=== PATIENT | male | born 1970 | race Caucasian/White ===

== ENCOUNTER 2016-09-27 06:22 | Inpatient (IN) | payer MEDICARE, MEDICAID ==
[~2016-09-27] VITALS: Ht 177.8 cm; Wt 119.3 kg
[2016-09-27] VITALS (14 sets, daily range): BP systolic 139–174; BP diastolic 63–92
[~2016-09-27 06:22] MED LIST: AMLO10TA2 PO; AMOX1TAB10 PO; ASCO500T2 PO; ATOR10TA60 PO; CALC0.25 PO; CALC300T5 PO; CALC667C6 PO; CARV25TA2 PO; CLIN300C86 PO; DARB100D SQ; DILT180C29 PO; DOCU50CA9 PO; DRON400T PO; FENT1PAT15 TP; FURO40TA4 PO; GABA-586 PO; HYDR-2869 PO; INSU100I11 SQ; INSU100I13 SQ; INSU100I17 SQ; INSU100I27 SQ; INSU100V13 SQ; INSU100V8 SQ; LISI-334 PO; LOSA100T6 PO; METO50TA2 PO; OXYC-323 PO; SERT25TA4 PO; SIMV20TA PO; SODI650T PO
[2016-09-27 07:34] LABS: INR 1.3 (0.8-1.1); PROTHROMBIN TIME PATIENT 15.7 SEC (11.7-14.0)
[2016-09-27 07:42] LABS: BASO # 0.1 x10^3/uL (0.0-0.2); BASO % 1 % (0-3); EOS % 5 % (0-3); HEMATOCRIT 45.7 % (39.0-53.0); HEMOGLOBIN 14.3 g/dL (13.0-17.5); LYMPH # 1.6 x10^3/uL (1.0-4.8); LYMPH % 17 % (24-48); MEAN CORPUSCULAR HEMOGLOBIN 26 pg (25-35); MEAN CORPUSCULAR HGB CONC 31 g/dL (31-37); MEAN CORPUSCULAR VOLUME 84 fL (79-100); MONO % 11 % (0-9); NEUT % 67 % (31-73); PLATELET COUNT 152 x10^3/uL (140-400); RED BLOOD COUNT 5.43 x10^6/uL (4.30-5.70); RED CELL DISTRIBUTION WIDTH 17.1 % (11.5-14.5); WHITE BLOOD COUNT 9.7 x10^3/uL (4.0-11.0)
[2016-09-27] MEDS ORDERED: HYDR-2869 PO (08:04)
[2016-09-27] MEDS ORDERED: FOLI0.8T21 PO (08:04)
[2016-09-27] MEDS ORDERED: WARF7.5T6 PO (08:04)
[2016-09-27] MEDS ORDERED: FERR210T PO (08:04)
[2016-09-27] MEDS ORDERED: FENT1PAT19 TD (08:04)
[2016-09-27 08:08] LABS: CALCIUM 8.6 mg/dL (8.5-10.1); CREATININE 9.1 mg/dL (0.7-1.3); GFR 6.3
[2016-09-27] MEDS ORDERED: LIDOCAINE 1% / SOD BICARB 8.4% 20 ML VIAL. IJ ONE ×2 (09:51→10:45)
[2016-09-27] MEDS ORDERED: HEPARIN for ARTERIAL LINE 1,500 ML ONE (09:51)
[2016-09-27] MEDS ORDERED: IOHEXOL 300 MG/ML 100ML VIAL. ONE (09:51)
[2016-09-27] MEDS ORDERED: IODIXANOL 320 MG/ML 100 ML VIAL. ONE (10:11)
[2016-09-27] MEDS ORDERED: FENTANYL PF 250 MCG/5 ML VIAL. ONE (10:20)
[2016-09-27] MEDS ORDERED: MIDAZOLAM HCL/PF 5 MG/5 ML VIAL ONE (10:20)
[2016-09-27] MEDS ORDERED: IODIXANOL 320 MG/ML 100 ML VIAL. IART ONE (10:45)
[2016-09-27] MEDS ORDERED: MIDAZOLAM HCL/PF 5 MG/5 ML VIAL IV ONE (10:45)
[2016-09-27] MEDS ORDERED: FENTANYL PF 250 MCG/5 ML VIAL. IV ONE (10:45)
[2016-09-27] MEDS ORDERED: IODIXANOL 320MG/ML 50ML VIAL. ONE (10:59)
[2016-09-27] MEDS ORDERED: NITROGLYCERIN 200 MCG/2 ML SYRINGE FOR CATH/VASC LAB. IART ONE (11:00)
[2016-09-27] MEDS ORDERED: CONTRAST GIVEN MC PRN (11:00)
--- NOTE | 2016-09-27 11:54 | PDOC1 ---
History and Physical Date of Procedure Date of Admission Sep 27, 2016 Procedure Procedure Thoracic aortogram with selective rt UE angio, without and with AVG compression , and without and with IA NTG. Indication Indication 45 YO diabetic smoker with ESRD, right upper arm AVG, right 5th finger gangrene and with nonpalpable rt radial or ulnar pulses---c/w AVG steal phenomenon. Past Medical History Past Medical History See Nursing Pre Procedure PMH Past Surgical History Past Surgical History See Nursing Pre procedure PSH Current Medications Current Medications Current Medications Iohexol (Omnipaque 300 Mg/ml) 100 ml STK-MED ONCE .ROUTE ; Start 09/27/16 at 09: 51; Stop 09/27/16 at 09:52; Status DC Lidocaine/Sodium Bicarbonate 20 ml 20 ml STK-MED ONCE IJ ; Start 09/27/16 at 09: 51; Stop 09/27/16 at 09:52; Status DC Heparin Sodium/ Sodium Chloride 1,500 ml @ As Directed STK-MED ONCE .ROUTE ; Start 09/27/16 at 09:51; Stop 09/27/16 at 09:52; Status DC Iodixanol (Visipaque 320) 100 ml STK-MED ONCE .ROUTE ; Start 09/27/16 at 10:11; Stop 09/27/16 at 10:12; Status DC Midazolam HCl (Versed) 5 mg STK-MED ONCE .ROUTE ; Start 09/27/16 at 10:20; Stop 09/27/16 at 10:21; Status DC Fentanyl Citrate (Fentanyl 5ml Vial) 250 mcg STK-MED ONCE .ROUTE ; Start at 10:20; Stop 09/27/16 at 10:21; Status DC Heparin Sodium/ Sodium Chloride 1,000 unit 1X ONCE IART Last administered on 10:48; Start 09/27/16 at 10:45; Stop 09/27/16 at 10:46; Status DC Lidocaine/Sodium Bicarbonate (Buffered Lidocaine 1%) 20 ml 1X ONCE IJ Last administered on 09/27/16 10:48; Start 09/27/16 at 10:45; Stop 09/27/16 at 10:46 ; Status DC Midazolam HCl (Versed) 5 mg 1X ONCE IV Last administered on 09/27/16 11:17; Start 09/27/16 at 10:45; Stop 09/27/16 at 10:46; Status DC Fentanyl Citrate (Fentanyl 5ml Vial) 250 mcg 1X ONCE IV Last administered on 11:17; Start 09/27/16 at 10:45; Stop 09/27/16 at 10:46; Status DC Iodixanol (Visipaque 320) 100 ml 1X ONCE IART Last administered on 09/27/16 11:17; Start 09/27/16 at 10:45; Stop 09/27/16 at 10:46; Status DC Info (Do NOT chart on this entry -- for MONITORING) 1 each PRN DAILY PRN MC SEE COMMENTS; Start 09/27/16 at 11:00; Stop 09/29/16 at 10:59 Iodixanol (Visipaque 320) 50 ml STK-MED ONCE .ROUTE ; Start 09/27/16 at 10:59; Stop 09/27/16 at 11:00; Status DC Nitroglycerin (Nitroglycerin) 200 mcg 1X ONCE IART Last administered on 11:05; Start 09/27/16 at 11:00; Stop 09/27/16 at 11:07; Status DC Active Scripts Active Clindamycin Hcl 300 Mg Capsule 1 Cap PO BID Novolog Flexpen (Insulin Aspart) 100 Unit/1 Ml Insuln.pen 8 Units SQ TIDAC Reported Lantus Solostar (Insulin Glargine,Hum.rec.anlog) 100 Unit/1 Ml Insuln.pen 15 Unit SQ QHS Furosemide 40 Mg Tablet 1 Tab PO BID Tums (Calcium Carbonate) 300 Mg Tab.chew 500 Mg PO QID Losartan Potassium 100 Mg Tablet 100 Mg PO DAILY Stool Softener (Docusate Sodium) 50 Mg Capsule 50 Mg PO BID Atorvastatin Calcium 10 Mg Tablet 10 Mg PO DAILY Sodium Bicarbonate 650 Mg Tablet 1,300 Mg PO TID Amlodipine Besylate 10 Mg Tablet 10 Mg PO DAILY Metoprolol Tartrate 50 Mg Tablet 50 Mg PO BID Warfarin Sodium 7.5 Mg Tablet 7.5 Mg PO DAILY [place] Tablet (Folic Acid/Vitamin B Comp W-C) 0.8 Mg Tablet 0.8 Mg PO DAILY Ferric Citrate 210 Mg Tablet 210 Mg PO TID Hydralazine Hcl 50 Mg Tablet 50 Mg PO QID FENTANYL 75mcg/hr (Fentanyl) 1 Each Patch.td72 1 Patch TD Q72H PRN Allergies Allergies: Coded Allergies: clarithromycin (Verified Allergy, Intermediate, 03/11/16) levofloxacin (Verified Allergy, Intermediate, 03/11/16) Physical Exam Vital Signs Vital Signs Date Time Temp Pulse Resp B/P Pulse Ox O2 Delivery O2 Flow Rate FiO2 09/27/16 11:17 12 98 Nasal Cannula 2.0 09/27/16 11:10 80 09/27/16 07:50 150/88 Lungs: Clear to auscultation Heart: Regular rate Psych/Mental Status: Mental status NL Vascular Strong thrill within rt upper arm AVG. Nonpalpable rt radial and ulnar pulses. Rt 5th finger gangrene. Diagnostic Data/Imaging Images No prior rt UE imaging available Assessment Assessment 45 YO male with ESRD, right upper arm AVG, nonpalpable rt radial and ulnar pulses and rt 5th finger gangrene------c/w AVG steal phenomenon Problems: Plan Plan Thoracic aortogram. Selective rt UE angio with and without AVG compression and with and without IA NTG. Angio evaluation for possible DRIL procedure. STEFFI RALPH MD Sep 27, 2016 11:54
--- NOTE | 2016-09-27 11:55 | PDOC ---
MODERATE SEDATION ASSESSMENT RISKS/ALTERNATIVES Risks/Alternatives Risks and alternatives of this type of sedation and procedure discussed with: RISK/ALTERNATIVES: Patient H & P ON CHART H & P H & P on chart and reviewed for co-morbid conditions and appropriate labs. H&P ON CHART: Yes STATUS PREG STATUS ASSESSED: N/A MEDS/ALLERGIES REVIEWED Meds/Allergies Reviewed Medications and Allergies including time and route of recently administered narcotics and sedatives. MEDS/ALLERGIES REVIEWED: Yes ASA RATING ASA RATING: III AIRWAY ASSESSMENT Airway Assessment Airway patency, oral function limitations, presence of caps, crowns, dentures, partials, and ability to extend neck assessed. AIRWAY ASSESSMENT: Yes MALLAMPATI SCORE MALLAMPATI SCORE: III PRE-SEDATION ASSESSMENT PRE-SEDATION ASSESSMENT: Yes STEFFI RALPH MD Sep 27, 2016 11:54
--- NOTE | 2016-09-27 12:03 | PDOC ---
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 Widely patent right brachiocephalic, subclavian, axillary, and brachial arteries. Brisk flow thru widely patent AVG. Minimal flow to right hand, with significant improvement with AVG compression--- c/w steal phenomenon. Procedure Performed Procedure Performed Thoracic arch angio, with selective rt UE angio, with and without AVG compression. Type of Anesthesia Type of Anesthesia Local + Mod sedation Estimated Blood Loss EBL: 25 cc Condition of Patient Condition of Patient Stable. No apparent complication. Disposition Disposition From to [address] [place] [address] for recovery. HIMS admit. Tentatively scheduled for DRIL procedure early next week with Dr Mendez. Full report to follow. STEFFI RALPH MD Sep 27, 2016 12:02
[2016-09-27] MEDS ORDERED: OXYC-250 PO (12:04)
[2016-09-27] MEDS ORDERED: DEXTROSE 50% 25 GM / 50ML DISP.SYRIN. IV PRN (12:45)
[2016-09-27] MEDS ORDERED: ACETAMINOPHEN 325 MG TABLET. PO PRN (12:45)
--- NOTE | 2016-09-27 13:09 | PDOC1 ---
History and Physical Date of Admission Date of Admission DATE: 09/27/16 TIME: 13:03 Identification/Chief Complaint Chief Complaint gangrenous 5th digit, R hand Source Source: Caregiver, Chart review, Patient History of Present Illness History of Present Illness 45 y./o obese [place] male, vasculopath, ESRD on HD, left AKA, HTN, DM on insulin, admitted post IR procedure for eval/run off in prep for possible amputation or revascularization of the R 5th pinky finger. Pt seen in room, in deep sleep post anesthesia, gangrenous digit appreciated, left AKA too.\Weak pulses left hand. Sx plans by [facility] sx tentatively on Friday, Pt admitted under hospitalist. LAbs ok except for ESRD numbers, crea 9 Past Medical History Cardiovascular: CHF, HTN, Hyperlipidemia Pulmonary: Other CENTRAL NERVOUS SYSTEM: Other GI: No pertinent hx Heme/Onc: Anemia NOS Hepatobiliary: No pertinent hx Psych: No pertinent hx Rheumatologic: Gout Infectious disease: Other Renal/: Chronic renal failure Endocrine: Diabetes Past Surgical History Past Surgical History: Other Family History Family History: Coronary Artery Disease Social History Smoke: No ALCOHOL: none Drugs: None Current Medications Current Medications Current Medications Iohexol (Omnipaque 300 Mg/ml) 100 ml STK-MED ONCE .ROUTE ; Start 09/27/16 at 09: 51; Stop 09/27/16 at 09:52; Status DC Lidocaine/Sodium Bicarbonate 20 ml 20 ml STK-MED ONCE IJ ; Start 09/27/16 at 09: 51; Stop 09/27/16 at 09:52; Status DC Heparin Sodium/ Sodium Chloride 1,500 ml @ As Directed STK-MED ONCE .ROUTE ; Start 09/27/16 at 09:51; Stop 09/27/16 at 09:52; Status DC Iodixanol (Visipaque 320) 100 ml STK-MED ONCE .ROUTE ; Start 09/27/16 at 10:11; Stop 09/27/16 at 10:12; Status DC Midazolam HCl (Versed) 5 mg STK-MED ONCE .ROUTE ; Start 09/27/16 at 10:20; Stop 09/27/16 at 10:21; Status DC Fentanyl Citrate (Fentanyl 5ml Vial) 250 mcg STK-MED ONCE .ROUTE ; Start at 10:20; Stop 09/27/16 at 10:21; Status DC Heparin Sodium/ Sodium Chloride 1,000 unit 1X ONCE IART Last administered on 10:48; Start 09/27/16 at 10:45; Stop 09/27/16 at 10:46; Status DC Lidocaine/Sodium Bicarbonate (Buffered Lidocaine 1%) 20 ml 1X ONCE IJ Last administered on 09/27/16 10:48; Start 09/27/16 at 10:45; Stop 09/27/16 at 10:46 ; Status DC Midazolam HCl (Versed) 5 mg 1X ONCE IV Last administered on 09/27/16 11:17; Start 09/27/16 at 10:45; Stop 09/27/16 at 10:46; Status DC Fentanyl Citrate (Fentanyl 5ml Vial) 250 mcg 1X ONCE IV Last administered on 11:17; Start 09/27/16 at 10:45; Stop 09/27/16 at 10:46; Status DC Iodixanol (Visipaque 320) 100 ml 1X ONCE IART Last administered on 09/27/16 11:17; Start 09/27/16 at 10:45; Stop 09/27/16 at 10:46; Status DC Info (Do NOT chart on this entry -- for MONITORING) 1 each PRN DAILY PRN MC SEE COMMENTS; Start 09/27/16 at 11:00; Stop 09/29/16 at 10:59 Iodixanol (Visipaque 320) 50 ml STK-MED ONCE .ROUTE ; Start 09/27/16 at 10:59; Stop 09/27/16 at 11:00; Status DC Nitroglycerin (Nitroglycerin) 200 mcg 1X ONCE IART Last administered on 11:05; Start 09/27/16 at 11:00; Stop 09/27/16 at 11:07; Status DC Insulin Aspart (Novolog) 0-9 UNITS TIDWMEALS SQ ; Start 09/27/16 at 17:00 Dextrose 12.5 gm PRN Q15MIN PRN IV SEE COMMENTS; Start 09/27/16 at 12:45 Acetaminophen (Tylenol) 650 mg PRN Q6HRS PRN PO MILD PAIN / TEMP; Start at 12:45 Ondansetron HCl (Zofran) 4 mg PRN Q6HRS PRN IV NAUSEA/VOMITING; Start 09/27/16 at 12:45 Amlodipine Besylate (Norvasc) 10 mg DAILY PO ; Start 09/27/16 at 13:00 Atorvastatin Calcium (Lipitor) 10 mg QHS PO ; Start 09/27/16 at 21:00 Fentanyl (Duragesic 75mcg/ Hr Patch) 1 patch Q72H PRN TD PAIN; Start 09/27/16 at 12:45 Vitamin B Complex/ Vitamin C (Nephro-Eleazar) 1 tab DAILY PO ; Start 09/28/16 at 09 :00 Furosemide (Lasix) 40 mg BID92 PO ; Start 09/27/16 at 14:00 Hydralazine HCl (Apresoline) 50 mg QID PO ; Start 09/27/16 at 13:00 Insulin Aspart (Novolog) 8 units TIDAC SQ ; Start 09/27/16 at 16:30 Metoprolol Tartrate (Lopressor) 50 mg BID PO ; Start 09/27/16 at 21:00 Oxycodone/ Acetaminophen (Percocet 10/325) 1 tab TID PO ; Start 09/27/16 at 14: 00 Sodium Bicarbonate (Sodium Bicarbonate) 1,300 mg TID PO ; Start 09/27/16 at 14: 00 Calcium Carbonate/ Glycine (Tums) 500 mg QID PO ; Start 09/27/16 at 13:00 Non-Formulary Medication 210 mg TID PO ; Start 09/27/16 at 14:00; Status UNV Insulin Detemir (Levemir) 15 units QHS SQ ; Start 09/27/16 at 21:00 Losartan Potassium (Cozaar) 100 mg DAILY PO ; Start 09/27/16 at 13:00 Heparin Sodium (Porcine) 5,000 unit Q8HRS SQ ; Start 09/27/16 at 14:00 Amoxicillin/ Clavulanate Potassium (Augmentin 875/ 125mg) 1 tab BID PO ; Start 09/27/16 at 21:00; Status UNV Active Scripts Active Novolog Flexpen (Insulin Aspart) 100 Unit/1 Ml Insuln.pen 8 Units SQ TIDAC Reported Percocet 10-325 Mg Tablet (Oxycodone/Acetaminophen) 1 Each Tablet 1 Tab PO TID Warfarin Sodium 7.5 Mg Tablet 7.5 Mg PO DAILY [place] Tablet (Folic Acid/Vitamin B Comp W-C) 0.8 Mg Tablet 0.8 Mg PO DAILY Ferric Citrate 210 Mg Tablet 210 Mg PO TID Hydralazine Hcl 50 Mg Tablet 50 Mg PO QID FENTANYL 75mcg/hr (Fentanyl) 1 Each Patch.td72 1 Patch TD Q72H PRN Lantus Solostar (Insulin Glargine,Hum.rec.anlog) 100 Unit/1 Ml Insuln.pen 15 Unit SQ QHS Furosemide 40 Mg Tablet 1 Tab PO BID Tums (Calcium Carbonate) 300 Mg Tab.chew 500 Mg PO QID Losartan Potassium 100 Mg Tablet 100 Mg PO DAILY Atorvastatin Calcium 10 Mg Tablet 10 Mg PO DAILY Sodium Bicarbonate 650 Mg Tablet 1,300 Mg PO TID Amlodipine Besylate 10 Mg Tablet 10 Mg PO DAILY Metoprolol Tartrate 50 Mg Tablet 50 Mg PO BID Allergies Allergies: Coded Allergies: clarithromycin (Verified Allergy, Intermediate, 03/11/16) levofloxacin (Verified Allergy, Intermediate, 03/11/16) ROS Review of System asleep - did not awaken Physical Exam General: Alert, Oriented X3, Cooperative, No acute distress HEENT: Atraumatic, PERRLA Lungs: Clear to auscultation, Normal air movement Heart: S1S2 Cardiovascular: S1, S2 Breasts: Normal Abdomen: Normal bowel sounds, Soft, No tenderness, No hepatosplenomegaly, No masses Male Genitals Exam: normal genitalia, normal prostate Extremities: Other (gangrenous R 5th digit) Skin: No rashes, No breakdown, No significant lesion Neuro: Normal gait, Normal speech, Strength at 5/5 X4 ext, Normal tone, Sensation intact, Cranial nerves 3-12 NL, Reflexes 2+ Psych/Mental Status: Mental status NL, Mood NL Vitals Vitals Vital Signs Date Time Temp Pulse Resp B/P Pulse Ox O2 Delivery O2 Flow Rate FiO2 09/27/16 12:20 80 145/89 09/27/16 12:00 98.0 18 95 Room Air 98.0 09/27/16 11:17 2.0 Labs Labs Laboratory Tests Test 09/27/16 07:00 White Blood Count 9.7x10^3/uL (4.0-11.0) Red Blood Count 5.43x10^6/uL (4.30-5.70) Hemoglobin 14.3g/dL (13.0-17.5) Hematocrit 45.7% (39.0-53.0) Mean Corpuscular Volume 84fL (79-100) Mean Corpuscular Hemoglobin 26pg (25-35) Mean Corpuscular Hemoglobin Concent 31g/dL (31-37) Red Cell Distribution Width 17.1% (11.5-14.5) Platelet Count 152x10^3/uL (140-400) Neutrophils (%) (Auto) 67% (31-73) Lymphocytes (%) (Auto) 17% (24-48) Monocytes (%) (Auto) 11% (0-9) Eosinophils (%) (Auto) 5% (0-3) Basophils (%) (Auto) 1% (0-3) Neutrophils # (Auto) 6.5x10^3uL (1.8-7.7) Lymphocytes # (Auto) 1.6x10^3/uL (1.0-4.8) Monocytes # (Auto) 1.0x10^3/uL (0.0-1.1) Eosinophils # (Auto) 0.5x10^3/uL (0.0-0.7) Basophils # (Auto) 0.1x10^3/uL (0.0-0.2) Prothrombin Time 15.7SEC (11.7-14.0) Prothromb Time International Ratio 1.3 (0.8-1.1) Sodium Level 137mmol/L (136-145) Potassium Level 5.0mmol/L (3.5-5.1) Chloride Level 100mmol/L (98-107) Carbon Dioxide Level 23mmol/L (21-32) Anion Gap 14 (6-14) Blood Urea Nitrogen 51mg/dL (8-26) Creatinine 9.1mg/dL (0.7-1.3) Estimated GFR (Cockcroft-Gault) 6.3 Glucose Level 266mg/dL (70-99) Calcium Level 8.6mg/dL (8.5-10.1) Laboratory Tests Test 09/27/16 07:00 White Blood Count 9.7x10^3/uL (4.0-11.0) Red Blood Count 5.43x10^6/uL (4.30-5.70) Hemoglobin 14.3g/dL (13.0-17.5) Hematocrit 45.7% (39.0-53.0) Mean Corpuscular Volume 84fL (79-100) Mean Corpuscular Hemoglobin 26pg (25-35) Mean Corpuscular Hemoglobin Concent 31g/dL (31-37) Red Cell Distribution Width 17.1% (11.5-14.5) Platelet Count 152x10^3/uL (140-400) Neutrophils (%) (Auto) 67% (31-73) Lymphocytes (%) (Auto) 17% (24-48) Monocytes (%) (Auto) 11% (0-9) Eosinophils (%) (Auto) 5% (0-3) Basophils (%) (Auto) 1% (0-3) Neutrophils # (Auto) 6.5x10^3uL (1.8-7.7) Lymphocytes # (Auto) 1.6x10^3/uL (1.0-4.8) Monocytes # (Auto) 1.0x10^3/uL (0.0-1.1) Eosinophils # (Auto) 0.5x10^3/uL (0.0-0.7) Basophils # (Auto) 0.1x10^3/uL (0.0-0.2) Prothrombin Time 15.7SEC (11.7-14.0) Prothromb Time International Ratio 1.3 (0.8-1.1) Sodium Level 137mmol/L (136-145) Potassium Level 5.0mmol/L (3.5-5.1) Chloride Level 100mmol/L (98-107) Carbon Dioxide Level 23mmol/L (21-32) Anion Gap 14 (6-14) Blood Urea Nitrogen 51mg/dL (8-26) Creatinine 9.1mg/dL (0.7-1.3) Estimated GFR (Cockcroft-Gault) 6.3 Glucose Level 266mg/dL (70-99) Calcium Level 8.6mg/dL (8.5-10.1) VTE Prophylaxis Ordered VTE Prophylaxis Devices: Yes VTE Pharmacological Prophylaxi: Yes Assessment/Plan Assessment/Plan 1. GAngrenous R fifth digit 2. ESRD on HD 3. 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 HTN 5. Left AKA 6. Obesity 7. Dysl;ipidmia 8. mild pCM Plan REsume meds PT./OT Supportive care PLan OR amputation gangrenous 5th digit on tues, tentative HD per renal SSI Dw AWAIS MONET MD Sep 27, 2016 13:09
[2016-09-27] MEDS ORDERED: NON FORMULARY ITEM (Ferric Citrate 210 MG) PO SCH (14:00)
[2016-09-27] MEDS: HEPARIN PF for SUB-Q USE 5,000 UNIT/0.5 ML VIAL. SQ SCH ×2 (14:00→22:04)
[2016-09-27] MEDS: SODIUM BICARBONATE 650 MG TABLET. PO SCH ×2 (14:01→21:56)
[2016-09-27] MEDS: CALCIUM CARBONATE 500 MG TAB.CHEW PO SCH ×3 (14:01→21:00)
[2016-09-27] MEDS: AMOXICILLIN/K CLAV 500/125MG TABLET. PO SCH ×2 (14:01→21:00)
[2016-09-27] MEDS: FUROSEMIDE 40 MG TABLET PO SCH (14:01)
[2016-09-27] MEDS: LOSARTAN POTASSIUM 50 MG TABLET. PO SCH (14:02)
[2016-09-27] MEDS: HYDRALAZINE 50 MG TABLET PO SCH ×3 (14:03→21:56)
[2016-09-27] MEDS: AMLODIPINE BESYLATE 10 MG TABLET PO SCH (14:03)
[2016-09-27] MEDS: OXYCODONE/APAP 10/325 TABLET. PO SCH ×2 (14:04→21:56)
--- NOTE | 2016-09-27 16:47 | RAD ---
Aortic arch with selective right upper extremity arteriogram Indication: 45-year-old male with end stage renal disease, right upper arm AV graft, nonpalpable right radial and ulnar pulses, and right fifth finger gangrene----consistent with AV shunt steal phenomenon. Diagnostic arteriogram requested to evaluate for possible DRIL procedure. Fluoroscopy time: 11.4 minutes Kerma-area Product: 113 Gycm2 Contrast material: 118 cc Visipaque 320 Anesthesia: 52 minutes moderate sedation was provided utilizing a total of 1 mg Versed and 50 mcg fentanyl, IV. The patient was appropriately monitored by a qualified independent observer throughout the time of moderate sedation. Consent: The procedure was explained in its entirety to the patient and/or the patient's designated employment representative by a member of the treatment team. This included a discussion of risks and benefits and commonly accepted alternatives to the procedure, as well as expected consequences of no treatment at all. Discussion of risks included, but was not limited to, those that are most frequent and those that are rare, but possibly severe or life-threatening, as well as the possibility of unforeseen complications. Sterility: All elements of maximal sterile barrier technique were utilized, including cap, mask, sterile gown, sterile gloves, large sterile sheet, appropriate hand hygiene, and 2% chlorhexidine for cutaneous antisepsis. Procedure: Informed consent was obtained from the patient. He was placed supine on the angiography table. Preliminary ultrasound examination of right groin revealed wide patency of right common femoral artery, which was documented with a single hard copy ultrasound image. Right groin was then prepped and draped in the usual sterile fashion, utilizing all elements of maximal sterile barrier technique, as described above. Moderate sedation was provided with IV Versed and fentanyl. Using aseptic technique, local anesthesia, direct ultrasound guidance, and the micropuncture system, a 5 Dominican right common femoral artery sheath was successfully introduced. Aortic arch injection: A 5 Dominican Omni Flush catheter was advanced through the right groin sheath and was positioned within a sending thoracic aorta. Visipaque 320 was injected and arch DSA images were obtained in SINHALA and slight PUENTE projections. Findings: Visualized aortic arch is normal in size and smooth in contour. There is no evidence of intimal flap or aneurysmal dilatation. Origins of great vessels from aortic arch are widely patent. Brachiocephalic artery, right subclavian artery, and right axillary artery are widely patent and unremarkable. Right upper extremity central veins are promptly opacified via the patient's right upper arm AV shunt, and are widely patent. Selective right upper extremity arteriogram: The Omni Flush catheter was exchanged for a 5 Dominican H1 catheter, which was advanced over a Glidewire across right brachiocephalic and subclavian arteries into right axillary artery. Visipaque was injected and DSA images were obtained from right shoulder through elbow. The H1 catheter was then exchanged over a long Glidewire for a Yusuf Cross catheter, which was advanced into brachial artery at the level of distal humerus, just above the AV graft arterial anastomosis. Visipaque 320 was then injected and DSA images were obtained from elbow through hand with and without AV graft compression. The Yusuf Cross catheter was then further advanced into distal brachial artery, below elbow, and below the graft arterial anastomosis. Visipaque 320 was injected and DSA images were obtained before and after intra-arterial administration of 200 mcg nitroglycerin. Findings: 1. Right brachial artery is widely patent throughout its course. The AV graft arterial anastomosis is widely patent. The entire AV graft through right atrium appears widely patent, apart from minimal narrowing adjacent to inferior margin of a previously placed covered stent across the venous anastomosis. 2. Images from elbow through hand obtained without AV graft compression revealed sluggish contrast opacification of right radial artery, which is patent from origin through wrist, with poor opacification of superficial palmar arch. There is complete occlusion of the proximal 4 cm segment of ulnar artery, which is faintly opacified at the level of proximal forearm. 3. Images obtained from elbow through hand with AV graft compression revealed significantly improved perfusion to right forearm, wrist, and hand. There is brisk opacification of right radial artery from origin through superficial palmar arch, with suboptimal opacification of metacarpal and digital arteries, suggesting underlying small vessel disease. There was prompt proximal forearm reconstitution of right ulnar artery approximately 4 cm below its origin. However, distal ulnar artery appears densely calcific and is not opacified at distal forearm/wrist. 4. Images over right hand obtained before and after direct administration of nitroglycerin into distal brachial artery revealed little interval change, suggesting absence of vasospasm. Patient tolerated the procedure well without apparent complication. Hemostasis was achieved at the right groin puncture site utilizing the Mynx closure system. Impression: 1. Origins of great vessels from aortic arch are widely patent. 2. Right brachiocephalic, subclavian, axillary, and brachial arteries are widely patent. 3. Right upper arm AV graft is widely patent, from arterial anastomosis through right atrium. 4. Significantly improved perfusion to right forearm, wrist, and hand with AV graft compression, consistent with the clinical impression of steal phenomenon. 5. No significant change in perfusion to right forearm, wrist, and hand following administration of nitroglycerin directly into distal right brachial artery.
[2016-09-27] MEDS: INSULIN ASPART 300 UNITS/3 ML INSULN.PEN SQ SCH ×2 (17:00→17:29)
[2016-09-27] MEDS: CALCIUM ACETATE 667 MG CAPSULE PO SCH (17:25)
[2016-09-27] MEDS: METOPROLOL TART IMMED RELEASE 50 MG TABLET PO SCH (21:55)
[2016-09-27] MEDS: ATORVASTATIN CALCIUM 10 MG TABLET. PO SCH (21:56)
[2016-09-27] MEDS: INSULIN DETEMIR 300 UNITS/3 ML INSULN.PEN. SQ SCH (22:25)
[2016-09-28 03:00] VITALS: BP 129/69
[2016-09-28 05:31] LABS: BASO # 0.1 x10^3/uL (0.0-0.2); BASO % 1 % (0-3); EOS % 5 % (0-3); HEMATOCRIT 45.7 % (39.0-53.0); HEMOGLOBIN 14.4 g/dL (13.0-17.5); LYMPH # 2.3 x10^3/uL (1.0-4.8); LYMPH % 24 % (24-48); MEAN CORPUSCULAR HEMOGLOBIN 26 pg (25-35); MEAN CORPUSCULAR HGB CONC 32 g/dL (31-37); MEAN CORPUSCULAR VOLUME 83 fL (79-100); MONO % 9 % (0-9); NEUT % 61 % (31-73); PLATELET COUNT 172 x10^3/uL (140-400); RED BLOOD COUNT 5.53 x10^6/uL (4.30-5.70); WHITE BLOOD COUNT 9.5 x10^3/uL (4.0-11.0)
[2016-09-28] MEDS: HEPARIN PF for SUB-Q USE 5,000 UNIT/0.5 ML VIAL. SQ SCH ×2 (05:37→14:00)
[2016-09-28 05:44] LABS: CALCIUM 8.6 mg/dL (8.5-10.1); CREATININE 11.2 mg/dL (0.7-1.3); GFR 4.9
[2016-09-28 05:45] LABS: POTASSIUM 5.4 mmol/L (3.5-5.1)
[2016-09-28 07:00] VITALS: BP 128/73
[2016-09-28] MEDS: INSULIN ASPART 300 UNITS/3 ML INSULN.PEN SQ SCH ×6 (08:00→17:00)
[2016-09-28] MEDS: OXYCODONE/APAP 10/325 TABLET. PO SCH ×3 (08:13→20:58)
[2016-09-28] MEDS: CALCIUM CARBONATE 500 MG TAB.CHEW PO SCH ×4 (09:34→21:00)
[2016-09-28] MEDS: FUROSEMIDE 40 MG TABLET PO SCH ×2 (09:34→14:00)
[2016-09-28] MEDS: HYDRALAZINE 50 MG TABLET PO SCH ×4 (09:34→21:00)
[2016-09-28] MEDS: SODIUM BICARBONATE 650 MG TABLET. PO SCH ×3 (09:34→20:58)
[2016-09-28] MEDS: AMLODIPINE BESYLATE 10 MG TABLET PO SCH (09:35)
[2016-09-28] MEDS: METOPROLOL TART IMMED RELEASE 50 MG TABLET PO SCH ×2 (09:35→20:59)
[2016-09-28] MEDS: CALCIUM ACETATE 667 MG CAPSULE PO SCH ×4 (09:35→17:00)
[2016-09-28] MEDS: LOSARTAN POTASSIUM 50 MG TABLET. PO SCH (09:36)
[2016-09-28] MEDS: FOLIC/VIT B COMP W-C (RENAL) TABLET. PO SCH (09:53)
[2016-09-28] MEDS ORDERED: ONDANSETRON PF 4 MG/2 ML VIAL. IV PRN ×2 (10:00)
[2016-09-28] MEDS: ONDANSETRON PF 4 MG/2 ML VIAL. IV PRN (10:04)
[2016-09-28 11:00] VITALS: BP 119/66
[2016-09-28] MEDS: FENTANYL 75MCG/HR PATCH. TD PRN (12:10)
[2016-09-28] MEDS ORDERED: PIP/TAZO PER PHARMACY MC PRN (13:45)
--- NOTE | 2016-09-28 13:55 | PDOC ---
Provider Note Provider Note Vascular Surgery Consult - dictated 45 year old male with ESRD on dialysis through a right upper arm AV shunt. He has poor circulation to his right hand secondary to steal from the AV shunt/PVD and has developed right 5th finger dry gangrene and cellulitis. I started him of IV vancomycin and augmentin on friday and there has been improvement in the finger swelling and erythema. Angiogram done yesterday shows patent inflow arterial to the right arm, poor flow to the hand which improves with compression of the graft consistent with steal syndrome. Recommend right arm DRIL arterial bypass surgery using saphenous vein from the right leg and a right 5th finger amputation (this is scheduled friday at 7:30am). Will need to continue IV antibiotics and try to further improve cellulitis before surgery. ID consulted, will start vanco/zosyn for now. Will start lovenox 60mg BID ( lower dose with cath yesterday) since on coumadin chronically. LILA BARBOSA MD Sep 28, 2016 13:55
[2016-09-28] MEDS ORDERED: AMOXICILLIN/K CLAV 500/125MG TABLET. PO SCH (14:00)
--- NOTE | 2016-09-28 14:03 | PDOC ---
PROGRESS NOTES Chief Complaint Chief Complaint 1. GAngrenous R fifth digit 2. ESRD on HD 3. 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 HTN 5. Left AKA 6. Obesity 7. Dysl;ipidmia 8. mild pCM 9. on coumadin, not sure why Plan REsume meds PT./OT Supportive care PLan OR amputation gangrenous 5th digit on tues, tentative HD per renal SSI Dw IR hold coumadin, on lovenox bid ID consulted, on zosyn and vanco for now History of Present Illness History of Present Illness pt feels ok, +nausea Vitals Vitals Vital Signs Date Time Temp Pulse Resp B/P Pulse Ox O2 Delivery O2 Flow Rate FiO2 09/28/16 12:10 Room Air 09/28/16 11:00 97.5 67 20 119/66 97 97.5 09/27/16 11:17 2.0 Physical Exam General: Alert, Oriented X3, Cooperative, No acute distress Heart: Regular rate Lungs: Clear, Other Abdomen: Normal bowel sounds, Soft, No tenderness, No hepatosplenomegaly, No masses Extremities: Other (gangrenous R 5th digit) Skin: No rashes, No breakdown, No significant lesion Labs LABS Laboratory Tests Test 09/27/16 17:24 09/27/16 21:30 09/28/16 04:47 09/28/16 07:32 Glucose (Fingerstick) 176mg/dL (70-99) 149mg/dL (70-99) 138mg/dL (70-99) White Blood Count 9.5x10^3/uL (4.0-11.0) Red Blood Count 5.53x10^6/uL (4.30-5.70) Hemoglobin 14.4g/dL (13.0-17.5) Hematocrit 45.7% (39.0-53.0) Mean Corpuscular Volume 83fL (79-100) Mean Corpuscular Hemoglobin 26pg (25-35) Mean Corpuscular Hemoglobin Concent 32g/dL (31-37) Red Cell Distribution Width 17.0% (11.5-14.5) Platelet Count 172x10^3/uL (140-400) Neutrophils (%) (Auto) 61% (31-73) Lymphocytes (%) (Auto) 24% (24-48) Monocytes (%) (Auto) 9% (0-9) Eosinophils (%) (Auto) 5% (0-3) Basophils (%) (Auto) 1% (0-3) Neutrophils # (Auto) 5.8x10^3uL (1.8-7.7) Lymphocytes # (Auto) 2.3x10^3/uL (1.0-4.8) Monocytes # (Auto) 0.8x10^3/uL (0.0-1.1) Eosinophils # (Auto) 0.5x10^3/uL (0.0-0.7) Basophils # (Auto) 0.1x10^3/uL (0.0-0.2) Sodium Level 140mmol/L (136-145) Potassium Level 5.4mmol/L (3.5-5.1) Chloride Level 101mmol/L (98-107) Carbon Dioxide Level 25mmol/L (21-32) Anion Gap 14 (6-14) Blood Urea Nitrogen 63mg/dL (8-26) Creatinine 11.2mg/dL (0.7-1.3) Estimated GFR (Cockcroft-Gault) 4.9 Glucose Level 138mg/dL (70-99) Calcium Level 8.6mg/dL (8.5-10.1) Test 09/28/16 10:52 Glucose (Fingerstick) 137mg/dL (70-99) Review of Systems Review of Systems no fever, chills, sob or chest pain Comment Review of Relevant I have reviewed the following items kayleigh (where applicable) has been applied. Labs Laboratory Tests Test 09/27/16 07:00 09/27/16 17:24 09/27/16 21:30 09/28/16 04:47 White Blood Count 9.7x10^3/uL (4.0-11.0) 9.5x10^3/uL (4.0-11.0) Red Blood Count 5.43x10^6/uL (4.30-5.70) 5.53x10^6/uL (4.30-5.70) Hemoglobin 14.3g/dL (13.0-17.5) 14.4g/dL (13.0-17.5) Hematocrit 45.7% (39.0-53.0) 45.7% (39.0-53.0) Mean Corpuscular Volume 84fL (79-100) 83fL (79-100) Mean Corpuscular Hemoglobin 26pg (25-35) 26pg (25-35) Mean Corpuscular Hemoglobin Concent 31g/dL (31-37) 32g/dL (31-37) Red Cell Distribution Width 17.1% (11.5-14.5) 17.0% (11.5-14.5) Platelet Count 152x10^3/uL (140-400) 172x10^3/uL (140-400) Neutrophils (%) (Auto) 67% (31-73) 61% (31-73) Lymphocytes (%) (Auto) 17% (24-48) 24% (24-48) Monocytes (%) (Auto) 11% (0-9) 9% (0-9) Eosinophils (%) (Auto) 5% (0-3) 5% (0-3) Basophils (%) (Auto) 1% (0-3) 1% (0-3) Neutrophils # (Auto) 6.5x10^3uL (1.8-7.7) 5.8x10^3uL (1.8-7.7) Lymphocytes # (Auto) 1.6x10^3/uL (1.0-4.8) 2.3x10^3/uL (1.0-4.8) Monocytes # (Auto) 1.0x10^3/uL (0.0-1.1) 0.8x10^3/uL (0.0-1.1) Eosinophils # (Auto) 0.5x10^3/uL (0.0-0.7) 0.5x10^3/uL (0.0-0.7) Basophils # (Auto) 0.1x10^3/uL (0.0-0.2) 0.1x10^3/uL (0.0-0.2) Prothrombin Time 15.7SEC (11.7-14.0) Prothromb Time International Ratio 1.3 (0.8-1.1) Sodium Level 137mmol/L (136-145) 140mmol/L (136-145) Potassium Level 5.0mmol/L (3.5-5.1) 5.4mmol/L (3.5-5.1) Chloride Level 100mmol/L (98-107) 101mmol/L (98-107) Carbon Dioxide Level 23mmol/L (21-32) 25mmol/L (21-32) Anion Gap 14 (6-14) 14 (6-14) Blood Urea Nitrogen 51mg/dL (8-26) 63mg/dL (8-26) Creatinine 9.1mg/dL (0.7-1.3) 11.2mg/dL (0.7-1.3) Estimated GFR (Cockcroft-Gault) 6.3 4.9 Glucose Level 266mg/dL (70-99) 138mg/dL (70-99) Calcium Level 8.6mg/dL (8.5-10.1) 8.6mg/dL (8.5-10.1) Glucose (Fingerstick) 176mg/dL (70-99) 149mg/dL (70-99) Test 09/28/16 07:32 09/28/16 10:52 Glucose (Fingerstick) 138mg/dL (70-99) 137mg/dL (70-99) Laboratory Tests Test 09/27/16 17:24 09/27/16 21:30 09/28/16 04:47 09/28/16 07:32 Glucose (Fingerstick) 176mg/dL (70-99) 149mg/dL (70-99) 138mg/dL (70-99) White Blood Count 9.5x10^3/uL (4.0-11.0) Red Blood Count 5.53x10^6/uL (4.30-5.70) Hemoglobin 14.4g/dL (13.0-17.5) Hematocrit 45.7% (39.0-53.0) Mean Corpuscular Volume 83fL (79-100) Mean Corpuscular Hemoglobin 26pg (25-35) Mean Corpuscular Hemoglobin Concent 32g/dL (31-37) Red Cell Distribution Width 17.0% (11.5-14.5) Platelet Count 172x10^3/uL (140-400) Neutrophils (%) (Auto) 61% (31-73) Lymphocytes (%) (Auto) 24% (24-48) Monocytes (%) (Auto) 9% (0-9) Eosinophils (%) (Auto) 5% (0-3) Basophils (%) (Auto) 1% (0-3) Neutrophils # (Auto) 5.8x10^3uL (1.8-7.7) Lymphocytes # (Auto) 2.3x10^3/uL (1.0-4.8) Monocytes # (Auto) 0.8x10^3/uL (0.0-1.1) Eosinophils # (Auto) 0.5x10^3/uL (0.0-0.7) Basophils # (Auto) 0.1x10^3/uL (0.0-0.2) Sodium Level 140mmol/L (136-145) Potassium Level 5.4mmol/L (3.5-5.1) Chloride Level 101mmol/L (98-107) Carbon Dioxide Level 25mmol/L (21-32) Anion Gap 14 (6-14) Blood Urea Nitrogen 63mg/dL (8-26) Creatinine 11.2mg/dL (0.7-1.3) Estimated GFR (Cockcroft-Gault) 4.9 Glucose Level 138mg/dL (70-99) Calcium Level 8.6mg/dL (8.5-10.1) Test 09/28/16 10:52 Glucose (Fingerstick) 137mg/dL (70-99) Medications Current Medications Iohexol (Omnipaque 300 Mg/ml) 100 ml STK-MED ONCE .ROUTE ; Start 09/27/16 at 09: 51; Stop 09/27/16 at 09:52; Status DC Lidocaine/Sodium Bicarbonate 20 ml 20 ml STK-MED ONCE IJ ; Start 09/27/16 at 09: 51; Stop 09/27/16 at 09:52; Status DC Heparin Sodium/ Sodium Chloride 1,500 ml @ As Directed STK-MED ONCE .ROUTE ; Start 09/27/16 at 09:51; Stop 09/27/16 at 09:52; Status DC Iodixanol (Visipaque 320) 100 ml STK-MED ONCE .ROUTE ; Start 09/27/16 at 10:11; Stop 09/27/16 at 10:12; Status DC Midazolam HCl (Versed) 5 mg STK-MED ONCE .ROUTE ; Start 09/27/16 at 10:20; Stop 09/27/16 at 10:21; Status DC Fentanyl Citrate (Fentanyl 5ml Vial) 250 mcg STK-MED ONCE .ROUTE ; Start at 10:20; Stop 09/27/16 at 10:21; Status DC Heparin Sodium/ Sodium Chloride 1,000 unit 1X ONCE IART Last administered on 10:48; Start 09/27/16 at 10:45; Stop 09/27/16 at 10:46; Status DC Lidocaine/Sodium Bicarbonate (Buffered Lidocaine 1%) 20 ml 1X ONCE IJ Last administered on 09/27/16 10:48; Start 09/27/16 at 10:45; Stop 09/27/16 at 10:46 ; Status DC Midazolam HCl (Versed) 5 mg 1X ONCE IV Last administered on 09/27/16 11:17; Start 09/27/16 at 10:45; Stop 09/27/16 at 10:46; Status DC Fentanyl Citrate (Fentanyl 5ml Vial) 250 mcg 1X ONCE IV Last administered on 11:17; Start 09/27/16 at 10:45; Stop 09/27/16 at 10:46; Status DC Iodixanol (Visipaque 320) 100 ml 1X ONCE IART Last administered on 09/27/16 11:17; Start 09/27/16 at 10:45; Stop 09/27/16 at 10:46; Status DC Info (Do NOT chart on this entry -- for MONITORING) 1 each PRN DAILY PRN MC SEE COMMENTS; Start 09/27/16 at 11:00; Stop 09/29/16 at 10:59 Iodixanol (Visipaque 320) 50 ml STK-MED ONCE .ROUTE ; Start 09/27/16 at 10:59; Stop 09/27/16 at 11:00; Status DC Nitroglycerin (Nitroglycerin) 200 mcg 1X ONCE IART Last administered on 11:05; Start 09/27/16 at 11:00; Stop 09/27/16 at 11:07; Status DC Insulin Aspart (Novolog) 0-9 UNITS TIDWMEALS SQ ; Start 09/27/16 at 17:00 Dextrose 12.5 gm PRN Q15MIN PRN IV SEE COMMENTS; Start 09/27/16 at 12:45 Acetaminophen (Tylenol) 650 mg PRN Q6HRS PRN PO MILD PAIN / TEMP; Start at 12:45 Ondansetron HCl (Zofran) 4 mg PRN Q6HRS PRN IV NAUSEA/VOMITING Last administered on 09/28/16 10:04; Start 09/27/16 at 12:45 Amlodipine Besylate (Norvasc) 10 mg DAILY PO Last administered on 09/28/16 09: 35; Start 09/27/16 at 13:00 Atorvastatin Calcium (Lipitor) 10 mg QHS PO Last administered on 09/27/16 21: 56; Start 09/27/16 at 21:00 Fentanyl (Duragesic 75mcg/ Hr Patch) 1 patch Q72H PRN TD PAIN Last administered on 09/28/16 12:10; Start 09/27/16 at 12:45 Vitamin B Complex/ Vitamin C (Nephro-Eleazar) 1 tab DAILY PO Last administered on 09/28/16 09:53; Start 09/28/16 at 09:00 Furosemide (Lasix) 40 mg [id number] PO Last administered on 09/28/16 09:34; Start 09/27/16 at 14:00 Hydralazine HCl (Apresoline) 50 mg QID PO Last administered on 09/28/16 09:34 ; Start 09/27/16 at 13:00 Insulin Aspart (Novolog) 8 units TIDAC SQ Last administered on 09/28/16 12:18 ; Start 09/27/16 at 16:30 Metoprolol Tartrate (Lopressor) 50 mg BID PO Last administered on 09/28/16 09: 35; Start 09/27/16 at 21:00 Oxycodone/ Acetaminophen (Percocet 10/325) 1 tab TID PO Last administered on 13:53; Start 09/27/16 at 14:00 Sodium Bicarbonate (Sodium Bicarbonate) 1,300 mg TID PO Last administered on 09:34; Start 09/27/16 at 14:00 Calcium Carbonate/ Glycine (Tums) 500 mg QID PO Last administered on 09/28/16 12:09; Start 09/27/16 at 13:00 Non-Formulary Medication 210 mg TID PO ; Start 09/27/16 at 14:00; Stop 09/27/16 at 14:02; Status DC Insulin Detemir (Levemir) 15 units QHS SQ Last administered on 09/27/16 22:25 ; Start 09/27/16 at 21:00 Losartan Potassium (Cozaar) 100 mg DAILY PO Last administered on 09/28/16 09: 36; Start 09/27/16 at 13:00 Heparin Sodium (Porcine) 5,000 unit Q8HRS SQ Last administered on 09/28/16 05: 37; Start 09/27/16 at 14:00 Amoxicillin/ Clavulanate Potassium (Augmentin 500/ 125mg) 1 tab BID PO Last administered on 09/27/16 21:00; Start 09/27/16 at 13:00; Stop 09/27/16 at 21:54 ; Status DC Calcium Acetate (Phoslo) 1,334 mg TIDWMEALS PO Last administered on 09/28/16 09:35; Start 09/27/16 at 17:00 Amoxicillin/ Clavulanate Potassium (Augmentin 500/ 125mg) 1 tab Q24H PO ; Start 09/28/16 at 14:00; Status Cancel Ondansetron HCl (Zofran) 4 mg PRN Q6HRS PRN IV NAUSEA/VOMITING; Start 09/28/16 at 10:00; Status Cancel Ondansetron HCl (Zofran) 4 mg PRN Q6HRS PRN IV NAUSEA/VOMITING; Start 09/28/16 at 10:00; Status Cancel Piperacillin Sod/ Tazobactam Sod (Zosyn Per Pharmacy) 1 each PRN DAILY PRN MC SEE COMMENTS; Start 09/28/16 at 13:45 Vancomycin HCl (Vanco Per Pharmacy) 1 each PRN DAILY PRN MC SEE COMMENTS; Start 09/28/16 at 13:45 Enoxaparin Sodium 60 mg 60 mg Q12HR SQ ; Start 09/28/16 at 21:00; Status UNV Piperacillin Sod/ Tazobactam Sod 2.25 gm/Sodium Chloride 50 ml @ 100 mls/hr Q8HRS IV ; Start 09/28/16 at 14:00 Vancomycin HCl/ Sodium Chloride (Iv Sodium Chloride 0.9% 500ml Bag) 500 ml @ 250 mls/hr 1X ONCE IV ; Start 09/28/16 at 14:30; Stop 09/28/16 at 16:29 Active Scripts Active Novolog Flexpen (Insulin Aspart) 100 Unit/1 Ml Insuln.pen 8 Units SQ TIDAC Reported Percocet 10-325 Mg Tablet (Oxycodone/Acetaminophen) 1 Each Tablet 1 Tab PO TID Warfarin Sodium 7.5 Mg Tablet 7.5 Mg PO DAILY [place] Tablet (Folic Acid/Vitamin B Comp W-C) 0.8 Mg Tablet 0.8 Mg PO DAILY Ferric Citrate 210 Mg Tablet 210 Mg PO TID Hydralazine Hcl 50 Mg Tablet 50 Mg PO QID FENTANYL 75mcg/hr (Fentanyl) 1 Each Patch.td72 1 Patch TD Q72H PRN Lantus Solostar (Insulin Glargine,Hum.rec.anlog) 100 Unit/1 Ml Insuln.pen 15 Unit SQ QHS Furosemide 40 Mg Tablet 1 Tab PO BID Tums (Calcium Carbonate) 300 Mg Tab.chew 500 Mg PO QID Losartan Potassium 100 Mg Tablet 100 Mg PO DAILY Atorvastatin Calcium 10 Mg Tablet 10 Mg PO DAILY Sodium Bicarbonate 650 Mg Tablet 1,300 Mg PO TID Amlodipine Besylate 10 Mg Tablet 10 Mg PO DAILY Metoprolol Tartrate 50 Mg Tablet 50 Mg PO BID Vitals/I & O Vital Sign - Last 24 Hours 09/27/16 09/27/16 09/27/16 09/27/16 14:03 14:03 14:04 14:20 Pulse 81 81 81 B/P 164/92 164/92 162/92 O2 Delivery Room Air 09/27/16 09/27/16 09/27/16 09/27/16 14:50 15:00 17:25 19:00 Temp 98.1 98.1 Pulse 87 84 84 93 Resp 20 B/P 151/76 139/74 139/74 143/73 Pulse Ox 95 O2 Delivery Room Air 09/27/16 09/27/16 09/27/16 09/27/16 20:00 21:55 21:56 21:56 Pulse 93 93 B/P 143/73 143/73 O2 Delivery Room Air Room Air 09/27/16 09/27/16 09/28/16 09/28/16 22:56 23:00 03:00 07:00 Temp 97.9 97.9 98.4 97.9 97.9 98.4 Pulse 81 77 76 Resp 20 20 B/P 144/79 129/69 128/73 Pulse Ox 95 95 98 98 O2 Delivery Room Air Room Air Room Air Room Air 09/28/16 09/28/16 09/28/16 09/28/16 09:34 09:35 09:35 09:36 Pulse 76 76 76 76 B/P 128/73 128/73 128/73 128/73 09/28/16 09/28/16 11:00 12:10 Temp 97.5 97.5 Pulse 67 Resp 20 B/P 119/66 Pulse Ox 97 O2 Delivery Room Air Room Air Intake and Output 09/27/16 09/27/16 09/28/16 15:00 23:00 07:00 Intake Total 250 ml 20 ml Output Total 400 ml Balance -150 ml 20 ml GOLD CHEEK MD Sep 28, 2016 14:03
[2016-09-28] MEDS: PIPERACILLIN/TAZOBACTAM 2.25 GM in IV NORMAL SALINE 50ML 50 ML IV SCH ×2 (14:25→21:00)
[2016-09-28] MEDS ORDERED: VANCOMYCIN 2 GM in IV NORMAL SALINE 500ML BAG 500 ML IV ONE (14:30)
[2016-09-28] MEDS: VANCOMYCIN PER PHARMACY MC PRN (14:52)
[2016-09-28 15:22] VITALS: BP 105/40
--- NOTE | 2016-09-28 15:33 | PDOC ---
Infectious Disease Note Vital Sign Vital Signs Vital Signs Date Time Temp Pulse Resp B/P Pulse Ox O2 Delivery O2 Flow Rate FiO2 09/28/16 12:10 Room Air 09/28/16 11:00 97.5 67 20 119/66 97 97.5 09/27/16 11:17 2.0 Labs Lab Laboratory Tests Test 09/27/16 17:24 09/27/16 21:30 09/28/16 04:47 09/28/16 07:32 Glucose (Fingerstick) 176mg/dL (70-99) 149mg/dL (70-99) 138mg/dL (70-99) White Blood Count 9.5x10^3/uL (4.0-11.0) Red Blood Count 5.53x10^6/uL (4.30-5.70) Hemoglobin 14.4g/dL (13.0-17.5) Hematocrit 45.7% (39.0-53.0) Mean Corpuscular Volume 83fL (79-100) Mean Corpuscular Hemoglobin 26pg (25-35) Mean Corpuscular Hemoglobin Concent 32g/dL (31-37) Red Cell Distribution Width 17.0% (11.5-14.5) Platelet Count 172x10^3/uL (140-400) Neutrophils (%) (Auto) 61% (31-73) Lymphocytes (%) (Auto) 24% (24-48) Monocytes (%) (Auto) 9% (0-9) Eosinophils (%) (Auto) 5% (0-3) Basophils (%) (Auto) 1% (0-3) Neutrophils # (Auto) 5.8x10^3uL (1.8-7.7) Lymphocytes # (Auto) 2.3x10^3/uL (1.0-4.8) Monocytes # (Auto) 0.8x10^3/uL (0.0-1.1) Eosinophils # (Auto) 0.5x10^3/uL (0.0-0.7) Basophils # (Auto) 0.1x10^3/uL (0.0-0.2) Sodium Level 140mmol/L (136-145) Potassium Level 5.4mmol/L (3.5-5.1) Chloride Level 101mmol/L (98-107) Carbon Dioxide Level 25mmol/L (21-32) Anion Gap 14 (6-14) Blood Urea Nitrogen 63mg/dL (8-26) Creatinine 11.2mg/dL (0.7-1.3) Estimated GFR (Cockcroft-Gault) 4.9 Glucose Level 138mg/dL (70-99) Calcium Level 8.6mg/dL (8.5-10.1) Test 09/28/16 10:52 Glucose (Fingerstick) 137mg/dL (70-99) Objective Assessment Gangrene and cellulitis of right 5th finger AV steel phenomenon CKD on HD Diabetes Mellitus h/o PSAE pansensitive Plan Plan of Care Patient is scheduled for a right arm DRIL arterial bypass and right 5th finger amputation on Friday. Continue vanc and Zosyn Monitor labs D/w Dr. Mendez Thank you [phone] Attending Co-Sign Attending Co-Sign The patient was seen and interviewed as well as examined at the bedside. The chart was reviewed. The case was discussed. Agree with the plan of care. YAZAN DONALDSON APRN Sep 28, 2016 15:33 CASI OLSEN MD Sep 28, 2016 15:40
[2016-09-28] MEDS ORDERED: IV NORMAL SALINE 1000ML BAG 1,000 ML IV PRN (15:50)
[2016-09-28] MEDS ORDERED: DIALYSIS PATIENT. MC PRN (16:00)
[2016-09-28] MEDS ORDERED: DIPHENHYDRAMINE 50 MG/ML VIAL ONE (17:52)
[2016-09-28] MEDS ORDERED: DIPHENHYDRAMINE 50 MG/ML VIAL IVP ONE (18:00)
[2016-09-28 20:26] VITALS: BP 107/41
[2016-09-28] MEDS: ATORVASTATIN CALCIUM 10 MG TABLET. PO SCH (20:59)
[2016-09-28] MEDS ORDERED: ENOXAPARIN ** NOTE DOSE ** SYRINGE SQ SCH (21:00)
[2016-09-28] MEDS: INSULIN DETEMIR 300 UNITS/3 ML INSULN.PEN. SQ SCH (21:04)
[2016-09-28 23:04] VITALS: BP 119/67
[2016-09-29] VITALS (7 sets, daily range): BP systolic 100–122; BP diastolic 39–64
--- NOTE | 2016-09-29 01:34 | CONS ---
DATE OF CONSULTATION: 09/28/2016 CHIEF COMPLAINT: Right fifth finger gangrene and arterial disease. HISTORY OF PRESENT ILLNESS: The patient is a 45-year-old male with end-stage renal disease chronically on hemodialysis. He currently receives hemodialysis through a right upper arm AV shunt. Over the past 3 weeks, he has developed gangrene and cellulitis of his right fifth finger. He saw me in the office this past Friday and had concern for arterial steal syndrome from his shunt since he did not have a palpable radial wrist pulse. He did have significant swelling and redness with gangrene of the fifth finger, therefore, I started him on IV vancomycin with dialysis and oral Augmentin. Yesterday, he underwent an arteriogram that I arranged for him after holding his Coumadin and this showed that he has a widely patent right subclavian and axillary artery with good flow to the shunt, which is widely patent in the upper arm. There was very poor flow through the radial and ulnar arteries to his hand; however, with compression of the shunt there was significant improvement in the flow, particularly in the radial artery. This was consistent with steal syndrome from his shunt. He has been admitted to the hospital. REVIEW OF SYSTEMS: Otherwise, negative. PAST MEDICAL HISTORY: Includes: 1. End-stage renal disease, on hemodialysis. 2. Hypertension. 3. Diabetes mellitus. 4. Left above the knee amputation. 5. Right upper arm AV shunt. ALLERGIES: INCLUDE CLARITHROMYCIN AND LEVOFLOXACIN. PHYSICAL EXAMINATION: GENERAL: The patient is awake and alert, currently in no apparent distress. VITAL SIGNS: He is afebrile. His blood pressure is 119/66, his pulse is the 60s and 70s, and he is 97% on room air. EXTREMITIES: On examination, his right upper extremity is warm. There is no swelling. There is a good pulse within his upper arm AV shunt and there is no palpable radial pulse. His fifth finger has dry gangrene of the distal half of the finger and erythema of the base of the finger. To note, this erythema has improved and there has been significant improvement in the swelling of the finger compared to when I saw him on Friday. He does still continue to have cellulitis from the mid finger down to the base of the finger and gangrene past that, but this cellulitis itself has improved. There is no erythema extending on to the hand. ABDOMEN: His abdomen is soft and nontender. His right leg is warm. His right groin access site is clear with no hematoma in his left leg amputation. IMPRESSION: 1. 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 2. Right fifth finger gangrene with cellulitis. 3. End-stage renal disease, on hemodialysis. PLAN: 1. I recommended right upper extremity drill, arterial bypass surgery to improve circulation to his right hand and keep the patency of his AV shunt. He will also need amputation of the right fifth finger. He is currently hospitalized. I will start him on IV antibiotics and consult Infectious Disease. He has had improvement of his cellulitis on antibiotics this week and closely this can continue to improve, so that it can be closed amputation instead of an open amputation. 2. I will restart Lovenox, will start at 60 mg b.i.d. at slightly lower dose because of his recent catheterization. Surgery is planned for him on Friday at 7:30. He will need to get dialysis here in the hospital and Nephrology has been consulted. LILA BARBOSA MD DR: ELIDIA/sarah JOB#: [id number] / [id number]
[2016-09-29] MEDS: HEPARIN 25,000UTS/500ML PREMIX 500 ML IV PRN (03:16)
[2016-09-29 06:04] LABS: CALCIUM 8.2 mg/dL (8.5-10.1); CREATININE 7.9 mg/dL (0.7-1.3); GFR 7.4
[2016-09-29] MEDS: PIPERACILLIN/TAZOBACTAM 2.25 GM in IV NORMAL SALINE 50ML 50 ML IV SCH ×3 (06:04→20:53)
[2016-09-29 06:07] LABS: POTASSIUM 6.2 mmol/L (3.5-5.1)
[2016-09-29] MEDS ORDERED: SODIUM POLYSTYRENE SULFONATE 15 GM/60 ML ORAL.SUSP. PO ONE (07:45)
[2016-09-29] MEDS: INSULIN ASPART 300 UNITS/3 ML INSULN.PEN SQ SCH ×6 (08:00→17:00)
[2016-09-29] MEDS: CALCIUM ACETATE 667 MG CAPSULE PO SCH ×3 (08:00→17:00)
--- NOTE | 2016-09-29 08:23 | PDOC ---
Provider Note Provider Note AF VSS awake and alert right 5th finger dry gangrene and cellulitis stable, shunt with good pulse right groin access site clear with no hematoma A/P 45 year old male with ESRD on dialysis through right upper arm AV shunt has steal syndrome symptomatic with right 5th finger gangrene - Plan right arm DRIL arterial bypass surgery using saphenous vein from the right leg and a right 5th finger amputation (this is scheduled friday at 7:30am ) - IV antibiotics per ID - heparin drip for chronic anticoagulation while coumadin is held LILA BARBOSA MD Sep 29, 2016 08:22
[2016-09-29] MEDS: FOLIC/VIT B COMP W-C (RENAL) TABLET. PO SCH (09:00)
[2016-09-29] MEDS: METOPROLOL TART IMMED RELEASE 50 MG TABLET PO SCH ×2 (09:00→20:50)
[2016-09-29] MEDS: AMLODIPINE BESYLATE 10 MG TABLET PO SCH (09:00)
[2016-09-29] MEDS: HYDRALAZINE 50 MG TABLET PO SCH ×4 (09:00→20:50)
[2016-09-29] MEDS: SODIUM BICARBONATE 650 MG TABLET. PO SCH ×3 (09:00→20:50)
[2016-09-29] MEDS: LOSARTAN POTASSIUM 50 MG TABLET. PO SCH (09:00)
[2016-09-29] MEDS: CALCIUM CARBONATE 500 MG TAB.CHEW PO SCH ×4 (09:00→20:50)
[2016-09-29] MEDS: FUROSEMIDE 40 MG TABLET PO SCH ×2 (09:00→14:00)
[2016-09-29] MEDS: OXYCODONE/APAP 10/325 TABLET. PO SCH ×3 (09:00→20:50)
[2016-09-29] MEDS ORDERED: INSULIN REGULAR 100 UNIT/ML 10ML VIAL. IV ONE (09:30)
[2016-09-29] MEDS ORDERED: DEXTROSE 50% 25 GM / 50ML DISP.SYRIN. IV ONE (09:30)
[2016-09-29] MEDS ORDERED: SODIUM BICARB ADULT 8.4% 50 MEQ/50 ML DISP.SYRIN. IV ONE (10:00)
[2016-09-29 10:59] LABS: BASO # 0.1 x10^3/uL (0.0-0.2); BASO % 1 % (0-3); EOS % 1 % (0-3); HEMATOCRIT 45.9 % (39.0-53.0); HEMOGLOBIN 14.3 g/dL (13.0-17.5); LYMPH # 0.9 x10^3/uL (1.0-4.8); LYMPH % 7 % (24-48); MEAN CORPUSCULAR HEMOGLOBIN 26 pg (25-35); MEAN CORPUSCULAR HGB CONC 31 g/dL (31-37); MEAN CORPUSCULAR VOLUME 84 fL (79-100); MONO % 10 % (0-9); NEUT % 81 % (31-73); PLATELET COUNT 163 x10^3/uL (140-400); RED BLOOD COUNT 5.47 x10^6/uL (4.30-5.70); RED CELL DISTRIBUTION WIDTH 17.2 % (11.5-14.5); WHITE BLOOD COUNT 13.3 x10^3/uL (4.0-11.0)
[2016-09-29] MEDS ORDERED: HEPARIN for IV BOLUS 10,000 UNIT/10 ML VIAL. IV PRN (11:45)
--- NOTE | 2016-09-29 12:39 | CONS ---
DATE OF CONSULTATION: 09/28/2016 REQUESTING PHYSICIAN: Dr. Isabella Mendez. REASON FOR CONSULTATION: Right fifth finger gangrene and cellulitis. HISTORY OF PRESENT ILLNESS: The patient is a 45-year-old male with a history of chronic kidney disease, on hemodialysis via right upper extremity AV graft. According to the patient about 3 weeks ago, he developed gangrenous changes in his right fifth finger. He was found to have nonpalpable radial and ulnar pulses. He underwent an aortic arch with selective right upper extremity arteriogram yesterday, which showed arterial inflow patency with poor flow to the hand which improved with compression of the graft. Findings are consistent with AV shunt steal phenomenon. He is scheduled for a right arm DRIL arterial bypass and right fifth finger amputation on October 01, 2016. The patient also was found to have cellulitic changes to the fifth finger, and he is currently on vancomycin and Zosyn. Infectious Disease has been asked to consult to help manage his antibiotics. PAST MEDICAL HISTORY: Peritonitis with Pseudomonas aeruginosa, pansensitive. Perirectal abscess with group B strep, Prevotella, and coagulase-negative staph. Chronic kidney disease, on hemodialysis. He was previously on peritoneal dialysis. Congestive heart failure, hypertension, hyperlipidemia, diabetes mellitus, and infected AV fistula with pseudomonas. PAST SURGICAL HISTORY: Peritoneal dialysis catheter placement and removal. Left lower extremity [id number] amputation, total knee replacement, left upper extremity AV fistula formation, and right upper extremity AV graft. SOCIAL HISTORY: Nonsmoker. No history of alcohol or illicit drug use. FAMILY HISTORY: Positive for coronary artery disease. ALLERGIES: CLARITHROMYCIN AND LEVOFLOXACIN BOTH CAUSING EXPLOSIVE DIARRHEA. MEDICATIONS: Vancomycin, Zosyn, and recent Augmentin. Other medications are available and have been reviewed on the SEP. REVIEW OF SYSTEMS: The patient is complaining of lower back pain. He denies fevers, chills, or sweats. Denies headache, nasal/sinus congestion, or sore throat. Denies cough, shortness of air, or wheezing. Denies chest pain, palpitations, or swelling. Denies nausea, vomiting, or diarrhea. He makes very little urine. PHYSICAL EXAMINATION: GENERAL: male lying in bed in no apparent distress. VITAL SIGNS: Temperature is 97.5, blood pressure 119/66, heart rate 67, respiratory rate 20, and pulse oximetry is 97% on room air. Weight is 271.5 pounds. HEENT: Pupils are equally round, normal conjunctivae. Oral mucosa is pink and moist. NECK: Supple, no adenopathy present. LUNGS: Clear to auscultation. HEART: Normal S1, S2. ABDOMEN: Obese, bowel sounds are present, soft, and nontender. No rebound. EXTREMITIES: Previous left BKA, unremarkable. Right fifth finger gangrene. Radial pulses are difficult to palpate. Rue AV graft. SKIN: Without rash. Warm to touch. Multiple tattoos. NEUROLOGIC: Alert and oriented x 3. Moves all extremities. LABORATORY DATA: Today's WBC 9.5, hemoglobin 14.4, hematocrit 45.7, and platelet count 172,000. Sodium 140, potassium 5.4, creatinine 11.2, BUN 63, and glucose 138. Aortography per HPI. IMPRESSION: 1. Gangrene and cellulitis of the right fifth finger. 2. AV steal phenomenon. 3. Chronic kidney disease, on hemodialysis. 4. Diabetes mellitus. 5. History of Pseudomonas aeruginosa. PLAN: The patient is scheduled for a right arm DRIL arterial bypass and right fifth finger amputation. Continue with vancomycin and Zosyn. Monitor labs. Supportive care. Thank you, Dr. Mendez for asking us to participate in this patient's care. Should you have further questions or concerns, please call. CASI OLSEN MD DR: TITUS/sarah JOB#: [id number] / [id number]
--- NOTE | 2016-09-29 13:09 | PDOC ---
PROGRESS NOTES Chief Complaint Chief Complaint 1. GAngrenous R fifth digit with cellulitis 2. ESRD on HD 3. 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 HTN 5. Left AKA 6. Obesity 7. Dysl;ipidmia 8. mild pCM 9. on coumadin, with h/o DVT on right arm with AVF 10. hyperkalemia Plan REsume meds PT./OT Supportive care PLan OR amputation gangrenous 5th digit on tues, tentative HD per renal SSI hold coumadin, on heparin drip ID consulted, on zosyn and vanco for now pt appears flat, not like to answer my questions, no complains. no sure if pt will do HD today, give regular insulin 10u iv, d50, bicarb one time, check K later. History of Present Illness History of Present Illness pt feels ok, +nausea K >6, HD on 09/28 Vitals Vitals Vital Signs Date Time Temp Pulse Resp B/P Pulse Ox O2 Delivery O2 Flow Rate FiO2 09/29/16 11:00 97.9 82 105/64 97 Room Air 97.9 09/29/16 07:00 16 09/28/16 22:57 2.0 Physical Exam General: Alert, Oriented X3, Cooperative, No acute distress Heart: Regular rate Lungs: Clear, Other Abdomen: Normal bowel sounds, Soft, No tenderness, No hepatosplenomegaly, No masses Extremities: Other (gangrenous R 5th digit) Skin: No rashes, No breakdown, No significant lesion Labs LABS Laboratory Tests Test 09/28/16 21:26 09/29/16 05:06 09/29/16 10:23 09/29/16 10:33 Glucose (Fingerstick) 105mg/dL (70-99) 159mg/dL (70-99) Sodium Level 140mmol/L (136-145) Potassium Level 6.2mmol/L (3.5-5.1) Chloride Level 101mmol/L (98-107) Carbon Dioxide Level 25mmol/L (21-32) Anion Gap 14 (6-14) Blood Urea Nitrogen 35mg/dL (8-26) Creatinine 7.9mg/dL (0.7-1.3) Estimated GFR (Cockcroft-Gault) 7.4 Glucose Level 135mg/dL (70-99) Calcium Level 8.2mg/dL (8.5-10.1) White Blood Count 13.3x10^3/uL (4.0-11.0) Red Blood Count 5.47x10^6/uL (4.30-5.70) Hemoglobin 14.3g/dL (13.0-17.5) Hematocrit 45.9% (39.0-53.0) Mean Corpuscular Volume 84fL (79-100) Mean Corpuscular Hemoglobin 26pg (25-35) Mean Corpuscular Hemoglobin Concent 31g/dL (31-37) Red Cell Distribution Width 17.2% (11.5-14.5) Platelet Count 163x10^3/uL (140-400) Neutrophils (%) (Auto) 81% (31-73) Lymphocytes (%) (Auto) 7% (24-48) Monocytes (%) (Auto) 10% (0-9) Eosinophils (%) (Auto) 1% (0-3) Basophils (%) (Auto) 1% (0-3) Neutrophils # (Auto) 10.8x10^3uL (1.8-7.7) Lymphocytes # (Auto) 0.9x10^3/uL (1.0-4.8) Monocytes # (Auto) 1.3x10^3/uL (0.0-1.1) Eosinophils # (Auto) 0.2x10^3/uL (0.0-0.7) Basophils # (Auto) 0.1x10^3/uL (0.0-0.2) Heparin Anti-Xa Act, Unfractionated < 0.10IU/mL (0.30-0.70) Test 09/29/16 11:47 Glucose (Fingerstick) 128mg/dL (70-99) Review of Systems Review of Systems no fever, chills, sob or chest pain Comment Review of Relevant I have reviewed the following items kayleigh (where applicable) has been applied. Labs Laboratory Tests Test 09/27/16 17:24 09/27/16 21:30 09/28/16 04:47 09/28/16 07:32 Glucose (Fingerstick) 176mg/dL (70-99) 149mg/dL (70-99) 138mg/dL (70-99) White Blood Count 9.5x10^3/uL (4.0-11.0) Red Blood Count 5.53x10^6/uL (4.30-5.70) Hemoglobin 14.4g/dL (13.0-17.5) Hematocrit 45.7% (39.0-53.0) Mean Corpuscular Volume 83fL (79-100) Mean Corpuscular Hemoglobin 26pg (25-35) Mean Corpuscular Hemoglobin Concent 32g/dL (31-37) Red Cell Distribution Width 17.0% (11.5-14.5) Platelet Count 172x10^3/uL (140-400) Neutrophils (%) (Auto) 61% (31-73) Lymphocytes (%) (Auto) 24% (24-48) Monocytes (%) (Auto) 9% (0-9) Eosinophils (%) (Auto) 5% (0-3) Basophils (%) (Auto) 1% (0-3) Neutrophils # (Auto) 5.8x10^3uL (1.8-7.7) Lymphocytes # (Auto) 2.3x10^3/uL (1.0-4.8) Monocytes # (Auto) 0.8x10^3/uL (0.0-1.1) Eosinophils # (Auto) 0.5x10^3/uL (0.0-0.7) Basophils # (Auto) 0.1x10^3/uL (0.0-0.2) Sodium Level 140mmol/L (136-145) Potassium Level 5.4mmol/L (3.5-5.1) Chloride Level 101mmol/L (98-107) Carbon Dioxide Level 25mmol/L (21-32) Anion Gap 14 (6-14) Blood Urea Nitrogen 63mg/dL (8-26) Creatinine 11.2mg/dL (0.7-1.3) Estimated GFR (Cockcroft-Gault) 4.9 Glucose Level 138mg/dL (70-99) Calcium Level 8.6mg/dL (8.5-10.1) Test 09/28/16 10:52 09/28/16 21:26 09/29/16 05:06 09/29/16 10:23 Glucose (Fingerstick) 137mg/dL (70-99) 105mg/dL (70-99) 159mg/dL (70-99) Sodium Level 140mmol/L (136-145) Potassium Level 6.2mmol/L (3.5-5.1) Chloride Level 101mmol/L (98-107) Carbon Dioxide Level 25mmol/L (21-32) Anion Gap 14 (6-14) Blood Urea Nitrogen 35mg/dL (8-26) Creatinine 7.9mg/dL (0.7-1.3) Estimated GFR (Cockcroft-Gault) 7.4 Glucose Level 135mg/dL (70-99) Calcium Level 8.2mg/dL (8.5-10.1) Test 09/29/16 10:33 09/29/16 11:47 White Blood Count 13.3x10^3/uL (4.0-11.0) Red Blood Count 5.47x10^6/uL (4.30-5.70) Hemoglobin 14.3g/dL (13.0-17.5) Hematocrit 45.9% (39.0-53.0) Mean Corpuscular Volume 84fL (79-100) Mean Corpuscular Hemoglobin 26pg (25-35) Mean Corpuscular Hemoglobin Concent 31g/dL (31-37) Red Cell Distribution Width 17.2% (11.5-14.5) Platelet Count 163x10^3/uL (140-400) Neutrophils (%) (Auto) 81% (31-73) Lymphocytes (%) (Auto) 7% (24-48) Monocytes (%) (Auto) 10% (0-9) Eosinophils (%) (Auto) 1% (0-3) Basophils (%) (Auto) 1% (0-3) Neutrophils # (Auto) 10.8x10^3uL (1.8-7.7) Lymphocytes # (Auto) 0.9x10^3/uL (1.0-4.8) Monocytes # (Auto) 1.3x10^3/uL (0.0-1.1) Eosinophils # (Auto) 0.2x10^3/uL (0.0-0.7) Basophils # (Auto) 0.1x10^3/uL (0.0-0.2) Heparin Anti-Xa Act, Unfractionated < 0.10IU/mL (0.30-0.70) Glucose (Fingerstick) 128mg/dL (70-99) Laboratory Tests Test 09/28/16 21:26 09/29/16 05:06 09/29/16 10:23 09/29/16 10:33 Glucose (Fingerstick) 105mg/dL (70-99) 159mg/dL (70-99) Sodium Level 140mmol/L (136-145) Potassium Level 6.2mmol/L (3.5-5.1) Chloride Level 101mmol/L (98-107) Carbon Dioxide Level 25mmol/L (21-32) Anion Gap 14 (6-14) Blood Urea Nitrogen 35mg/dL (8-26) Creatinine 7.9mg/dL (0.7-1.3) Estimated GFR (Cockcroft-Gault) 7.4 Glucose Level 135mg/dL (70-99) Calcium Level 8.2mg/dL (8.5-10.1) White Blood Count 13.3x10^3/uL (4.0-11.0) Red Blood Count 5.47x10^6/uL (4.30-5.70) Hemoglobin 14.3g/dL (13.0-17.5) Hematocrit 45.9% (39.0-53.0) Mean Corpuscular Volume 84fL (79-100) Mean Corpuscular Hemoglobin 26pg (25-35) Mean Corpuscular Hemoglobin Concent 31g/dL (31-37) Red Cell Distribution Width 17.2% (11.5-14.5) Platelet Count 163x10^3/uL (140-400) Neutrophils (%) (Auto) 81% (31-73) Lymphocytes (%) (Auto) 7% (24-48) Monocytes (%) (Auto) 10% (0-9) Eosinophils (%) (Auto) 1% (0-3) Basophils (%) (Auto) 1% (0-3) Neutrophils # (Auto) 10.8x10^3uL (1.8-7.7) Lymphocytes # (Auto) 0.9x10^3/uL (1.0-4.8) Monocytes # (Auto) 1.3x10^3/uL (0.0-1.1) Eosinophils # (Auto) 0.2x10^3/uL (0.0-0.7) Basophils # (Auto) 0.1x10^3/uL (0.0-0.2) Heparin Anti-Xa Act, Unfractionated < 0.10IU/mL (0.30-0.70) Test 09/29/16 11:47 Glucose (Fingerstick) 128mg/dL (70-99) Medications Current Medications Iohexol (Omnipaque 300 Mg/ml) 100 ml STK-MED ONCE .ROUTE ; Start 09/27/16 at 09: 51; Stop 09/27/16 at 09:52; Status DC Lidocaine/Sodium Bicarbonate 20 ml 20 ml STK-MED ONCE IJ ; Start 09/27/16 at 09: 51; Stop 09/27/16 at 09:52; Status DC Heparin Sodium/ Sodium Chloride 1,500 ml @ As Directed STK-MED ONCE .ROUTE ; Start 09/27/16 at 09:51; Stop 09/27/16 at 09:52; Status DC Iodixanol (Visipaque 320) 100 ml STK-MED ONCE .ROUTE ; Start 09/27/16 at 10:11; Stop 09/27/16 at 10:12; Status DC Midazolam HCl (Versed) 5 mg STK-MED ONCE .ROUTE ; Start 09/27/16 at 10:20; Stop 09/27/16 at 10:21; Status DC Fentanyl Citrate (Fentanyl 5ml Vial) 250 mcg STK-MED ONCE .ROUTE ; Start at 10:20; Stop 09/27/16 at 10:21; Status DC Heparin Sodium/ Sodium Chloride 1,000 unit 1X ONCE IART Last administered on 10:48; Start 09/27/16 at 10:45; Stop 09/27/16 at 10:46; Status DC Lidocaine/Sodium Bicarbonate (Buffered Lidocaine 1%) 20 ml 1X ONCE IJ Last administered on 09/27/16 10:48; Start 09/27/16 at 10:45; Stop 09/27/16 at 10:46 ; Status DC Midazolam HCl (Versed) 5 mg 1X ONCE IV Last administered on 09/27/16 11:17; Start 09/27/16 at 10:45; Stop 09/27/16 at 10:46; Status DC Fentanyl Citrate (Fentanyl 5ml Vial) 250 mcg 1X ONCE IV Last administered on 11:17; Start 09/27/16 at 10:45; Stop 09/27/16 at 10:46; Status DC Iodixanol (Visipaque 320) 100 ml 1X ONCE IART Last administered on 09/27/16 11:17; Start 09/27/16 at 10:45; Stop 09/27/16 at 10:46; Status DC Info (Do NOT chart on this entry -- for MONITORING) 1 each PRN DAILY PRN MC SEE COMMENTS; Start 09/27/16 at 11:00; Stop 09/29/16 at 10:59; Status DC Iodixanol (Visipaque 320) 50 ml STK-MED ONCE .ROUTE ; Start 09/27/16 at 10:59; Stop 09/27/16 at 11:00; Status DC Nitroglycerin (Nitroglycerin) 200 mcg 1X ONCE IART Last administered on 11:05; Start 09/27/16 at 11:00; Stop 09/27/16 at 11:07; Status DC Insulin Aspart (Novolog) 0-9 UNITS TIDWMEALS SQ ; Start 09/27/16 at 17:00 Dextrose 12.5 gm PRN Q15MIN PRN IV SEE COMMENTS; Start 09/27/16 at 12:45 Acetaminophen (Tylenol) 650 mg PRN Q6HRS PRN PO MILD PAIN / TEMP; Start at 12:45 Ondansetron HCl (Zofran) 4 mg PRN Q6HRS PRN IV NAUSEA/VOMITING Last administered on 09/28/16 10:04; Start 09/27/16 at 12:45 Amlodipine Besylate (Norvasc) 10 mg DAILY PO Last administered on 09/28/16 09: 35; Start 09/27/16 at 13:00 Atorvastatin Calcium (Lipitor) 10 mg QHS PO Last administered on 09/28/16 20: 59; Start 09/27/16 at 21:00 Fentanyl (Duragesic 75mcg/ Hr Patch) 1 patch Q72H PRN TD PAIN Last administered on 09/28/16 12:10; Start 09/27/16 at 12:45 Vitamin B Complex/ Vitamin C (Nephro-Eleazar) 1 tab DAILY PO Last administered on 09/28/16 09:53; Start 09/28/16 at 09:00 Furosemide (Lasix) 40 mg [id number] PO Last administered on 09/28/16 09:34; Start 09/27/16 at 14:00 Hydralazine HCl (Apresoline) 50 mg QID PO Last administered on 09/28/16 09:34 ; Start 09/27/16 at 13:00 Insulin Aspart (Novolog) 8 units TIDAC SQ Last administered on 09/29/16 08:31 ; Start 09/27/16 at 16:30 Metoprolol Tartrate (Lopressor) 50 mg BID PO Last administered on 09/28/16 09: 35; Start 09/27/16 at 21:00 Oxycodone/ Acetaminophen (Percocet 10/325) 1 tab TID PO Last administered on 20:58; Start 09/27/16 at 14:00 Sodium Bicarbonate (Sodium Bicarbonate) 1,300 mg TID PO Last administered on 20:58; Start 09/27/16 at 14:00 Calcium Carbonate/ Glycine (Tums) 500 mg QID PO Last administered on 09/28/16 21:00; Start 09/27/16 at 13:00 Non-Formulary Medication 210 mg TID PO ; Start 09/27/16 at 14:00; Stop 09/27/16 at 14:02; Status DC Insulin Detemir (Levemir) 15 units QHS SQ Last administered on 09/28/16 21:04 ; Start 09/27/16 at 21:00 Losartan Potassium (Cozaar) 100 mg DAILY PO Last administered on 09/28/16 09: 36; Start 09/27/16 at 13:00 Heparin Sodium (Porcine) 5,000 unit Q8HRS SQ Last administered on 09/28/16 05: 37; Start 09/27/16 at 14:00; Stop 09/28/16 at 14:33; Status DC Amoxicillin/ Clavulanate Potassium (Augmentin 500/ 125mg) 1 tab BID PO Last administered on 09/27/16 21:00; Start 09/27/16 at 13:00; Stop 09/27/16 at 21:54 ; Status DC Calcium Acetate (Phoslo) 1,334 mg TIDWMEALS PO Last administered on 09/28/16 09:35; Start 09/27/16 at 17:00 Amoxicillin/ Clavulanate Potassium (Augmentin 500/ 125mg) 1 tab Q24H PO ; Start 09/28/16 at 14:00; Status Cancel Ondansetron HCl (Zofran) 4 mg PRN Q6HRS PRN IV NAUSEA/VOMITING; Start 09/28/16 at 10:00; Status Cancel Ondansetron HCl (Zofran) 4 mg PRN Q6HRS PRN IV NAUSEA/VOMITING; Start 09/28/16 at 10:00; Status Cancel Piperacillin Sod/ Tazobactam Sod (Zosyn Per Pharmacy) 1 each PRN DAILY PRN MC SEE COMMENTS; Start 09/28/16 at 13:45 Vancomycin HCl (Vanco Per Pharmacy) 1 each PRN DAILY PRN MC SEE COMMENTS Last administered on 09/28/16 14:52; Start 09/28/16 at 13:45 Enoxaparin Sodium 60 mg 60 mg Q12HR SQ ; Start 09/28/16 at 21:00; Status UNV Piperacillin Sod/ Tazobactam Sod 2.25 gm/Sodium Chloride 50 ml @ 100 mls/hr Q8HRS IV Last administered on 09/29/16 06:04; Start 09/28/16 at 14:00 Vancomycin HCl 2 gm/Sodium Chloride 500 ml @ 250 mls/hr 1X ONCE IV Last administered on 09/28/16 15:14; Start 09/28/16 at 14:30; Stop 09/28/16 at 16:29 ; Status DC Heparin Sodium/ Dextrose 500 ml @ 0 mls/hr CONT PRN IV SEE I/O RECORD Last administered on 09/29/16 03:16; Start 09/28/16 at 14:45 Vancomycin HCl 1 each 1 each 1X ONCE MC ; Start 09/30/16 at 05:00; Stop at 05:01 Sodium Chloride (Iv Sodium Chloride 0.9% 1000ml Bag) 1,000 ml @ 1,000 mls/hr Q1H PRN IV hypotension; Start 09/28/16 at 15:50; Stop 09/28/16 at 21:49; Status DC Info (PHARMACY MONITORING -- do not chart) 1 each PRN DAILY PRN MC SEE COMMENTS ; Start 09/28/16 at 16:00 Diphenhydramine HCl (Benadryl) 50 mg STK-MED ONCE .ROUTE Last administered on 17:57; Start 09/28/16 at 17:52; Stop 09/28/16 at 17:53; Status DC Diphenhydramine HCl (Benadryl) 50 mg 1X ONCE IVP ; Start 09/28/16 at 18:00; Stop 09/28/16 at 18:01; Status DC Sodium Polystyrene Sulfonate (Kayexalate) 15 gm 1X ONCE PO Last administered on 09/29/16 08:24; Start 09/29/16 at 07:45; Stop 09/29/16 at 07:46; Status DC Dextrose 25 gm 1X ONCE IV Last administered on 09/29/16 09:22; Start at 09:30; Stop 09/29/16 at 09:31; Status DC Insulin Human Regular (Novolin R Vial) 10 unit 1X ONCE IV Last administered on 09/29/16 09:34; Start 09/29/16 at 09:30; Stop 09/29/16 at 09:31; Status DC Sodium Bicarbonate 50 meq 1X ONCE IV Last administered on 09/29/16 09:50; Start 09/29/16 at 10:00; Stop 09/29/16 at 10:01; Status DC Heparin Sodium (Porcine) 3,600 unit PRN Q6HRS PRN IV FOR UFH LEVEL LESS THAN 0.2 Last administered on 09/29/16 11:47; Start 09/29/16 at 11:45 Active Scripts Active Novolog Flexpen (Insulin Aspart) 100 Unit/1 Ml Insuln.pen 8 Units SQ TIDAC Reported Percocet 10-325 Mg Tablet (Oxycodone/Acetaminophen) 1 Each Tablet 1 Tab PO TID Warfarin Sodium 7.5 Mg Tablet 7.5 Mg PO DAILY [place] Tablet (Folic Acid/Vitamin B Comp W-C) 0.8 Mg Tablet 0.8 Mg PO DAILY Ferric Citrate 210 Mg Tablet 210 Mg PO TID Hydralazine Hcl 50 Mg Tablet 50 Mg PO QID FENTANYL 75mcg/hr (Fentanyl) 1 Each Patch.td72 1 Patch TD Q72H PRN Lantus Solostar (Insulin Glargine,Hum.rec.anlog) 100 Unit/1 Ml Insuln.pen 15 Unit SQ QHS Furosemide 40 Mg Tablet 1 Tab PO BID Tums (Calcium Carbonate) 300 Mg Tab.chew 500 Mg PO QID Losartan Potassium 100 Mg Tablet 100 Mg PO DAILY Atorvastatin Calcium 10 Mg Tablet 10 Mg PO DAILY Sodium Bicarbonate 650 Mg Tablet 1,300 Mg PO TID Amlodipine Besylate 10 Mg Tablet 10 Mg PO DAILY Metoprolol Tartrate 50 Mg Tablet 50 Mg PO BID Vitals/I & O Vital Sign - Last 24 Hours 09/28/16 09/28/16 09/28/16 09/28/16 15:22 16:10 19:37 20:00 Temp 97.6 97.6 Pulse 68 Resp 18 B/P 105/40 Pulse Ox 93 O2 Delivery Room Air Room Air Room Air Room Air 09/28/16 09/28/16 09/28/16 09/28/16 20:26 20:58 20:59 21:00 Temp 98.0 98.0 Pulse 81 81 81 Resp 22 20 B/P 107/41 96/38 96/38 Pulse Ox 94 O2 Delivery Room Air Room Air 09/28/16 09/28/16 09/29/16 09/29/16 22:57 23:04 03:32 07:00 Temp 98.6 97.8 98.0 98.6 97.8 98.0 Pulse 94 99 72 Resp 18 20 22 16 B/P 119/67 119/59 100/54 Pulse Ox 94 94 94 95 O2 Delivery Room Air Room Air Room Air Room Air O2 Flow Rate 2.0 09/29/16 09/29/16 08:00 11:00 Temp 97.9 97.9 Pulse 82 B/P 105/64 Pulse Ox 97 O2 Delivery Room Air Room Air Intake and Output 09/28/16 09/28/16 09/29/16 15:00 23:00 07:00 Intake Total 180 ml 0 ml Output Total 0 ml Balance 180 ml 0 ml 0 ml GOLD CHEEK MD Sep 29, 2016 13:09
[2016-09-29 13:13] LABS: CALCIUM 8.4 mg/dL (8.5-10.1); CREATININE 9.1 mg/dL (0.7-1.3); GFR 6.3
[2016-09-29 13:14] LABS: POTASSIUM 5.8 mmol/L (3.5-5.1)
[2016-09-29] MEDS: ANTI-COAG MONITOR BY PHARMACY. MC PRN (15:00)
[2016-09-29] MEDS: VANCOMYCIN PER PHARMACY MC PRN (15:03)
[2016-09-29] MEDS: ATORVASTATIN CALCIUM 10 MG TABLET. PO SCH (20:50)
[2016-09-29] MEDS: INSULIN DETEMIR 300 UNITS/3 ML INSULN.PEN. SQ SCH (20:59)
[2016-09-29] MEDS ORDERED: DIPHENHYDRAMINE 50 MG/ML VIAL IVP PRN ×3 (21:30→21:45)
[2016-09-29] MEDS ORDERED: DIPHENHYDRAMINE HCL 25 MG CAPSULE PO PRN (21:30)
--- NOTE | 2016-09-29 23:35 | PDOC ---
Provider Note Provider Note RENAL F/U : NIEVES S : No new issues reported. O : VSS Afebrile. Lungs : Non labored CVS : RRR Abd : Portly Somnolent with TARUN K high Kayexlate given Rpeat K pending. ESRD HTN w CKD PVD HYPERKALEMIA. Arsenio Pickett M.D. ARSENIO PICKETT MD Sep 29, 2016 23:35
--- NOTE | 2016-09-29 23:38 | PDOC2 ---
CONSULT Date of Consult Date of Consult DATE: 09/29/16 TIME: 23:37 Past Medical History Cardiovascular: CHF, HTN, Hyperlipidemia Pulmonary: Other CENTRAL NERVOUS SYSTEM: Other GI: No pertinent hx Heme/Onc: Anemia NOS Hepatobiliary: No pertinent hx Psych: No pertinent hx Rheumatologic: Gout Infectious disease: Other Renal/: Chronic renal failure Endocrine: Diabetes Past Surgical History Past Surgical History: Other Family History Family History: Coronary Artery Disease Social History No ALCOHOL: none Drugs: None Lives: with Family Domestic Violence: Neg Current Medications Current Medications Current Medications Iohexol (Omnipaque 300 Mg/ml) 100 ml STK-MED ONCE .ROUTE ; Start 09/27/16 at 09: 51; Stop 09/27/16 at 09:52; Status DC Lidocaine/Sodium Bicarbonate 20 ml 20 ml STK-MED ONCE IJ ; Start 09/27/16 at 09: 51; Stop 09/27/16 at 09:52; Status DC Heparin Sodium/ Sodium Chloride 1,500 ml @ As Directed STK-MED ONCE .ROUTE ; Start 09/27/16 at 09:51; Stop 09/27/16 at 09:52; Status DC Iodixanol (Visipaque 320) 100 ml STK-MED ONCE .ROUTE ; Start 09/27/16 at 10:11; Stop 09/27/16 at 10:12; Status DC Midazolam HCl (Versed) 5 mg STK-MED ONCE .ROUTE ; Start 09/27/16 at 10:20; Stop 09/27/16 at 10:21; Status DC Fentanyl Citrate (Fentanyl 5ml Vial) 250 mcg STK-MED ONCE .ROUTE ; Start at 10:20; Stop 09/27/16 at 10:21; Status DC Heparin Sodium/ Sodium Chloride 1,000 unit 1X ONCE IART Last administered on 10:48; Start 09/27/16 at 10:45; Stop 09/27/16 at 10:46; Status DC Lidocaine/Sodium Bicarbonate (Buffered Lidocaine 1%) 20 ml 1X ONCE IJ Last administered on 09/27/16 10:48; Start 09/27/16 at 10:45; Stop 09/27/16 at 10:46 ; Status DC Midazolam HCl (Versed) 5 mg 1X ONCE IV Last administered on 09/27/16 11:17; Start 09/27/16 at 10:45; Stop 09/27/16 at 10:46; Status DC Fentanyl Citrate (Fentanyl 5ml Vial) 250 mcg 1X ONCE IV Last administered on 11:17; Start 09/27/16 at 10:45; Stop 09/27/16 at 10:46; Status DC Iodixanol (Visipaque 320) 100 ml 1X ONCE IART Last administered on 09/27/16 11:17; Start 09/27/16 at 10:45; Stop 09/27/16 at 10:46; Status DC Info (Do NOT chart on this entry -- for MONITORING) 1 each PRN DAILY PRN MC SEE COMMENTS; Start 09/27/16 at 11:00; Stop 09/29/16 at 10:59; Status DC Iodixanol (Visipaque 320) 50 ml STK-MED ONCE .ROUTE ; Start 09/27/16 at 10:59; Stop 09/27/16 at 11:00; Status DC Nitroglycerin (Nitroglycerin) 200 mcg 1X ONCE IART Last administered on 11:05; Start 09/27/16 at 11:00; Stop 09/27/16 at 11:07; Status DC Insulin Aspart (Novolog) 0-9 UNITS TIDWMEALS SQ ; Start 09/27/16 at 17:00 Dextrose 12.5 gm PRN Q15MIN PRN IV SEE COMMENTS; Start 09/27/16 at 12:45 Acetaminophen (Tylenol) 650 mg PRN Q6HRS PRN PO MILD PAIN / TEMP; Start at 12:45 Ondansetron HCl (Zofran) 4 mg PRN Q6HRS PRN IV NAUSEA/VOMITING Last administered on 09/28/16 10:04; Start 09/27/16 at 12:45 Amlodipine Besylate (Norvasc) 10 mg DAILY PO Last administered on 09/28/16 09: 35; Start 09/27/16 at 13:00 Atorvastatin Calcium (Lipitor) 10 mg QHS PO Last administered on 09/29/16 20: 50; Start 09/27/16 at 21:00 Fentanyl (Duragesic 75mcg/ Hr Patch) 1 patch Q72H PRN TD PAIN Last administered on 09/28/16 12:10; Start 09/27/16 at 12:45 Vitamin B Complex/ Vitamin C (Nephro-Eleazar) 1 tab DAILY PO Last administered on 09/28/16 09:53; Start 09/28/16 at 09:00 Furosemide (Lasix) 40 mg [id number] PO Last administered on 09/28/16 09:34; Start 09/27/16 at 14:00 Hydralazine HCl (Apresoline) 50 mg QID PO Last administered on 09/29/16 20:50 ; Start 09/27/16 at 13:00 Insulin Aspart (Novolog) 8 units TIDAC SQ Last administered on 09/29/16 08:31 ; Start 09/27/16 at 16:30 Metoprolol Tartrate (Lopressor) 50 mg BID PO Last administered on 09/29/16 20: 50; Start 09/27/16 at 21:00 Oxycodone/ Acetaminophen (Percocet 10/325) 1 tab TID PO Last administered on 20:50; Start 09/27/16 at 14:00 Sodium Bicarbonate (Sodium Bicarbonate) 1,300 mg TID PO Last administered on 20:50; Start 09/27/16 at 14:00 Calcium Carbonate/ Glycine (Tums) 500 mg QID PO Last administered on 09/29/16 20:50; Start 09/27/16 at 13:00 Non-Formulary Medication 210 mg TID PO ; Start 09/27/16 at 14:00; Stop 09/27/16 at 14:02; Status DC Insulin Detemir (Levemir) 15 units QHS SQ Last administered on 09/28/16 21:04 ; Start 09/27/16 at 21:00; Stop 09/29/16 at 16:26; Status DC Losartan Potassium (Cozaar) 100 mg DAILY PO Last administered on 09/28/16 09: 36; Start 09/27/16 at 13:00 Heparin Sodium (Porcine) 5,000 unit Q8HRS SQ Last administered on 09/28/16 05: 37; Start 09/27/16 at 14:00; Stop 09/28/16 at 14:33; Status DC Amoxicillin/ Clavulanate Potassium (Augmentin 500/ 125mg) 1 tab BID PO Last administered on 09/27/16 21:00; Start 09/27/16 at 13:00; Stop 09/27/16 at 21:54 ; Status DC Calcium Acetate (Phoslo) 1,334 mg TIDWMEALS PO Last administered on 09/28/16 09:35; Start 09/27/16 at 17:00 Amoxicillin/ Clavulanate Potassium (Augmentin 500/ 125mg) 1 tab Q24H PO ; Start 09/28/16 at 14:00; Status Cancel Ondansetron HCl (Zofran) 4 mg PRN Q6HRS PRN IV NAUSEA/VOMITING; Start 09/28/16 at 10:00; Status Cancel Ondansetron HCl (Zofran) 4 mg PRN Q6HRS PRN IV NAUSEA/VOMITING; Start 09/28/16 at 10:00; Status Cancel Piperacillin Sod/ Tazobactam Sod (Zosyn Per Pharmacy) 1 each PRN DAILY PRN MC SEE COMMENTS; Start 09/28/16 at 13:45 Vancomycin HCl (Vanco Per Pharmacy) 1 each PRN DAILY PRN MC SEE COMMENTS Last administered on 09/29/16 15:03; Start 09/28/16 at 13:45 Enoxaparin Sodium 60 mg 60 mg Q12HR SQ ; Start 09/28/16 at 21:00; Status UNV Piperacillin Sod/ Tazobactam Sod 2.25 gm/Sodium Chloride 50 ml @ 100 mls/hr Q8HRS IV Last administered on 09/29/16 20:53; Start 09/28/16 at 14:00 Vancomycin HCl 2 gm/Sodium Chloride 500 ml @ 250 mls/hr 1X ONCE IV Last administered on 09/28/16 15:14; Start 09/28/16 at 14:30; Stop 09/28/16 at 16:29 ; Status DC Heparin Sodium/ Dextrose 500 ml @ 0 mls/hr CONT PRN IV SEE I/O RECORD Last administered on 09/29/16 03:16; Start 09/28/16 at 14:45 Vancomycin HCl 1 each 1 each 1X ONCE MC ; Start 09/30/16 at 05:00; Stop at 05:01 Sodium Chloride (Iv Sodium Chloride 0.9% 1000ml Bag) 1,000 ml @ 1,000 mls/hr Q1H PRN IV hypotension; Start 09/28/16 at 15:50; Stop 09/28/16 at 21:49; Status DC Info (PHARMACY MONITORING -- do not chart) 1 each PRN DAILY PRN MC SEE COMMENTS ; Start 09/28/16 at 16:00 Diphenhydramine HCl (Benadryl) 50 mg STK-MED ONCE .ROUTE Last administered on 17:57; Start 09/28/16 at 17:52; Stop 09/28/16 at 17:53; Status DC Diphenhydramine HCl (Benadryl) 50 mg 1X ONCE IVP ; Start 09/28/16 at 18:00; Stop 09/28/16 at 18:01; Status DC Sodium Polystyrene Sulfonate (Kayexalate) 15 gm 1X ONCE PO Last administered on 09/29/16 08:24; Start 09/29/16 at 07:45; Stop 09/29/16 at 07:46; Status DC Dextrose 25 gm 1X ONCE IV Last administered on 09/29/16 09:22; Start at 09:30; Stop 09/29/16 at 09:31; Status DC Insulin Human Regular (Novolin R Vial) 10 unit 1X ONCE IV Last administered on 09/29/16 09:34; Start 09/29/16 at 09:30; Stop 09/29/16 at 09:31; Status DC Sodium Bicarbonate 50 meq 1X ONCE IV Last administered on 09/29/16 09:50; Start 09/29/16 at 10:00; Stop 09/29/16 at 10:01; Status DC Heparin Sodium (Porcine) 3,600 unit PRN Q6HRS PRN IV FOR UFH LEVEL LESS THAN 0.2 Last administered on 09/29/16 11:47; Start 09/29/16 at 11:45 Info (Anti-Coagulation Monitoring By Pharmacy) 1 each PRN DAILY PRN MC SEE COMMENTS Last administered on 09/29/16 15:00; Start 09/29/16 at 15:00 Insulin Detemir (Levemir) 15 units QHS SQ ; Start 09/29/16 at 16:26 Diphenhydramine HCl (Benadryl) prn for itching PRN Q6HRS PRN IVP ITCHING; Start 09/29/16 at 21:30; Stop 09/29/16 at 21:35; Status DC Diphenhydramine HCl (Benadryl) prn itching PRN Q6HRS PRN PO ITCHING; Start 07/06 at 21:30; Stop 09/29/16 at 21:35; Status DC Diphenhydramine HCl (Benadryl) 25 mg PRN Q6HRS PRN IVP ITCHING Last administered on 09/29/16t 21:51; Start 09/29/16 at 21:45 Diphenhydramine HCl (Benadryl) 25 mg PRN Q6HRS PRN PO ITCHING; Start 09/29/16 at 21:45 Diphenhydramine HCl (Benadryl) 12.5 mg PRN Q6HRS PRN IVP ITCHING; Start at 21:45 Active Scripts Active Novolog Flexpen (Insulin Aspart) 100 Unit/1 Ml Insuln.pen 8 Units SQ TIDAC Reported Percocet 10-325 Mg Tablet (Oxycodone/Acetaminophen) 1 Each Tablet 1 Tab PO TID Warfarin Sodium 7.5 Mg Tablet 7.5 Mg PO DAILY [place] Tablet (Folic Acid/Vitamin B Comp W-C) 0.8 Mg Tablet 0.8 Mg PO DAILY Ferric Citrate 210 Mg Tablet 210 Mg PO TID Hydralazine Hcl 50 Mg Tablet 50 Mg PO QID FENTANYL 75mcg/hr (Fentanyl) 1 Each Patch.td72 1 Patch TD Q72H PRN Lantus Solostar (Insulin Glargine,Hum.rec.anlog) 100 Unit/1 Ml Insuln.pen 15 Unit SQ QHS Furosemide 40 Mg Tablet 1 Tab PO BID Tums (Calcium Carbonate) 300 Mg Tab.chew 500 Mg PO QID Losartan Potassium 100 Mg Tablet 100 Mg PO DAILY Atorvastatin Calcium 10 Mg Tablet 10 Mg PO DAILY Sodium Bicarbonate 650 Mg Tablet 1,300 Mg PO TID Amlodipine Besylate 10 Mg Tablet 10 Mg PO DAILY Metoprolol Tartrate 50 Mg Tablet 50 Mg PO BID Allergies Allergies: Coded Allergies: clarithromycin (Verified Allergy, Intermediate, 03/11/16) levofloxacin (Verified Allergy, Intermediate, 03/11/16) Vitals VITALS Vital Signs Date Time Temp Pulse Resp B/P Pulse Ox O2 Delivery O2 Flow Rate FiO2 3/12/17 21:50 18 95 Nasal Cannula 2.0 09/29/16 20:50 88 119/64 09/29/16 19:48 98.3 98.3 Labs Labs Laboratory Tests Test 09/28/16 04:47 09/28/16 07:32 09/28/16 10:52 09/28/16 21:26 White Blood Count 9.5x10^3/uL (4.0-11.0) Red Blood Count 5.53x10^6/uL (4.30-5.70) Hemoglobin 14.4g/dL (13.0-17.5) Hematocrit 45.7% (39.0-53.0) Mean Corpuscular Volume 83fL (79-100) Mean Corpuscular Hemoglobin 26pg (25-35) Mean Corpuscular Hemoglobin Concent 32g/dL (31-37) Red Cell Distribution Width 17.0% (11.5-14.5) Platelet Count 172x10^3/uL (140-400) Neutrophils (%) (Auto) 61% (31-73) Lymphocytes (%) (Auto) 24% (24-48) Monocytes (%) (Auto) 9% (0-9) Eosinophils (%) (Auto) 5% (0-3) Basophils (%) (Auto) 1% (0-3) Neutrophils # (Auto) 5.8x10^3uL (1.8-7.7) Lymphocytes # (Auto) 2.3x10^3/uL (1.0-4.8) Monocytes # (Auto) 0.8x10^3/uL (0.0-1.1) Eosinophils # (Auto) 0.5x10^3/uL (0.0-0.7) Basophils # (Auto) 0.1x10^3/uL (0.0-0.2) Sodium Level 140mmol/L (136-145) Potassium Level 5.4mmol/L (3.5-5.1) Chloride Level 101mmol/L (98-107) Carbon Dioxide Level 25mmol/L (21-32) Anion Gap 14 (6-14) Blood Urea Nitrogen 63mg/dL (8-26) Creatinine 11.2mg/dL (0.7-1.3) Estimated GFR (Cockcroft-Gault) 4.9 Glucose Level 138mg/dL (70-99) Calcium Level 8.6mg/dL (8.5-10.1) Glucose (Fingerstick) 138mg/dL (70-99) 137mg/dL (70-99) 105mg/dL (70-99) Test 09/29/16 05:06 09/29/16 10:23 09/29/16 10:33 09/29/16 11:47 Sodium Level 140mmol/L (136-145) Potassium Level 6.2mmol/L (3.5-5.1) Chloride Level 101mmol/L (98-107) Carbon Dioxide Level 25mmol/L (21-32) Anion Gap 14 (6-14) Blood Urea Nitrogen 35mg/dL (8-26) Creatinine 7.9mg/dL (0.7-1.3) Estimated GFR (Cockcroft-Gault) 7.4 Glucose Level 135mg/dL (70-99) Calcium Level 8.2mg/dL (8.5-10.1) Glucose (Fingerstick) 159mg/dL (70-99) 128mg/dL (70-99) White Blood Count 13.3x10^3/uL (4.0-11.0) Red Blood Count 5.47x10^6/uL (4.30-5.70) Hemoglobin 14.3g/dL (13.0-17.5) Hematocrit 45.9% (39.0-53.0) Mean Corpuscular Volume 84fL (79-100) Mean Corpuscular Hemoglobin 26pg (25-35) Mean Corpuscular Hemoglobin Concent 31g/dL (31-37) Red Cell Distribution Width 17.2% (11.5-14.5) Platelet Count 163x10^3/uL (140-400) Neutrophils (%) (Auto) 81% (31-73) Lymphocytes (%) (Auto) 7% (24-48) Monocytes (%) (Auto) 10% (0-9) Eosinophils (%) (Auto) 1% (0-3) Basophils (%) (Auto) 1% (0-3) Neutrophils # (Auto) 10.8x10^3uL (1.8-7.7) Lymphocytes # (Auto) 0.9x10^3/uL (1.0-4.8) Monocytes # (Auto) 1.3x10^3/uL (0.0-1.1) Eosinophils # (Auto) 0.2x10^3/uL (0.0-0.7) Basophils # (Auto) 0.1x10^3/uL (0.0-0.2) Heparin Anti-Xa Act, Unfractionated < 0.10IU/mL (0.30-0.70) Test 09/29/16 12:45 09/29/16 16:13 09/29/16 17:00 09/29/16 20:37 Sodium Level 140mmol/L (136-145) Potassium Level 5.8mmol/L (3.5-5.1) Chloride Level 100mmol/L (98-107) Carbon Dioxide Level 30mmol/L (21-32) Anion Gap 10 (6-14) Blood Urea Nitrogen 40mg/dL (8-26) Creatinine 9.1mg/dL (0.7-1.3) Estimated GFR (Cockcroft-Gault) 6.3 Glucose Level 118mg/dL (70-99) Calcium Level 8.4mg/dL (8.5-10.1) Glucose (Fingerstick) 118mg/dL (70-99) 91mg/dL (70-99) Heparin Anti-Xa Act, Unfractionated 0.60IU/mL (0.30-0.70) Test 09/29/16 22:52 Heparin Anti-Xa Act, Unfractionated 0.37IU/mL (0.30-0.70) Laboratory Tests Test 09/29/16 05:06 09/29/16 10:23 09/29/16 10:33 09/29/16 11:47 Sodium Level 140mmol/L (136-145) Potassium Level 6.2mmol/L (3.5-5.1) Chloride Level 101mmol/L (98-107) Carbon Dioxide Level 25mmol/L (21-32) Anion Gap 14 (6-14) Blood Urea Nitrogen 35mg/dL (8-26) Creatinine 7.9mg/dL (0.7-1.3) Estimated GFR (Cockcroft-Gault) 7.4 Glucose Level 135mg/dL (70-99) Calcium Level 8.2mg/dL (8.5-10.1) Glucose (Fingerstick) 159mg/dL (70-99) 128mg/dL (70-99) White Blood Count 13.3x10^3/uL (4.0-11.0) Red Blood Count 5.47x10^6/uL (4.30-5.70) Hemoglobin 14.3g/dL (13.0-17.5) Hematocrit 45.9% (39.0-53.0) Mean Corpuscular Volume 84fL (79-100) Mean Corpuscular Hemoglobin 26pg (25-35) Mean Corpuscular Hemoglobin Concent 31g/dL (31-37) Red Cell Distribution Width 17.2% (11.5-14.5) Platelet Count 163x10^3/uL (140-400) Neutrophils (%) (Auto) 81% (31-73) Lymphocytes (%) (Auto) 7% (24-48) Monocytes (%) (Auto) 10% (0-9) Eosinophils (%) (Auto) 1% (0-3) Basophils (%) (Auto) 1% (0-3) Neutrophils # (Auto) 10.8x10^3uL (1.8-7.7) Lymphocytes # (Auto) 0.9x10^3/uL (1.0-4.8) Monocytes # (Auto) 1.3x10^3/uL (0.0-1.1) Eosinophils # (Auto) 0.2x10^3/uL (0.0-0.7) Basophils # (Auto) 0.1x10^3/uL (0.0-0.2) Heparin Anti-Xa Act, Unfractionated < 0.10IU/mL (0.30-0.70) Test 09/29/16 12:45 09/29/16 16:13 09/29/16 17:00 09/29/16 20:37 Sodium Level 140mmol/L (136-145) Potassium Level 5.8mmol/L (3.5-5.1) Chloride Level 100mmol/L (98-107) Carbon Dioxide Level 30mmol/L (21-32) Anion Gap 10 (6-14) Blood Urea Nitrogen 40mg/dL (8-26) Creatinine 9.1mg/dL (0.7-1.3) Estimated GFR (Cockcroft-Gault) 6.3 Glucose Level 118mg/dL (70-99) Calcium Level 8.4mg/dL (8.5-10.1) Glucose (Fingerstick) 118mg/dL (70-99) 91mg/dL (70-99) Heparin Anti-Xa Act, Unfractionated 0.60IU/mL (0.30-0.70) Test 09/29/16 22:52 Heparin Anti-Xa Act, Unfractionated 0.37IU/mL (0.30-0.70) Assessment/Plan Assessment/Plan RENAL CONSULT / NIEVES Jacobsen. #[id number] Date of service 09/28/2016 BRIGIDA PICKETT MD Sep 29, 2016 23:38
[2016-09-30 03:51] VITALS: BP 108/66
[2016-09-30] MEDS: HEPARIN 25,000UTS/500ML PREMIX 500 ML IV PRN (04:11)
[2016-09-30] MEDS ORDERED: VANCOMYCIN RANDOM LEVEL. MC ONE (05:00)
--- NOTE | 2016-09-30 05:11 | CONS ---
DATE OF CONSULTATION: 09/28/2016 REASON FOR CONSULTATION: End-stage renal disease. HISTORY OF PRESENT ILLNESS: The patient is a 45-year-old morbidly obese gentleman with a history of hypertension, type 2 diabetes, and CKD/ESRD secondary to above. Admitted with gangrenous fifth digit. Also issues with infection in his right hand. Consultation requested for dialysis support. The patient denies any chest pain, shortness of breath, or abdominal pain. Some low-grade fevers at home. No nausea, vomiting, or diarrhea. No other reported complaints. PAST MEDICAL HISTORY: Significant for: 1. Hypertension. 2. Type 2 diabetes. 3. ESRD secondary to above. 4. Peripheral vascular disease. 5. Obstructive sleep apnea. 6. Morbid obesity. 7. Anemia of chronic disease. 8. Degenerative joint disease. PAST SURGICAL HISTORY: Significant for: 1. Left AKA. 2. Hemodialysis access placement. REVIEW OF SYSTEMS: As above, otherwise negative on a 10-point scale. SOCIAL HISTORY: No tobacco, alcohol, or recreational drugs. FAMILY HISTORY: No premature heart disease or kidney failure. ALLERGIES TO MEDICATIONS: Reviewed. PHYSICAL EXAMINATION: GENERAL: A middle-aged gentleman who appears in no distress or discomfort. VITAL SIGNS: Stable. He is afebrile. NECK: Supple. LUNGS: Clear. CARDIOVASCULAR: Regular rate and rhythm. Distant heart sounds. ABDOMEN: Portly, soft. No obvious masses. EXTREMITIES: AKA on the left side, right fifth digit with some gangrene. LABORATORY DATA: Reviewed. IMPRESSION: 1. End-stage renal disease. 2. Hypertension, diabetes with chronic kidney disease. 3. Peripheral vascular disease. PLAN: At this point, we would continue dialysis support. Monitor intake and output. Monitor labs. Discussed with spouse in the room. Thank you very much for the consultation. I appreciate the referral. We will follow with you. BRIGIDA PICKETT MD DR: RITESH/sarah JOB#: [id number] / [id number]
[2016-09-30] MEDS: PIPERACILLIN/TAZOBACTAM 2.25 GM in IV NORMAL SALINE 50ML 50 ML IV SCH ×3 (05:54→21:30)
[2016-09-30 05:58] LABS: ALBUMIN 2.8 g/dL (3.4-5.0); CALCIUM 8.2 mg/dL (8.5-10.1); CREATININE 10.7 mg/dL (0.7-1.3); GFR 5.2; POTASSIUM 5.8 mmol/L (3.5-5.1)
[2016-09-30 05:59] LABS: PHOSPHORUS 9.2 mg/dL (2.6-4.7)
[2016-09-30 07:00] VITALS: BP 87/39
[2016-09-30] MEDS: INSULIN ASPART 300 UNITS/3 ML INSULN.PEN SQ SCH ×6 (07:30→17:00)
[2016-09-30] MEDS: VANCOMYCIN PER PHARMACY MC PRN ×2 (08:38→15:42)
[2016-09-30] MEDS: LOSARTAN POTASSIUM 50 MG TABLET. PO SCH (09:00)
[2016-09-30] MEDS: HYDRALAZINE 50 MG TABLET PO SCH ×4 (09:00→21:10)
[2016-09-30] MEDS: FUROSEMIDE 40 MG TABLET PO SCH ×2 (09:00→14:00)
[2016-09-30] MEDS: METOPROLOL TART IMMED RELEASE 50 MG TABLET PO SCH ×2 (09:00→21:11)
[2016-09-30] MEDS: AMLODIPINE BESYLATE 10 MG TABLET PO SCH (09:00)
[2016-09-30] MEDS: CALCIUM ACETATE 667 MG CAPSULE PO SCH ×3 (09:27→18:10)
[2016-09-30] MEDS: SODIUM BICARBONATE 650 MG TABLET. PO SCH ×3 (09:27→21:01)
[2016-09-30] MEDS: FOLIC/VIT B COMP W-C (RENAL) TABLET. PO SCH (09:28)
[2016-09-30] MEDS: CALCIUM CARBONATE 500 MG TAB.CHEW PO SCH ×4 (09:28→21:01)
[2016-09-30] MEDS: OXYCODONE/APAP 10/325 TABLET. PO SCH ×3 (09:28→21:00)
[2016-09-30] MEDS ORDERED: HEPARIN 25,000UTS/500ML PREMIX 500 ML IV PRN (09:30)
--- NOTE | 2016-09-30 10:03 | PDOC ---
PROGRESS NOTES Chief Complaint Chief Complaint Gangrene of Right hand 5th digit History of Present Illness History of Present Illness No acute events overnight. Patient reports he is feeling well. He understands the procedure to take place tomorrow. Vitals Vitals Vital Signs Date Time Temp Pulse Resp B/P Pulse Ox O2 Delivery O2 Flow Rate FiO2 09/30/16 09:00 87/39 09/30/16 07:00 98.2 81 18 95 Nasal Cannula 2.0 98.2 Physical Exam General: Alert, Oriented X3, Cooperative, No acute distress Heart: Regular rate Lungs: Clear, Other (no wheezing) Abdomen: Normal bowel sounds, Soft, No tenderness, No hepatosplenomegaly, No masses Extremities: Other (gangrenous 5th digit of right hand; Left AKA) Skin: No rashes, No breakdown, No significant lesion Labs LABS Laboratory Tests Test 09/29/16 10:23 09/29/16 10:33 09/29/16 11:47 09/29/16 12:45 Glucose (Fingerstick) 159mg/dL (70-99) 128mg/dL (70-99) White Blood Count 13.3x10^3/uL (4.0-11.0) Red Blood Count 5.47x10^6/uL (4.30-5.70) Hemoglobin 14.3g/dL (13.0-17.5) Hematocrit 45.9% (39.0-53.0) Mean Corpuscular Volume 84fL (79-100) Mean Corpuscular Hemoglobin 26pg (25-35) Mean Corpuscular Hemoglobin Concent 31g/dL (31-37) Red Cell Distribution Width 17.2% (11.5-14.5) Platelet Count 163x10^3/uL (140-400) Neutrophils (%) (Auto) 81% (31-73) Lymphocytes (%) (Auto) 7% (24-48) Monocytes (%) (Auto) 10% (0-9) Eosinophils (%) (Auto) 1% (0-3) Basophils (%) (Auto) 1% (0-3) Neutrophils # (Auto) 10.8x10^3uL (1.8-7.7) Lymphocytes # (Auto) 0.9x10^3/uL (1.0-4.8) Monocytes # (Auto) 1.3x10^3/uL (0.0-1.1) Eosinophils # (Auto) 0.2x10^3/uL (0.0-0.7) Basophils # (Auto) 0.1x10^3/uL (0.0-0.2) Heparin Anti-Xa Act, Unfractionated < 0.10IU/mL (0.30-0.70) Sodium Level 140mmol/L (136-145) Potassium Level 5.8mmol/L (3.5-5.1) Chloride Level 100mmol/L (98-107) Carbon Dioxide Level 30mmol/L (21-32) Anion Gap 10 (6-14) Blood Urea Nitrogen 40mg/dL (8-26) Creatinine 9.1mg/dL (0.7-1.3) Estimated GFR (Cockcroft-Gault) 6.3 Glucose Level 118mg/dL (70-99) Calcium Level 8.4mg/dL (8.5-10.1) Test 09/29/16 16:13 09/29/16 17:00 09/29/16 20:37 09/29/16 22:52 Glucose (Fingerstick) 118mg/dL (70-99) 91mg/dL (70-99) Heparin Anti-Xa Act, Unfractionated 0.60IU/mL (0.30-0.70) 0.37IU/mL (0.30-0.70) Test 09/30/16 04:50 09/30/16 08:10 09/30/16 08:19 Sodium Level 139mmol/L (136-145) Potassium Level 5.8mmol/L (3.5-5.1) Chloride Level 99mmol/L (98-107) Carbon Dioxide Level 26mmol/L (21-32) Anion Gap 14 (6-14) Blood Urea Nitrogen 49mg/dL (8-26) Creatinine 10.7mg/dL (0.7-1.3) Estimated GFR (Cockcroft-Gault) 5.2 Glucose Level 132mg/dL (70-99) Calcium Level 8.2mg/dL (8.5-10.1) Phosphorus Level 9.2mg/dL (2.6-4.7) Albumin 2.8g/dL (3.4-5.0) Random Vancomycin Level 28.1mcg/mL Heparin Anti-Xa Act, Unfractionated 0.68IU/mL (0.30-0.70) Glucose (Fingerstick) 117mg/dL (70-99) Review of Systems Review of Systems Denies fever and chills. Denies chest pain and shortness of breath. Assessment and Plan Assessmemt and Plan 1. Gangrenous R fifth digit with cellulitis 2. ESRD on HD 3. 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 HTN 5. Left AKA 6. Obesity 7. Dyslipidmia 8. Mild pCM 9. Coumadin, with h/o DVT on right arm with AVF 10. Hyperkalemia PLAN: Surgery, ID and renal have been consulted, their recommendations are appreciated HD per renal Plan for OR tomorrow at 7:30am for Right arm DRIL arterial bypass surgery and right hand 5th digit amputation Continue to follow daily labs Continue vanc and zosyn PT/OT eval and treat Continue SSI Continue holding coumadin, on heparin drip Problems: Comment Review of Relevant I have reviewed the following items kayleigh (where applicable) has been applied. Labs Laboratory Tests Test 09/28/16 10:52 09/28/16 21:26 09/29/16 05:06 09/29/16 10:23 Glucose (Fingerstick) 137mg/dL (70-99) 105mg/dL (70-99) 159mg/dL (70-99) Sodium Level 140mmol/L (136-145) Potassium Level 6.2mmol/L (3.5-5.1) Chloride Level 101mmol/L (98-107) Carbon Dioxide Level 25mmol/L (21-32) Anion Gap 14 (6-14) Blood Urea Nitrogen 35mg/dL (8-26) Creatinine 7.9mg/dL (0.7-1.3) Estimated GFR (Cockcroft-Gault) 7.4 Glucose Level 135mg/dL (70-99) Calcium Level 8.2mg/dL (8.5-10.1) Test 09/29/16 10:33 09/29/16 11:47 09/29/16 12:45 09/29/16 16:13 White Blood Count 13.3x10^3/uL (4.0-11.0) Red Blood Count 5.47x10^6/uL (4.30-5.70) Hemoglobin 14.3g/dL (13.0-17.5) Hematocrit 45.9% (39.0-53.0) Mean Corpuscular Volume 84fL (79-100) Mean Corpuscular Hemoglobin 26pg (25-35) Mean Corpuscular Hemoglobin Concent 31g/dL (31-37) Red Cell Distribution Width 17.2% (11.5-14.5) Platelet Count 163x10^3/uL (140-400) Neutrophils (%) (Auto) 81% (31-73) Lymphocytes (%) (Auto) 7% (24-48) Monocytes (%) (Auto) 10% (0-9) Eosinophils (%) (Auto) 1% (0-3) Basophils (%) (Auto) 1% (0-3) Neutrophils # (Auto) 10.8x10^3uL (1.8-7.7) Lymphocytes # (Auto) 0.9x10^3/uL (1.0-4.8) Monocytes # (Auto) 1.3x10^3/uL (0.0-1.1) Eosinophils # (Auto) 0.2x10^3/uL (0.0-0.7) Basophils # (Auto) 0.1x10^3/uL (0.0-0.2) Heparin Anti-Xa Act, Unfractionated < 0.10IU/mL (0.30-0.70) Glucose (Fingerstick) 128mg/dL (70-99) 118mg/dL (70-99) Sodium Level 140mmol/L (136-145) Potassium Level 5.8mmol/L (3.5-5.1) Chloride Level 100mmol/L (98-107) Carbon Dioxide Level 30mmol/L (21-32) Anion Gap 10 (6-14) Blood Urea Nitrogen 40mg/dL (8-26) Creatinine 9.1mg/dL (0.7-1.3) Estimated GFR (Cockcroft-Gault) 6.3 Glucose Level 118mg/dL (70-99) Calcium Level 8.4mg/dL (8.5-10.1) Test 09/29/16 17:00 09/29/16 20:37 09/29/16 22:52 09/30/16 04:50 Heparin Anti-Xa Act, Unfractionated 0.60IU/mL (0.30-0.70) 0.37IU/mL (0.30-0.70) Glucose (Fingerstick) 91mg/dL (70-99) Sodium Level 139mmol/L (136-145) Potassium Level 5.8mmol/L (3.5-5.1) Chloride Level 99mmol/L (98-107) Carbon Dioxide Level 26mmol/L (21-32) Anion Gap 14 (6-14) Blood Urea Nitrogen 49mg/dL (8-26) Creatinine 10.7mg/dL (0.7-1.3) Estimated GFR (Cockcroft-Gault) 5.2 Glucose Level 132mg/dL (70-99) Calcium Level 8.2mg/dL (8.5-10.1) Phosphorus Level 9.2mg/dL (2.6-4.7) Albumin 2.8g/dL (3.4-5.0) Random Vancomycin Level 28.1mcg/mL Test 09/30/16 08:10 09/30/16 08:19 Heparin Anti-Xa Act, Unfractionated 0.68IU/mL (0.30-0.70) Glucose (Fingerstick) 117mg/dL (70-99) Laboratory Tests Test 09/29/16 10:23 09/29/16 10:33 09/29/16 11:47 09/29/16 12:45 Glucose (Fingerstick) 159mg/dL (70-99) 128mg/dL (70-99) White Blood Count 13.3x10^3/uL (4.0-11.0) Red Blood Count 5.47x10^6/uL (4.30-5.70) Hemoglobin 14.3g/dL (13.0-17.5) Hematocrit 45.9% (39.0-53.0) Mean Corpuscular Volume 84fL (79-100) Mean Corpuscular Hemoglobin 26pg (25-35) Mean Corpuscular Hemoglobin Concent 31g/dL (31-37) Red Cell Distribution Width 17.2% (11.5-14.5) Platelet Count 163x10^3/uL (140-400) Neutrophils (%) (Auto) 81% (31-73) Lymphocytes (%) (Auto) 7% (24-48) Monocytes (%) (Auto) 10% (0-9) Eosinophils (%) (Auto) 1% (0-3) Basophils (%) (Auto) 1% (0-3) Neutrophils # (Auto) 10.8x10^3uL (1.8-7.7) Lymphocytes # (Auto) 0.9x10^3/uL (1.0-4.8) Monocytes # (Auto) 1.3x10^3/uL (0.0-1.1) Eosinophils # (Auto) 0.2x10^3/uL (0.0-0.7) Basophils # (Auto) 0.1x10^3/uL (0.0-0.2) Heparin Anti-Xa Act, Unfractionated < 0.10IU/mL (0.30-0.70) Sodium Level 140mmol/L (136-145) Potassium Level 5.8mmol/L (3.5-5.1) Chloride Level 100mmol/L (98-107) Carbon Dioxide Level 30mmol/L (21-32) Anion Gap 10 (6-14) Blood Urea Nitrogen 40mg/dL (8-26) Creatinine 9.1mg/dL (0.7-1.3) Estimated GFR (Cockcroft-Gault) 6.3 Glucose Level 118mg/dL (70-99) Calcium Level 8.4mg/dL (8.5-10.1) Test 09/29/16 16:13 09/29/16 17:00 09/29/16 20:37 09/29/16 22:52 Glucose (Fingerstick) 118mg/dL (70-99) 91mg/dL (70-99) Heparin Anti-Xa Act, Unfractionated 0.60IU/mL (0.30-0.70) 0.37IU/mL (0.30-0.70) Test 09/30/16 04:50 09/30/16 08:10 09/30/16 08:19 Sodium Level 139mmol/L (136-145) Potassium Level 5.8mmol/L (3.5-5.1) Chloride Level 99mmol/L (98-107) Carbon Dioxide Level 26mmol/L (21-32) Anion Gap 14 (6-14) Blood Urea Nitrogen 49mg/dL (8-26) Creatinine 10.7mg/dL (0.7-1.3) Estimated GFR (Cockcroft-Gault) 5.2 Glucose Level 132mg/dL (70-99) Calcium Level 8.2mg/dL (8.5-10.1) Phosphorus Level 9.2mg/dL (2.6-4.7) Albumin 2.8g/dL (3.4-5.0) Random Vancomycin Level 28.1mcg/mL Heparin Anti-Xa Act, Unfractionated 0.68IU/mL (0.30-0.70) Glucose (Fingerstick) 117mg/dL (70-99) Medications Current Medications Iohexol (Omnipaque 300 Mg/ml) 100 ml STK-MED ONCE .ROUTE ; Start 09/27/16 at 09: 51; Stop 09/27/16 at 09:52; Status DC Lidocaine/Sodium Bicarbonate 20 ml 20 ml STK-MED ONCE IJ ; Start 09/27/16 at 09: 51; Stop 09/27/16 at 09:52; Status DC Heparin Sodium/ Sodium Chloride 1,500 ml @ As Directed STK-MED ONCE .ROUTE ; Start 09/27/16 at 09:51; Stop 09/27/16 at 09:52; Status DC Iodixanol (Visipaque 320) 100 ml STK-MED ONCE .ROUTE ; Start 09/27/16 at 10:11; Stop 09/27/16 at 10:12; Status DC Midazolam HCl (Versed) 5 mg STK-MED ONCE .ROUTE ; Start 09/27/16 at 10:20; Stop 09/27/16 at 10:21; Status DC Fentanyl Citrate (Fentanyl 5ml Vial) 250 mcg STK-MED ONCE .ROUTE ; Start at 10:20; Stop 09/27/16 at 10:21; Status DC Heparin Sodium/ Sodium Chloride 1,000 unit 1X ONCE IART Last administered on t 10:48; Start 09/27/16 at 10:45; Stop 09/27/16 at 10:46; Status DC Lidocaine/Sodium Bicarbonate (Buffered Lidocaine 1%) 20 ml 1X ONCE IJ Last administered on 09/27/16 10:48; Start 09/27/16 at 10:45; Stop 09/27/16 at 10:46 ; Status DC Midazolam HCl (Versed) 5 mg 1X ONCE IV Last administered on 09/27/16 11:17; Start 09/27/16 at 10:45; Stop 09/27/16 at 10:46; Status DC Fentanyl Citrate (Fentanyl 5ml Vial) 250 mcg 1X ONCE IV Last administered on 11:17; Start 09/27/16 at 10:45; Stop 09/27/16 at 10:46; Status DC Iodixanol (Visipaque 320) 100 ml 1X ONCE IART Last administered on 09/27/16 11:17; Start 09/27/16 at 10:45; Stop 09/27/16 at 10:46; Status DC Info (Do NOT chart on this entry -- for MONITORING) 1 each PRN DAILY PRN MC SEE COMMENTS; Start 09/27/16 at 11:00; Stop 09/29/16 at 10:59; Status DC Iodixanol (Visipaque 320) 50 ml STK-MED ONCE .ROUTE ; Start 09/27/16 at 10:59; Stop 09/27/16 at 11:00; Status DC Nitroglycerin (Nitroglycerin) 200 mcg 1X ONCE IART Last administered on 11:05; Start 09/27/16 at 11:00; Stop 09/27/16 at 11:07; Status DC Insulin Aspart (Novolog) 0-9 UNITS TIDWMEALS SQ ; Start 09/27/16 at 17:00 Dextrose 12.5 gm PRN Q15MIN PRN IV SEE COMMENTS; Start 09/27/16 at 12:45 Acetaminophen (Tylenol) 650 mg PRN Q6HRS PRN PO MILD PAIN / TEMP; Start at 12:45 Ondansetron HCl (Zofran) 4 mg PRN Q6HRS PRN IV NAUSEA/VOMITING Last administered on 09/28/16 10:04; Start 09/27/16 at 12:45 Amlodipine Besylate (Norvasc) 10 mg DAILY PO Last administered on 09/28/16 09: 35; Start 09/27/16 at 13:00 Atorvastatin Calcium (Lipitor) 10 mg QHS PO Last administered on 09/29/16 20: 50; Start 09/27/16 at 21:00 Fentanyl (Duragesic 75mcg/ Hr Patch) 1 patch Q72H PRN TD PAIN Last administered on 09/28/16 12:10; Start 09/27/16 at 12:45 Vitamin B Complex/ Vitamin C (Nephro-Eleazar) 1 tab DAILY PO Last administered on 09/30/16 09:28; Start 09/28/16 at 09:00 Furosemide (Lasix) 40 mg [id number] PO Last administered on 09/28/16 09:34; Start 09/27/16 at 14:00 Hydralazine HCl (Apresoline) 50 mg QID PO Last administered on 09/29/16 20:50 ; Start 09/27/16 at 13:00 Insulin Aspart (Novolog) 8 units TIDAC SQ Last administered on 09/29/16 08:31 ; Start 09/27/16 at 16:30 Metoprolol Tartrate (Lopressor) 50 mg BID PO Last administered on 09/29/16 20: 50; Start 09/27/16 at 21:00 Oxycodone/ Acetaminophen (Percocet 10/325) 1 tab TID PO Last administered on 09:28; Start 09/27/16 at 14:00 Sodium Bicarbonate (Sodium Bicarbonate) 1,300 mg TID PO Last administered on 09:27; Start 09/27/16 at 14:00 Calcium Carbonate/ Glycine (Tums) 500 mg QID PO Last administered on 09/30/16 09:28; Start 09/27/16 at 13:00 Non-Formulary Medication 210 mg TID PO ; Start 09/27/16 at 14:00; Stop 09/27/16 at 14:02; Status DC Insulin Detemir (Levemir) 15 units QHS SQ Last administered on 09/28/16 21:04 ; Start 09/27/16 at 21:00; Stop 09/29/16 at 16:26; Status DC Losartan Potassium (Cozaar) 100 mg DAILY PO Last administered on 09/28/16 09: 36; Start 09/27/16 at 13:00 Heparin Sodium (Porcine) 5,000 unit Q8HRS SQ Last administered on 09/28/16 05: 37; Start 09/27/16 at 14:00; Stop 09/28/16 at 14:33; Status DC Amoxicillin/ Clavulanate Potassium (Augmentin 500/ 125mg) 1 tab BID PO Last administered on 09/27/16 21:00; Start 09/27/16 at 13:00; Stop 09/27/16 at 21:54 ; Status DC Calcium Acetate (Phoslo) 1,334 mg TIDWMEALS PO Last administered on 09/30/16 09:27; Start 09/27/16 at 17:00 Amoxicillin/ Clavulanate Potassium (Augmentin 500/ 125mg) 1 tab Q24H PO ; Start 09/28/16 at 14:00; Status Cancel Ondansetron HCl (Zofran) 4 mg PRN Q6HRS PRN IV NAUSEA/VOMITING; Start 09/28/16 at 10:00; Status Cancel Ondansetron HCl (Zofran) 4 mg PRN Q6HRS PRN IV NAUSEA/VOMITING; Start 09/28/16 at 10:00; Status Cancel Piperacillin Sod/ Tazobactam Sod (Zosyn Per Pharmacy) 1 each PRN DAILY PRN MC SEE COMMENTS; Start 09/28/16 at 13:45 Vancomycin HCl (Vanco Per Pharmacy) 1 each PRN DAILY PRN MC SEE COMMENTS Last administered on 09/30/16 08:38; Start 09/28/16 at 13:45 Enoxaparin Sodium 60 mg 60 mg Q12HR SQ ; Start 09/28/16 at 21:00; Status UNV Piperacillin Sod/ Tazobactam Sod 2.25 gm/Sodium Chloride 50 ml @ 100 mls/hr Q8HRS IV Last administered on 09/29/16 20:53; Start 09/28/16 at 14:00 Vancomycin HCl 2 gm/Sodium Chloride 500 ml @ 250 mls/hr 1X ONCE IV Last administered on 09/28/16 15:14; Start 09/28/16 at 14:30; Stop 09/28/16 at 16:29 ; Status DC Heparin Sodium/ Dextrose 500 ml @ 0 mls/hr CONT PRN IV SEE I/O RECORD Last administered on 09/30/16 04:11; Start 09/28/16 at 14:45; Stop 09/30/16 at 09:27 ; Status DC Vancomycin HCl 1 each 1 each 1X ONCE MC Last administered on 09/30/16 05:00; Start 09/30/16 at 05:00; Stop 09/30/16 at 05:01; Status DC Sodium Chloride (Iv Sodium Chloride 0.9% 1000ml Bag) 1,000 ml @ 1,000 mls/hr Q1H PRN IV hypotension; Start 09/28/16 at 15:50; Stop 09/28/16 at 21:49; Status DC Info (PHARMACY MONITORING -- do not chart) 1 each PRN DAILY PRN MC SEE COMMENTS ; Start 09/28/16 at 16:00 Diphenhydramine HCl (Benadryl) 50 mg STK-MED ONCE .ROUTE Last administered on 17:57; Start 09/28/16 at 17:52; Stop 09/28/16 at 17:53; Status DC Diphenhydramine HCl (Benadryl) 50 mg 1X ONCE IVP ; Start 09/28/16 at 18:00; Stop 09/28/16 at 18:01; Status DC Sodium Polystyrene Sulfonate (Kayexalate) 15 gm 1X ONCE PO Last administered on 09/29/16 08:24; Start 09/29/16 at 07:45; Stop 09/29/16 at 07:46; Status DC Dextrose 25 gm 1X ONCE IV Last administered on 09/29/16 09:22; Start at 09:30; Stop 09/29/16 at 09:31; Status DC Insulin Human Regular (Novolin R Vial) 10 unit 1X ONCE IV Last administered on 09/29/16 09:34; Start 09/29/16 at 09:30; Stop 09/29/16 at 09:31; Status DC Sodium Bicarbonate 50 meq 1X ONCE IV Last administered on 09/29/16 09:50; Start 09/29/16 at 10:00; Stop 09/29/16 at 10:01; Status DC Heparin Sodium (Porcine) 3,600 unit PRN Q6HRS PRN IV FOR UFH LEVEL LESS THAN 0.2 Last administered on 09/29/16 11:47; Start 09/29/16 at 11:45 Info (Anti-Coagulation Monitoring By Pharmacy) 1 each PRN DAILY PRN MC SEE COMMENTS Last administered on 09/29/16 15:00; Start 09/29/16 at 15:00 Insulin Detemir (Levemir) 15 units QHS SQ ; Start 09/29/16 at 16:26 Diphenhydramine HCl (Benadryl) prn for itching PRN Q6HRS PRN IVP ITCHING; Start 09/29/16 at 21:30; Stop 09/29/16 at 21:35; Status DC Diphenhydramine HCl (Benadryl) prn itching PRN Q6HRS PRN PO ITCHING; Start 07/06 at 21:30; Stop 09/29/16 at 21:35; Status DC Diphenhydramine HCl (Benadryl) 25 mg PRN Q6HRS PRN IVP ITCHING Last administered on 09/29/16 21:51; Start 09/29/16 at 21:45 Diphenhydramine HCl (Benadryl) 25 mg PRN Q6HRS PRN PO ITCHING; Start 09/29/16 at 21:45 Diphenhydramine HCl 12.5 mg 12.5 mg PRN Q6HRS PRN IVP ITCHING; Start 09/29/16 at 21:45 Heparin Sodium/ Dextrose 500 ml @ 0 mls/hr CONT PRN IV SEE I/O RECORD; Start at 09:30; Stop 09/30/16 at 23:59 Active Scripts Active Novolog Flexpen (Insulin Aspart) 100 Unit/1 Ml Insuln.pen 8 Units SQ TIDAC Reported Percocet 10-325 Mg Tablet (Oxycodone/Acetaminophen) 1 Each Tablet 1 Tab PO TID Warfarin Sodium 7.5 Mg Tablet 7.5 Mg PO DAILY [place] Tablet (Folic Acid/Vitamin B Comp W-C) 0.8 Mg Tablet 0.8 Mg PO DAILY Ferric Citrate 210 Mg Tablet 210 Mg PO TID Hydralazine Hcl 50 Mg Tablet 50 Mg PO QID FENTANYL 75mcg/hr (Fentanyl) 1 Each Patch.td72 1 Patch TD Q72H PRN Lantus Solostar (Insulin Glargine,Hum.rec.anlog) 100 Unit/1 Ml Insuln.pen 15 Unit SQ QHS Furosemide 40 Mg Tablet 1 Tab PO BID Tums (Calcium Carbonate) 300 Mg Tab.chew 500 Mg PO QID Losartan Potassium 100 Mg Tablet 100 Mg PO DAILY Atorvastatin Calcium 10 Mg Tablet 10 Mg PO DAILY Sodium Bicarbonate 650 Mg Tablet 1,300 Mg PO TID Amlodipine Besylate 10 Mg Tablet 10 Mg PO DAILY Metoprolol Tartrate 50 Mg Tablet 50 Mg PO BID Vitals/I & O Vital Sign - Last 24 Hours 09/29/16 09/29/16 09/29/16 09/29/16 11:00 15:00 15:02 19:48 Temp 97.9 98.0 98.3 97.9 98.0 98.3 Pulse 82 87 88 Resp 18 18 B/P 105/64 119/39 117/41 119/64 Pulse Ox 97 94 95 O2 Delivery Room Air Room Air Nasal Cannula O2 Flow Rate 2.0 09/29/16 09/29/16 09/29/16 09/29/16 20:26 20:50 20:50 20:50 Pulse 88 88 Resp 18 B/P 119/64 119/64 Pulse Ox 95 O2 Delivery Nasal Cannula Nasal Cannula O2 Flow Rate 2.0 2.0 09/29/16 09/29/16 09/30/16 09/30/16 21:50 23:34 03:51 07:00 Temp 98.6 98.6 98.2 98.6 98.6 98.2 Pulse 78 76 81 Resp 18 B/P 122/63 108/66 87/39 Pulse Ox 95 96 94 95 O2 Delivery Nasal Cannula Nasal Cannula Nasal Cannula Nasal Cannula O2 Flow Rate 2.0 2.0 2.0 2.0 09/30/16 09/30/16 09/30/16 09/30/16 09:00 09:00 09:00 09:00 B/P 87/39 87/39 87/39 87/39 Intake and Output 09/29/16 09/29/16 09/30/16 15:00 23:00 07:00 Intake Total 500 ml 550 ml Output Total 0 ml Balance 500 ml 550 ml CASTLE,NIAL K III DO Sep 30, 2016 10:03
--- NOTE | 2016-09-30 10:44 | PDOC ---
PROGRESS NOTES Subjective Subjective "Will I go home tomorrow after this procedure?" Objective Objective Vascular Surgrey follow up: O: Asleep in bed with room dark. No acute distress once awakened. RUE: Right 5th finger cellulitis with necrotic finger tip appears to be less swollen and with improved erythema on IV antibiotics. RLE: Right leg/thigh without rash. Assessment/Plan: 1. Right 5th finger dry gangrene and cellulitis improved with IV abx. IV antibiotics to continue per ID. 2. ESRD on dialysis through right upper arm AV shunt has steal syndrome symptomatic with right 5th finger gangrene - Plan right arm DRIL arterial bypass surgery using saphenous vein from the right leg and a right 5th finger amputation scheduled at 7:30am tomorrow. Preop orders completed. - heparin drip for chronic anticoagulation while coumadin is being held will be turned off at midnight tonight. - will need to ensure dialysis is scheduled AFTER surgery tomorrow morning as patient dialyzes T-TH-Sat Vital Signs Date Time Temp Pulse Resp B/P Pulse Ox O2 Delivery O2 Flow Rate FiO2 09/30/16 09:00 87/39 09/30/16 08:00 Nasal Cannula 2.0 09/30/16 07:00 98.2 81 18 95 98.2 Intake and Output 09/30/16 07:00 Intake Total 1050 ml Output Total 0 ml Balance 1050 ml Intake Oral 450 ml IV Total 600 ml Output Urine Total 0 ml Comment Review of Relevant I have reviewed the following items kayleigh (where applicable) has been applied. Labs Laboratory Tests Test 09/28/16 10:52 09/28/16 21:26 09/29/16 05:06 09/29/16 10:23 Glucose (Fingerstick) 137mg/dL (70-99) 105mg/dL (70-99) 159mg/dL (70-99) Sodium Level 140mmol/L (136-145) Potassium Level 6.2mmol/L (3.5-5.1) Chloride Level 101mmol/L (98-107) Carbon Dioxide Level 25mmol/L (21-32) Anion Gap 14 (6-14) Blood Urea Nitrogen 35mg/dL (8-26) Creatinine 7.9mg/dL (0.7-1.3) Estimated GFR (Cockcroft-Gault) 7.4 Glucose Level 135mg/dL (70-99) Calcium Level 8.2mg/dL (8.5-10.1) Test 09/29/16 10:33 09/29/16 11:47 09/29/16 12:45 09/29/16 16:13 White Blood Count 13.3x10^3/uL (4.0-11.0) Red Blood Count 5.47x10^6/uL (4.30-5.70) Hemoglobin 14.3g/dL (13.0-17.5) Hematocrit 45.9% (39.0-53.0) Mean Corpuscular Volume 84fL (79-100) Mean Corpuscular Hemoglobin 26pg (25-35) Mean Corpuscular Hemoglobin Concent 31g/dL (31-37) Red Cell Distribution Width 17.2% (11.5-14.5) Platelet Count 163x10^3/uL (140-400) Neutrophils (%) (Auto) 81% (31-73) Lymphocytes (%) (Auto) 7% (24-48) Monocytes (%) (Auto) 10% (0-9) Eosinophils (%) (Auto) 1% (0-3) Basophils (%) (Auto) 1% (0-3) Neutrophils # (Auto) 10.8x10^3uL (1.8-7.7) Lymphocytes # (Auto) 0.9x10^3/uL (1.0-4.8) Monocytes # (Auto) 1.3x10^3/uL (0.0-1.1) Eosinophils # (Auto) 0.2x10^3/uL (0.0-0.7) Basophils # (Auto) 0.1x10^3/uL (0.0-0.2) Heparin Anti-Xa Act, Unfractionated < 0.10IU/mL (0.30-0.70) Glucose (Fingerstick) 128mg/dL (70-99) 118mg/dL (70-99) Sodium Level 140mmol/L (136-145) Potassium Level 5.8mmol/L (3.5-5.1) Chloride Level 100mmol/L (98-107) Carbon Dioxide Level 30mmol/L (21-32) Anion Gap 10 (6-14) Blood Urea Nitrogen 40mg/dL (8-26) Creatinine 9.1mg/dL (0.7-1.3) Estimated GFR (Cockcroft-Gault) 6.3 Glucose Level 118mg/dL (70-99) Calcium Level 8.4mg/dL (8.5-10.1) Test 09/29/16 17:00 09/29/16 20:37 09/29/16 22:52 09/30/16 04:50 Heparin Anti-Xa Act, Unfractionated 0.60IU/mL (0.30-0.70) 0.37IU/mL (0.30-0.70) Glucose (Fingerstick) 91mg/dL (70-99) Sodium Level 139mmol/L (136-145) Potassium Level 5.8mmol/L (3.5-5.1) Chloride Level 99mmol/L (98-107) Carbon Dioxide Level 26mmol/L (21-32) Anion Gap 14 (6-14) Blood Urea Nitrogen 49mg/dL (8-26) Creatinine 10.7mg/dL (0.7-1.3) Estimated GFR (Cockcroft-Gault) 5.2 Glucose Level 132mg/dL (70-99) Calcium Level 8.2mg/dL (8.5-10.1) Phosphorus Level 9.2mg/dL (2.6-4.7) Albumin 2.8g/dL (3.4-5.0) Random Vancomycin Level 28.1mcg/mL Test 09/30/16 08:10 09/30/16 08:19 Heparin Anti-Xa Act, Unfractionated 0.68IU/mL (0.30-0.70) Glucose (Fingerstick) 117mg/dL (70-99) Laboratory Tests Test 09/29/16 11:47 09/29/16 12:45 09/29/16 16:13 09/29/16 17:00 Glucose (Fingerstick) 128mg/dL (70-99) 118mg/dL (70-99) Sodium Level 140mmol/L (136-145) Potassium Level 5.8mmol/L (3.5-5.1) Chloride Level 100mmol/L (98-107) Carbon Dioxide Level 30mmol/L (21-32) Anion Gap 10 (6-14) Blood Urea Nitrogen 40mg/dL (8-26) Creatinine 9.1mg/dL (0.7-1.3) Estimated GFR (Cockcroft-Gault) 6.3 Glucose Level 118mg/dL (70-99) Calcium Level 8.4mg/dL (8.5-10.1) Heparin Anti-Xa Act, Unfractionated 0.60IU/mL (0.30-0.70) Test 09/29/16 20:37 09/29/16 22:52 09/30/16 04:50 09/30/16 08:10 Glucose (Fingerstick) 91mg/dL (70-99) Heparin Anti-Xa Act, Unfractionated 0.37IU/mL (0.30-0.70) 0.68IU/mL (0.30-0.70) Sodium Level 139mmol/L (136-145) Potassium Level 5.8mmol/L (3.5-5.1) Chloride Level 99mmol/L (98-107) Carbon Dioxide Level 26mmol/L (21-32) Anion Gap 14 (6-14) Blood Urea Nitrogen 49mg/dL (8-26) Creatinine 10.7mg/dL (0.7-1.3) Estimated GFR (Cockcroft-Gault) 5.2 Glucose Level 132mg/dL (70-99) Calcium Level 8.2mg/dL (8.5-10.1) Phosphorus Level 9.2mg/dL (2.6-4.7) Albumin 2.8g/dL (3.4-5.0) Random Vancomycin Level 28.1mcg/mL Test 09/30/16 08:19 Glucose (Fingerstick) 117mg/dL (70-99) Medications Current Medications Iohexol (Omnipaque 300 Mg/ml) 100 ml STK-MED ONCE .ROUTE ; Start 09/27/16 at 09: 51; Stop 09/27/16 at 09:52; Status DC Lidocaine/Sodium Bicarbonate 20 ml 20 ml STK-MED ONCE IJ ; Start 09/27/16 at 09: 51; Stop 09/27/16 at 09:52; Status DC Heparin Sodium/ Sodium Chloride 1,500 ml @ As Directed STK-MED ONCE .ROUTE ; Start 09/27/16 at 09:51; Stop 09/27/16 at 09:52; Status DC Iodixanol (Visipaque 320) 100 ml STK-MED ONCE .ROUTE ; Start 09/27/16 at 10:11; Stop 09/27/16 at 10:12; Status DC Midazolam HCl (Versed) 5 mg STK-MED ONCE .ROUTE ; Start 09/27/16 at 10:20; Stop 09/27/16 at 10:21; Status DC Fentanyl Citrate (Fentanyl 5ml Vial) 250 mcg STK-MED ONCE .ROUTE ; Start at 10:20; Stop 09/27/16 at 10:21; Status DC Heparin Sodium/ Sodium Chloride 1,000 unit 1X ONCE IART Last administered on 10:48; Start 09/27/16 at 10:45; Stop 09/27/16 at 10:46; Status DC Lidocaine/Sodium Bicarbonate (Buffered Lidocaine 1%) 20 ml 1X ONCE IJ Last administered on 09/27/16 10:48; Start 09/27/16 at 10:45; Stop 09/27/16 at 10:46 ; Status DC Midazolam HCl (Versed) 5 mg 1X ONCE IV Last administered on 09/27/16 11:17; Start 09/27/16 at 10:45; Stop 09/27/16 at 10:46; Status DC Fentanyl Citrate (Fentanyl 5ml Vial) 250 mcg 1X ONCE IV Last administered on 11:17; Start 09/27/16 at 10:45; Stop 09/27/16 at 10:46; Status DC Iodixanol (Visipaque 320) 100 ml 1X ONCE IART Last administered on 09/27/16 11:17; Start 09/27/16 at 10:45; Stop 09/27/16 at 10:46; Status DC Info (Do NOT chart on this entry -- for MONITORING) 1 each PRN DAILY PRN MC SEE COMMENTS; Start 09/27/16 at 11:00; Stop 09/29/16 at 10:59; Status DC Iodixanol (Visipaque 320) 50 ml STK-MED ONCE .ROUTE ; Start 09/27/16 at 10:59; Stop 09/27/16 at 11:00; Status DC Nitroglycerin (Nitroglycerin) 200 mcg 1X ONCE IART Last administered on 11:05; Start 09/27/16 at 11:00; Stop 09/27/16 at 11:07; Status DC Insulin Aspart (Novolog) 0-9 UNITS TIDWMEALS SQ ; Start 09/27/16 at 17:00 Dextrose 12.5 gm PRN Q15MIN PRN IV SEE COMMENTS; Start 09/27/16 at 12:45 Acetaminophen (Tylenol) 650 mg PRN Q6HRS PRN PO MILD PAIN / TEMP; Start at 12:45 Ondansetron HCl (Zofran) 4 mg PRN Q6HRS PRN IV NAUSEA/VOMITING Last administered on 09/28/16 10:04; Start 09/27/16 at 12:45 Amlodipine Besylate (Norvasc) 10 mg DAILY PO Last administered on 09/28/16 09: 35; Start 09/27/16 at 13:00 Atorvastatin Calcium (Lipitor) 10 mg QHS PO Last administered on 09/29/16 20: 50; Start 09/27/16 at 21:00 Fentanyl (Duragesic 75mcg/ Hr Patch) 1 patch Q72H PRN TD PAIN Last administered on 09/28/16 12:10; Start 09/27/16 at 12:45 Vitamin B Complex/ Vitamin C (Nephro-Eleazar) 1 tab DAILY PO Last administered on 09/30/16 09:28; Start 09/28/16 at 09:00 Furosemide (Lasix) 40 mg [id number] PO Last administered on 09/28/16 09:34; Start 09/27/16 at 14:00 Hydralazine HCl (Apresoline) 50 mg QID PO Last administered on 09/29/16 20:50 ; Start 09/27/16 at 13:00 Insulin Aspart (Novolog) 8 units TIDAC SQ Last administered on 09/29/16 08:31 ; Start 09/27/16 at 16:30 Metoprolol Tartrate (Lopressor) 50 mg BID PO Last administered on 09/29/16 20: 50; Start 09/27/16 at 21:00 Oxycodone/ Acetaminophen (Percocet 10/325) 1 tab TID PO Last administered on 09:28; Start 09/27/16 at 14:00 Sodium Bicarbonate (Sodium Bicarbonate) 1,300 mg TID PO Last administered on 09:27; Start 09/27/16 at 14:00 Calcium Carbonate/ Glycine (Tums) 500 mg QID PO Last administered on 09/30/16 09:28; Start 09/27/16 at 13:00 Non-Formulary Medication 210 mg TID PO ; Start 09/27/16 at 14:00; Stop 09/27/16 at 14:02; Status DC Insulin Detemir (Levemir) 15 units QHS SQ Last administered on 09/28/16 21:04 ; Start 09/27/16 at 21:00; Stop 09/29/16 at 16:26; Status DC Losartan Potassium (Cozaar) 100 mg DAILY PO Last administered on 09/28/16 09: 36; Start 09/27/16 at 13:00 Heparin Sodium (Porcine) 5,000 unit Q8HRS SQ Last administered on 09/28/16 05: 37; Start 09/27/16 at 14:00; Stop 09/28/16 at 14:33; Status DC Amoxicillin/ Clavulanate Potassium (Augmentin 500/ 125mg) 1 tab BID PO Last administered on 09/27/16 21:00; Start 09/27/16 at 13:00; Stop 09/27/16 at 21:54 ; Status DC Calcium Acetate (Phoslo) 1,334 mg TIDWMEALS PO Last administered on 09/30/16 09:27; Start 09/27/16 at 17:00 Amoxicillin/ Clavulanate Potassium (Augmentin 500/ 125mg) 1 tab Q24H PO ; Start 09/28/16 at 14:00; Status Cancel Ondansetron HCl (Zofran) 4 mg PRN Q6HRS PRN IV NAUSEA/VOMITING; Start 09/28/16 at 10:00; Status Cancel Ondansetron HCl (Zofran) 4 mg PRN Q6HRS PRN IV NAUSEA/VOMITING; Start 09/28/16 at 10:00; Status Cancel Piperacillin Sod/ Tazobactam Sod (Zosyn Per Pharmacy) 1 each PRN DAILY PRN MC SEE COMMENTS; Start 09/28/16 at 13:45 Vancomycin HCl (Vanco Per Pharmacy) 1 each PRN DAILY PRN MC SEE COMMENTS Last administered on 09/30/16 08:38; Start 09/28/16 at 13:45 Enoxaparin Sodium 60 mg 60 mg Q12HR SQ ; Start 09/28/16 at 21:00; Status UNV Piperacillin Sod/ Tazobactam Sod 2.25 gm/Sodium Chloride 50 ml @ 100 mls/hr Q8HRS IV Last administered on 09/29/16 20:53; Start 09/28/16 at 14:00 Vancomycin HCl 2 gm/Sodium Chloride 500 ml @ 250 mls/hr 1X ONCE IV Last administered on 09/28/16 15:14; Start 09/28/16 at 14:30; Stop 09/28/16 at 16:29 ; Status DC Heparin Sodium/ Dextrose 500 ml @ 0 mls/hr CONT PRN IV SEE I/O RECORD Last administered on 09/30/16 04:11; Start 09/28/16 at 14:45; Stop 09/30/16 at 09:27 ; Status DC Vancomycin HCl 1 each 1 each 1X ONCE MC Last administered on 09/30/16 05:00; Start 09/30/16 at 05:00; Stop 09/30/16 at 05:01; Status DC Sodium Chloride (Iv Sodium Chloride 0.9% 1000ml Bag) 1,000 ml @ 1,000 mls/hr Q1H PRN IV hypotension; Start 09/28/16 at 15:50; Stop 09/28/16 at 21:49; Status DC Info (PHARMACY MONITORING -- do not chart) 1 each PRN DAILY PRN MC SEE COMMENTS ; Start 09/28/16 at 16:00 Diphenhydramine HCl (Benadryl) 50 mg STK-MED ONCE .ROUTE Last administered on 17:57; Start 09/28/16 at 17:52; Stop 09/28/16 at 17:53; Status DC Diphenhydramine HCl (Benadryl) 50 mg 1X ONCE IVP ; Start 09/28/16 at 18:00; Stop 09/28/16 at 18:01; Status DC Sodium Polystyrene Sulfonate (Kayexalate) 15 gm 1X ONCE PO Last administered on 09/29/16 08:24; Start 09/29/16 at 07:45; Stop 09/29/16 at 07:46; Status DC Dextrose 25 gm 1X ONCE IV Last administered on 09/29/16 09:22; Start at 09:30; Stop 09/29/16 at 09:31; Status DC Insulin Human Regular (Novolin R Vial) 10 unit 1X ONCE IV Last administered on 09/29/16 09:34; Start 09/29/16 at 09:30; Stop 09/29/16 at 09:31; Status DC Sodium Bicarbonate 50 meq 1X ONCE IV Last administered on 09/29/16 09:50; Start 09/29/16 at 10:00; Stop 09/29/16 at 10:01; Status DC Heparin Sodium (Porcine) 3,600 unit PRN Q6HRS PRN IV FOR UFH LEVEL LESS THAN 0.2 Last administered on 09/29/16 11:47; Start 09/29/16 at 11:45 Info (Anti-Coagulation Monitoring By Pharmacy) 1 each PRN DAILY PRN MC SEE COMMENTS Last administered on 09/29/16 15:00; Start 09/29/16 at 15:00 Insulin Detemir (Levemir) 15 units QHS SQ ; Start 09/29/16 at 16:26 Diphenhydramine HCl (Benadryl) prn for itching PRN Q6HRS PRN IVP ITCHING; Start 09/29/16 at 21:30; Stop 09/29/16 at 21:35; Status DC Diphenhydramine HCl (Benadryl) prn itching PRN Q6HRS PRN PO ITCHING; Start 07/06 at 21:30; Stop 09/29/16 at 21:35; Status DC Diphenhydramine HCl (Benadryl) 25 mg PRN Q6HRS PRN IVP ITCHING Last administered on 09/29/16 21:51; Start 09/29/16 at 21:45 Diphenhydramine HCl (Benadryl) 25 mg PRN Q6HRS PRN PO ITCHING; Start 09/29/16 at 21:45 Diphenhydramine HCl 12.5 mg 12.5 mg PRN Q6HRS PRN IVP ITCHING; Start 09/29/16 at 21:45 Heparin Sodium/ Dextrose 500 ml @ 0 mls/hr CONT PRN IV SEE I/O RECORD; Start at 09:30; Stop 09/30/16 at 23:59 Cefazolin Sodium/ Dextrose (Ancef 2gm Premix) 50 ml @ 100 mls/hr 1X ONCE IV ; Start 10/01/16 at 07:00; Stop 10/01/16 at 07:29 Active Scripts Active Novolog Flexpen (Insulin Aspart) 100 Unit/1 Ml Insuln.pen 8 Units SQ TIDAC Reported Percocet 10-325 Mg Tablet (Oxycodone/Acetaminophen) 1 Each Tablet 1 Tab PO TID Warfarin Sodium 7.5 Mg Tablet 7.5 Mg PO DAILY [place] Tablet (Folic Acid/Vitamin B Comp W-C) 0.8 Mg Tablet 0.8 Mg PO DAILY Ferric Citrate 210 Mg Tablet 210 Mg PO TID Hydralazine Hcl 50 Mg Tablet 50 Mg PO QID FENTANYL 75mcg/hr (Fentanyl) 1 Each Patch.td72 1 Patch TD Q72H PRN Lantus Solostar (Insulin Glargine,Hum.rec.anlog) 100 Unit/1 Ml Insuln.pen 15 Unit SQ QHS Furosemide 40 Mg Tablet 1 Tab PO BID Tums (Calcium Carbonate) 300 Mg Tab.chew 500 Mg PO QID Losartan Potassium 100 Mg Tablet 100 Mg PO DAILY Atorvastatin Calcium 10 Mg Tablet 10 Mg PO DAILY Sodium Bicarbonate 650 Mg Tablet 1,300 Mg PO TID Amlodipine Besylate 10 Mg Tablet 10 Mg PO DAILY Metoprolol Tartrate 50 Mg Tablet 50 Mg PO BID Vitals/I & O Vital Sign - Last 24 Hours 09/29/16 09/29/16 09/29/16 09/29/16 11:00 15:00 15:02 19:48 Temp 97.9 98.0 98.3 97.9 98.0 98.3 Pulse 82 87 88 Resp 18 18 B/P 105/64 119/39 117/41 119/64 Pulse Ox 97 94 95 O2 Delivery Room Air Room Air Nasal Cannula O2 Flow Rate 2.0 09/29/16 09/29/16 09/29/16 09/29/16 20:26 20:50 20:50 20:50 Pulse 88 88 Resp 18 B/P 119/64 119/64 Pulse Ox 95 O2 Delivery Nasal Cannula Nasal Cannula O2 Flow Rate 2.0 2.0 09/29/16 09/29/16 09/30/16 09/30/16 21:50 23:34 03:51 07:00 Temp 98.6 98.6 98.2 98.6 98.6 98.2 Pulse 78 76 81 Resp 18 20 18 18 B/P 122/63 108/66 87/39 Pulse Ox 95 96 94 95 O2 Delivery Nasal Cannula Nasal Cannula Nasal Cannula Nasal Cannula O2 Flow Rate 2.0 2.0 2.0 2.0 09/30/16 09/30/16 09/30/16 09/30/16 08:00 09:00 09:00 09:00 B/P 87/39 87/39 87/39 O2 Delivery Nasal Cannula O2 Flow Rate 2.0 09/30/16 09:00 B/P 87/39 Intake and Output 09/29/16 09/29/16 09/30/16 15:00 23:00 07:00 Intake Total 500 ml 550 ml Output Total 0 ml Balance 500 ml 550 ml ANU REYNOLDS APRN Sep 30, 2016 10:44
[2016-09-30 11:00] VITALS: BP 103/53
--- NOTE | 2016-09-30 11:17 | PDOC ---
Infectious Disease Note Subjective Subjective Doing ok. Tolerating abx ROS ROS GEN: Denies fevers, chills, sweats HEENT: Denies blurred vision, sore throat CV: Denies chest pain RESP: Denies shortness of air, cough GI: Denies n/v/d NEURO: Denies confusion, dizziness MSK: Denies weakness, joint pain/swelling Vital Sign Vital Signs Vital Signs Date Time Temp Pulse Resp B/P Pulse Ox O2 Delivery O2 Flow Rate FiO2 09/30/16 09:00 87/39 09/30/16 08:00 Nasal Cannula 2.0 09/30/16 07:00 98.2 81 18 95 98.2 Physical Exam PHYSICAL EXAM GENERAL: NAD, Alert, in bed HEENT: PERRL, OC/OP - dry NECK: Supple, no JVD, no LN LUNGS: Clear HEART: S1S2, no gallop, no murmur ABD: Soft, NT, no organomegaly, no rebound, obese EXT: No edema, no cyanosis. 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, no focal neurologic deficit SKIN: No rash IV: ok Labs Lab Laboratory Tests Test 09/29/16 11:47 09/29/16 12:45 09/29/16 16:13 09/29/16 17:00 Glucose (Fingerstick) 128mg/dL (70-99) 118mg/dL (70-99) Sodium Level 140mmol/L (136-145) Potassium Level 5.8mmol/L (3.5-5.1) Chloride Level 100mmol/L (98-107) Carbon Dioxide Level 30mmol/L (21-32) Anion Gap 10 (6-14) Blood Urea Nitrogen 40mg/dL (8-26) Creatinine 9.1mg/dL (0.7-1.3) Estimated GFR (Cockcroft-Gault) 6.3 Glucose Level 118mg/dL (70-99) Calcium Level 8.4mg/dL (8.5-10.1) Heparin Anti-Xa Act, Unfractionated 0.60IU/mL (0.30-0.70) Test 09/29/16 20:37 09/29/16 22:52 09/30/16 04:50 09/30/16 08:10 Glucose (Fingerstick) 91mg/dL (70-99) Heparin Anti-Xa Act, Unfractionated 0.37IU/mL (0.30-0.70) 0.68IU/mL (0.30-0.70) Sodium Level 139mmol/L (136-145) Potassium Level 5.8mmol/L (3.5-5.1) Chloride Level 99mmol/L (98-107) Carbon Dioxide Level 26mmol/L (21-32) Anion Gap 14 (6-14) Blood Urea Nitrogen 49mg/dL (8-26) Creatinine 10.7mg/dL (0.7-1.3) Estimated GFR (Cockcroft-Gault) 5.2 Glucose Level 132mg/dL (70-99) Calcium Level 8.2mg/dL (8.5-10.1) Phosphorus Level 9.2mg/dL (2.6-4.7) Albumin 2.8g/dL (3.4-5.0) Random Vancomycin Level 28.1mcg/mL Test 09/30/16 08:19 09/30/16 10:39 Glucose (Fingerstick) 117mg/dL (70-99) 152mg/dL (70-99) Objective Assessment Gangrene and cellulitis of right 5th finger AV steel phenomenon CKD on HD Diabetes Mellitus h/o PSAE pansensitive Plan Plan of Care Patient is scheduled for a right arm DRIL arterial bypass and right 5th finger amputation on Friday. Continue vanc and Zosyn Monitor labs CASI OLSEN MD Sep 30, 2016 11:16
--- NOTE | 2016-09-30 11:37 | PDOC ---
Renal-Progress Notes Subjective Notes Notes ADEQUATE PAIN CONTROL History of Present Illness Hx of present illness STABLE Vitals Vitals Vital Signs Date Time Temp Pulse Resp B/P Pulse Ox O2 Delivery O2 Flow Rate FiO2 09/30/16 11:00 98.4 66 18 103/53 91 Nasal Cannula 2.0 98.4 Weight Weight [ ] I.O. Intake and Output Intake and Output 09/30/16 07:00 Intake Total 1050 ml Output Total 0 ml Balance 1050 ml Intake Oral 450 ml IV Total 600 ml Output Urine Total 0 ml Labs Labs Laboratory Tests Test 09/29/16 11:47 09/29/16 12:45 09/29/16 16:13 09/29/16 17:00 Glucose (Fingerstick) 128mg/dL (70-99) 118mg/dL (70-99) Sodium Level 140mmol/L (136-145) Potassium Level 5.8mmol/L (3.5-5.1) Chloride Level 100mmol/L (98-107) Carbon Dioxide Level 30mmol/L (21-32) Anion Gap 10 (6-14) Blood Urea Nitrogen 40mg/dL (8-26) Creatinine 9.1mg/dL (0.7-1.3) Estimated GFR (Cockcroft-Gault) 6.3 Glucose Level 118mg/dL (70-99) Calcium Level 8.4mg/dL (8.5-10.1) Heparin Anti-Xa Act, Unfractionated 0.60IU/mL (0.30-0.70) Test 09/29/16 20:37 09/29/16 22:52 09/30/16 04:50 09/30/16 08:10 Glucose (Fingerstick) 91mg/dL (70-99) Heparin Anti-Xa Act, Unfractionated 0.37IU/mL (0.30-0.70) 0.68IU/mL (0.30-0.70) Sodium Level 139mmol/L (136-145) Potassium Level 5.8mmol/L (3.5-5.1) Chloride Level 99mmol/L (98-107) Carbon Dioxide Level 26mmol/L (21-32) Anion Gap 14 (6-14) Blood Urea Nitrogen 49mg/dL (8-26) Creatinine 10.7mg/dL (0.7-1.3) Estimated GFR (Cockcroft-Gault) 5.2 Glucose Level 132mg/dL (70-99) Calcium Level 8.2mg/dL (8.5-10.1) Phosphorus Level 9.2mg/dL (2.6-4.7) Albumin 2.8g/dL (3.4-5.0) Random Vancomycin Level 28.1mcg/mL Test 09/30/16 08:19 09/30/16 10:39 Glucose (Fingerstick) 117mg/dL (70-99) 152mg/dL (70-99) Review of Systems Constitutional: yes: alert, weakness Ears/Nose/Throat: Yes: no symptom reported Eyes: Yes: no symptom reported Pulmonary: Yes no symptom reported Cardiovascular: Yes no symptom reported Musculoskeletal: Yes: no symptom reported Physical Exam General Appearance: no apparent distress Skin: warm Respiratory: bilateral CTA Heart: S1S2, RRR Abdomen: soft, bowel sounds present Genitourinary: bladder flat Extremities: pulses present Neurology: alert Assessment Assessment IMP ESRD ANEMIA RIGHT HAND 5TH FINGER GANGRENE PLAN ANTIBIOTICS HD TOMORROW WILL FOLLOW JOCELYN ABURTO MD Sep 30, 2016 11:37
[2016-09-30 15:00] VITALS: BP 111/56
[2016-09-30] MEDS: DIPHENHYDRAMINE HCL 25 MG CAPSULE PO PRN ×2 (15:35→21:28)
[2016-09-30] MEDS: ANTI-COAG MONITOR BY PHARMACY. MC PRN (15:39)
[2016-09-30 19:51] VITALS: BP 121/63
[2016-09-30] MEDS: INSULIN DETEMIR 300 UNITS/3 ML INSULN.PEN. SQ SCH (21:00)
[2016-09-30] MEDS: ATORVASTATIN CALCIUM 10 MG TABLET. PO SCH (21:01)
[2016-09-30 23:55] VITALS: BP 113/62
[2016-10-01 02:57] VITALS: BP 100/68
[2016-10-01] MEDS: PIPERACILLIN/TAZOBACTAM 2.25 GM in IV NORMAL SALINE 50ML 50 ML IV SCH ×3 (05:58→22:27)
[2016-10-01] MEDS ORDERED: HEPARIN S0DIUM 5,000 UNIT in IV NORMAL SALINE 500ML BAG 500 ML IRR ONE (06:00)
[2016-10-01] MEDS ORDERED: CEFAZOLIN SODIUM 1 GM in IV NORMAL SALINE 500ML BAG 500 ML IRR ONE (06:00)
[2016-10-01] MEDS ORDERED: SURGICEL FIBRILLAR 1X2 EACH. ONE (06:51)
[2016-10-01] MEDS ORDERED: PAPAVERINE 60 MG/2 ML VIAL FOR OR ONLY. ONE (06:52)
[2016-10-01] MEDS ORDERED: LIDOCAINE 1% 20 ML VIAL. ONE (06:52)
[2016-10-01 07:00] VITALS: BP 141/82
[2016-10-01] MEDS ORDERED: LIDOCAINE 1% 1 ML SYRINGE. ID PRN (07:00)
[2016-10-01] MEDS ORDERED: FENTANYL PF 100 MCG/2 ML VIAL. IV PRN ×2 (07:00)
[2016-10-01] MEDS ORDERED: ONDANSETRON PF 4 MG/2 ML VIAL. IV PRN (07:00)
[2016-10-01] MEDS ORDERED: LIDOCAINE 2% 100 MG/5 ML DISP.SYRIN. ONE (07:00)
[2016-10-01] MEDS ORDERED: PROCHLORPERAZINE 10 MG/2 ML VIAL. IV PRN (07:00)
[2016-10-01] MEDS ORDERED: HYDROMORPHONE 2 MG/ML VIAL. IV PRN (07:00)
[2016-10-01] MEDS ORDERED: CEFAZOLIN 2GM PREMIX 50 ML IV ONE (07:00)
[2016-10-01] MEDS ORDERED: PROPOFOL 0 ML IV ONE (07:00)
[2016-10-01] MEDS ORDERED: FAMOTIDINE 20 MG/2 ML VIAL ONE (07:00)
[2016-10-01] MEDS ORDERED: IV RINGERS,LACTATED 1000ML 1,000 ML IV SCH (07:00)
[2016-10-01] MEDS ORDERED: MORPHINE SULFATE 2 MG/ML DISP.SYRIN. IV PRN (07:00)
[2016-10-01] MEDS ORDERED: ONDANSETRON PF 4 MG/2 ML VIAL. ONE (07:01)
[2016-10-01] MEDS ORDERED: FENTANYL PF 100 MCG/2 ML VIAL. ONE (07:01)
[2016-10-01] MEDS ORDERED: ROCURONIUM 50 MG/5 ML VIAL. ONE (07:08)
--- NOTE | 2016-10-01 07:28 | PDOC ---
Provider Note Provider Note Tm 100 VSS awake and alert right 5th finger with dry gangrene and improved erythema of base of finger, no arm swelling, shunt with pulse A/P Right arm AV shunt with ischemic steal syndrome and 5th finger gangrene with cellulitis - going to delay right arm bypass surgery/5th finger amputation till tomorrow, he needs dialysis today with K 5.8 yesterday and I do not want the arm used for dialysis on the same day of bypass surgery - may resume heparin drip today and hold tomorrow morning for surgery at 1pm - continue IV antibiotics LILA BARBOSA MD Oct 01, 2016 07:28
[2016-10-01] MEDS: INSULIN ASPART 300 UNITS/3 ML INSULN.PEN SQ SCH ×6 (07:30→18:13)
[2016-10-01] MEDS ORDERED: IV NORMAL SALINE 1000ML BAG 1,000 ML IV SCH (07:30)
[2016-10-01] MEDS: HEPARIN 25,000UTS/500ML PREMIX 500 ML IV PRN ×3 (07:49→23:42)
[2016-10-01] MEDS: ASPIRIN ENTERIC COATED 81 MG TABLET.DR. PO SCH (08:00)
[2016-10-01] MEDS: CALCIUM ACETATE 667 MG CAPSULE PO SCH ×3 (08:00→17:53)
[2016-10-01] MEDS: OXYCODONE/APAP 10/325 TABLET. PO SCH ×3 (09:00→20:50)
[2016-10-01] MEDS: HYDRALAZINE 50 MG TABLET PO SCH ×4 (09:00→20:50)
[2016-10-01] MEDS: FUROSEMIDE 40 MG TABLET PO SCH ×2 (09:00→17:54)
[2016-10-01] MEDS: METOPROLOL TART IMMED RELEASE 50 MG TABLET PO SCH ×2 (09:00→20:49)
[2016-10-01] MEDS: SODIUM BICARBONATE 650 MG TABLET. PO SCH ×3 (09:00→20:48)
[2016-10-01] MEDS: CALCIUM CARBONATE 500 MG TAB.CHEW PO SCH ×4 (09:00→20:48)
[2016-10-01] MEDS ORDERED: IV NORMAL SALINE 1000ML BAG 1,000 ML IV PRN (09:03)
[2016-10-01] MEDS ORDERED: ALBUMIN HUMAN 25% 200 ML IV PRN (09:15)
[2016-10-01] MEDS ORDERED: DIALYSIS PATIENT. MC PRN ×2 (09:15)
--- NOTE | 2016-10-01 10:24 | PDOC ---
Infectious Disease Note Subjective Subjective Doing ok. Tolerating abx ROS ROS GEN: Denies fevers, chills, sweats HEENT: Denies blurred vision, sore throat CV: Denies chest pain RESP: Denies shortness of air, cough GI: Denies n/v/d NEURO: Denies confusion, dizziness MSK: Denies weakness, joint pain/swelling Vital Sign Vital Signs Vital Signs Date Time Temp Pulse Resp B/P Pulse Ox O2 Delivery O2 Flow Rate FiO2 10/01/16 10:13 OFF UNIT 10/01/16 07:03 98.6 70 15 141/47 95 98.6 09/30/16 22:00 2.0 Physical Exam PHYSICAL EXAM GENERAL: NAD, Alert, in HD HEENT: PERRL, OC/OP- clear NECK: Supple, no JVD, no LN LUNGS: Clear HEART: S1S2, no gallop, no murmur ABD: Soft, NT, no organomegaly, no rebound EXT: No edema, no cyanosis. 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 reactive clinically feels well Gangrene and cellulitis of right 5th finger AV steel phenomenon CKD on HD Diabetes Mellitus h/o PSAE pansensitive Plan Plan of Care Patient is scheduled for a right arm DRIL arterial bypass and right 5th finger amputation now on Fri as he need HD today Continue vanc and Zosyn Gent times one Monitor labs in am CASI OLSEN MD Oct 01, 2016 10:24
[2016-10-01] MEDS ORDERED: GENTAMICIN PER PHARMACY. MC PRN (10:30)
--- NOTE | 2016-10-01 11:21 | PDOC ---
Renal-Progress Notes Subjective Notes Notes ADEQUATE PAIN CONTROL History of Present Illness Hx of present illness STABLE Vitals Vitals Vital Signs Date Time Temp Pulse Resp B/P Pulse Ox O2 Delivery O2 Flow Rate FiO2 10/01/16 10:13 OFF UNIT 10/01/16 07:03 98.6 70 15 141/47 95 98.6 09/30/16 22:00 2.0 Weight Weight [ ] I.O. Intake and Output Intake and Output 10/01/16 07:00 Intake Total 2676 ml Output Total 0 ml Balance 2676 ml Intake Oral 1800 ml IV Total 876 ml Output Urine Total 0 ml Labs Labs Laboratory Tests Test 09/30/16 16:14 09/30/16 21:04 10/01/16 06:41 10/01/16 07:43 Glucose (Fingerstick) 106mg/dL (70-99) 136mg/dL (70-99) 95mg/dL (70-99) 118mg/dL (70-99) Review of Systems Constitutional: yes: alert, weakness Ears/Nose/Throat: Yes: no symptom reported Eyes: Yes: no symptom reported Pulmonary: Yes no symptom reported Cardiovascular: Yes no symptom reported Musculoskeletal: Yes: no symptom reported Physical Exam General Appearance: no apparent distress Skin: warm Respiratory: bilateral CTA Heart: S1S2, RRR Abdomen: soft, bowel sounds present Genitourinary: bladder flat Extremities: pulses present Neurology: alert Assessment Assessment IMP ESRD ANEMIA RIGHT HAND 5TH FINGER GANGRENE PLAN ANTIBIOTICS HD TODAY UF TO DW WILL FOLLOW JOCELYN ABURTO MD Oct 01, 2016 11:21
--- NOTE | 2016-10-01 11:51 | PDOC ---
PROGRESS NOTES Chief Complaint Chief Complaint Gangrene of Right hand 5th digit History of Present Illness History of Present Illness Patient seen while undergoing hemodialysis. No acute events overnight, no new complaints. Patient reports he is feeling relatively well. He understands the need to postpone the procedure until tomorrow, and is in agreement with the plan. Discussed the case with RN. Vitals Vitals Vital Signs Date Time Temp Pulse Resp B/P Pulse Ox O2 Delivery O2 Flow Rate FiO2 10/01/16 10:13 OFF UNIT 10/01/16 07:03 98.6 70 15 141/47 95 98.6 09/30/16 22:00 2.0 Physical Exam General: Alert, Oriented X3, Cooperative, No acute distress Heart: Regular rate Lungs: Clear, Other (no wheezing) Abdomen: Normal bowel sounds, Soft, No tenderness, No hepatosplenomegaly, No masses Extremities: Other (gangrenous 5th digit of right hand; Left AKA) Skin: No rashes, No breakdown, No significant lesion Labs LABS Laboratory Tests Test 09/30/16 16:14 09/30/16 21:04 10/01/16 06:41 10/01/16 07:43 Glucose (Fingerstick) 106mg/dL (70-99) 136mg/dL (70-99) 95mg/dL (70-99) 118mg/dL (70-99) Review of Systems Review of Systems Denies fever and chills. Denies chest pain and shortness of breath. Assessment and Plan Assessmemt and Plan ASSESSMENT: 1. Gangrenous R fifth digit with cellulitis 2. ESRD on HD 3. 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 HTN 5. Left AKA 6. Obesity 7. Dyslipidmia 8. Mild pCM 9. Coumadin, with h/o DVT on right arm with AVF 10. Hyperkalemia PLAN: - surgery now scheduled for tomorrow morning - Right arm DRIL arterial bypass surgery and right hand 5th digit amputation. - above surgery was postponed due to the pt K+ 5.8 and needing to undergo HD today. Dr. Mendez did not want pt using the arm for HD the same day as the procedure. - HD schedule per renal - cont vanc and zosyn - repeat daily labs - PTOT - cont SSI and glucose monitoring - Surgery, ID and renal have been consulted, their recommendations are appreciated Problems: Comment Review of Relevant I have reviewed the following items kayleigh (where applicable) has been applied. Labs Laboratory Tests Test 09/29/16 11:47 09/29/16 12:45 09/29/16 16:13 09/29/16 17:00 Glucose (Fingerstick) 128mg/dL (70-99) 118mg/dL (70-99) Sodium Level 140mmol/L (136-145) Potassium Level 5.8mmol/L (3.5-5.1) Chloride Level 100mmol/L (98-107) Carbon Dioxide Level 30mmol/L (21-32) Anion Gap 10 (6-14) Blood Urea Nitrogen 40mg/dL (8-26) Creatinine 9.1mg/dL (0.7-1.3) Estimated GFR (Cockcroft-Gault) 6.3 Glucose Level 118mg/dL (70-99) Calcium Level 8.4mg/dL (8.5-10.1) Heparin Anti-Xa Act, Unfractionated 0.60IU/mL (0.30-0.70) Test 09/29/16 20:37 09/29/16 22:52 09/30/16 04:50 09/30/16 08:10 Glucose (Fingerstick) 91mg/dL (70-99) Heparin Anti-Xa Act, Unfractionated 0.37IU/mL (0.30-0.70) 0.68IU/mL (0.30-0.70) Sodium Level 139mmol/L (136-145) Potassium Level 5.8mmol/L (3.5-5.1) Chloride Level 99mmol/L (98-107) Carbon Dioxide Level 26mmol/L (21-32) Anion Gap 14 (6-14) Blood Urea Nitrogen 49mg/dL (8-26) Creatinine 10.7mg/dL (0.7-1.3) Estimated GFR (Cockcroft-Gault) 5.2 Glucose Level 132mg/dL (70-99) Calcium Level 8.2mg/dL (8.5-10.1) Phosphorus Level 9.2mg/dL (2.6-4.7) Albumin 2.8g/dL (3.4-5.0) Random Vancomycin Level 28.1mcg/mL Test 09/30/16 08:19 09/30/16 10:39 09/30/16 16:14 09/30/16 21:04 Glucose (Fingerstick) 117mg/dL (70-99) 152mg/dL (70-99) 106mg/dL (70-99) 136mg/dL (70-99) Test 10/01/16 06:41 10/01/16 07:43 Glucose (Fingerstick) 95mg/dL (70-99) 118mg/dL (70-99) Laboratory Tests Test 09/30/16 16:14 09/30/16 21:04 10/01/16 06:41 10/01/16 07:43 Glucose (Fingerstick) 106mg/dL (70-99) 136mg/dL (70-99) 95mg/dL (70-99) 118mg/dL (70-99) Medications Current Medications Iohexol (Omnipaque 300 Mg/ml) 100 ml STK-MED ONCE .ROUTE ; Start 09/27/16 at 09: 51; Stop 09/27/16 at 09:52; Status DC Lidocaine/Sodium Bicarbonate 20 ml 20 ml STK-MED ONCE IJ ; Start 09/27/16 at 09: 51; Stop 09/27/16 at 09:52; Status DC Heparin Sodium/ Sodium Chloride 1,500 ml @ As Directed STK-MED ONCE .ROUTE ; Start 09/27/16 at 09:51; Stop 09/27/16 at 09:52; Status DC Iodixanol (Visipaque 320) 100 ml STK-MED ONCE .ROUTE ; Start 09/27/16 at 10:11; Stop 09/27/16 at 10:12; Status DC Midazolam HCl (Versed) 5 mg STK-MED ONCE .ROUTE ; Start 09/27/16 at 10:20; Stop 09/27/16 at 10:21; Status DC Fentanyl Citrate (Fentanyl 5ml Vial) 250 mcg STK-MED ONCE .ROUTE ; Start at 10:20; Stop 09/27/16 at 10:21; Status DC Heparin Sodium/ Sodium Chloride 1,000 unit 1X ONCE IART Last administered on t 10:48; Start 09/27/16 at 10:45; Stop 09/27/16 at 10:46; Status DC Lidocaine/Sodium Bicarbonate (Buffered Lidocaine 1%) 20 ml 1X ONCE IJ Last administered on 09/27/16 10:48; Start 09/27/16 at 10:45; Stop 09/27/16 at 10:46 ; Status DC Midazolam HCl (Versed) 5 mg 1X ONCE IV Last administered on 09/27/16 11:17; Start 09/27/16 at 10:45; Stop 09/27/16 at 10:46; Status DC Fentanyl Citrate (Fentanyl 5ml Vial) 250 mcg 1X ONCE IV Last administered on 11:17; Start 09/27/16 at 10:45; Stop 09/27/16 at 10:46; Status DC Iodixanol (Visipaque 320) 100 ml 1X ONCE IART Last administered on 09/27/16 11:17; Start 09/27/16 at 10:45; Stop 09/27/16 at 10:46; Status DC Info (Do NOT chart on this entry -- for MONITORING) 1 each PRN DAILY PRN MC SEE COMMENTS; Start 09/27/16 at 11:00; Stop 09/29/16 at 10:59; Status DC Iodixanol (Visipaque 320) 50 ml STK-MED ONCE .ROUTE ; Start 09/27/16 at 10:59; Stop 09/27/16 at 11:00; Status DC Nitroglycerin (Nitroglycerin) 200 mcg 1X ONCE IART Last administered on 11:05; Start 09/27/16 at 11:00; Stop 09/27/16 at 11:07; Status DC Insulin Aspart (Novolog) 0-9 UNITS TIDWMEALS SQ ; Start 09/27/16 at 17:00 Dextrose 12.5 gm PRN Q15MIN PRN IV SEE COMMENTS; Start 09/27/16 at 12:45 Acetaminophen (Tylenol) 650 mg PRN Q6HRS PRN PO MILD PAIN / TEMP Last administered on 09/30/16 23:56; Start 09/27/16 at 12:45 Ondansetron HCl (Zofran) 4 mg PRN Q6HRS PRN IV NAUSEA/VOMITING Last administered on 09/28/16 10:04; Start 09/27/16 at 12:45 Amlodipine Besylate (Norvasc) 10 mg DAILY PO Last administered on 09/28/16 09: 35; Start 09/27/16 at 13:00 Atorvastatin Calcium (Lipitor) 10 mg QHS PO Last administered on 09/30/16 21: 01; Start 09/27/16 at 21:00 Fentanyl (Duragesic 75mcg/ Hr Patch) 1 patch Q72H PRN TD PAIN Last administered on 09/28/16 12:10; Start 09/27/16 at 12:45 Vitamin B Complex/ Vitamin C (Nephro-Eleazar) 1 tab DAILY PO Last administered on 09/30/16 09:28; Start 09/28/16 at 09:00 Furosemide (Lasix) 40 mg [id number] PO Last administered on 09/28/16 09:34; Start 09/27/16 at 14:00 Hydralazine HCl (Apresoline) 50 mg QID PO Last administered on 09/30/16 21:10 ; Start 09/27/16 at 13:00 Insulin Aspart (Novolog) 8 units TIDAC SQ Last administered on 09/29/16 08:31 ; Start 09/27/16 at 16:30 Metoprolol Tartrate (Lopressor) 50 mg BID PO Last administered on 09/30/16 21: 11; Start 09/27/16 at 21:00 Oxycodone/ Acetaminophen (Percocet 10/325) 1 tab TID PO Last administered on 21:00; Start 09/27/16 at 14:00 Sodium Bicarbonate (Sodium Bicarbonate) 1,300 mg TID PO Last administered on 21:01; Start 09/27/16 at 14:00 Calcium Carbonate/ Glycine (Tums) 500 mg QID PO Last administered on 09/30/16 21:01; Start 09/27/16 at 13:00 Non-Formulary Medication 210 mg TID PO ; Start 09/27/16 at 14:00; Stop 09/27/16 at 14:02; Status DC Insulin Detemir (Levemir) 15 units QHS SQ Last administered on 09/28/16 21:04 ; Start 09/27/16 at 21:00; Stop 09/29/16 at 16:26; Status DC Losartan Potassium (Cozaar) 100 mg DAILY PO Last administered on 09/28/16 09: 36; Start 09/27/16 at 13:00 Heparin Sodium (Porcine) 5,000 unit Q8HRS SQ Last administered on 09/28/16 05: 37; Start 09/27/16 at 14:00; Stop 09/28/16 at 14:33; Status DC Amoxicillin/ Clavulanate Potassium (Augmentin 500/ 125mg) 1 tab BID PO Last administered on 09/27/16 21:00; Start 09/27/16 at 13:00; Stop 09/27/16 at 21:54 ; Status DC Calcium Acetate (Phoslo) 1,334 mg TIDWMEALS PO Last administered on 09/30/16 18:10; Start 09/27/16 at 17:00 Amoxicillin/ Clavulanate Potassium (Augmentin 500/ 125mg) 1 tab Q24H PO ; Start 09/28/16 at 14:00; Status Cancel Ondansetron HCl (Zofran) 4 mg PRN Q6HRS PRN IV NAUSEA/VOMITING; Start 09/28/16 at 10:00; Status Cancel Ondansetron HCl (Zofran) 4 mg PRN Q6HRS PRN IV NAUSEA/VOMITING; Start 09/28/16 at 10:00; Status Cancel Piperacillin Sod/ Tazobactam Sod (Zosyn Per Pharmacy) 1 each PRN DAILY PRN MC SEE COMMENTS; Start 09/28/16 at 13:45 Vancomycin HCl (Vanco Per Pharmacy) 1 each PRN DAILY PRN MC SEE COMMENTS Last administered on 09/30/16 15:42; Start 09/28/16 at 13:45 Enoxaparin Sodium 60 mg 60 mg Q12HR SQ ; Start 09/28/16 at 21:00; Status UNV Piperacillin Sod/ Tazobactam Sod 2.25 gm/Sodium Chloride 50 ml @ 100 mls/hr Q8HRS IV Last administered on 10/01/16 05:58; Start 09/28/16 at 14:00 Vancomycin HCl 2 gm/Sodium Chloride 500 ml @ 250 mls/hr 1X ONCE IV Last administered on 09/28/16 15:14; Start 09/28/16 at 14:30; Stop 09/28/16 at 16:29 ; Status DC Heparin Sodium/ Dextrose 500 ml @ 0 mls/hr CONT PRN IV SEE I/O RECORD Last administered on 10/01/16 07:49; Start 09/28/16 at 14:45; Stop 09/30/16 at 09:27 ; Status DC Vancomycin HCl 1 each 1 each 1X ONCE MC Last administered on 09/30/16 05:00; Start 09/30/16 at 05:00; Stop 09/30/16 at 05:01; Status DC Sodium Chloride (Iv Sodium Chloride 0.9% 1000ml Bag) 1,000 ml @ 1,000 mls/hr Q1H PRN IV hypotension; Start 09/28/16 at 15:50; Stop 09/28/16 at 21:49; Status DC Info (PHARMACY MONITORING -- do not chart) 1 each PRN DAILY PRN MC SEE COMMENTS ; Start 09/28/16 at 16:00 Diphenhydramine HCl (Benadryl) 50 mg STK-MED ONCE .ROUTE Last administered on 17:57; Start 09/28/16 at 17:52; Stop 09/28/16 at 17:53; Status DC Diphenhydramine HCl (Benadryl) 50 mg 1X ONCE IVP ; Start 09/28/16 at 18:00; Stop 09/28/16 at 18:01; Status DC Sodium Polystyrene Sulfonate (Kayexalate) 15 gm 1X ONCE PO Last administered on 09/29/16 08:24; Start 09/29/16 at 07:45; Stop 09/29/16 at 07:46; Status DC Dextrose 25 gm 1X ONCE IV Last administered on 09/29/16 09:22; Start at 09:30; Stop 09/29/16 at 09:31; Status DC Insulin Human Regular (Novolin R Vial) 10 unit 1X ONCE IV Last administered on 09/29/16 09:34; Start 09/29/16 at 09:30; Stop 09/29/16 at 09:31; Status DC Sodium Bicarbonate 50 meq 1X ONCE IV Last administered on 09/29/16 09:50; Start 09/29/16 at 10:00; Stop 09/29/16 at 10:01; Status DC Heparin Sodium (Porcine) 3,600 unit PRN Q6HRS PRN IV FOR UFH LEVEL LESS THAN 0.2 Last administered on 09/29/16 11:47; Start 09/29/16 at 11:45 Info (Anti-Coagulation Monitoring By Pharmacy) 1 each PRN DAILY PRN MC SEE COMMENTS Last administered on 09/30/16 15:39; Start 09/29/16 at 15:00 Insulin Detemir (Levemir) 15 units QHS SQ ; Start 09/29/16 at 16:26 Diphenhydramine HCl (Benadryl) prn for itching PRN Q6HRS PRN IVP ITCHING; Start 09/29/16 at 21:30; Stop 09/29/16 at 21:35; Status DC Diphenhydramine HCl (Benadryl) prn itching PRN Q6HRS PRN PO ITCHING; Start 07/06 at 21:30; Stop 09/29/16 at 21:35; Status DC Diphenhydramine HCl (Benadryl) 25 mg PRN Q6HRS PRN IVP ITCHING Last administered on 09/29/16 21:51; Start 09/29/16 at 21:45 Diphenhydramine HCl (Benadryl) 25 mg PRN Q6HRS PRN PO ITCHING Last administered on 09/30/16 21:28; Start 09/29/16 at 21:45 Diphenhydramine HCl 12.5 mg 12.5 mg PRN Q6HRS PRN IVP ITCHING; Start 09/29/16 at 21:45 Heparin Sodium/ Dextrose 500 ml @ 0 mls/hr CONT PRN IV SEE I/O RECORD Last administered on 09/30/16 16:44; Start 09/30/16 at 09:30; Stop 09/30/16 at 23:59 ; Status DC Cefazolin Sodium/ Dextrose 50 ml @ 100 mls/hr 1X ONCE IV ; Start 10/01/16 at 07:00; Stop 10/01/16 at 07:29; Status DC Heparin Sodium (Porcine)/Sodium Chloride (Iv Sodium Chloride 0.9% 500ml Bag) 505 ml @ 505 mls/hr 1X PERIOP ONCE IRR ; Start 10/01/16 at 06:00; Stop at 06:59; Status DC Ondansetron HCl (Zofran) 4 mg PRN Q6HRS PRN IV Nausea; Start 10/01/16 at 07:00 ; Stop 10/02/16 at 06:59 Fentanyl Citrate (Fentanyl 2ml Vial) 25 mcg PRN Q5MIN PRN IV MILD PAIN; Start 10/01/16 at 07:00; Stop 10/02/16 at 06:59 Fentanyl Citrate (Fentanyl 2ml Vial) 50 mcg PRN Q5MIN PRN IV MODERATE PAIN; Start 10/01/16 at 07:00; Stop 10/02/16 at 06:59 Morphine Sulfate 1 mg 1 mg PRN Q10MIN PRN IV SEVERE PAIN; Start 10/01/16 at 07: 00; Stop 10/02/16 at 06:59 Lactated Ringer's (Iv Lactated Ringers) 1,000 ml @ 0 mls/hr Q0M IV ; Start at 07:00; Stop 10/01/16 at 18:59 Lidocaine HCl 2 ml 1X PRN PRN ID IV START; Start 10/01/16 at 07:00; Stop at 06:59 Hydromorphone HCl (Dilaudid) 0.5 mg PRN Q10MIN PRN IV SEVERE PAIN, Second choice; Start 10/01/16 at 07:00; Stop 10/02/16 at 06:59 Prochlorperazine Edisylate 5 mg 5 mg PACU PRN PRN IV NAUSEA; Start 10/01/16 at 07:00; Stop 10/02/16 at 06:59 Cefazolin Sodium/ Sodium Chloride (Ancef/Iv Sodium Chloride 0.9% 500ml Bag) 500 ml @ 500 mls/hr 1X PERIOP ONCE IRR ; Start 10/01/16 at 06:00; Stop 10/01/16 at 06:59; Status DC Cellulose 1 each STK-MED ONCE .ROUTE ; Start 10/01/16 at 06:51; Stop 10/01/16 at 06:52; Status DC Papaverine HCl 60 mg STK-MED ONCE .ROUTE ; Start 10/01/16 at 06:52; Stop at 06:53; Status DC Lidocaine HCl 20 ml STK-MED ONCE .ROUTE ; Start 10/01/16 at 06:52; Stop at 06:53; Status DC Lidocaine HCl 100 mg 100 mg STK-MED ONCE .ROUTE ; Start 10/01/16 at 07:00; Stop 10/01/16 at 07:01; Status DC Propofol (Diprivan) 0 ml @ As Directed STK-MED ONCE IV ; Start 10/01/16 at 07:00 ; Stop 10/01/16 at 07:01; Status DC Famotidine (Pepcid) 20 mg STK-MED ONCE .ROUTE ; Start 10/01/16 at 07:00; Stop at 07:01; Status DC Ondansetron HCl (Zofran) 4 mg STK-MED ONCE .ROUTE ; Start 10/01/16 at 07:01; Stop 10/01/16 at 07:02; Status DC Fentanyl Citrate (Fentanyl 2ml Vial) 100 mcg STK-MED ONCE .ROUTE ; Start at 07:01; Stop 10/01/16 at 07:02; Status DC Rocuronium [place]ney 50 mg 50 mg STK-MED ONCE .ROUTE ; Start 10/01/16 at 07:08; Stop 10/01/16 at 07:09; Status DC Sodium Chloride (Iv Sodium Chloride 0.9% 1000ml Bag) 1,000 ml @ 0 mls/hr Q0M IV ; Start 10/01/16 at 07:30 Aspirin 81 mg 81 mg [id number] PO ; Start 10/01/16 at 08:00 Heparin Sodium/ Dextrose 500 ml @ 0 mls/hr CONT PRN IV SEE I/O RECORD; Start at 08:00; Stop 10/02/16 at 08:00 Sodium Chloride 1,000 ml @ 1,000 mls/hr Q1H PRN IV hypotension; Start 10/01/16 at 09:03; Stop 10/01/16 at 15:02 Albumin Human (Albuminar) 200 ml @ 200 mls/hr 1X PRN PRN IV Hypotension; Start 10/01/16 at 09:15; Stop 10/01/16 at 15:14 Info (PHARMACY MONITORING -- do not chart) 1 each PRN DAILY PRN MC SEE COMMENTS ; Start 10/01/16 at 09:15; Status UNV Info (PHARMACY MONITORING -- do not chart) 1 each PRN DAILY PRN MC SEE COMMENTS ; Start 10/01/16 at 09:15; Status UNV Gentamicin Sulfate 1 each 1 each PRN DAILY PRN MC SEE COMMENTS; Start 10/01/16 at 10:30 Gentamicin Sulfate/Sodium Chloride (Iv Sodium Chloride 0.9% 100ml) 104.5 ml @ 209 mls/hr ONCE ONCE IV ; Start 10/01/16 at 16:00; Stop 10/01/16 at 16:29 Active Scripts Active Novolog Flexpen (Insulin Aspart) 100 Unit/1 Ml Insuln.pen 8 Units SQ TIDAC Reported Percocet 10-325 Mg Tablet (Oxycodone/Acetaminophen) 1 Each Tablet 1 Tab PO TID Warfarin Sodium 7.5 Mg Tablet 7.5 Mg PO DAILY [place] Tablet (Folic Acid/Vitamin B Comp W-C) 0.8 Mg Tablet 0.8 Mg PO DAILY Ferric Citrate 210 Mg Tablet 210 Mg PO TID Hydralazine Hcl 50 Mg Tablet 50 Mg PO QID FENTANYL 75mcg/hr (Fentanyl) 1 Each Patch.td72 1 Patch TD Q72H PRN Lantus Solostar (Insulin Glargine,Hum.rec.anlog) 100 Unit/1 Ml Insuln.pen 15 Unit SQ QHS Furosemide 40 Mg Tablet 1 Tab PO BID Tums (Calcium Carbonate) 300 Mg Tab.chew 500 Mg PO QID Losartan Potassium 100 Mg Tablet 100 Mg PO DAILY Atorvastatin Calcium 10 Mg Tablet 10 Mg PO DAILY Sodium Bicarbonate 650 Mg Tablet 1,300 Mg PO TID Amlodipine Besylate 10 Mg Tablet 10 Mg PO DAILY Metoprolol Tartrate 50 Mg Tablet 50 Mg PO BID Vitals/I & O Vital Sign - Last 24 Hours 09/30/16 09/30/16 09/30/16 09/30/16 15:00 19:51 20:00 21:00 Temp 98.3 97.5 98.3 97.5 Pulse 20 85 Resp 20 22 20 B/P 111/56 121/63 Pulse Ox 93 91 91 O2 Delivery Nasal Cannula Room Air Nasal Cannula Nasal Cannula O2 Flow Rate 2.0 2.0 2.0 09/30/16 09/30/16 09/30/16 09/30/16 21:10 21:11 22:00 23:55 Temp 100.0 100.0 Pulse 84 84 80 Resp 18 18 B/P 143/65 143/65 113/62 Pulse Ox 93 94 O2 Delivery Nasal Cannula Room Air O2 Flow Rate 2.0 10/01/16 10/01/16 10/01/16 10/01/16 02:57 07:00 07:03 10:13 Temp 98.9 98.2 98.6 98.9 98.2 98.6 Pulse 68 73 70 Resp 20 18 15 B/P 100/68 141/82 141/47 Pulse Ox 93 91 95 O2 Delivery Room Air Room Air Room Air OFF UNIT Intake and Output 09/30/16 09/30/16 10/01/16 15:00 23:00 07:00 Intake Total 500 ml 1456 ml 720 ml Output Total 0 ml Balance 500 ml 1456 ml 720 ml CAROLYN AVERY III DO Oct 01, 2016 11:51
[2016-10-01 12:25] LABS: FIO2 ISTAT 21; TOSPEC VEN; VEN BASE EXCESS ISTAT 4 mmol/L (0-3); VEN GLUC ISTAT 107 mg/dL (70-99); VEN HCO3 ISTAT 29 mmol/L (24-28); VEN HCT ISTAT 39 % (37-52); VEN HGB ISTAT 13.3 g/dL (14-18); VEN ION CA ISTAT 0.97 mmol/L (1.13-1.32); VEN NA ISTAT 137 mmol/L (135-145); VEN O2 ISTAT 51 mmHg (20-40); VEN PCO2 ISTAT 50 mmHg (41-51); VEN PH ISTAT 7.38 (7.32-7.42); VEN SO2 ISTAT 84 %; VEN TCO2 ISTAT 31 mmol/L (21-32)
[2016-10-01] MEDS: ANTI-COAG MONITOR BY PHARMACY. MC PRN (13:31)
[2016-10-01] MEDS: VANCOMYCIN PER PHARMACY MC PRN (13:33)
[2016-10-01 15:00] VITALS: BP 152/85
[2016-10-01 15:22] LABS: BASO # 0.1 x10^3/uL (0.0-0.2); BASO % 1 % (0-3); EOS % 5 % (0-3); HEMATOCRIT 41.4 % (39.0-53.0); LYMPH # 0.7 x10^3/uL (1.0-4.8); LYMPH % 8 % (24-48); MEAN CORPUSCULAR HEMOGLOBIN 27 pg (25-35); MEAN CORPUSCULAR HGB CONC 31 g/dL (31-37); MEAN CORPUSCULAR VOLUME 84 fL (79-100); MONO % 11 % (0-9); NEUT % 76 % (31-73); PLATELET COUNT 118 x10^3/uL (140-400); RED CELL DISTRIBUTION WIDTH 17.6 % (11.5-14.5); WHITE BLOOD COUNT 9.5 x10^3/uL (4.0-11.0)
[2016-10-01 15:40] LABS: CALCIUM 8.7 mg/dL (8.5-10.1); CREATININE 8.2 mg/dL (0.7-1.3); GFR 7.1
[2016-10-01] MEDS ORDERED: GENTAMICIN SULFATE 180 MG in IV NORMAL SALINE 100ML 100 ML IV ONE (16:00)
[2016-10-01] MEDS: FOLIC/VIT B COMP W-C (RENAL) TABLET. PO SCH (17:53)
[2016-10-01] MEDS: LOSARTAN POTASSIUM 50 MG TABLET. PO SCH (17:55)
[2016-10-01] MEDS: AMLODIPINE BESYLATE 10 MG TABLET PO SCH (17:55)
[2016-10-01 19:00] VITALS: BP 145/76
[2016-10-01] MEDS: ATORVASTATIN CALCIUM 10 MG TABLET. PO SCH (20:48)
[2016-10-01] MEDS: INSULIN DETEMIR 300 UNITS/3 ML INSULN.PEN. SQ SCH (20:53)
[2016-10-01 22:36] VITALS: BP 143/89
[2016-10-02] VITALS (7 sets, daily range): BP systolic 128–195; BP diastolic 67–83
[2016-10-02] MEDS: PIPERACILLIN/TAZOBACTAM 2.25 GM in IV NORMAL SALINE 50ML 50 ML IV SCH ×3 (05:19→21:58)
[2016-10-02 06:06] LABS: CALCIUM 8.5 mg/dL (8.5-10.1); CREATININE 9.5 mg/dL (0.7-1.3); POTASSIUM 4.3 mmol/L (3.5-5.1)
[2016-10-02 06:07] LABS: BASO # 0.1 x10^3/uL (0.0-0.2); BASO % 1 % (0-3); EOS % 6 % (0-3); HEMATOCRIT 41.2 % (39.0-53.0); HEMOGLOBIN 12.7 g/dL (13.0-17.5); LYMPH # 1.2 x10^3/uL (1.0-4.8); LYMPH % 13 % (24-48); MEAN CORPUSCULAR HEMOGLOBIN 26 pg (25-35); MEAN CORPUSCULAR HGB CONC 31 g/dL (31-37); MEAN CORPUSCULAR VOLUME 85 fL (79-100); MONO % 10 % (0-9); NEUT % 70 % (31-73); PLATELET COUNT 118 x10^3/uL (140-400); RED BLOOD COUNT 4.85 x10^6/uL (4.30-5.70); RED CELL DISTRIBUTION WIDTH 18.1 % (11.5-14.5); WHITE BLOOD COUNT 8.7 x10^3/uL (4.0-11.0)
[2016-10-02 06:27] LABS: INR 1.3 (0.8-1.1); PROTHROMBIN TIME PATIENT 15.1 SEC (11.7-14.0)
[2016-10-02] MEDS ORDERED: ONDANSETRON PF 4 MG/2 ML VIAL. IV PRN (07:00)
[2016-10-02] MEDS ORDERED: HYDROMORPHONE 2 MG/ML VIAL. IV PRN (07:00)
[2016-10-02] MEDS ORDERED: PROCHLORPERAZINE 10 MG/2 ML VIAL. IV PRN (07:00)
[2016-10-02] MEDS ORDERED: MORPHINE SULFATE 2 MG/ML DISP.SYRIN. IV PRN (07:00)
[2016-10-02] MEDS ORDERED: FENTANYL PF 100 MCG/2 ML VIAL. IV PRN ×2 (07:00)
[2016-10-02] MEDS: INSULIN ASPART 300 UNITS/3 ML INSULN.PEN SQ SCH ×6 (07:30→17:00)
[2016-10-02] MEDS: CALCIUM ACETATE 667 MG CAPSULE PO SCH ×4 (08:00→17:00)
[2016-10-02] MEDS: ASPIRIN ENTERIC COATED 81 MG TABLET.DR. PO SCH (08:00)
[2016-10-02] MEDS: FOLIC/VIT B COMP W-C (RENAL) TABLET. PO SCH ×2 (08:19→08:50)
[2016-10-02] MEDS: CALCIUM CARBONATE 500 MG TAB.CHEW PO SCH ×4 (08:19→21:48)
[2016-10-02] MEDS: SODIUM BICARBONATE 650 MG TABLET. PO SCH ×3 (08:20→21:47)
[2016-10-02] MEDS: OXYCODONE/APAP 10/325 TABLET. PO SCH ×3 (08:20→21:47)
[2016-10-02] MEDS: FUROSEMIDE 40 MG TABLET PO SCH ×2 (08:20→14:00)
[2016-10-02] MEDS: LOSARTAN POTASSIUM 50 MG TABLET. PO SCH (08:21)
[2016-10-02] MEDS: AMLODIPINE BESYLATE 10 MG TABLET PO SCH (08:21)
[2016-10-02] MEDS: HYDRALAZINE 50 MG TABLET PO SCH ×4 (08:22→21:47)
[2016-10-02] MEDS: METOPROLOL TART IMMED RELEASE 50 MG TABLET PO SCH ×2 (08:23→21:48)
[2016-10-02] MEDS: ONDANSETRON PF 4 MG/2 ML VIAL. IV PRN ×2 (08:33→17:49)
--- NOTE | 2016-10-02 08:52 | PDOC ---
Infectious Disease Note Subjective Subjective Resting in bed this AM, feeling about the same Tolerating abx Anxious for surgery today ROS ROS GEN: Denies fevers, chills, sweats HEENT: Denies blurred vision, sore throat CV: Denies chest pain RESP: Denies shortness of air, cough GI: Denies n/v/d NEURO: Denies confusion, dizziness MSK: Denies weakness, joint pain/swelling Vital Sign Vital Signs Vital Signs Date Time Temp Pulse Resp B/P Pulse Ox O2 Delivery O2 Flow Rate FiO2 10/02/16 08:23 95 195/67 10/02/16 08:20 Room Air 10/02/16 03:00 97.7 20 93 97.7 10/01/16 21:50 2.0 Physical Exam PHYSICAL EXAM GENERAL: NAD, Alert, in HD HEENT: PERRL, OC/OP- clear NECK: Supple, no JVD, no LN LUNGS: Clear HEART: S1S2, no gallop, no murmur ABD: Soft, NT, no organomegaly, no rebound EXT: No edema, no cyanosis. Finger is stable COLD ROLL CATCHER: Alert, oriented x 3, no focal neurologic deficit SKIN: No rash IV: ok Labs Lab Laboratory Tests Test 10/01/16 14:27 10/01/16 15:09 10/01/16 17:12 10/01/16 20:52 Glucose (Fingerstick) 113mg/dL (70-99) 114mg/dL (70-99) 113mg/dL (70-99) White Blood Count 9.5x10^3/uL (4.0-11.0) Red Blood Count 4.90x10^6/uL (4.30-5.70) Hemoglobin 13.0g/dL (13.0-17.5) Hematocrit 41.4% (39.0-53.0) Mean Corpuscular Volume 84fL (79-100) Mean Corpuscular Hemoglobin 27pg (25-35) Mean Corpuscular Hemoglobin Concent 31g/dL (31-37) Red Cell Distribution Width 17.6% (11.5-14.5) Platelet Count 118x10^3/uL (140-400) Neutrophils (%) (Auto) 76% (31-73) Lymphocytes (%) (Auto) 8% (24-48) Monocytes (%) (Auto) 11% (0-9) Eosinophils (%) (Auto) 5% (0-3) Basophils (%) (Auto) 1% (0-3) Neutrophils # (Auto) 7.2x10^3uL (1.8-7.7) Lymphocytes # (Auto) 0.7x10^3/uL (1.0-4.8) Monocytes # (Auto) 1.0x10^3/uL (0.0-1.1) Eosinophils # (Auto) 0.5x10^3/uL (0.0-0.7) Basophils # (Auto) 0.1x10^3/uL (0.0-0.2) Heparin Anti-Xa Act, Unfractionated 0.37IU/mL (0.30-0.70) Sodium Level 139mmol/L (136-145) Potassium Level 5.0mmol/L (3.5-5.1) Chloride Level 98mmol/L (98-107) Carbon Dioxide Level 33mmol/L (21-32) Anion Gap 8 (6-14) Blood Urea Nitrogen 29mg/dL (8-26) Creatinine 8.2mg/dL (0.7-1.3) Estimated GFR (Cockcroft-Gault) 7.1 Glucose Level 119mg/dL (70-99) Calcium Level 8.7mg/dL (8.5-10.1) Test 10/02/16 05:10 White Blood Count 8.7x10^3/uL (4.0-11.0) Red Blood Count 4.85x10^6/uL (4.30-5.70) Hemoglobin 12.7g/dL (13.0-17.5) Hematocrit 41.2% (39.0-53.0) Mean Corpuscular Volume 85fL (79-100) Mean Corpuscular Hemoglobin 26pg (25-35) Mean Corpuscular Hemoglobin Concent 31g/dL (31-37) Red Cell Distribution Width 18.1% (11.5-14.5) Platelet Count 118x10^3/uL (140-400) Neutrophils (%) (Auto) 70% (31-73) Lymphocytes (%) (Auto) 13% (24-48) Monocytes (%) (Auto) 10% (0-9) Eosinophils (%) (Auto) 6% (0-3) Basophils (%) (Auto) 1% (0-3) Neutrophils # (Auto) 6.1x10^3uL (1.8-7.7) Lymphocytes # (Auto) 1.2x10^3/uL (1.0-4.8) Monocytes # (Auto) 0.9x10^3/uL (0.0-1.1) Eosinophils # (Auto) 0.5x10^3/uL (0.0-0.7) Basophils # (Auto) 0.1x10^3/uL (0.0-0.2) Prothrombin Time 15.1SEC (11.7-14.0) Prothromb Time International Ratio 1.3 (0.8-1.1) Sodium Level 141mmol/L (136-145) Potassium Level 4.3mmol/L (3.5-5.1) Chloride Level 99mmol/L (98-107) Carbon Dioxide Level 30mmol/L (21-32) Anion Gap 12 (6-14) Blood Urea Nitrogen 35mg/dL (8-26) Creatinine 9.5mg/dL (0.7-1.3) Estimated GFR (Cockcroft-Gault) 6.0 Glucose Level 139mg/dL (70-99) Calcium Level 8.5mg/dL (8.5-10.1) Objective Assessment Low grade temp, Tmax 99.2 10/01 Leukocytosis ? reactive clinically feels well, improved today Gangrene and cellulitis of right 5th finger AV steel phenomenon CKD on HD Diabetes Mellitus h/o PSAE pansensitive Plan Plan of Care Patient is scheduled for a right arm DRIL arterial bypass and right 5th finger amputation today Continue Vanc and Zosyn S/p Gent times one 10/01 Monitor labs in am CASI OLSEN MD Oct 02, 2016 08:52
[2016-10-02] MEDS ORDERED: SURGICEL FIBRILLAR 1X2 EACH. ONE (11:03)
[2016-10-02] MEDS ORDERED: PAPAVERINE 60 MG/2 ML VIAL FOR OR ONLY. ONE (11:04)
[2016-10-02] MEDS ORDERED: LIDOCAINE 1% 20 ML VIAL. ONE ×2 (11:04)
--- NOTE | 2016-10-02 11:07 | PDOC ---
Renal-Progress Notes Subjective Notes Notes NONE History of Present Illness Hx of present illness NO CHANGE Vitals Vitals Vital Signs Date Time Temp Pulse Resp B/P Pulse Ox O2 Delivery O2 Flow Rate FiO2 10/02/16 09:45 Room Air 10/02/16 08:47 97.0 67 18 195/67 96 2.0 97.0 Weight Weight [ ] I.O. Intake and Output Intake and Output 10/02/16 07:00 Intake Total 850 ml Output Total 0 ml Balance 850 ml Intake Oral 800 ml IV Total 50 ml Output Urine Total 0 ml Labs Labs Laboratory Tests Test 10/01/16 14:27 10/01/16 15:09 10/01/16 17:12 10/01/16 20:52 Glucose (Fingerstick) 113mg/dL (70-99) 114mg/dL (70-99) 113mg/dL (70-99) White Blood Count 9.5x10^3/uL (4.0-11.0) Red Blood Count 4.90x10^6/uL (4.30-5.70) Hemoglobin 13.0g/dL (13.0-17.5) Hematocrit 41.4% (39.0-53.0) Mean Corpuscular Volume 84fL (79-100) Mean Corpuscular Hemoglobin 27pg (25-35) Mean Corpuscular Hemoglobin Concent 31g/dL (31-37) Red Cell Distribution Width 17.6% (11.5-14.5) Platelet Count 118x10^3/uL (140-400) Neutrophils (%) (Auto) 76% (31-73) Lymphocytes (%) (Auto) 8% (24-48) Monocytes (%) (Auto) 11% (0-9) Eosinophils (%) (Auto) 5% (0-3) Basophils (%) (Auto) 1% (0-3) Neutrophils # (Auto) 7.2x10^3uL (1.8-7.7) Lymphocytes # (Auto) 0.7x10^3/uL (1.0-4.8) Monocytes # (Auto) 1.0x10^3/uL (0.0-1.1) Eosinophils # (Auto) 0.5x10^3/uL (0.0-0.7) Basophils # (Auto) 0.1x10^3/uL (0.0-0.2) Heparin Anti-Xa Act, Unfractionated 0.37IU/mL (0.30-0.70) Sodium Level 139mmol/L (136-145) Potassium Level 5.0mmol/L (3.5-5.1) Chloride Level 98mmol/L (98-107) Carbon Dioxide Level 33mmol/L (21-32) Anion Gap 8 (6-14) Blood Urea Nitrogen 29mg/dL (8-26) Creatinine 8.2mg/dL (0.7-1.3) Estimated GFR (Cockcroft-Gault) 7.1 Glucose Level 119mg/dL (70-99) Calcium Level 8.7mg/dL (8.5-10.1) Test 10/02/16 05:10 White Blood Count 8.7x10^3/uL (4.0-11.0) Red Blood Count 4.85x10^6/uL (4.30-5.70) Hemoglobin 12.7g/dL (13.0-17.5) Hematocrit 41.2% (39.0-53.0) Mean Corpuscular Volume 85fL (79-100) Mean Corpuscular Hemoglobin 26pg (25-35) Mean Corpuscular Hemoglobin Concent 31g/dL (31-37) Red Cell Distribution Width 18.1% (11.5-14.5) Platelet Count 118x10^3/uL (140-400) Neutrophils (%) (Auto) 70% (31-73) Lymphocytes (%) (Auto) 13% (24-48) Monocytes (%) (Auto) 10% (0-9) Eosinophils (%) (Auto) 6% (0-3) Basophils (%) (Auto) 1% (0-3) Neutrophils # (Auto) 6.1x10^3uL (1.8-7.7) Lymphocytes # (Auto) 1.2x10^3/uL (1.0-4.8) Monocytes # (Auto) 0.9x10^3/uL (0.0-1.1) Eosinophils # (Auto) 0.5x10^3/uL (0.0-0.7) Basophils # (Auto) 0.1x10^3/uL (0.0-0.2) Prothrombin Time 15.1SEC (11.7-14.0) Prothromb Time International Ratio 1.3 (0.8-1.1) Sodium Level 141mmol/L (136-145) Potassium Level 4.3mmol/L (3.5-5.1) Chloride Level 99mmol/L (98-107) Carbon Dioxide Level 30mmol/L (21-32) Anion Gap 12 (6-14) Blood Urea Nitrogen 35mg/dL (8-26) Creatinine 9.5mg/dL (0.7-1.3) Estimated GFR (Cockcroft-Gault) 6.0 Glucose Level 139mg/dL (70-99) Calcium Level 8.5mg/dL (8.5-10.1) Review of Systems Constitutional: yes: alert, weakness Ears/Nose/Throat: Yes: no symptom reported Eyes: Yes: no symptom reported Pulmonary: Yes no symptom reported Cardiovascular: Yes no symptom reported Musculoskeletal: Yes: no symptom reported Physical Exam General Appearance: no apparent distress Skin: warm Respiratory: bilateral CTA Heart: S1S2, RRR Abdomen: soft, bowel sounds present Genitourinary: bladder flat Extremities: pulses present Neurology: alert Assessment Assessment IMP ESRD ANEMIA RIGHT HAND 5TH FINGER GANGR[facility] PLAN ANTIBIOTICS HD TOMORROW DRIL AND AMP TODAY WILL FOLLOW JOCELYN ABURTO MD Oct 02, 2016 11:07
[2016-10-02] MEDS ORDERED: CEFAZOLIN SODIUM 1 GM in IV NORMAL SALINE 500ML BAG 500 ML IRR ONE (11:30)
[2016-10-02] MEDS ORDERED: HEPARIN S0DIUM 5,000 UNIT in IV NORMAL SALINE 500ML BAG 500 ML IRR ONE (11:30)
--- NOTE | 2016-10-02 13:07 | PDOC ---
PROGRESS NOTES Chief Complaint Chief Complaint Gangrene of Right hand 5th digit History of Present Illness History of Present Illness Patient with no acute events overnight, and no new complaints. Patient will be going for surgery at 1300 today. Tolerating hemodialysis schedule. Vitals Vitals Vital Signs Date Time Temp Pulse Resp B/P Pulse Ox O2 Delivery O2 Flow Rate FiO2 10/02/16 11:00 97.8 69 16 128/71 98 Nasal Cannula 2.0 97.8 Physical Exam General: Alert, Oriented X3, Cooperative, No acute distress Heart: Regular rate Lungs: Clear, Other (no wheezing) Abdomen: Normal bowel sounds, Soft, No tenderness, No hepatosplenomegaly, No masses Extremities: Other (gangrenous 5th digit of right hand; Left AKA) Skin: No rashes, No breakdown, No significant lesion Labs LABS Laboratory Tests Test 10/01/16 14:27 10/01/16 15:09 10/01/16 17:12 10/01/16 20:52 Glucose (Fingerstick) 113mg/dL (70-99) 114mg/dL (70-99) 113mg/dL (70-99) White Blood Count 9.5x10^3/uL (4.0-11.0) Red Blood Count 4.90x10^6/uL (4.30-5.70) Hemoglobin 13.0g/dL (13.0-17.5) Hematocrit 41.4% (39.0-53.0) Mean Corpuscular Volume 84fL (79-100) Mean Corpuscular Hemoglobin 27pg (25-35) Mean Corpuscular Hemoglobin Concent 31g/dL (31-37) Red Cell Distribution Width 17.6% (11.5-14.5) Platelet Count 118x10^3/uL (140-400) Neutrophils (%) (Auto) 76% (31-73) Lymphocytes (%) (Auto) 8% (24-48) Monocytes (%) (Auto) 11% (0-9) Eosinophils (%) (Auto) 5% (0-3) Basophils (%) (Auto) 1% (0-3) Neutrophils # (Auto) 7.2x10^3uL (1.8-7.7) Lymphocytes # (Auto) 0.7x10^3/uL (1.0-4.8) Monocytes # (Auto) 1.0x10^3/uL (0.0-1.1) Eosinophils # (Auto) 0.5x10^3/uL (0.0-0.7) Basophils # (Auto) 0.1x10^3/uL (0.0-0.2) Heparin Anti-Xa Act, Unfractionated 0.37IU/mL (0.30-0.70) Sodium Level 139mmol/L (136-145) Potassium Level 5.0mmol/L (3.5-5.1) Chloride Level 98mmol/L (98-107) Carbon Dioxide Level 33mmol/L (21-32) Anion Gap 8 (6-14) Blood Urea Nitrogen 29mg/dL (8-26) Creatinine 8.2mg/dL (0.7-1.3) Estimated GFR (Cockcroft-Gault) 7.1 Glucose Level 119mg/dL (70-99) Calcium Level 8.7mg/dL (8.5-10.1) Test 10/02/16 05:10 White Blood Count 8.7x10^3/uL (4.0-11.0) Red Blood Count 4.85x10^6/uL (4.30-5.70) Hemoglobin 12.7g/dL (13.0-17.5) Hematocrit 41.2% (39.0-53.0) Mean Corpuscular Volume 85fL (79-100) Mean Corpuscular Hemoglobin 26pg (25-35) Mean Corpuscular Hemoglobin Concent 31g/dL (31-37) Red Cell Distribution Width 18.1% (11.5-14.5) Platelet Count 118x10^3/uL (140-400) Neutrophils (%) (Auto) 70% (31-73) Lymphocytes (%) (Auto) 13% (24-48) Monocytes (%) (Auto) 10% (0-9) Eosinophils (%) (Auto) 6% (0-3) Basophils (%) (Auto) 1% (0-3) Neutrophils # (Auto) 6.1x10^3uL (1.8-7.7) Lymphocytes # (Auto) 1.2x10^3/uL (1.0-4.8) Monocytes # (Auto) 0.9x10^3/uL (0.0-1.1) Eosinophils # (Auto) 0.5x10^3/uL (0.0-0.7) Basophils # (Auto) 0.1x10^3/uL (0.0-0.2) Prothrombin Time 15.1SEC (11.7-14.0) Prothromb Time International Ratio 1.3 (0.8-1.1) Sodium Level 141mmol/L (136-145) Potassium Level 4.3mmol/L (3.5-5.1) Chloride Level 99mmol/L (98-107) Carbon Dioxide Level 30mmol/L (21-32) Anion Gap 12 (6-14) Blood Urea Nitrogen 35mg/dL (8-26) Creatinine 9.5mg/dL (0.7-1.3) Estimated GFR (Cockcroft-Gault) 6.0 Glucose Level 139mg/dL (70-99) Calcium Level 8.5mg/dL (8.5-10.1) Review of Systems Review of Systems denies fever, chills denies chest pain, shortness of air Assessment and Plan Assessmemt and Plan ASSESSMENT: 1. Gangrenous R fifth digit with cellulitis 2. ESRD on HD 3. 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 HTN 5. Left AKA 6. Obesity 7. Dyslipidmia 8. Mild pCM 9. Coumadin, with h/o DVT on right arm with AVF 10. 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 - cont HD schedule per renal - cont vanc and zosyn - repeat daily labs - PTOT - cont SSI and glucose monitoring - Surgery, ID and renal have been consulted, their recommendations are appreciated Problems: Comment Review of Relevant I have reviewed the following items kayleigh (where applicable) has been applied. Labs Laboratory Tests Test 09/30/16 16:14 09/30/16 19:20 09/30/16 21:04 10/01/16 06:41 Glucose (Fingerstick) 106mg/dL (70-99) 136mg/dL (70-99) 95mg/dL (70-99) Nasal Screen MRSA (PCR) Negative (Negative) Test 10/01/16 07:17 10/01/16 07:43 10/01/16 14:27 10/01/16 15:09 Bedside Hematocrit 39% (37-52) Arterial Blood pH (Temp corrected) 7.38 Arterial Blood pCO2 (Temp correct) 49mmHg Arterial Blood pO2 (Temp corrected) 50mmHg Bedside Venous pH 7.38 (7.32-7.42) Bedside Venous pCO2 50mmHg (41-51) Bedside Venous pO2 51mmHg (20-40) Bedside Venous HCO3 29mmol/L (24-28) Bedside Venous Blood Total CO2 31mmol/L (21-32) Bedside Venous Blood O2 Saturation 84% Bedside Venous Blood Base Excess 4mmol/L (0-3) POC Venous Hemoglobin (Calc) 13.3g/dL (14-18) Bedside FiO2 21 Bedside Sodium 137mmol/L (135-145) Bedside Potassium 5.0mmol/L (3.5-5.0) Glucose Level 107mg/dL (70-99) 119mg/dL (70-99) Bedside Ionized Calcium ([place]oh) 0.97mmol/L (1.13-1.32) Glucose (Fingerstick) 118mg/dL (70-99) 113mg/dL (70-99) White Blood Count 9.5x10^3/uL (4.0-11.0) Red Blood Count 4.90x10^6/uL (4.30-5.70) Hemoglobin 13.0g/dL (13.0-17.5) Hematocrit 41.4% (39.0-53.0) Mean Corpuscular Volume 84fL (79-100) Mean Corpuscular Hemoglobin 27pg (25-35) Mean Corpuscular Hemoglobin Concent 31g/dL (31-37) Red Cell Distribution Width 17.6% (11.5-14.5) Platelet Count 118x10^3/uL (140-400) Neutrophils (%) (Auto) 76% (31-73) Lymphocytes (%) (Auto) 8% (24-48) Monocytes (%) (Auto) 11% (0-9) Eosinophils (%) (Auto) 5% (0-3) Basophils (%) (Auto) 1% (0-3) Neutrophils # (Auto) 7.2x10^3uL (1.8-7.7) Lymphocytes # (Auto) 0.7x10^3/uL (1.0-4.8) Monocytes # (Auto) 1.0x10^3/uL (0.0-1.1) Eosinophils # (Auto) 0.5x10^3/uL (0.0-0.7) Basophils # (Auto) 0.1x10^3/uL (0.0-0.2) Heparin Anti-Xa Act, Unfractionated 0.37IU/mL (0.30-0.70) Sodium Level 139mmol/L (136-145) Potassium Level 5.0mmol/L (3.5-5.1) Chloride Level 98mmol/L (98-107) Carbon Dioxide Level 33mmol/L (21-32) Anion Gap 8 (6-14) Blood Urea Nitrogen 29mg/dL (8-26) Creatinine 8.2mg/dL (0.7-1.3) Estimated GFR (Cockcroft-Gault) 7.1 Calcium Level 8.7mg/dL (8.5-10.1) Test 10/01/16 17:12 10/01/16 20:52 10/02/16 05:10 Glucose (Fingerstick) 114mg/dL (70-99) 113mg/dL (70-99) White Blood Count 8.7x10^3/uL (4.0-11.0) Red Blood Count 4.85x10^6/uL (4.30-5.70) Hemoglobin 12.7g/dL (13.0-17.5) Hematocrit 41.2% (39.0-53.0) Mean Corpuscular Volume 85fL (79-100) Mean Corpuscular Hemoglobin 26pg (25-35) Mean Corpuscular Hemoglobin Concent 31g/dL (31-37) Red Cell Distribution Width 18.1% (11.5-14.5) Platelet Count 118x10^3/uL (140-400) Neutrophils (%) (Auto) 70% (31-73) Lymphocytes (%) (Auto) 13% (24-48) Monocytes (%) (Auto) 10% (0-9) Eosinophils (%) (Auto) 6% (0-3) Basophils (%) (Auto) 1% (0-3) Neutrophils # (Auto) 6.1x10^3uL (1.8-7.7) Lymphocytes # (Auto) 1.2x10^3/uL (1.0-4.8) Monocytes # (Auto) 0.9x10^3/uL (0.0-1.1) Eosinophils # (Auto) 0.5x10^3/uL (0.0-0.7) Basophils # (Auto) 0.1x10^3/uL (0.0-0.2) Prothrombin Time 15.1SEC (11.7-14.0) Prothromb Time International Ratio 1.3 (0.8-1.1) Sodium Level 141mmol/L (136-145) Potassium Level 4.3mmol/L (3.5-5.1) Chloride Level 99mmol/L (98-107) Carbon Dioxide Level 30mmol/L (21-32) Anion Gap 12 (6-14) Blood Urea Nitrogen 35mg/dL (8-26) Creatinine 9.5mg/dL (0.7-1.3) Estimated GFR (Cockcroft-Gault) 6.0 Glucose Level 139mg/dL (70-99) Calcium Level 8.5mg/dL (8.5-10.1) Laboratory Tests Test 10/01/16 14:27 10/01/16 15:09 10/01/16 17:12 10/01/16 20:52 Glucose (Fingerstick) 113mg/dL (70-99) 114mg/dL (70-99) 113mg/dL (70-99) White Blood Count 9.5x10^3/uL (4.0-11.0) Red Blood Count 4.90x10^6/uL (4.30-5.70) Hemoglobin 13.0g/dL (13.0-17.5) Hematocrit 41.4% (39.0-53.0) Mean Corpuscular Volume 84fL (79-100) Mean Corpuscular Hemoglobin 27pg (25-35) Mean Corpuscular Hemoglobin Concent 31g/dL (31-37) Red Cell Distribution Width 17.6% (11.5-14.5) Platelet Count 118x10^3/uL (140-400) Neutrophils (%) (Auto) 76% (31-73) Lymphocytes (%) (Auto) 8% (24-48) Monocytes (%) (Auto) 11% (0-9) Eosinophils (%) (Auto) 5% (0-3) Basophils (%) (Auto) 1% (0-3) Neutrophils # (Auto) 7.2x10^3uL (1.8-7.7) Lymphocytes # (Auto) 0.7x10^3/uL (1.0-4.8) Monocytes # (Auto) 1.0x10^3/uL (0.0-1.1) Eosinophils # (Auto) 0.5x10^3/uL (0.0-0.7) Basophils # (Auto) 0.1x10^3/uL (0.0-0.2) Heparin Anti-Xa Act, Unfractionated 0.37IU/mL (0.30-0.70) Sodium Level 139mmol/L (136-145) Potassium Level 5.0mmol/L (3.5-5.1) Chloride Level 98mmol/L (98-107) Carbon Dioxide Level 33mmol/L (21-32) Anion Gap 8 (6-14) Blood Urea Nitrogen 29mg/dL (8-26) Creatinine 8.2mg/dL (0.7-1.3) Estimated GFR (Cockcroft-Gault) 7.1 Glucose Level 119mg/dL (70-99) Calcium Level 8.7mg/dL (8.5-10.1) Test 10/02/16 05:10 White Blood Count 8.7x10^3/uL (4.0-11.0) Red Blood Count 4.85x10^6/uL (4.30-5.70) Hemoglobin 12.7g/dL (13.0-17.5) Hematocrit 41.2% (39.0-53.0) Mean Corpuscular Volume 85fL (79-100) Mean Corpuscular Hemoglobin 26pg (25-35) Mean Corpuscular Hemoglobin Concent 31g/dL (31-37) Red Cell Distribution Width 18.1% (11.5-14.5) Platelet Count 118x10^3/uL (140-400) Neutrophils (%) (Auto) 70% (31-73) Lymphocytes (%) (Auto) 13% (24-48) Monocytes (%) (Auto) 10% (0-9) Eosinophils (%) (Auto) 6% (0-3) Basophils (%) (Auto) 1% (0-3) Neutrophils # (Auto) 6.1x10^3uL (1.8-7.7) Lymphocytes # (Auto) 1.2x10^3/uL (1.0-4.8) Monocytes # (Auto) 0.9x10^3/uL (0.0-1.1) Eosinophils # (Auto) 0.5x10^3/uL (0.0-0.7) Basophils # (Auto) 0.1x10^3/uL (0.0-0.2) Prothrombin Time 15.1SEC (11.7-14.0) Prothromb Time International Ratio 1.3 (0.8-1.1) Sodium Level 141mmol/L (136-145) Potassium Level 4.3mmol/L (3.5-5.1) Chloride Level 99mmol/L (98-107) Carbon Dioxide Level 30mmol/L (21-32) Anion Gap 12 (6-14) Blood Urea Nitrogen 35mg/dL (8-26) Creatinine 9.5mg/dL (0.7-1.3) Estimated GFR (Cockcroft-Gault) 6.0 Glucose Level 139mg/dL (70-99) Calcium Level 8.5mg/dL (8.5-10.1) Medications Current Medications Iohexol (Omnipaque 300 Mg/ml) 100 ml STK-MED ONCE .ROUTE ; Start 09/27/16 at 09: 51; Stop 09/27/16 at 09:52; Status DC Lidocaine/Sodium Bicarbonate 20 ml 20 ml STK-MED ONCE IJ ; Start 09/27/16 at 09: 51; Stop 09/27/16 at 09:52; Status DC Heparin Sodium/ Sodium Chloride 1,500 ml @ As Directed STK-MED ONCE .ROUTE ; Start 09/27/16 at 09:51; Stop 09/27/16 at 09:52; Status DC Iodixanol (Visipaque 320) 100 ml STK-MED ONCE .ROUTE ; Start 09/27/16 at 10:11; Stop 09/27/16 at 10:12; Status DC Midazolam HCl (Versed) 5 mg STK-MED ONCE .ROUTE ; Start 09/27/16 at 10:20; Stop 09/27/16 at 10:21; Status DC Fentanyl Citrate (Fentanyl 5ml Vial) 250 mcg STK-MED ONCE .ROUTE ; Start at 10:20; Stop 09/27/16 at 10:21; Status DC Heparin Sodium/ Sodium Chloride 1,000 unit 1X ONCE IART Last administered on 10:48; Start 09/27/16 at 10:45; Stop 09/27/16 at 10:46; Status DC Lidocaine/Sodium Bicarbonate (Buffered Lidocaine 1%) 20 ml 1X ONCE IJ Last administered on 09/27/16 10:48; Start 09/27/16 at 10:45; Stop 09/27/16 at 10:46 ; Status DC Midazolam HCl (Versed) 5 mg 1X ONCE IV Last administered on 09/27/16 11:17; Start 09/27/16 at 10:45; Stop 09/27/16 at 10:46; Status DC Fentanyl Citrate (Fentanyl 5ml Vial) 250 mcg 1X ONCE IV Last administered on 11:17; Start 09/27/16 at 10:45; Stop 09/27/16 at 10:46; Status DC Iodixanol (Visipaque 320) 100 ml 1X ONCE IART Last administered on 09/27/16 11:17; Start 09/27/16 at 10:45; Stop 09/27/16 at 10:46; Status DC Info (Do NOT chart on this entry -- for MONITORING) 1 each PRN DAILY PRN MC SEE COMMENTS; Start 09/27/16 at 11:00; Stop 09/29/16 at 10:59; Status DC Iodixanol (Visipaque 320) 50 ml STK-MED ONCE .ROUTE ; Start 09/27/16 at 10:59; Stop 09/27/16 at 11:00; Status DC Nitroglycerin (Nitroglycerin) 200 mcg 1X ONCE IART Last administered on 11:05; Start 09/27/16 at 11:00; Stop 09/27/16 at 11:07; Status DC Insulin Aspart (Novolog) 0-9 UNITS TIDWMEALS SQ ; Start 09/27/16 at 17:00 Dextrose 12.5 gm PRN Q15MIN PRN IV SEE COMMENTS; Start 09/27/16 at 12:45 Acetaminophen (Tylenol) 650 mg PRN Q6HRS PRN PO MILD PAIN / TEMP Last administered on 09/30/16 23:56; Start 09/27/16 at 12:45 Ondansetron HCl (Zofran) 4 mg PRN Q6HRS PRN IV NAUSEA/VOMITING Last administered on 10/02/16 08:33; Start 09/27/16 at 12:45 Amlodipine Besylate (Norvasc) 10 mg DAILY PO Last administered on 10/02/16 08: 21; Start 09/27/16 at 13:00 Atorvastatin Calcium (Lipitor) 10 mg QHS PO Last administered on 10/01/16 20: 48; Start 09/27/16 at 21:00 Fentanyl (Duragesic 75mcg/ Hr Patch) 1 patch Q72H PRN TD PAIN Last administered on 09/28/16 12:10; Start 09/27/16 at 12:45 Vitamin B Complex/ Vitamin C (Nephro-Eleazar) 1 tab DAILY PO Last administered on 10/01/16 17:53; Start 09/28/16 at 09:00 Furosemide (Lasix) 40 mg [id number] PO Last administered on 10/02/16 08:20; Start 09/27/16 at 14:00 Hydralazine HCl (Apresoline) 50 mg QID PO Last administered on 10/02/16 08:22 ; Start 09/27/16 at 13:00 Insulin Aspart (Novolog) 8 units TIDAC SQ Last administered on 10/01/16 18:13 ; Start 09/27/16 at 16:30 Metoprolol Tartrate (Lopressor) 50 mg BID PO Last administered on 10/02/16 08: 23; Start 09/27/16 at 21:00 Oxycodone/ Acetaminophen (Percocet 10/325) 1 tab TID PO Last administered on 08:20; Start 09/27/16 at 14:00 Sodium Bicarbonate (Sodium Bicarbonate) 1,300 mg TID PO Last administered on 08:20; Start 09/27/16 at 14:00 Calcium Carbonate/ Glycine (Tums) 500 mg QID PO Last administered on 10/02/16 08:19; Start 09/27/16 at 13:00 Non-Formulary Medication 210 mg TID PO ; Start 09/27/16 at 14:00; Stop 09/27/16 at 14:02; Status DC Insulin Detemir (Levemir) 15 units QHS SQ Last administered on 09/28/16 21:04 ; Start 09/27/16 at 21:00; Stop 09/29/16 at 16:26; Status DC Losartan Potassium (Cozaar) 100 mg DAILY PO Last administered on 10/02/16 08: 21; Start 09/27/16 at 13:00 Heparin Sodium (Porcine) 5,000 unit Q8HRS SQ Last administered on 09/28/16 05: 37; Start 09/27/16 at 14:00; Stop 09/28/16 at 14:33; Status DC Amoxicillin/ Clavulanate Potassium (Augmentin 500/ 125mg) 1 tab BID PO Last administered on 09/27/16 21:00; Start 09/27/16 at 13:00; Stop 09/27/16 at 21:54 ; Status DC Calcium Acetate (Phoslo) 1,334 mg TIDWMEALS PO Last administered on 10/01/16 17:53; Start 09/27/16 at 17:00 Amoxicillin/ Clavulanate Potassium (Augmentin 500/ 125mg) 1 tab Q24H PO ; Start 09/28/16 at 14:00; Status Cancel Ondansetron HCl (Zofran) 4 mg PRN Q6HRS PRN IV NAUSEA/VOMITING; Start 09/28/16 at 10:00; Status Cancel Ondansetron HCl (Zofran) 4 mg PRN Q6HRS PRN IV NAUSEA/VOMITING; Start 09/28/16 at 10:00; Status Cancel Piperacillin Sod/ Tazobactam Sod (Zosyn Per Pharmacy) 1 each PRN DAILY PRN MC SEE COMMENTS; Start 09/28/16 at 13:45 Vancomycin HCl (Vanco Per Pharmacy) 1 each PRN DAILY PRN MC SEE COMMENTS Last administered on 10/01/16 13:33; Start 09/28/16 at 13:45 Enoxaparin Sodium 60 mg 60 mg Q12HR SQ ; Start 09/28/16 at 21:00; Status UNV Piperacillin Sod/ Tazobactam Sod 2.25 gm/Sodium Chloride 50 ml @ 100 mls/hr Q8HRS IV Last administered on 10/02/16 05:19; Start 09/28/16 at 14:00 Vancomycin HCl 2 gm/Sodium Chloride 500 ml @ 250 mls/hr 1X ONCE IV Last administered on 09/28/16 15:14; Start 09/28/16 at 14:30; Stop 09/28/16 at 16:29 ; Status DC Heparin Sodium/ Dextrose 500 ml @ 0 mls/hr CONT PRN IV SEE I/O RECORD Last administered on 10/01/16 07:49; Start 09/28/16 at 14:45; Stop 09/30/16 at 09:27 ; Status DC Vancomycin HCl 1 each 1 each 1X ONCE MC Last administered on 09/30/16 05:00; Start 09/30/16 at 05:00; Stop 09/30/16 at 05:01; Status DC Sodium Chloride (Iv Sodium Chloride 0.9% 1000ml Bag) 1,000 ml @ 1,000 mls/hr Q1H PRN IV hypotension; Start 09/28/16 at 15:50; Stop 09/28/16 at 21:49; Status DC Info (PHARMACY MONITORING -- do not chart) 1 each PRN DAILY PRN MC SEE COMMENTS ; Start 09/28/16 at 16:00 Diphenhydramine HCl (Benadryl) 50 mg STK-MED ONCE .ROUTE Last administered on 17:57; Start 09/28/16 at 17:52; Stop 09/28/16 at 17:53; Status DC Diphenhydramine HCl (Benadryl) 50 mg 1X ONCE IVP ; Start 09/28/16 at 18:00; Stop 09/28/16 at 18:01; Status DC Sodium Polystyrene Sulfonate (Kayexalate) 15 gm 1X ONCE PO Last administered on 09/29/16 08:24; Start 09/29/16 at 07:45; Stop 09/29/16 at 07:46; Status DC Dextrose 25 gm 1X ONCE IV Last administered on 09/29/16 09:22; Start at 09:30; Stop 09/29/16 at 09:31; Status DC Insulin Human Regular (Novolin R Vial) 10 unit 1X ONCE IV Last administered on 09/29/16 09:34; Start 09/29/16 at 09:30; Stop 09/29/16 at 09:31; Status DC Sodium Bicarbonate 50 meq 1X ONCE IV Last administered on 09/29/16 09:50; Start 09/29/16 at 10:00; Stop 09/29/16 at 10:01; Status DC Heparin Sodium (Porcine) 3,600 unit PRN Q6HRS PRN IV FOR UFH LEVEL LESS THAN 0.2 Last administered on 09/29/16 11:47; Start 09/29/16 at 11:45 Info (Anti-Coagulation Monitoring By Pharmacy) 1 each PRN DAILY PRN MC SEE COMMENTS Last administered on 10/01/16 13:31; Start 09/29/16 at 15:00 Insulin Detemir (Levemir) 15 units QHS SQ ; Start 09/29/16 at 16:26 Diphenhydramine HCl (Benadryl) prn for itching PRN Q6HRS PRN IVP ITCHING; Start 09/29/16 at 21:30; Stop 09/29/16 at 21:35; Status DC Diphenhydramine HCl (Benadryl) prn itching PRN Q6HRS PRN PO ITCHING; Start 07/06 at 21:30; Stop 09/29/16 at 21:35; Status DC Diphenhydramine HCl (Benadryl) 25 mg PRN Q6HRS PRN IVP ITCHING Last administered on 09/29/16 21:51; Start 09/29/16 at 21:45 Diphenhydramine HCl (Benadryl) 25 mg PRN Q6HRS PRN PO ITCHING Last administered on 09/30/16 21:28; Start 09/29/16 at 21:45 Diphenhydramine HCl 12.5 mg 12.5 mg PRN Q6HRS PRN IVP ITCHING; Start 09/29/16 at 21:45 Heparin Sodium/ Dextrose 500 ml @ 0 mls/hr CONT PRN IV SEE I/O RECORD Last administered on 3/13/17at 16:44; Start 09/30/16 at 09:30; Stop 09/30/16 at 23:59 ; Status DC Cefazolin Sodium/ Dextrose 50 ml @ 100 mls/hr 1X ONCE IV ; Start 10/01/16 at 07:00; Stop 10/01/16 at 07:29; Status DC Heparin Sodium (Porcine)/Sodium Chloride (Iv Sodium Chloride 0.9% 500ml Bag) 505 ml @ 505 mls/hr 1X PERIOP ONCE IRR ; Start 10/01/16 at 06:00; Stop at 06:59; Status DC Ondansetron HCl (Zofran) 4 mg PRN Q6HRS PRN IV Nausea; Start 10/01/16 at 07:00 ; Stop 10/02/16 at 06:59; Status DC Fentanyl Citrate (Fentanyl 2ml Vial) 25 mcg PRN Q5MIN PRN IV MILD PAIN; Start 10/01/16 at 07:00; Stop 10/02/16 at 06:59; Status DC Fentanyl Citrate (Fentanyl 2ml Vial) 50 mcg PRN Q5MIN PRN IV MODERATE PAIN; Start 10/01/16 at 07:00; Stop 10/02/16 at 06:59; Status DC Morphine Sulfate 1 mg 1 mg PRN Q10MIN PRN IV SEVERE PAIN; Start 10/01/16 at 07: 00; Stop 10/02/16 at 06:59; Status DC Lactated Ringer's (Iv Lactated Ringers) 1,000 ml @ 0 mls/hr Q0M IV ; Start at 07:00; Stop 10/01/16 at 18:59; Status DC Lidocaine HCl 2 ml 1X PRN PRN ID IV START; Start 10/01/16 at 07:00; Stop at 06:59; Status DC Hydromorphone HCl (Dilaudid) 0.5 mg PRN Q10MIN PRN IV SEVERE PAIN, Second choice; Start 10/01/16 at 07:00; Stop 10/02/16 at 06:59; Status DC Prochlorperazine Edisylate 5 mg 5 mg PACU PRN PRN IV NAUSEA; Start 10/01/16 at 07:00; Stop 10/02/16 at 06:59; Status DC Cefazolin Sodium/ Sodium Chloride (Ancef/Iv Sodium Chloride 0.9% 500ml Bag) 500 ml @ 500 mls/hr 1X PERIOP ONCE IRR ; Start 10/01/16 at 06:00; Stop 10/01/16 at 06:59; Status DC Cellulose 1 each STK-MED ONCE .ROUTE ; Start 10/01/16 at 06:51; Stop 10/01/16 at 06:52; Status DC Papaverine HCl 60 mg STK-MED ONCE .ROUTE ; Start 10/01/16 at 06:52; Stop at 06:53; Status DC Lidocaine HCl 20 ml STK-MED ONCE .ROUTE ; Start 10/01/16 at 06:52; Stop at 06:53; Status DC Lidocaine HCl 100 mg 100 mg STK-MED ONCE .ROUTE ; Start 10/01/16 at 07:00; Stop 10/01/16 at 07:01; Status DC Propofol (Diprivan) 0 ml @ As Directed STK-MED ONCE IV ; Start 10/01/16 at 07:00 ; Stop 10/01/16 at 07:01; Status DC Famotidine (Pepcid) 20 mg STK-MED ONCE .ROUTE ; Start 10/01/16 at 07:00; Stop at 07:01; Status DC Ondansetron HCl (Zofran) 4 mg STK-MED ONCE .ROUTE ; Start 10/01/16 at 07:01; Stop 10/01/16 at 07:02; Status DC Fentanyl Citrate (Fentanyl 2ml Vial) 100 mcg STK-MED ONCE .ROUTE ; Start at 07:01; Stop 10/01/16 at 07:02; Status DC Rocuronium [place] 50 mg 50 mg STK-MED ONCE .ROUTE ; Start 10/01/16 at 07:08; Stop 10/01/16 at 07:09; Status DC Sodium Chloride (Iv Sodium Chloride 0.9% 1000ml Bag) 1,000 ml @ 0 mls/hr Q0M IV ; Start 10/01/16 at 07:30 Aspirin 81 mg 81 mg [id number] PO ; Start 10/01/16 at 08:00 Heparin Sodium/ Dextrose 500 ml @ 0 mls/hr CONT PRN IV SEE I/O RECORD Last administered on 10/01/16 23:42; Start 10/01/16 at 08:00; Stop 10/02/16 at 08:00 ; Status DC Sodium Chloride 1,000 ml @ 1,000 mls/hr Q1H PRN IV hypotension; Start 10/01/16 at 09:03; Stop 10/01/16 at 15:02; Status DC Albumin Human (Albuminar) 200 ml @ 200 mls/hr 1X PRN PRN IV Hypotension; Start 10/01/16 at 09:15; Stop 10/01/16 at 15:14; Status DC Info (PHARMACY MONITORING -- do not chart) 1 each PRN DAILY PRN MC SEE COMMENTS ; Start 10/01/16 at 09:15; Status UNV Info (PHARMACY MONITORING -- do not chart) 1 each PRN DAILY PRN MC SEE COMMENTS ; Start 10/01/16 at 09:15; Status UNV Gentamicin Sulfate 1 each 1 each PRN DAILY PRN MC SEE COMMENTS Last administered on 10/01/16 13:39; Start 10/01/16 at 10:30; Stop 10/01/16 at 23:59 ; Status DC Gentamicin Sulfate 180 mg/ Sodium Chloride 104.5 ml @ 209 mls/hr ONCE ONCE IV Last administered on 10/01/16 20:48; Start 10/01/16 at 16:00; Stop 10/01/16 at 16:29; Status DC Vancomycin HCl/ Sodium Chloride (Iv Sodium Chloride 0.9% 100ml) 100 ml @ 100 mls/hr QTUTHSA IV ; Start 10/03/16 at 16:00 Ondansetron HCl (Zofran) 4 mg PRN Q6HRS PRN IV Nausea; Start 10/02/16 at 07:00 ; Stop 10/03/16 at 06:59 Fentanyl Citrate (Fentanyl 2ml Vial) 25 mcg PRN Q5MIN PRN IV MILD PAIN; Start 10/02/16 at 07:00; Stop 10/03/16 at 06:59 Fentanyl Citrate (Fentanyl 2ml Vial) 50 mcg PRN Q5MIN PRN IV MODERATE PAIN; Start 10/02/16 at 07:00; Stop 10/03/16 at 06:59 Morphine Sulfate 1 mg PRN Q10MIN PRN IV SEVERE PAIN; Start 10/02/16 at 07:00; Stop 10/03/16 at 06:59 Hydromorphone HCl (Dilaudid) 0.5 mg PRN Q10MIN PRN IV SEVERE PAIN, Second choice; Start 10/02/16 at 07:00; Stop 10/03/16 at 06:59 Prochlorperazine Edisylate 5 mg 5 mg PACU PRN PRN IV NAUSEA; Start 10/02/16 at 07:00; Stop 10/03/16 at 06:59 Heparin Sodium (Porcine) 5000 unit/Sodium Chloride 505 ml @ 505 mls/hr 1X PERIOP ONCE IRR ; Start 10/02/16 at 11:30; Stop 10/02/16 at 12:29; Status DC Cefazolin Sodium/ Sodium Chloride (Ancef/Iv Sodium Chloride 0.9% 500ml Bag) 500 ml @ 500 mls/hr 1X PERIOP ONCE IRR ; Start 10/02/16 at 11:30; Stop 10/02/16 at 12:29; Status DC Cellulose 1 each STK-MED ONCE .ROUTE ; Start 10/02/16 at 11:03; Stop 10/02/16 at 11:04; Status DC Papaverine HCl 60 mg STK-MED ONCE .ROUTE ; Start 10/02/16 at 11:04; Stop at 11:05; Status DC Lidocaine HCl 20 ml STK-MED ONCE .ROUTE ; Start 10/02/16 at 11:04; Stop at 11:05; Status DC Lidocaine HCl 20 ml STK-MED ONCE .ROUTE ; Start 10/02/16 at 11:04; Stop at 11:05; Status DC Active Scripts Active Novolog Flexpen (Insulin Aspart) 100 Unit/1 Ml Insuln.pen 8 Units SQ TIDAC Reported Percocet 10-325 Mg Tablet (Oxycodone/Acetaminophen) 1 Each Tablet 1 Tab PO TID Warfarin Sodium 7.5 Mg Tablet 7.5 Mg PO DAILY [place] Tablet (Folic Acid/Vitamin B Comp W-C) 0.8 Mg Tablet 0.8 Mg PO DAILY Ferric Citrate 210 Mg Tablet 210 Mg PO TID Hydralazine Hcl 50 Mg Tablet 50 Mg PO QID FENTANYL 75mcg/hr (Fentanyl) 1 Each Patch.td72 1 Patch TD Q72H PRN Lantus Solostar (Insulin Glargine,Hum.rec.anlog) 100 Unit/1 Ml Insuln.pen 15 Unit SQ QHS Furosemide 40 Mg Tablet 1 Tab PO BID Tums (Calcium Carbonate) 300 Mg Tab.chew 500 Mg PO QID Losartan Potassium 100 Mg Tablet 100 Mg PO DAILY Atorvastatin Calcium 10 Mg Tablet 10 Mg PO DAILY Sodium Bicarbonate 650 Mg Tablet 1,300 Mg PO TID Amlodipine Besylate 10 Mg Tablet 10 Mg PO DAILY Metoprolol Tartrate 50 Mg Tablet 50 Mg PO BID Vitals/I & O Vital Sign - Last 24 Hours 10/01/16 10/01/16 10/01/16 10/01/16 15:00 17:55 17:55 17:56 Temp 97.4 97.4 Pulse 76 76 76 76 Resp 20 B/P 152/85 157/55 157/55 157/55 Pulse Ox 94 O2 Delivery Room Air 10/01/16 10/01/16 10/01/16 10/01/16 19:00 20:00 20:49 20:50 Temp 99.2 99.2 Pulse 78 145 78 Resp 20 B/P 145/76 76/78 145/76 Pulse Ox 93 O2 Delivery Room Air Room Air O2 Flow Rate 2.0 10/01/16 10/01/16 10/01/16 10/02/16 20:50 21:50 22:36 03:00 Temp 98.5 97.7 98.5 97.7 Pulse 76 77 Resp 20 20 B/P 143/89 149/83 Pulse Ox 93 93 96 93 O2 Delivery Room Air Room Air Room Air O2 Flow Rate 2.0 2.0 10/02/16 10/02/16 10/02/16 10/02/16 08:00 08:20 08:21 08:21 Pulse 95 95 B/P 195/67 195/67 O2 Delivery Room Air Room Air O2 Flow Rate 2.0 10/02/16 10/02/16 10/02/16 10/02/16 08:22 08:23 08:45 08:47 Temp 97.0 97.0 97.0 97.0 Pulse 95 95 67 67 Resp 18 18 B/P 195/67 195/67 195/67 195/67 Pulse Ox 97 96 O2 Delivery Nasal Cannula Nasal Cannula O2 Flow Rate 2.0 2.0 10/02/16 10/02/16 09:45 11:00 Temp 97.8 97.8 Pulse 69 Resp 16 B/P 128/71 Pulse Ox 98 O2 Delivery Room Air Nasal Cannula O2 Flow Rate 2.0 Intake and Output 10/01/16 10/01/16 10/02/16 15:00 23:00 07:00 Intake Total 600 ml 250 ml Output Total 0 ml Balance 600 ml 250 ml CAROLYN AVERY III, DO Oct 02, 2016 13:07
[2016-10-02] MEDS: ANTI-COAG MONITOR BY PHARMACY. MC PRN (13:32)
[2016-10-02] MEDS: VANCOMYCIN PER PHARMACY MC PRN (13:36)
[2016-10-02] MEDS ORDERED: CEFAZOLIN 2GM PREMIX 0 ML IV ONE (14:00)
[2016-10-02] MEDS ORDERED: PROPOFOL 20 ML IV ONE (14:32)
[2016-10-02 17:04] LABS: CALCIUM 8.8 mg/dL (8.5-10.1); CREATININE 10.3 mg/dL (0.7-1.3); GFR 5.4
[2016-10-02] MEDS ORDERED: SODIUM POLYSTYRENE SULFONATE 15 GM/60 ML ORAL.SUSP. PO ONE (20:30)
[2016-10-02] MEDS: INSULIN DETEMIR 300 UNITS/3 ML INSULN.PEN. SQ SCH (21:00)
[2016-10-02] MEDS: ATORVASTATIN CALCIUM 10 MG TABLET. PO SCH (21:48)
[2016-10-03] VITALS (10 sets, daily range): BP systolic 121–139; BP diastolic 60–75
[2016-10-03 03:58] LABS: BASO # 0.1 x10^3/uL (0.0-0.2); BASO % 1 % (0-3); EOS % 7 % (0-3); HEMATOCRIT 43.6 % (39.0-53.0); HEMOGLOBIN 13.6 g/dL (13.0-17.5); LYMPH # 1.4 x10^3/uL (1.0-4.8); LYMPH % 22 % (24-48); MEAN CORPUSCULAR HEMOGLOBIN 26 pg (25-35); MEAN CORPUSCULAR HGB CONC 31 g/dL (31-37); MEAN CORPUSCULAR VOLUME 84 fL (79-100); MONO % 12 % (0-9); NEUT % 58 % (31-73); PLATELET COUNT 127 x10^3/uL (140-400); RED BLOOD COUNT 5.19 x10^6/uL (4.30-5.70); WHITE BLOOD COUNT 6.6 x10^3/uL (4.0-11.0)
[2016-10-03 04:17] LABS: CALCIUM 8.7 mg/dL (8.5-10.1); CREATININE 11.3 mg/dL (0.7-1.3); GFR 4.9; POTASSIUM 4.5 mmol/L (3.5-5.1)
[2016-10-03] MEDS: PIPERACILLIN/TAZOBACTAM 2.25 GM in IV NORMAL SALINE 50ML 50 ML IV SCH ×3 (06:10→22:27)
[2016-10-03] MEDS ORDERED: SURGICEL FIBRILLAR 1X2 EACH. ONE (06:58)
[2016-10-03] MEDS ORDERED: PAPAVERINE 60 MG/2 ML VIAL FOR OR ONLY. ONE (06:58)
[2016-10-03] MEDS ORDERED: LIDOCAINE 1% 20 ML VIAL. ONE (06:58)
[2016-10-03] MEDS ORDERED: PROPOFOL 20 ML IV ONE ×3 (07:09→10:08)
[2016-10-03] MEDS ORDERED: FAMOTIDINE 20 MG/2 ML VIAL ONE ×2 (07:09→08:08)
[2016-10-03] MEDS ORDERED: LIDOCAINE 2% 100 MG/5 ML DISP.SYRIN. ONE ×2 (07:09→10:08)
[2016-10-03] MEDS ORDERED: ROCURONIUM 50 MG/5 ML VIAL. ONE (07:09)
[2016-10-03] MEDS ORDERED: ONDANSETRON PF 4 MG/2 ML VIAL. ONE ×2 (07:09→08:08)
[2016-10-03] MEDS ORDERED: FENTANYL PF 100 MCG/2 ML VIAL. ONE ×3 (07:09→11:51)
[2016-10-03] MEDS ORDERED: SUCCINYLCHOLINE 200 MG/10 ML VIAL. ONE (07:09)
--- NOTE | 2016-10-03 07:13 | PDOC ---
Provider Note Provider Note AF VSS awake and alert right arm with pulse within the right arm shunt, 5th finger with dry gangrene and stable erythema K 4.5 A/P right arm peripheral artery disease and steal syndrome, right 5th finger gangrene - plan right arm DRIL arterial bypass today and 5th finger amputation - continue IV antibiotics per ID LILA BARBOSA MD Oct 03, 2016 07:13
[2016-10-03] MEDS ORDERED: CEFAZOLIN 2GM PREMIX 50 ML IV ONE (07:17)
[2016-10-03] MEDS: INSULIN ASPART 300 UNITS/3 ML INSULN.PEN SQ SCH ×6 (07:30→17:00)
[2016-10-03] MEDS ORDERED: CEFAZOLIN SODIUM 1 GM in IV NORMAL SALINE 500ML BAG 500 ML IRR ONE (08:00)
[2016-10-03] MEDS: ASPIRIN ENTERIC COATED 81 MG TABLET.DR. PO SCH (08:00)
[2016-10-03] MEDS ORDERED: HEPARIN S0DIUM 5,000 UNIT in IV NORMAL SALINE 500ML BAG 500 ML IRR ONE (08:00)
[2016-10-03] MEDS: CALCIUM ACETATE 667 MG CAPSULE PO SCH ×3 (08:00→19:11)
[2016-10-03] MEDS ORDERED: PHENYLEPHRINE in 0.9% NACL PF 1 MG/10 ML DISP.SYRIN. IV ONE (08:12)
[2016-10-03] MEDS ORDERED: EPHEDRINE PF IN SALINE 50 MG/5 ML DISP.SYRIN. IV ONE (08:39)
[2016-10-03] MEDS: AMLODIPINE BESYLATE 10 MG TABLET PO SCH (09:00)
[2016-10-03] MEDS: LOSARTAN POTASSIUM 50 MG TABLET. PO SCH (09:00)
[2016-10-03] MEDS: FOLIC/VIT B COMP W-C (RENAL) TABLET. PO SCH (09:00)
[2016-10-03] MEDS: OXYCODONE/APAP 10/325 TABLET. PO SCH ×3 (09:00→21:17)
[2016-10-03] MEDS: CALCIUM CARBONATE 500 MG TAB.CHEW PO SCH ×4 (09:00→21:16)
[2016-10-03] MEDS: METOPROLOL TART IMMED RELEASE 50 MG TABLET PO SCH ×2 (09:00→21:21)
[2016-10-03] MEDS: SODIUM BICARBONATE 650 MG TABLET. PO SCH ×3 (09:00→21:16)
[2016-10-03] MEDS: FUROSEMIDE 40 MG TABLET PO SCH ×2 (09:00→19:12)
[2016-10-03] MEDS: HYDRALAZINE 50 MG TABLET PO SCH ×4 (09:00→21:16)
[2016-10-03] MEDS ORDERED: HEPARIN for IV BOLUS 10,000 UNIT/10 ML VIAL. ONE (09:06)
[2016-10-03] MEDS ORDERED: DESFLURANE > 120 MINUTES IH ONE (09:36)
[2016-10-03] MEDS ORDERED: GLYCOPYRROLATE 1 MG/5 ML VIAL. ONE ×2 (09:55→10:41)
[2016-10-03] MEDS ORDERED: NEOSTIGMINE METHYLSULFATE 5 MG/5 ML SYRINGE. ONE (09:56)
--- NOTE | 2016-10-03 11:21 | PDOC4 ---
Operative Note Operative Note OP NOTE dictated Pre-op: right arm arterial disease with steal from the upper arm AV shunt and right 5th finger gangrene Post-op: same Operation: right mid arm brachial artery to distal antecubital brachial artery bypass with left leg great saphenous vein, internal ligation of the brachial artery just distal to the shunt anastomosis, right 5th finger amputation closure of the skin Surgeon: Dr. Mendez Blood loss: 100ml Anesthesia: general LILA MENDEZ MD Oct 03, 2016 11:21
[2016-10-03] MEDS: FENTANYL PF 100 MCG/2 ML VIAL. IV PRN ×3 (11:53→12:37)
--- NOTE | 2016-10-03 11:57 | PDOC ---
Renal-Progress Notes Subjective Notes Notes NONE History of Present Illness Hx of present illness STABLE Vitals Vitals Vital Signs Date Time Temp Pulse Resp B/P Pulse Ox O2 Delivery O2 Flow Rate FiO2 10/03/16 07:10 97.9 68 18 152/82 94 Room Air 97.9 10/02/16 23:42 2.0 Weight Weight [ ] I.O. Intake and Output Intake and Output 10/03/16 07:00 Intake Total 430 ml Output Total 0 ml Balance 430 ml Intake Oral 330 ml IV Total 100 ml Output Urine Total 0 ml # Bowel Movements 2 Labs Labs Laboratory Tests Test 10/02/16 16:45 10/02/16 16:51 10/02/16 20:40 10/03/16 03:33 Sodium Level 142mmol/L (136-145) 143mmol/L (136-145) Potassium Level 5.0mmol/L (3.5-5.1) 4.5mmol/L (3.5-5.1) Chloride Level 100mmol/L (98-107) 99mmol/L (98-107) Carbon Dioxide Level 29mmol/L (21-32) 30mmol/L (21-32) Anion Gap 13 (6-14) 14 (6-14) Blood Urea Nitrogen 42mg/dL (8-26) 44mg/dL (8-26) Creatinine 10.3mg/dL (0.7-1.3) 11.3mg/dL (0.7-1.3) Estimated GFR (Cockcroft-Gault) 5.4 4.9 Glucose Level 127mg/dL (70-99) 111mg/dL (70-99) Calcium Level 8.8mg/dL (8.5-10.1) 8.7mg/dL (8.5-10.1) Glucose (Fingerstick) 126mg/dL (70-99) 121mg/dL (70-99) White Blood Count 6.6x10^3/uL (4.0-11.0) Red Blood Count 5.19x10^6/uL (4.30-5.70) Hemoglobin 13.6g/dL (13.0-17.5) Hematocrit 43.6% (39.0-53.0) Mean Corpuscular Volume 84fL (79-100) Mean Corpuscular Hemoglobin 26pg (25-35) Mean Corpuscular Hemoglobin Concent 31g/dL (31-37) Red Cell Distribution Width 18.0% (11.5-14.5) Platelet Count 127x10^3/uL (140-400) Neutrophils (%) (Auto) 58% (31-73) Lymphocytes (%) (Auto) 22% (24-48) Monocytes (%) (Auto) 12% (0-9) Eosinophils (%) (Auto) 7% (0-3) Basophils (%) (Auto) 1% (0-3) Neutrophils # (Auto) 3.8x10^3uL (1.8-7.7) Lymphocytes # (Auto) 1.4x10^3/uL (1.0-4.8) Monocytes # (Auto) 0.8x10^3/uL (0.0-1.1) Eosinophils # (Auto) 0.5x10^3/uL (0.0-0.7) Basophils # (Auto) 0.1x10^3/uL (0.0-0.2) Test 10/03/16 11:43 Glucose (Fingerstick) 103mg/dL (70-99) Review of Systems Constitutional: yes: alert, weakness Ears/Nose/Throat: Yes: no symptom reported Eyes: Yes: no symptom reported Pulmonary: Yes no symptom reported Cardiovascular: Yes no symptom reported Musculoskeletal: Yes: no symptom reported Physical Exam General Appearance: no apparent distress Skin: warm Respiratory: bilateral CTA Heart: S1S2, RRR Abdomen: soft, bowel sounds present Genitourinary: bladder flat Extremities: pulses present Neurology: alert Assessment Assessment IMP ESRD ANEMIA RIGHT HAND 5TH FINGER GANGRENE PLAN ANTIBIOTICS HD TODAY UF TO [facility] AND AMP TODAY WILL FOLLOW JOCELYN ABURTO MD Oct 03, 2016 11:57
[2016-10-03] MEDS ORDERED: FENTANYL PF 100 MCG/2 ML VIAL. IV PRN (12:15)
[2016-10-03] MEDS ORDERED: MORPHINE SULFATE 2 MG/ML DISP.SYRIN. IV PRN (12:15)
[2016-10-03] MEDS ORDERED: HYDROMORPHONE 2 MG/ML VIAL. IV PRN (12:15)
[2016-10-03] MEDS ORDERED: ONDANSETRON PF 4 MG/2 ML VIAL. IV PRN (12:15)
[2016-10-03] MEDS ORDERED: PROCHLORPERAZINE 10 MG/2 ML VIAL. IV PRN (12:15)
--- NOTE | 2016-10-03 12:33 | OP ---
DATE OF SURGERY: 10/03/2016 SURGEON: Isabella Mendez M.D. ANESTHESIA USED: General anesthesia. PREOPERATIVE DIAGNOSES: 1. Right upper extremity peripheral arterial disease with ischemic steal syndrome from his upper arm arteriovenous shunt. 2. Right fifth finger gangrene. POSTOPERATIVE DIAGNOSES: 1. Right upper extremity peripheral arterial disease with ischemic steal syndrome from his upper arm arteriovenous shunt. 2. Right fifth finger gangrene. OPERATION PERFORMED: 1. Right mid upper arm brachial artery to distal antecubital brachial artery bypass using great saphenous vein with internal ligation of the brachial artery just distal to the AV shunt arterial anastomosis. 2. Left leg great saphenous vein harvest from the thigh. 3. Right fifth finger amputation with primary closure. ESTIMATED BLOOD LOSS: 100 mL. INDICATIONS: The patient is a 45-year-old male with chronic renal insufficiency on hemodialysis. He has been receiving hemodialysis through a right upper arm AV shunt. Over the past month, he has developed right fifth finger gangrene and cellulitis. I saw him in the office and he was admitted to the hospital for an arteriogram of the aortic arch and right arm. This showed that the inflow subclavian and axillary arteries were widely patent along with the brachial artery. The AV shunt in the upper arm was widely patent; however, there was steal syndrome with minimal flow to the forearm. With compression of the shunt, there was an significant improvement blood flow to his forearm as dominant artery is the radial artery, but the ulnar artery also is patent in the distal arm. There was a segment just past the brachial artery, which appeared potentially occluded on the arteriogram. I felt he had arterial steal syndrome from his right upper arm AV shunt. It is important to try to preserve this shunt since he has had failed access in the left arm in the past. I recommended to him an arterial bypass in the right arm with an upper mid arm brachial artery to distal antecubital brachial artery bypass and internal ligation of the brachial artery just past the arterial anastomosis of the shunt, durable bypass procedure. I also recommended a right fifth finger amputation for the extensive dry gangrene and associated cellulitis. The patient was agreeable to proceed with the operation. Informed consent was obtained including the risks of bleeding, infection, bypass failure, need for revision in the future, possible further ischemia to his hand, and possible failure of his AV shunt. DETAILS OF THE OPERATION: The patient was brought into the operating room and placed on the table in the supine position. He received general anesthesia monitored throughout the case by the anesthesiologist. His right arm and hand were prepped and draped by normal sterile fashion and I evaluated his great saphenous veins in his left and right leg. The left leg great saphenous vein was larger than the right. 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 His left leg and groin were prepped and draped by normal sterile fashion. I used the ultrasound, marked the brachial artery in the mid upper arm. I measured this, it was approximately 7 cm proximal to the arterial anastomosis of the shunt. Therefore, a longitudinal incision was made along the medial mid upper arm. The subcutaneous tissue was dissected down to the vessels. The brachial artery and brachial vein were identified. The brachial artery was dissected out proximally and distally and a vessel loop placed around it. It did have calcification within the wall, but it was easily compressible and had a strong dopplerable signal within it. I then made a longitudinal incision at the antecubital fossa extending distally in the arm, I dissected down through subcutaneous tissue. Crossing veins were ligated with silk sutures and divided. I incised the fascia longitudinally and the brachial artery was identified. Brachial artery was dissected out proximally where it was just past the arterial anastomosis of the AV shunt and a vessel loop placed around it here. I continued dissection down to the radial and ulnar arteries and put vessel loops around these vessels. I did want to evaluate these to ensure that they are patent during the repair. I then made an incision in the left distal groin down the medial thigh over the marked great saphenous vein. The subcutaneous tissue was dissected down to the great saphenous vein. It was widely patent, at least 4-5 mm in diameter. The great saphenous vein was dissected out along the medial aspect of the left leg from the groin down to the knee. I did take extra vein in case I would need to do the distal bypass to the ulnar artery. All side branches were ligated with 3-0 or 2-0 silk sutures, clips, and divided until I had the great saphenous vein fully mobilized. The patient was heparinized with 7000 units of heparin. The distal great saphenous vein was ligated with 2-0 silk tie, clips, and divided and then the proximal end of the great saphenous vein in the upper thigh was clamped and divided and I oversewed the stump with 2 layers of 5-0 Prolene suture. I removed the great saphenous vein. We irrigated it in the reverse fashion. It dilated up nicely, was at least 4-5 mm in diameter. I then used the valvulotome and I cut the valves within the lumen of the saphenous vein, so it could be used in the nonreverse fashion. The proximal and distal brachial artery in the upper mid arm was then clamped. A longitudinal arteriotomy was made. The proximal end of the great saphenous vein was spatulated and an end-to-side anastomosis was created with running 6-0 Prolene suture. After finishing this anastomosis, I restored blood flow. There was pulsatile blood flow at the end of the great saphenous vein graft and there was still a good pulse within the lateral arm AV shunt. I evaluated the great saphenous vein bypass conduit and ensured that there was no bleeding. There were a few side branches, which were reinforced with clips. I then tunneled in the subcutaneous tissue and fascia along the medial aspect of the arm down to the antecubital incision. The brachial artery proximally just distal to the AV shunt anastomosis was clamped. The distal aspect of the brachial artery was clamped and I transected it. The proximal stump was oversewn with 2 layers of 5-0 Prolene suture. The distal brachial artery did have backbleeding. I used a #3 Tatyana embolectomy catheter and I ran it down the radial artery, it ran easily down the length of the arm, pulled back. There was no thrombus and the artery was patent. I then also ran it down the ulnar artery and pulled back and there was no thrombus and the artery was patent. There was no resistance when passing the Tatyana catheter. This seems to confirm that both the radial and ulnar arteries are patent. I spatulated the end of this distal brachial artery and the great saphenous vein and performed an end-to-end anastomosis with running 6-0 Prolene suture. Prior to finishing the anastomosis, I backbled, there was pulsatile inflow and good backbleeding from the distal brachial artery. I finished the anastomosis and restored blood flow. After doing so, there was a strong pulse in the AV shunt in the upper arm and also had very strong dopplerable signal in the radial and ulnar location at the wrist level, which was graft dependent. I irrigated all open wounds with copious amounts of antibiotic solution. Hemostasis was gained with electrocautery clips. There was good hemostasis at the anastomosis. Fibrillar was left around the anastomosis and the arteries. The left thigh incision was closed with 2 layers of 2-0 Vicryl suture and the skin closed with wily. Each arm incision was closed with 2 layers of 2-0 Vicryl suture in the subcutaneous tissue level and wily in the skin. Sterile dressings were placed. We then removed the wrap around the hand. The fifth finger had gangrene down to the proximal segment. I made an elliptical incision around the base of the fifth finger and sharply dissected down to the bone, which was transected. The phalangeal bones were removed. The metacarpal head was visualized and the distal aspect of this excised with a rongeur bringing the bone back to healthy bone and also to be able to the nicely close the skin. I removed all tendons and there was no necrotic tissue or purulent fluid. I gained hemostasis with electrocautery. The subcutaneous tissue was closed with interrupted 2-0 Vicryl sutures and the skin closed with running 3-0 nylon sutures. Sterile dressing was placed on all incision sites and he tolerated the surgery well without any immediate complication. ISABELLA MENDEZ MD DR: ELIDIA/sarah JOB#: [id number] / [id number]
[2016-10-03] MEDS ORDERED: VANCOMYCIN 500 MG in IV NORMAL SALINE 100ML 100 ML IV SCH (16:00)
[2016-10-03] MEDS: IV NORMAL SALINE 1000ML BAG 1,000 ML IV SCH (19:10)
[2016-10-03] MEDS: INSULIN DETEMIR 300 UNITS/3 ML INSULN.PEN. SQ SCH (21:00)
[2016-10-03] MEDS: ATORVASTATIN CALCIUM 10 MG TABLET. PO SCH (21:16)
[2016-10-04 03:02] VITALS: BP 137/68
[2016-10-04] MEDS: MORPHINE SULFATE 2 MG/ML DISP.SYRIN. IV PRN (04:56)
[2016-10-04 05:00] LABS: BASO # 0.1 x10^3/uL (0.0-0.2); BASO % 1 % (0-3); EOS % 4 % (0-3); HEMATOCRIT 43.1 % (39.0-53.0); HEMOGLOBIN 13.3 g/dL (13.0-17.5); LYMPH # 1.1 x10^3/uL (1.0-4.8); LYMPH % 11 % (24-48); MEAN CORPUSCULAR HEMOGLOBIN 27 pg (25-35); MEAN CORPUSCULAR HGB CONC 31 g/dL (31-37); MEAN CORPUSCULAR VOLUME 86 fL (79-100); MONO % 10 % (0-9); NEUT % 75 % (31-73); PLATELET COUNT 133 x10^3/uL (140-400); RED BLOOD COUNT 5.03 x10^6/uL (4.30-5.70); RED CELL DISTRIBUTION WIDTH 18.2 % (11.5-14.5); WHITE BLOOD COUNT 10.3 x10^3/uL (4.0-11.0)
[2016-10-04 05:14] LABS: CALCIUM 8.2 mg/dL (8.5-10.1); GFR 4.2; POTASSIUM 4.9 mmol/L (3.5-5.1)
[2016-10-04] MEDS: PIPERACILLIN/TAZOBACTAM 2.25 GM in IV NORMAL SALINE 50ML 50 ML IV SCH (05:48)
--- NOTE | 2016-10-04 06:28 | PDOC ---
Provider Note Provider Note AF VSS awake and alert right arm dressings dry with no hematomas, palpable bypass pulse and AV shunt pulse, good doppler radial pulse at the wrist right 5th finger amputation site intact with no drainage, minimal erythema left thigh dressing dry with no hematoma A/P POD#1 right arm DRIL brachial-brachial artery bypass, left thigh vein harvest and right 5th finger amputation for gangrene - start heparin drip and coumadin today, continue aspirin - ok to use the right arm for dialysis today - recommend continuing IV antibiotics in the hospital and likely can transition to a course of oral antibiotics when discharges, will see ID's recommendations LILA BARBOSA MD Oct 04, 2016 06:28
[2016-10-04] MEDS ORDERED: HEPARIN 25,000UTS/500ML PREMIX 500 ML IV PRN (06:45)
[2016-10-04 07:28] VITALS: BP 151/81
[2016-10-04] MEDS: INSULIN ASPART 300 UNITS/3 ML INSULN.PEN SQ SCH ×6 (08:00→18:34)
[2016-10-04] MEDS ORDERED: ACETAMINOPHEN 500 MG TABLET PO PRN (08:15)
[2016-10-04] MEDS ORDERED: DIPHENHYDRAMINE 50 MG/ML VIAL IV PRN ×2 (08:15)
[2016-10-04] MEDS ORDERED: LABETALOL 20 MG/4 ML DISP.SYRIN. IVP PRN (08:15)
[2016-10-04] MEDS ORDERED: DIALYSIS PATIENT. MC PRN (08:15)
[2016-10-04] MEDS ORDERED: IV NORMAL SALINE 1000ML BAG 1,000 ML IV PRN ×2 (08:30)
[2016-10-04] MEDS: FOLIC/VIT B COMP W-C (RENAL) TABLET. PO SCH ×2 (08:44→15:51)
[2016-10-04] MEDS: SODIUM BICARBONATE 650 MG TABLET. PO SCH ×3 (08:44→21:00)
[2016-10-04] MEDS: CALCIUM ACETATE 667 MG CAPSULE PO SCH ×3 (08:44→15:54)
[2016-10-04] MEDS: ASPIRIN ENTERIC COATED 81 MG TABLET.DR. PO SCH (08:45)
[2016-10-04] MEDS: METOPROLOL TART IMMED RELEASE 50 MG TABLET PO SCH ×2 (09:00→22:14)
[2016-10-04] MEDS: FUROSEMIDE 40 MG TABLET PO SCH ×2 (09:00→15:50)
[2016-10-04] MEDS: CALCIUM CARBONATE 500 MG TAB.CHEW PO SCH ×4 (09:00→22:13)
[2016-10-04] MEDS: HYDRALAZINE 50 MG TABLET PO SCH ×4 (09:00→22:15)
[2016-10-04] MEDS: OXYCODONE/APAP 10/325 TABLET. PO SCH ×3 (09:00→22:15)
--- NOTE | 2016-10-04 09:37 | PDOC ---
Infectious Disease Note Subjective Subjective Resting in bed this AM Tolerating abx ROS ROS GEN: Denies fevers, chills, sweats HEENT: Denies blurred vision, sore throat CV: Denies chest pain RESP: Denies shortness of air, cough GI: Denies n/v/d NEURO: Denies confusion, dizziness MSK: Denies weakness, joint pain/swelling Vital Sign Vital Signs Vital Signs Date Time Temp Pulse Resp B/P Pulse Ox O2 Delivery O2 Flow Rate FiO2 10/04/16 07:28 98.6 86 17 151/81 93 Room Air 98.6 10/04/16 05:29 2.0 Physical Exam PHYSICAL EXAM GENERAL: NAD, Alert, HEENT: PERRL, OC/OP- clear NECK: Supple, no JVD, no LN LUNGS: Clear HEART: S1S2, no gallop, no murmur ABD: Soft, NT, no organomegaly, no rebound EXT: No edema, no cyanosis. Finger is dressed HOG WORKER: Alert, oriented x 3, no focal neurologic deficit SKIN: No rash IV: ok Labs Lab Laboratory Tests Test 10/03/16 11:43 10/03/16 16:31 10/04/16 04:00 10/04/16 07:44 Glucose (Fingerstick) 103mg/dL (70-99) 103mg/dL (70-99) 97mg/dL (70-99) White Blood Count 10.3x10^3/uL (4.0-11.0) Red Blood Count 5.03x10^6/uL (4.30-5.70) Hemoglobin 13.3g/dL (13.0-17.5) Hematocrit 43.1% (39.0-53.0) Mean Corpuscular Volume 86fL (79-100) Mean Corpuscular Hemoglobin 27pg (25-35) Mean Corpuscular Hemoglobin Concent 31g/dL (31-37) Red Cell Distribution Width 18.2% (11.5-14.5) Platelet Count 133x10^3/uL (140-400) Neutrophils (%) (Auto) 75% (31-73) Lymphocytes (%) (Auto) 11% (24-48) Monocytes (%) (Auto) 10% (0-9) Eosinophils (%) (Auto) 4% (0-3) Basophils (%) (Auto) 1% (0-3) Neutrophils # (Auto) 7.7x10^3uL (1.8-7.7) Lymphocytes # (Auto) 1.1x10^3/uL (1.0-4.8) Monocytes # (Auto) 1.0x10^3/uL (0.0-1.1) Eosinophils # (Auto) 0.4x10^3/uL (0.0-0.7) Basophils # (Auto) 0.1x10^3/uL (0.0-0.2) Sodium Level 145mmol/L (136-145) Potassium Level 4.9mmol/L (3.5-5.1) Chloride Level 102mmol/L (98-107) Carbon Dioxide Level 28mmol/L (21-32) Anion Gap 15 (6-14) Blood Urea Nitrogen 50mg/dL (8-26) Creatinine 13.0mg/dL (0.7-1.3) Estimated GFR (Cockcroft-Gault) 4.2 Glucose Level 100mg/dL (70-99) Calcium Level 8.2mg/dL (8.5-10.1) Objective Assessment Leukocytosis ? reactive clinically feels well, improved today Gangrene and cellulitis of right 5th finger s/p amputation AV steel phenomenon CKD on HD Diabetes Mellitus h/o PSAE pansensitive Plan Plan of Care Discontinue Vanc/Zosyn Home on Doxy/augmentin for 5 days ok S/p Gent times one 10/01 D/w CASI Aragon MD Oct 04, 2016 09:37
--- NOTE | 2016-10-04 11:21 | PDOC ---
Renal-Progress Notes Subjective Notes Notes HAND FEELS BETTER Vitals Vitals Vital Signs Date Time Temp Pulse Resp B/P Pulse Ox O2 Delivery O2 Flow Rate FiO2 10/04/16 08:00 Nasal Cannula 2.0 10/04/16 07:28 98.6 86 17 151/81 93 98.6 Weight Weight [ ] I.O. Intake and Output Intake and Output 10/04/16 07:00 Intake Total 1000 ml Output Total 0 ml Balance 1000 ml Intake Oral 500 ml IV Total 500 ml Output Urine Total 0 ml # Bowel Movements 2 Labs Labs Laboratory Tests Test 10/03/16 11:43 10/03/16 16:31 10/04/16 04:00 10/04/16 07:44 Glucose (Fingerstick) 103mg/dL (70-99) 103mg/dL (70-99) 97mg/dL (70-99) White Blood Count 10.3x10^3/uL (4.0-11.0) Red Blood Count 5.03x10^6/uL (4.30-5.70) Hemoglobin 13.3g/dL (13.0-17.5) Hematocrit 43.1% (39.0-53.0) Mean Corpuscular Volume 86fL (79-100) Mean Corpuscular Hemoglobin 27pg (25-35) Mean Corpuscular Hemoglobin Concent 31g/dL (31-37) Red Cell Distribution Width 18.2% (11.5-14.5) Platelet Count 133x10^3/uL (140-400) Neutrophils (%) (Auto) 75% (31-73) Lymphocytes (%) (Auto) 11% (24-48) Monocytes (%) (Auto) 10% (0-9) Eosinophils (%) (Auto) 4% (0-3) Basophils (%) (Auto) 1% (0-3) Neutrophils # (Auto) 7.7x10^3uL (1.8-7.7) Lymphocytes # (Auto) 1.1x10^3/uL (1.0-4.8) Monocytes # (Auto) 1.0x10^3/uL (0.0-1.1) Eosinophils # (Auto) 0.4x10^3/uL (0.0-0.7) Basophils # (Auto) 0.1x10^3/uL (0.0-0.2) Sodium Level 145mmol/L (136-145) Potassium Level 4.9mmol/L (3.5-5.1) Chloride Level 102mmol/L (98-107) Carbon Dioxide Level 28mmol/L (21-32) Anion Gap 15 (6-14) Blood Urea Nitrogen 50mg/dL (8-26) Creatinine 13.0mg/dL (0.7-1.3) Estimated GFR (Cockcroft-Gault) 4.2 Glucose Level 100mg/dL (70-99) Calcium Level 8.2mg/dL (8.5-10.1) Review of Systems Constitutional: yes: alert, weakness Ears/Nose/Throat: Yes: no symptom reported Eyes: Yes: no symptom reported Pulmonary: Yes no symptom reported Cardiovascular: Yes no symptom reported Musculoskeletal: Yes: no symptom reported Physical Exam General Appearance: no apparent distress Skin: warm Respiratory: bilateral CTA Heart: S1S2, RRR Abdomen: soft, bowel sounds present Genitourinary: bladder flat Extremities: pulses present Neurology: alert Assessment Assessment IMP ESRD ANEMIA RIGHT HAND 5TH FINGER GANGRENE S/P DRIL AND FINGER AMP PLAN ANTIBIOTICS HD TODAY UF TO DW WILL FOLLOW JOCELYN ABURTO MD Oct 04, 2016 11:21
[2016-10-04 11:31] LABS: INR 1.2 (0.8-1.1); PROTHROMBIN TIME PATIENT 14.6 SEC (11.7-14.0)
--- NOTE | 2016-10-04 11:39 | PDOC ---
PROGRESS NOTES Chief Complaint Chief Complaint ASSESSMENT: 1. Gangrenous R fifth digit with cellulitis 2. ESRD on HD 3. 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 HTN 5. Left AKA 6. Obesity 7. Dyslipidmia 8. Mild pCM 9. Coumadin, with h/o DVT on right arm with AVF 10. Hyperkalemia History of Present Illness History of Present Illness Patient was in HD unit at the time of evaluation, was in no acute distress. 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 brachial-brachial bypass surgeries yesterday, dressing on right hand was dry and intact, palpable bypass pulse in rt. arm, had no new complains. Plan of care discussed with pt. and spring encaser. Vitals Vitals Vital Signs Date Time Temp Pulse Resp B/P Pulse Ox O2 Delivery O2 Flow Rate FiO2 10/04/16 08:00 Nasal Cannula 2.0 10/04/16 07:28 98.6 86 17 151/81 93 98.6 Physical Exam General: Alert, Oriented X3, Cooperative, No acute distress Heart: Regular rate Lungs: Clear, Other (no wheezing) Abdomen: Normal bowel sounds, Soft, No tenderness, No hepatosplenomegaly, No masses Extremities: Other (gangrenous 5th digit of right hand; Left AKA) Labs LABS Laboratory Tests Test 10/03/16 11:43 10/03/16 16:31 10/04/16 04:00 10/04/16 07:44 Glucose (Fingerstick) 103mg/dL (70-99) 103mg/dL (70-99) 97mg/dL (70-99) White Blood Count 10.3x10^3/uL (4.0-11.0) Red Blood Count 5.03x10^6/uL (4.30-5.70) Hemoglobin 13.3g/dL (13.0-17.5) Hematocrit 43.1% (39.0-53.0) Mean Corpuscular Volume 86fL (79-100) Mean Corpuscular Hemoglobin 27pg (25-35) Mean Corpuscular Hemoglobin Concent 31g/dL (31-37) Red Cell Distribution Width 18.2% (11.5-14.5) Platelet Count 133x10^3/uL (140-400) Neutrophils (%) (Auto) 75% (31-73) Lymphocytes (%) (Auto) 11% (24-48) Monocytes (%) (Auto) 10% (0-9) Eosinophils (%) (Auto) 4% (0-3) Basophils (%) (Auto) 1% (0-3) Neutrophils # (Auto) 7.7x10^3uL (1.8-7.7) Lymphocytes # (Auto) 1.1x10^3/uL (1.0-4.8) Monocytes # (Auto) 1.0x10^3/uL (0.0-1.1) Eosinophils # (Auto) 0.4x10^3/uL (0.0-0.7) Basophils # (Auto) 0.1x10^3/uL (0.0-0.2) Sodium Level 145mmol/L (136-145) Potassium Level 4.9mmol/L (3.5-5.1) Chloride Level 102mmol/L (98-107) Carbon Dioxide Level 28mmol/L (21-32) Anion Gap 15 (6-14) Blood Urea Nitrogen 50mg/dL (8-26) Creatinine 13.0mg/dL (0.7-1.3) Estimated GFR (Cockcroft-Gault) 4.2 Glucose Level 100mg/dL (70-99) Calcium Level 8.2mg/dL (8.5-10.1) Review of Systems Review of Systems Denies fever, chills Denies SOB, CP Denies n/v/d dressing on rt. hand and left thigh was dry and intact palpable bypass pulse in rt. arm Assessment and Plan Assessmemt and Plan ASSESSMENT: 1. Gangrenous R fifth digit with cellulitis 2. ESRD on HD 3. 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 HTN 5. Left AKA 6. Obesity 7. Dyslipidmia 8. Mild pCM 9. Coumadin, with h/o DVT on right arm with AVF 10. Hyperkalemia PLAN: - Probable discharge to [facility] today - cont HD schedule per renal - discontinue vanc and zosyn and continue PO antibiotics as per ID recommendation - repeat daily labs - PTOT - cont SSI and glucose monitoring - Surgery, ID and renal have been consulted, their recommendations are appreciated Problems: Comment Review of Relevant I have reviewed the following items kayleigh (where applicable) has been applied. Labs Laboratory Tests Test 3/15/17 16:45 10/02/16 16:51 10/02/16 20:40 10/03/16 03:33 Sodium Level 142mmol/L (136-145) 143mmol/L (136-145) Potassium Level 5.0mmol/L (3.5-5.1) 4.5mmol/L (3.5-5.1) Chloride Level 100mmol/L (98-107) 99mmol/L (98-107) Carbon Dioxide Level 29mmol/L (21-32) 30mmol/L (21-32) Anion Gap 13 (6-14) 14 (6-14) Blood Urea Nitrogen 42mg/dL (8-26) 44mg/dL (8-26) Creatinine 10.3mg/dL (0.7-1.3) 11.3mg/dL (0.7-1.3) Estimated GFR (Cockcroft-Gault) 5.4 4.9 Glucose Level 127mg/dL (70-99) 111mg/dL (70-99) Calcium Level 8.8mg/dL (8.5-10.1) 8.7mg/dL (8.5-10.1) Glucose (Fingerstick) 126mg/dL (70-99) 121mg/dL (70-99) White Blood Count 6.6x10^3/uL (4.0-11.0) Red Blood Count 5.19x10^6/uL (4.30-5.70) Hemoglobin 13.6g/dL (13.0-17.5) Hematocrit 43.6% (39.0-53.0) Mean Corpuscular Volume 84fL (79-100) Mean Corpuscular Hemoglobin 26pg (25-35) Mean Corpuscular Hemoglobin Concent 31g/dL (31-37) Red Cell Distribution Width 18.0% (11.5-14.5) Platelet Count 127x10^3/uL (140-400) Neutrophils (%) (Auto) 58% (31-73) Lymphocytes (%) (Auto) 22% (24-48) Monocytes (%) (Auto) 12% (0-9) Eosinophils (%) (Auto) 7% (0-3) Basophils (%) (Auto) 1% (0-3) Neutrophils # (Auto) 3.8x10^3uL (1.8-7.7) Lymphocytes # (Auto) 1.4x10^3/uL (1.0-4.8) Monocytes # (Auto) 0.8x10^3/uL (0.0-1.1) Eosinophils # (Auto) 0.5x10^3/uL (0.0-0.7) Basophils # (Auto) 0.1x10^3/uL (0.0-0.2) Test 10/03/16 05:00 10/03/16 11:43 10/03/16 16:31 10/04/16 04:00 Clostridium difficile Toxin (PCR) Negative (Negative) Glucose (Fingerstick) 103mg/dL (70-99) 103mg/dL (70-99) White Blood Count 10.3x10^3/uL (4.0-11.0) Red Blood Count 5.03x10^6/uL (4.30-5.70) Hemoglobin 13.3g/dL (13.0-17.5) Hematocrit 43.1% (39.0-53.0) Mean Corpuscular Volume 86fL (79-100) Mean Corpuscular Hemoglobin 27pg (25-35) Mean Corpuscular Hemoglobin Concent 31g/dL (31-37) Red Cell Distribution Width 18.2% (11.5-14.5) Platelet Count 133x10^3/uL (140-400) Neutrophils (%) (Auto) 75% (31-73) Lymphocytes (%) (Auto) 11% (24-48) Monocytes (%) (Auto) 10% (0-9) Eosinophils (%) (Auto) 4% (0-3) Basophils (%) (Auto) 1% (0-3) Neutrophils # (Auto) 7.7x10^3uL (1.8-7.7) Lymphocytes # (Auto) 1.1x10^3/uL (1.0-4.8) Monocytes # (Auto) 1.0x10^3/uL (0.0-1.1) Eosinophils # (Auto) 0.4x10^3/uL (0.0-0.7) Basophils # (Auto) 0.1x10^3/uL (0.0-0.2) Sodium Level 145mmol/L (136-145) Potassium Level 4.9mmol/L (3.5-5.1) Chloride Level 102mmol/L (98-107) Carbon Dioxide Level 28mmol/L (21-32) Anion Gap 15 (6-14) Blood Urea Nitrogen 50mg/dL (8-26) Creatinine 13.0mg/dL (0.7-1.3) Estimated GFR (Cockcroft-Gault) 4.2 Glucose Level 100mg/dL (70-99) Calcium Level 8.2mg/dL (8.5-10.1) Test 10/04/16 07:44 Glucose (Fingerstick) 97mg/dL (70-99) Laboratory Tests Test 10/03/16 11:43 10/03/16 16:31 10/04/16 04:00 10/04/16 07:44 Glucose (Fingerstick) 103mg/dL (70-99) 103mg/dL (70-99) 97mg/dL (70-99) White Blood Count 10.3x10^3/uL (4.0-11.0) Red Blood Count 5.03x10^6/uL (4.30-5.70) Hemoglobin 13.3g/dL (13.0-17.5) Hematocrit 43.1% (39.0-53.0) Mean Corpuscular Volume 86fL (79-100) Mean Corpuscular Hemoglobin 27pg (25-35) Mean Corpuscular Hemoglobin Concent 31g/dL (31-37) Red Cell Distribution Width 18.2% (11.5-14.5) Platelet Count 133x10^3/uL (140-400) Neutrophils (%) (Auto) 75% (31-73) Lymphocytes (%) (Auto) 11% (24-48) Monocytes (%) (Auto) 10% (0-9) Eosinophils (%) (Auto) 4% (0-3) Basophils (%) (Auto) 1% (0-3) Neutrophils # (Auto) 7.7x10^3uL (1.8-7.7) Lymphocytes # (Auto) 1.1x10^3/uL (1.0-4.8) Monocytes # (Auto) 1.0x10^3/uL (0.0-1.1) Eosinophils # (Auto) 0.4x10^3/uL (0.0-0.7) Basophils # (Auto) 0.1x10^3/uL (0.0-0.2) Sodium Level 145mmol/L (136-145) Potassium Level 4.9mmol/L (3.5-5.1) Chloride Level 102mmol/L (98-107) Carbon Dioxide Level 28mmol/L (21-32) Anion Gap 15 (6-14) Blood Urea Nitrogen 50mg/dL (8-26) Creatinine 13.0mg/dL (0.7-1.3) Estimated GFR (Cockcroft-Gault) 4.2 Glucose Level 100mg/dL (70-99) Calcium Level 8.2mg/dL (8.5-10.1) Medications Current Medications Iohexol (Omnipaque 300 Mg/ml) 100 ml STK-MED ONCE .ROUTE ; Start 09/27/16 at 09: 51; Stop 09/27/16 at 09:52; Status DC Lidocaine/Sodium Bicarbonate 20 ml 20 ml STK-MED ONCE IJ ; Start 09/27/16 at 09: 51; Stop 09/27/16 at 09:52; Status DC Heparin Sodium/ Sodium Chloride 1,500 ml @ As Directed STK-MED ONCE .ROUTE ; Start 09/27/16 at 09:51; Stop 09/27/16 at 09:52; Status DC Iodixanol (Visipaque 320) 100 ml STK-MED ONCE .ROUTE ; Start 09/27/16 at 10:11; Stop 09/27/16 at 10:12; Status DC Midazolam HCl (Versed) 5 mg STK-MED ONCE .ROUTE ; Start 09/27/16 at 10:20; Stop 09/27/16 at 10:21; Status DC Fentanyl Citrate (Fentanyl 5ml Vial) 250 mcg STK-MED ONCE .ROUTE ; Start at 10:20; Stop 09/27/16 at 10:21; Status DC Heparin Sodium/ Sodium Chloride 1,000 unit 1X ONCE IART Last administered on t 10:48; Start 09/27/16 at 10:45; Stop 09/27/16 at 10:46; Status DC Lidocaine/Sodium Bicarbonate (Buffered Lidocaine 1%) 20 ml 1X ONCE IJ Last administered on 09/27/16 10:48; Start 09/27/16 at 10:45; Stop 09/27/16 at 10:46 ; Status DC Midazolam HCl (Versed) 5 mg 1X ONCE IV Last administered on 09/27/16 11:17; Start 09/27/16 at 10:45; Stop 09/27/16 at 10:46; Status DC Fentanyl Citrate (Fentanyl 5ml Vial) 250 mcg 1X ONCE IV Last administered on 11:17; Start 09/27/16 at 10:45; Stop 09/27/16 at 10:46; Status DC Iodixanol (Visipaque 320) 100 ml 1X ONCE IART Last administered on 09/27/16 11:17; Start 09/27/16 at 10:45; Stop 09/27/16 at 10:46; Status DC Info (Do NOT chart on this entry -- for MONITORING) 1 each PRN DAILY PRN MC SEE COMMENTS; Start 09/27/16 at 11:00; Stop 09/29/16 at 10:59; Status DC Iodixanol (Visipaque 320) 50 ml STK-MED ONCE .ROUTE ; Start 09/27/16 at 10:59; Stop 09/27/16 at 11:00; Status DC Nitroglycerin (Nitroglycerin) 200 mcg 1X ONCE IART Last administered on 11:05; Start 09/27/16 at 11:00; Stop 09/27/16 at 11:07; Status DC Insulin Aspart (Novolog) 0-9 UNITS TIDWMEALS SQ ; Start 09/27/16 at 17:00 Dextrose 12.5 gm PRN Q15MIN PRN IV SEE COMMENTS; Start 09/27/16 at 12:45 Acetaminophen (Tylenol) 650 mg PRN Q6HRS PRN PO MILD PAIN / TEMP Last administered on 09/30/16 23:56; Start 09/27/16 at 12:45 Ondansetron HCl (Zofran) 4 mg PRN Q6HRS PRN IV NAUSEA/VOMITING Last administered on 10/02/16 17:49; Start 09/27/16 at 12:45 Amlodipine Besylate (Norvasc) 10 mg DAILY PO Last administered on 10/02/16 08: 21; Start 09/27/16 at 13:00 Atorvastatin Calcium (Lipitor) 10 mg QHS PO Last administered on 10/03/16 21: 16; Start 09/27/16 at 21:00 Fentanyl (Duragesic 75mcg/ Hr Patch) 1 patch Q72H PRN TD PAIN Last administered on 09/28/16 12:10; Start 09/27/16 at 12:45 Vitamin B Complex/ Vitamin C (Nephro-Eleazar) 1 tab DAILY PO Last administered on 10/04/16 08:44; Start 09/28/16 at 09:00 Furosemide (Lasix) 40 mg [id number] PO Last administered on 10/03/16 19:12; Start 09/27/16 at 14:00 Hydralazine HCl (Apresoline) 50 mg QID PO Last administered on 10/03/16 21:16 ; Start 09/27/16 at 13:00 Insulin Aspart (Novolog) 8 units TIDAC SQ Last administered on 10/04/16 08:50 ; Start 09/27/16 at 16:30 Metoprolol Tartrate (Lopressor) 50 mg BID PO Last administered on 10/03/16 21: 21; Start 09/27/16 at 21:00 Oxycodone/ Acetaminophen (Percocet 10/325) 1 tab TID PO Last administered on 21:17; Start 09/27/16 at 14:00 Sodium Bicarbonate (Sodium Bicarbonate) 1,300 mg TID PO Last administered on 08:44; Start 09/27/16 at 14:00 Calcium Carbonate/ Glycine (Tums) 500 mg QID PO Last administered on 10/03/16 21:16; Start 09/27/16 at 13:00 Non-Formulary Medication 210 mg TID PO ; Start 09/27/16 at 14:00; Stop 09/27/16 at 14:02; Status DC Insulin Detemir (Levemir) 15 units QHS SQ Last administered on 09/28/16 21:04 ; Start 09/27/16 at 21:00; Stop 09/29/16 at 16:26; Status DC Losartan Potassium (Cozaar) 100 mg DAILY PO Last administered on 10/02/16 08: 21; Start 09/27/16 at 13:00 Heparin Sodium (Porcine) 5,000 unit Q8HRS SQ Last administered on 09/28/16 05: 37; Start 09/27/16 at 14:00; Stop 09/28/16 at 14:33; Status DC Amoxicillin/ Clavulanate Potassium (Augmentin 500/ 125mg) 1 tab BID PO Last administered on 09/27/16 21:00; Start 09/27/16 at 13:00; Stop 09/27/16 at 21:54 ; Status DC Calcium Acetate (Phoslo) 1,334 mg TIDWMEALS PO Last administered on 10/04/16 08:44; Start 09/27/16 at 17:00 Amoxicillin/ Clavulanate Potassium (Augmentin 500/ 125mg) 1 tab Q24H PO ; Start 09/28/16 at 14:00; Status Cancel Ondansetron HCl (Zofran) 4 mg PRN Q6HRS PRN IV NAUSEA/VOMITING; Start 09/28/16 at 10:00; Status Cancel Ondansetron HCl (Zofran) 4 mg PRN Q6HRS PRN IV NAUSEA/VOMITING; Start 09/28/16 at 10:00; Status Cancel Piperacillin Sod/ Tazobactam Sod (Zosyn Per Pharmacy) 1 each PRN DAILY PRN MC SEE COMMENTS; Start 09/28/16 at 13:45; Stop 10/04/16 at 09:33; Status DC Vancomycin HCl (Vanco Per Pharmacy) 1 each PRN DAILY PRN MC SEE COMMENTS Last administered on 10/02/16 13:36; Start 09/28/16 at 13:45; Stop 10/04/16 at 09:33 ; Status DC Enoxaparin Sodium 60 mg 60 mg Q12HR SQ ; Start 09/28/16 at 21:00; Status UNV Piperacillin Sod/ Tazobactam Sod 2.25 gm/Sodium Chloride 50 ml @ 100 mls/hr Q8HRS IV Last administered on 10/04/16 05:48; Start 09/28/16 at 14:00; Stop at 09:33; Status DC Vancomycin HCl 2 gm/Sodium Chloride 500 ml @ 250 mls/hr 1X ONCE IV Last administered on 09/28/16 15:14; Start 09/28/16 at 14:30; Stop 09/28/16 at 16:29 ; Status DC Heparin Sodium/ Dextrose 500 ml @ 0 mls/hr CONT PRN IV SEE I/O RECORD Last administered on 10/01/16 07:49; Start 09/28/16 at 14:45; Stop 09/30/16 at 09:27 ; Status DC Vancomycin HCl 1 each 1 each 1X ONCE MC Last administered on 09/30/16 05:00; Start 09/30/16 at 05:00; Stop 09/30/16 at 05:01; Status DC Sodium Chloride (Iv Sodium Chloride 0.9% 1000ml Bag) 1,000 ml @ 1,000 mls/hr Q1H PRN IV hypotension; Start 09/28/16 at 15:50; Stop 09/28/16 at 21:49; Status DC Info (PHARMACY MONITORING -- do not chart) 1 each PRN DAILY PRN MC SEE COMMENTS ; Start 09/28/16 at 16:00 Diphenhydramine HCl (Benadryl) 50 mg STK-MED ONCE .ROUTE Last administered on 17:57; Start 09/28/16 at 17:52; Stop 09/28/16 at 17:53; Status DC Diphenhydramine HCl (Benadryl) 50 mg 1X ONCE IVP ; Start 09/28/16 at 18:00; Stop 09/28/16 at 18:01; Status DC Sodium Polystyrene Sulfonate (Kayexalate) 15 gm 1X ONCE PO Last administered on 09/29/16 08:24; Start 09/29/16 at 07:45; Stop 09/29/16 at 07:46; Status DC Dextrose 25 gm 1X ONCE IV Last administered on 09/29/16 09:22; Start at 09:30; Stop 09/29/16 at 09:31; Status DC Insulin Human Regular (Novolin R Vial) 10 unit 1X ONCE IV Last administered on 09/29/16 09:34; Start 09/29/16 at 09:30; Stop 09/29/16 at 09:31; Status DC Sodium Bicarbonate 50 meq 1X ONCE IV Last administered on 09/29/16 09:50; Start 09/29/16 at 10:00; Stop 09/29/16 at 10:01; Status DC Heparin Sodium (Porcine) 3,600 unit PRN Q6HRS PRN IV FOR UFH LEVEL LESS THAN 0.2 Last administered on 09/29/16 11:47; Start 09/29/16 at 11:45; Stop at 11:28; Status DC Info (Anti-Coagulation Monitoring By Pharmacy) 1 each PRN DAILY PRN MC SEE COMMENTS Last administered on 10/02/16 13:32; Start 09/29/16 at 15:00 Insulin Detemir (Levemir) 15 units QHS SQ ; Start 09/29/16 at 16:26 Diphenhydramine HCl (Benadryl) prn for itching PRN Q6HRS PRN IVP ITCHING; Start 09/29/16 at 21:30; Stop 09/29/16 at 21:35; Status DC Diphenhydramine HCl (Benadryl) prn itching PRN Q6HRS PRN PO ITCHING; Start 07/06 at 21:30; Stop 09/29/16 at 21:35; Status DC Diphenhydramine HCl (Benadryl) 25 mg PRN Q6HRS PRN IVP ITCHING Last administered on 09/29/16 21:51; Start 09/29/16 at 21:45 Diphenhydramine HCl (Benadryl) 25 mg PRN Q6HRS PRN PO ITCHING Last administered on 09/30/16 21:28; Start 09/29/16 at 21:45 Diphenhydramine HCl 12.5 mg 12.5 mg PRN Q6HRS PRN IVP ITCHING; Start 09/29/16 at 21:45 Heparin Sodium/ Dextrose 500 ml @ 0 mls/hr CONT PRN IV SEE I/O RECORD Last administered on 09/30/16 16:44; Start 09/30/16 at 09:30; Stop 09/30/16 at 23:59 ; Status DC Cefazolin Sodium/ Dextrose 50 ml @ 100 mls/hr 1X ONCE IV Last administered on 10/01/16 07:55; Start 10/01/16 at 07:00; Stop 10/01/16 at 07:29; Status DC Heparin Sodium (Porcine)/Sodium Chloride (Iv Sodium Chloride 0.9% 500ml Bag) 505 ml @ 505 mls/hr 1X PERIOP ONCE IRR ; Start 10/01/16 at 06:00; Stop at 06:59; Status DC Ondansetron HCl (Zofran) 4 mg PRN Q6HRS PRN IV Nausea; Start 10/01/16 at 07:00 ; Stop 10/02/16 at 06:59; Status DC Fentanyl Citrate (Fentanyl 2ml Vial) 25 mcg PRN Q5MIN PRN IV MILD PAIN; Start 10/01/16 at 07:00; Stop 10/02/16 at 06:59; Status DC Fentanyl Citrate (Fentanyl 2ml Vial) 50 mcg PRN Q5MIN PRN IV MODERATE PAIN; Start 10/01/16 at 07:00; Stop 10/02/16 at 06:59; Status DC Morphine Sulfate 1 mg 1 mg PRN Q10MIN PRN IV SEVERE PAIN; Start 10/01/16 at 07: 00; Stop 10/02/16 at 06:59; Status DC Lactated Ringer's (Iv Lactated Ringers) 1,000 ml @ 0 mls/hr Q0M IV ; Start at 07:00; Stop 10/01/16 at 18:59; Status DC Lidocaine HCl 2 ml 1X PRN PRN ID IV START; Start 10/01/16 at 07:00; Stop at 06:59; Status DC Hydromorphone HCl (Dilaudid) 0.5 mg PRN Q10MIN PRN IV SEVERE PAIN, Second choice; Start 10/01/16 at 07:00; Stop 10/02/16 at 06:59; Status DC Prochlorperazine Edisylate 5 mg 5 mg PACU PRN PRN IV NAUSEA; Start 10/01/16 at 07:00; Stop 10/02/16 at 06:59; Status DC Cefazolin Sodium/ Sodium Chloride (Ancef/Iv Sodium Chloride 0.9% 500ml Bag) 500 ml @ 500 mls/hr 1X PERIOP ONCE IRR ; Start 10/01/16 at 06:00; Stop 10/01/16 at 06:59; Status DC Cellulose 1 each STK-MED ONCE .ROUTE ; Start 10/01/16 at 06:51; Stop 10/01/16 at 06:52; Status DC Papaverine HCl 60 mg STK-MED ONCE .ROUTE ; Start 10/01/16 at 06:52; Stop at 06:53; Status DC Lidocaine HCl 20 ml STK-MED ONCE .ROUTE ; Start 10/01/16 at 06:52; Stop at 06:53; Status DC Lidocaine HCl 100 mg 100 mg STK-MED ONCE .ROUTE ; Start 10/01/16 at 07:00; Stop 10/01/16 at 07:01; Status DC Propofol (Diprivan) 0 ml @ As Directed STK-MED ONCE IV ; Start 10/01/16 at 07:00 ; Stop 10/01/16 at 07:01; Status DC Famotidine (Pepcid) 20 mg STK-MED ONCE .ROUTE ; Start 10/01/16 at 07:00; Stop at 07:01; Status DC Ondansetron HCl (Zofran) 4 mg STK-MED ONCE .ROUTE ; Start 10/01/16 at 07:01; Stop 10/01/16 at 07:02; Status DC Fentanyl Citrate (Fentanyl 2ml Vial) 100 mcg STK-MED ONCE .ROUTE ; Start at 07:01; Stop 10/01/16 at 07:02; Status DC Rocuronium [place] 50 mg 50 mg STK-MED ONCE .ROUTE ; Start 10/01/16 at 07:08; Stop 10/01/16 at 07:09; Status DC Sodium Chloride (Iv Sodium Chloride 0.9% 1000ml Bag) 1,000 ml @ 0 mls/hr Q0M IV Last administered on 10/02/16 14:11; Start 10/01/16 at 07:30 Aspirin 81 mg 81 mg [id number] PO Last administered on 10/04/16 08:45; Start 10/01/16 at 08:00 Heparin Sodium/ Dextrose 500 ml @ 0 mls/hr CONT PRN IV SEE I/O RECORD Last administered on 10/01/16 23:42; Start 10/01/16 at 08:00; Stop 10/02/16 at 08:00 ; Status DC Sodium Chloride 1,000 ml @ 1,000 mls/hr Q1H PRN IV hypotension; Start 10/01/16 at 09:03; Stop 10/01/16 at 15:02; Status DC Albumin Human (Albuminar) 200 ml @ 200 mls/hr 1X PRN PRN IV Hypotension; Start 10/01/16 at 09:15; Stop 10/01/16 at 15:14; Status DC Info (PHARMACY MONITORING -- do not chart) 1 each PRN DAILY PRN MC SEE COMMENTS ; Start 10/01/16 at 09:15; Status UNV Info (PHARMACY MONITORING -- do not chart) 1 each PRN DAILY PRN MC SEE COMMENTS ; Start 10/01/16 at 09:15; Status UNV Gentamicin Sulfate 1 each 1 each PRN DAILY PRN MC SEE COMMENTS Last administered on 10/01/16 13:39; Start 10/01/16 at 10:30; Stop 10/01/16 at 23:59 ; Status DC Gentamicin Sulfate 180 mg/ Sodium Chloride 104.5 ml @ 209 mls/hr ONCE ONCE IV Last administered on 10/01/16 20:48; Start 10/01/16 at 16:00; Stop 10/01/16 at 16:29; Status DC Vancomycin HCl/ Sodium Chloride (Iv Sodium Chloride 0.9% 100ml) 100 ml @ 100 mls/hr QTUTHSA IV Last administered on 10/03/16 21:17; Start 10/03/16 at 16:00 ; Stop 10/04/16 at 09:33; Status DC Ondansetron HCl (Zofran) 4 mg PRN Q6HRS PRN IV Nausea Last administered on 10/02 21:53; Start 10/02/16 at 07:00; Stop 10/03/16 at 06:59; Status DC Fentanyl Citrate (Fentanyl 2ml Vial) 25 mcg PRN Q5MIN PRN IV MILD PAIN; Start 10/02/16 at 07:00; Stop 10/03/16 at 06:59; Status DC Fentanyl Citrate (Fentanyl 2ml Vial) 50 mcg PRN Q5MIN PRN IV MODERATE PAIN; Start 10/02/16 at 07:00; Stop 10/03/16 at 06:59; Status DC Morphine Sulfate 1 mg PRN Q10MIN PRN IV SEVERE PAIN; Start 10/02/16 at 07:00; Stop 10/03/16 at 06:59; Status DC Hydromorphone HCl (Dilaudid) 0.5 mg PRN Q10MIN PRN IV SEVERE PAIN, Second choice; Start 10/02/16 at 07:00; Stop 10/03/16 at 06:59; Status DC Prochlorperazine Edisylate 5 mg 5 mg PACU PRN PRN IV NAUSEA; Start 10/02/16 at 07:00; Stop 10/03/16 at 06:59; Status DC Heparin Sodium (Porcine) 5000 unit/Sodium Chloride 505 ml @ 505 mls/hr 1X PERIOP ONCE IRR ; Start 10/02/16 at 11:30; Stop 10/03/16 at 11:28; Status DC Cefazolin Sodium/ Sodium Chloride (Ancef/Iv Sodium Chloride 0.9% 500ml Bag) 500 ml @ 500 mls/hr 1X PERIOP ONCE IRR ; Start 10/02/16 at 11:30; Stop 10/02/16 at 12:29; Status DC Cellulose 1 each STK-MED ONCE .ROUTE ; Start 10/02/16 at 11:03; Stop 10/02/16 at 11:04; Status DC Papaverine HCl 60 mg STK-MED ONCE .ROUTE ; Start 10/02/16 at 11:04; Stop at 11:05; Status DC Lidocaine HCl 20 ml STK-MED ONCE .ROUTE ; Start 10/02/16 at 11:04; Stop at 11:05; Status DC Lidocaine HCl 20 ml 20 ml STK-MED ONCE .ROUTE ; Start 10/02/16 at 11:04; Stop at 11:05; Status DC Cefazolin Sodium/ Dextrose 0 ml @ As Directed STK-MED ONCE IV ; Start 10/02/16 at 14:00; Stop 10/02/16 at 14:02; Status DC Propofol (Diprivan) 20 ml @ As Directed STK-MED ONCE IV ; Start 10/02/16 at 14: 32; Stop 10/02/16 at 14:33; Status DC Sodium Polystyrene Sulfonate (Kayexalate) 30 gm 1X ONCE PO Last administered on 10/02/16t 21:38; Start 10/02/16 at 20:30; Stop 10/02/16 at 20:31; Status DC Cellulose 1 each STK-MED ONCE .ROUTE Last administered on 10/03/16t 10:10; Start 10/03/16 at 06:58; Stop 10/03/16 at 06:59; Status DC Papaverine HCl 60 mg STK-MED ONCE .ROUTE ; Start 10/03/16 at 06:58; Stop at 06:59; Status DC Lidocaine HCl 20 ml 20 ml STK-MED ONCE .ROUTE ; Start 10/03/16 at 06:58; Stop at 06:59; Status DC Heparin Sodium (Porcine)/Sodium Chloride (Iv Sodium Chloride 0.9% 500ml Bag) 505 ml @ 505 mls/hr 1X PERIOP ONCE IRR Last administered on 10/03/16 08:28; Start 10/03/16 at 08:00; Stop 10/03/16 at 11:28; Status DC Fentanyl Citrate (Fentanyl 2ml Vial) 100 mcg STK-MED ONCE .ROUTE ; Start at 07:09; Stop 10/03/16 at 07:10; Status DC Succinylcholine Chloride (Anectine) 200 mg STK-MED ONCE .ROUTE ; Start 10/03/16 at 07:09; Stop 10/03/16 at 07:10; Status DC Rocuronium [place] 50 mg 50 mg STK-MED ONCE .ROUTE ; Start 10/03/16 at 07:09; Stop 10/03/16 at 07:10; Status DC Propofol (Diprivan) 20 ml @ As Directed STK-MED ONCE IV ; Start 10/03/16 at 07: 09; Stop 10/03/16 at 07:10; Status DC Famotidine (Pepcid) 20 mg STK-MED ONCE .ROUTE ; Start 10/03/16 at 07:09; Stop at 07:10; Status DC Ondansetron HCl (Zofran) 4 mg STK-MED ONCE .ROUTE ; Start 10/03/16 at 07:09; Stop 10/03/16 at 07:10; Status DC Lidocaine HCl 100 mg 100 mg STK-MED ONCE .ROUTE ; Start 10/03/16 at 07:09; Stop 10/03/16 at 07:10; Status DC Cefazolin Sodium 1 gm/Sodium Chloride 500 ml @ 500 mls/hr 1X PERIOP ONCE IRR Last administered on 10/03/16t 08:28; Start 10/03/16 at 08:00; Stop 10/03/16 at 08:59; Status DC Cefazolin Sodium/ Dextrose (Ancef 2gm Premix) 50 ml @ As Directed STK-MED ONCE IV ; Start 10/03/16 at 07:17; Stop 10/03/16 at 07:18; Status DC Ondansetron HCl (Zofran) 4 mg STK-MED ONCE .ROUTE ; Start 10/03/16 at 08:08; Stop 10/03/16 at 08:09; Status DC Famotidine (Pepcid) 20 mg STK-MED ONCE .ROUTE ; Start 10/03/16 at 08:08; Stop at 08:09; Status DC Phenylephrine HCl 1 mg STK-MED ONCE IV ; Start 10/03/16 at 08:12; Stop 10/03/16 at 08:13; Status DC Fentanyl Citrate (Fentanyl 2ml Vial) 100 mcg STK-MED ONCE .ROUTE ; Start at 08:15; Stop 10/03/16 at 08:16; Status DC Ephedrine Sulfate 50 mg STK-MED ONCE IV ; Start 10/03/16 at 08:39; Stop at 08:40; Status DC Heparin Sodium (Porcine) 10,000 unit STK-MED ONCE .ROUTE ; Start 10/03/16 at 09: 06; Stop 10/03/16 at 11:28; Status DC Desflurane (Suprane) 90 ml STK-MED ONCE IH ; Start 10/03/16 at 09:36; Stop 10/03 at 09:37; Status DC Glycopyrrolate (Robinul) 1 mg STK-MED ONCE .ROUTE ; Start 10/03/16 at 09:55; Stop 10/03/16 at 09:56; Status DC Neostigmine Methylsulfate 5 mg 5 mg STK-MED ONCE .ROUTE ; Start 10/03/16 at 09: 56; Stop 10/03/16 at 09:57; Status DC Propofol (Diprivan) 20 ml @ As Directed STK-MED ONCE IV ; Start 10/03/16 at 10: 07; Stop 10/03/16 at 10:08; Status DC Lidocaine HCl 100 mg 100 mg STK-MED ONCE .ROUTE ; Start 10/03/16 at 10:08; Stop 10/03/16 at 10:09; Status DC Propofol (Diprivan) 20 ml @ As Directed STK-MED ONCE IV ; Start 10/03/16 at 10: 08; Stop 10/03/16 at 10:09; Status DC Glycopyrrolate (Robinul) 1 mg STK-MED ONCE .ROUTE ; Start 10/03/16 at 10:41; Stop 10/03/16 at 10:42; Status DC Morphine Sulfate 2 mg PRN Q2HR PRN IV PAIN Last administered on 10/04/16 04:56 ; Start 10/03/16 at 11:30 Fentanyl Citrate (Fentanyl 2ml Vial) 100 mcg STK-MED ONCE .ROUTE ; Start at 11:51; Stop 10/03/16 at 11:52; Status DC Ondansetron HCl (Zofran) 4 mg PRN Q6HRS PRN IV Nausea; Start 10/03/16 at 12:15 ; Stop 10/04/16 at 12:14 Fentanyl Citrate (Fentanyl 2ml Vial) 25 mcg PRN Q5MIN PRN IV MILD PAIN; Start 10/03/16 at 12:15; Stop 10/03/16 at 18:00; Status DC Fentanyl Citrate (Fentanyl 2ml Vial) 50 mcg PRN Q5MIN PRN IV MODERATE PAIN Last administered on 10/03/16 12:37; Start 10/03/16 at 12:15; Stop 10/03/16 at 18:00; Status DC Morphine Sulfate 1 mg PRN Q10MIN PRN IV SEVERE PAIN; Start 10/03/16 at 12:15; Stop 10/03/16 at 18:00; Status DC Hydromorphone HCl (Dilaudid) 0.5 mg PRN Q10MIN PRN IV SEV PAIN,Second choice; Start 10/03/16 at 12:15; Stop 10/03/16 at 18:00; Status DC Prochlorperazine Edisylate 5 mg 5 mg PACU PRN PRN IV NAUSEA Last administered on 10/03/16 12:35; Start 10/03/16 at 12:15; Stop 10/03/16 at 18:00; Status DC Sodium Chloride (Iv Sodium Chloride 0.9% 1000ml Bag) 1,000 ml @ 30 mls/hr Q24H IV Last administered on 10/03/16t 19:10; Start 10/03/16 at 12:15 Warfarin Sodium 1 each 1 each PRN DAILY PRN MC SEE COMMENTS Last administered on 10/04/16 06:46; Start 10/04/16 at 06:30 Heparin Sodium/ Dextrose 500 ml @ 0 mls/hr CONT PRN IV SEE I/O RECORD; Start at 06:45 Warfarin Sodium 7.5 mg 7.5 mg 1X WARF ONCE PO ; Start 10/04/16 at 16:00; Stop 10/04/16 at 16:01 Sodium Chloride (Iv Sodium Chloride 0.9% 1000ml Bag) 1,000 ml @ 1,000 mls/hr Q1H PRN IV hypotension; Start 10/04/16 at 08:30; Stop 10/04/16 at 15:00 Acetaminophen (Tylenol) 500 mg 1X PRN PRN PO MILD PAIN / TEMP; Start 10/04/16 at 08:15; Stop 10/04/16 at 15:00 Diphenhydramine HCl (Benadryl) 25 mg 1X PRN PRN IV ITCHING; Start 10/04/16 at 08:15; Stop 10/04/16 at 15:00 Diphenhydramine HCl (Benadryl) 25 mg 1X PRN PRN IV ITCHING; Start 10/04/16 at 08:15; Stop 10/04/16 at 15:00 Labetalol HCl 10 mg 10 mg PRN Q1HR PRN IVP SBP > 180; Start 10/04/16 at 08:15; Stop 10/04/16 at 15:00 Sodium Chloride (Iv Sodium Chloride 0.9% 1000ml Bag) 1,000 ml @ 400 mls/hr Q2H30M PRN IV PATENCY; Start 10/04/16 at 08:30; Stop 10/04/16 at 15:00 Info (PHARMACY MONITORING -- do not chart) 1 each PRN DAILY PRN MC SEE COMMENTS ; Start 10/04/16 at 08:15 Active Scripts Active Novolog Flexpen (Insulin Aspart) 100 Unit/1 Ml Insuln.pen 8 Units SQ TIDAC Reported Percocet 10-325 Mg Tablet (Oxycodone/Acetaminophen) 1 Each Tablet 1 Tab PO TID Warfarin Sodium 7.5 Mg Tablet 7.5 Mg PO DAILY [place] Tablet (Folic Acid/Vitamin B Comp W-C) 0.8 Mg Tablet 0.8 Mg PO DAILY Ferric Citrate 210 Mg Tablet 210 Mg PO TID Hydralazine Hcl 50 Mg Tablet 50 Mg PO QID FENTANYL 75mcg/hr (Fentanyl) 1 Each Patch.td72 1 Patch TD Q72H PRN Lantus Solostar (Insulin Glargine,Hum.rec.anlog) 100 Unit/1 Ml Insuln.pen 15 Unit SQ QHS Furosemide 40 Mg Tablet 1 Tab PO BID Tums (Calcium Carbonate) 300 Mg Tab.chew 500 Mg PO QID Losartan Potassium 100 Mg Tablet 100 Mg PO DAILY Atorvastatin Calcium 10 Mg Tablet 10 Mg PO DAILY Sodium Bicarbonate 650 Mg Tablet 1,300 Mg PO TID Amlodipine Besylate 10 Mg Tablet 10 Mg PO DAILY Metoprolol Tartrate 50 Mg Tablet 50 Mg PO BID Vitals/I & O Vital Sign - Last 24 Hours 10/03/16 10/03/16 10/03/16 10/03/16 11:30 11:45 11:50 11:53 Temp 98.9 98.9 Pulse 86 83 Resp 14 14 B/P 145/72 145/72 Pulse Ox 97 97 98 O2 Delivery Nasal Cannula Nasal Cannula Nasal Cannula Nasal Cannula O2 Flow Rate 2 2 2 2.0 10/03/16 10/03/16 10/03/16 10/03/16 12:00 12:05 12:15 12:30 Temp 97.9 97.9 Pulse 85 91 92 Resp 16 16 B/P 137/69 135/65 143/76 Pulse Ox 98 98 98 95 O2 Delivery Nasal Cannula Nasal Cannula Nasal Cannula Nasal Cannula O2 Flow Rate 2 2.0 2 2 10/03/16 10/03/16 10/03/16 10/03/16 12:37 14:00 15:20 15:40 Temp 97.7 97.7 Pulse 94 92 Resp 18 18 B/P 122/62 130/64 Pulse Ox 96 95 95 O2 Delivery Nasal Cannula Room Air Room Air Room Air O2 Flow Rate 2.0 2.0 10/03/16 10/03/16 10/03/16 10/03/16 16:00 16:15 16:29 17:00 Pulse 87 99 92 91 Resp 18 18 18 18 B/P 121/60 122/61 128/65 138/67 Pulse Ox 92 95 97 96 O2 Delivery Room Air Room Air Room Air Room Air 10/03/16 10/03/16 10/03/16 10/03/16 17:30 18:00 19:11 19:13 Pulse 92 91 86 Resp 18 18 20 B/P 128/63 127/64 141/68 Pulse Ox 95 95 95 O2 Delivery Room Air Room Air Nasal Cannula O2 Flow Rate 2.0 10/03/16 10/03/16 10/03/16 10/03/16 20:00 21:16 21:17 21:21 Pulse 86 86 Resp 20 B/P 141/68 141/68 Pulse Ox 95 O2 Delivery Room Air Nasal Cannula O2 Flow Rate 2.0 10/03/16 10/03/16 10/04/16 10/04/16 22:19 23:20 03:02 04:56 Temp 99.0 97.9 99.0 97.9 Pulse 93 83 Resp 18 18 18 20 B/P 133/70 137/68 Pulse Ox 95 97 97 97 O2 Delivery Nasal Cannula Room Air Room Air Room Air O2 Flow Rate 2.0 2.0 10/04/16 10/04/16 10/04/16 05:29 07:28 08:00 Temp 98.6 98.6 Pulse 86 Resp 17 B/P 151/81 Pulse Ox 97 93 O2 Delivery Room Air Room Air Nasal Cannula O2 Flow Rate 2.0 2.0 Intake and Output 10/03/16 10/03/16 10/04/16 15:00 23:00 07:00 Intake Total 500 ml 0 ml 500 ml Output Total 0 ml Balance 500 ml 0 ml 500 ml CAROLYN AVERY III DO Oct 04, 2016 11:39
[2016-10-04] MEDS: IV NORMAL SALINE 1000ML BAG 1,000 ML IV SCH (12:15)
[2016-10-04 14:34] VITALS: BP 158/76
[2016-10-04] MEDS: LOSARTAN POTASSIUM 50 MG TABLET. PO SCH (15:49)
[2016-10-04] MEDS: AMLODIPINE BESYLATE 10 MG TABLET PO SCH (15:51)
[2016-10-04] MEDS ORDERED: WARFARIN 7.5 MG TABLET. PO ONE (16:00)
[2016-10-04] MEDS: AMOXICILLIN/K CLAV 500/125MG TABLET. PO SCH (16:27)
[2016-10-04] MEDS: DOXYCYCLINE HYCLATE 100 MG TABLET PO SCH ×2 (16:27→22:14)
[2016-10-04 19:00] VITALS: BP 158/71
[2016-10-04] MEDS: INSULIN DETEMIR 300 UNITS/3 ML INSULN.PEN. SQ SCH (21:00)
[2016-10-04] MEDS: ATORVASTATIN CALCIUM 10 MG TABLET. PO SCH (22:12)
[2016-10-04 23:00] VITALS: BP 160/86
[2016-10-05 03:00] VITALS: BP 179/96
[2016-10-05 06:03] LABS: CALCIUM 8.3 mg/dL (8.5-10.1); CREATININE 8.6 mg/dL (0.7-1.3); GFR 6.7; POTASSIUM 4.5 mmol/L (3.5-5.1)
[2016-10-05 06:35] LABS: INR 1.3 (0.8-1.1); PROTHROMBIN TIME PATIENT 15.7 SEC (11.7-14.0)
[2016-10-05 07:00] VITALS: BP 146/82
[2016-10-05] MEDS: INSULIN ASPART 300 UNITS/3 ML INSULN.PEN SQ SCH ×6 (07:30→17:00)
[2016-10-05] MEDS: CALCIUM ACETATE 667 MG CAPSULE PO SCH ×3 (08:00→17:00)
[2016-10-05] MEDS: ASPIRIN ENTERIC COATED 81 MG TABLET.DR. PO SCH (08:00)
[2016-10-05 08:15] LABS: BASO # 0.1 x10^3/uL (0.0-0.2); BASO % 1 % (0-3); EOS % 4 % (0-3); HEMATOCRIT 40.6 % (39.0-53.0); HEMOGLOBIN 12.6 g/dL (13.0-17.5); LYMPH # 0.8 x10^3/uL (1.0-4.8); LYMPH % 8 % (24-48); MEAN CORPUSCULAR HEMOGLOBIN 27 pg (25-35); MEAN CORPUSCULAR HGB CONC 31 g/dL (31-37); MEAN CORPUSCULAR VOLUME 85 fL (79-100); MONO % 10 % (0-9); NEUT % 78 % (31-73); PLATELET COUNT 101 x10^3/uL (140-400); RED BLOOD COUNT 4.77 x10^6/uL (4.30-5.70); RED CELL DISTRIBUTION WIDTH 18.3 % (11.5-14.5); WHITE BLOOD COUNT 10.5 x10^3/uL (4.0-11.0)
[2016-10-05] MEDS: ONDANSETRON PF 4 MG/2 ML VIAL. IV PRN (08:33)
[2016-10-05] MEDS ORDERED: IV NORMAL SALINE 1000ML BAG 1,000 ML IV PRN (08:38)
[2016-10-05] MEDS ORDERED: DIALYSIS PATIENT. MC PRN ×2 (08:45)
[2016-10-05] MEDS: AMLODIPINE BESYLATE 10 MG TABLET PO SCH (09:00)
[2016-10-05] MEDS: LOSARTAN POTASSIUM 50 MG TABLET. PO SCH (09:00)
[2016-10-05] MEDS: SODIUM BICARBONATE 650 MG TABLET. PO SCH ×3 (09:00→21:00)
[2016-10-05] MEDS: METOPROLOL TART IMMED RELEASE 50 MG TABLET PO SCH ×2 (09:00→21:40)
[2016-10-05] MEDS: DOXYCYCLINE HYCLATE 100 MG TABLET PO SCH ×2 (09:00→21:00)
[2016-10-05] MEDS: CALCIUM CARBONATE 500 MG TAB.CHEW PO SCH ×4 (09:00→21:00)
[2016-10-05] MEDS: OXYCODONE/APAP 10/325 TABLET. PO SCH ×3 (09:00→21:39)
[2016-10-05] MEDS: HYDRALAZINE 50 MG TABLET PO SCH ×4 (09:00→21:39)
[2016-10-05] MEDS: AMOXICILLIN/K CLAV 500/125MG TABLET. PO SCH (09:00)
[2016-10-05] MEDS: FUROSEMIDE 40 MG TABLET PO SCH ×2 (09:00→14:00)
--- NOTE | 2016-10-05 09:08 | PDOC ---
PROGRESS NOTES Chief Complaint Chief Complaint ASSESSMENT: 1. Gangrenous R fifth digit with cellulitis 2. ESRD on HD 3. 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 HTN 5. Left AKA 6. Obesity 7. Dyslipidmia 8. Mild pCM 9. Coumadin, with h/o DVT on right arm with AVF 10. Hyperkalemia History of Present Illness History of Present Illness Patient was sitting at the side of bed, was in no acute distress. Pt. refused to get discharge to SNU so probable discharge to home if vascular surgery if ok it. Pt. had no overnight acute event. Plan of care discussed with him. 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, left thight has dressing) Labs LABS Laboratory Tests Test 10/04/16 11:00 10/04/16 14:08 10/04/16 16:38 10/04/16 22:15 Prothrombin Time 14.6SEC (11.7-14.0) Prothromb Time International Ratio 1.2 (0.8-1.1) Activated Partial Thromboplast Time 39SEC (24-38) Glucose (Fingerstick) 102mg/dL (70-99) 133mg/dL (70-99) 73mg/dL (70-99) Test 10/05/16 05:00 10/05/16 07:34 10/05/16 07:40 Prothrombin Time 15.7SEC (11.7-14.0) Prothromb Time International Ratio 1.3 (0.8-1.1) Heparin Anti-Xa Act, Unfractionated < 0.10IU/mL (0.30-0.70) Sodium Level 141mmol/L (136-145) Potassium Level 4.5mmol/L (3.5-5.1) Chloride Level 100mmol/L (98-107) Carbon Dioxide Level 26mmol/L (21-32) Anion Gap 15 (6-14) Blood Urea Nitrogen 25mg/dL (8-26) Creatinine 8.6mg/dL (0.7-1.3) Estimated GFR (Cockcroft-Gault) 6.7 Glucose Level 120mg/dL (70-99) Calcium Level 8.3mg/dL (8.5-10.1) Glucose (Fingerstick) 129mg/dL (70-99) White Blood Count 10.5x10^3/uL (4.0-11.0) Red Blood Count 4.77x10^6/uL (4.30-5.70) Hemoglobin 12.6g/dL (13.0-17.5) Hematocrit 40.6% (39.0-53.0) Mean Corpuscular Volume 85fL (79-100) Mean Corpuscular Hemoglobin 27pg (25-35) Mean Corpuscular Hemoglobin Concent 31g/dL (31-37) Red Cell Distribution Width 18.3% (11.5-14.5) Platelet Count 101x10^3/uL (140-400) Neutrophils (%) (Auto) 78% (31-73) Lymphocytes (%) (Auto) 8% (24-48) Monocytes (%) (Auto) 10% (0-9) Eosinophils (%) (Auto) 4% (0-3) Basophils (%) (Auto) 1% (0-3) Neutrophils # (Auto) 8.3x10^3uL (1.8-7.7) Lymphocytes # (Auto) 0.8x10^3/uL (1.0-4.8) Monocytes # (Auto) 1.0x10^3/uL (0.0-1.1) Eosinophils # (Auto) 0.4x10^3/uL (0.0-0.7) Basophils # (Auto) 0.1x10^3/uL (0.0-0.2) Review of Systems Review of Systems Denies fever, chills Denies SOB,CP Denies n/v/d Dressing on right hand and left thigh clean, dry intact Assessment and Plan Assessmemt and Plan ASSESSMENT: 1. Gangrenous R fifth digit with cellulitis 2. ESRD on HD 3. 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 HTN 5. Left AKA 6. Obesity 7. Dyslipidmia 8. Mild pCM 9. Coumadin, with h/o DVT on right arm with AVF 10. Hyperkalemia PLAN: - Refused discharge to SNU so probable discharge to home when Ok with surgery - cont HD schedule per renal - Continue antibiotics per ID recommendation - Continue Heparin drip - repeat daily labs - PTOT - cont SSI and glucose monitoring - Appreciate subspecialities inputs and recommendations Problems Medical Problems: (1) ESRD (end stage renal disease) Status: Acute Problems: Comment Review of Relevant I have reviewed the following items kayleigh (where applicable) has been applied. Labs Laboratory Tests Test 10/03/16 11:43 10/03/16 16:31 10/03/16 21:06 10/04/16 04:00 Glucose (Fingerstick) 103mg/dL (70-99) 103mg/dL (70-99) 90mg/dL (70-99) White Blood Count 10.3x10^3/uL (4.0-11.0) Red Blood Count 5.03x10^6/uL (4.30-5.70) Hemoglobin 13.3g/dL (13.0-17.5) Hematocrit 43.1% (39.0-53.0) Mean Corpuscular Volume 86fL (79-100) Mean Corpuscular Hemoglobin 27pg (25-35) Mean Corpuscular Hemoglobin Concent 31g/dL (31-37) Red Cell Distribution Width 18.2% (11.5-14.5) Platelet Count 133x10^3/uL (140-400) Neutrophils (%) (Auto) 75% (31-73) Lymphocytes (%) (Auto) 11% (24-48) Monocytes (%) (Auto) 10% (0-9) Eosinophils (%) (Auto) 4% (0-3) Basophils (%) (Auto) 1% (0-3) Neutrophils # (Auto) 7.7x10^3uL (1.8-7.7) Lymphocytes # (Auto) 1.1x10^3/uL (1.0-4.8) Monocytes # (Auto) 1.0x10^3/uL (0.0-1.1) Eosinophils # (Auto) 0.4x10^3/uL (0.0-0.7) Basophils # (Auto) 0.1x10^3/uL (0.0-0.2) Sodium Level 145mmol/L (136-145) Potassium Level 4.9mmol/L (3.5-5.1) Chloride Level 102mmol/L (98-107) Carbon Dioxide Level 28mmol/L (21-32) Anion Gap 15 (6-14) Blood Urea Nitrogen 50mg/dL (8-26) Creatinine 13.0mg/dL (0.7-1.3) Estimated GFR (Cockcroft-Gault) 4.2 Glucose Level 100mg/dL (70-99) Calcium Level 8.2mg/dL (8.5-10.1) Test 10/04/16 07:44 10/04/16 11:00 10/04/16 14:08 10/04/16 16:38 Glucose (Fingerstick) 97mg/dL (70-99) 102mg/dL (70-99) 133mg/dL (70-99) Prothrombin Time 14.6SEC (11.7-14.0) Prothromb Time International Ratio 1.2 (0.8-1.1) Activated Partial Thromboplast Time 39SEC (24-38) Test 10/04/16 22:15 10/05/16 05:00 10/05/16 07:34 10/05/16 07:40 Glucose (Fingerstick) 73mg/dL (70-99) 129mg/dL (70-99) Prothrombin Time 15.7SEC (11.7-14.0) Prothromb Time International Ratio 1.3 (0.8-1.1) Heparin Anti-Xa Act, Unfractionated < 0.10IU/mL (0.30-0.70) Sodium Level 141mmol/L (136-145) Potassium Level 4.5mmol/L (3.5-5.1) Chloride Level 100mmol/L (98-107) Carbon Dioxide Level 26mmol/L (21-32) Anion Gap 15 (6-14) Blood Urea Nitrogen 25mg/dL (8-26) Creatinine 8.6mg/dL (0.7-1.3) Estimated GFR (Cockcroft-Gault) 6.7 Glucose Level 120mg/dL (70-99) Calcium Level 8.3mg/dL (8.5-10.1) White Blood Count 10.5x10^3/uL (4.0-11.0) Red Blood Count 4.77x10^6/uL (4.30-5.70) Hemoglobin 12.6g/dL (13.0-17.5) Hematocrit 40.6% (39.0-53.0) Mean Corpuscular Volume 85fL (79-100) Mean Corpuscular Hemoglobin 27pg (25-35) Mean Corpuscular Hemoglobin Concent 31g/dL (31-37) Red Cell Distribution Width 18.3% (11.5-14.5) Platelet Count 101x10^3/uL (140-400) Neutrophils (%) (Auto) 78% (31-73) Lymphocytes (%) (Auto) 8% (24-48) Monocytes (%) (Auto) 10% (0-9) Eosinophils (%) (Auto) 4% (0-3) Basophils (%) (Auto) 1% (0-3) Neutrophils # (Auto) 8.3x10^3uL (1.8-7.7) Lymphocytes # (Auto) 0.8x10^3/uL (1.0-4.8) Monocytes # (Auto) 1.0x10^3/uL (0.0-1.1) Eosinophils # (Auto) 0.4x10^3/uL (0.0-0.7) Basophils # (Auto) 0.1x10^3/uL (0.0-0.2) Laboratory Tests Test 10/04/16 11:00 10/04/16 14:08 10/04/16 16:38 10/04/16 22:15 Prothrombin Time 14.6SEC (11.7-14.0) Prothromb Time International Ratio 1.2 (0.8-1.1) Activated Partial Thromboplast Time 39SEC (24-38) Glucose (Fingerstick) 102mg/dL (70-99) 133mg/dL (70-99) 73mg/dL (70-99) Test 10/05/16 05:00 10/05/16 07:34 10/05/16 07:40 Prothrombin Time 15.7SEC (11.7-14.0) Prothromb Time International Ratio 1.3 (0.8-1.1) Heparin Anti-Xa Act, Unfractionated < 0.10IU/mL (0.30-0.70) Sodium Level 141mmol/L (136-145) Potassium Level 4.5mmol/L (3.5-5.1) Chloride Level 100mmol/L (98-107) Carbon Dioxide Level 26mmol/L (21-32) Anion Gap 15 (6-14) Blood Urea Nitrogen 25mg/dL (8-26) Creatinine 8.6mg/dL (0.7-1.3) Estimated GFR (Cockcroft-Gault) 6.7 Glucose Level 120mg/dL (70-99) Calcium Level 8.3mg/dL (8.5-10.1) Glucose (Fingerstick) 129mg/dL (70-99) White Blood Count 10.5x10^3/uL (4.0-11.0) Red Blood Count 4.77x10^6/uL (4.30-5.70) Hemoglobin 12.6g/dL (13.0-17.5) Hematocrit 40.6% (39.0-53.0) Mean Corpuscular Volume 85fL (79-100) Mean Corpuscular Hemoglobin 27pg (25-35) Mean Corpuscular Hemoglobin Concent 31g/dL (31-37) Red Cell Distribution Width 18.3% (11.5-14.5) Platelet Count 101x10^3/uL (140-400) Neutrophils (%) (Auto) 78% (31-73) Lymphocytes (%) (Auto) 8% (24-48) Monocytes (%) (Auto) 10% (0-9) Eosinophils (%) (Auto) 4% (0-3) Basophils (%) (Auto) 1% (0-3) Neutrophils # (Auto) 8.3x10^3uL (1.8-7.7) Lymphocytes # (Auto) 0.8x10^3/uL (1.0-4.8) Monocytes # (Auto) 1.0x10^3/uL (0.0-1.1) Eosinophils # (Auto) 0.4x10^3/uL (0.0-0.7) Basophils # (Auto) 0.1x10^3/uL (0.0-0.2) Medications Current Medications Iohexol (Omnipaque 300 Mg/ml) 100 ml STK-MED ONCE .ROUTE ; Start 09/27/16 at 09: 51; Stop 09/27/16 at 09:52; Status DC Lidocaine/Sodium Bicarbonate 20 ml 20 ml STK-MED ONCE IJ ; Start 09/27/16 at 09: 51; Stop 09/27/16 at 09:52; Status DC Heparin Sodium/ Sodium Chloride 1,500 ml @ As Directed STK-MED ONCE .ROUTE ; Start 09/27/16 at 09:51; Stop 09/27/16 at 09:52; Status DC Iodixanol (Visipaque 320) 100 ml STK-MED ONCE .ROUTE ; Start 09/27/16 at 10:11; Stop 09/27/16 at 10:12; Status DC Midazolam HCl (Versed) 5 mg STK-MED ONCE .ROUTE ; Start 09/27/16 at 10:20; Stop 09/27/16 at 10:21; Status DC Fentanyl Citrate (Fentanyl 5ml Vial) 250 mcg STK-MED ONCE .ROUTE ; Start at 10:20; Stop 09/27/16 at 10:21; Status DC Heparin Sodium/ Sodium Chloride 1,000 unit 1X ONCE IART Last administered on 10:48; Start 09/27/16 at 10:45; Stop 09/27/16 at 10:46; Status DC Lidocaine/Sodium Bicarbonate (Buffered Lidocaine 1%) 20 ml 1X ONCE IJ Last administered on 09/27/16 10:48; Start 09/27/16 at 10:45; Stop 09/27/16 at 10:46 ; Status DC Midazolam HCl (Versed) 5 mg 1X ONCE IV Last administered on 09/27/16 11:17; Start 09/27/16 at 10:45; Stop 09/27/16 at 10:46; Status DC Fentanyl Citrate (Fentanyl 5ml Vial) 250 mcg 1X ONCE IV Last administered on 11:17; Start 09/27/16 at 10:45; Stop 09/27/16 at 10:46; Status DC Iodixanol (Visipaque 320) 100 ml 1X ONCE IART Last administered on 09/27/16 11:17; Start 09/27/16 at 10:45; Stop 09/27/16 at 10:46; Status DC Info (Do NOT chart on this entry -- for MONITORING) 1 each PRN DAILY PRN MC SEE COMMENTS; Start 09/27/16 at 11:00; Stop 09/29/16 at 10:59; Status DC Iodixanol (Visipaque 320) 50 ml STK-MED ONCE .ROUTE ; Start 09/27/16 at 10:59; Stop 09/27/16 at 11:00; Status DC Nitroglycerin (Nitroglycerin) 200 mcg 1X ONCE IART Last administered on 11:05; Start 09/27/16 at 11:00; Stop 09/27/16 at 11:07; Status DC Insulin Aspart (Novolog) 0-9 UNITS TIDWMEALS SQ ; Start 09/27/16 at 17:00 Dextrose 12.5 gm PRN Q15MIN PRN IV SEE COMMENTS; Start 09/27/16 at 12:45 Acetaminophen (Tylenol) 650 mg PRN Q6HRS PRN PO MILD PAIN / TEMP Last administered on 09/30/16 23:56; Start 09/27/16 at 12:45 Ondansetron HCl (Zofran) 4 mg PRN Q6HRS PRN IV NAUSEA/VOMITING Last administered on 10/05/16 08:33; Start 09/27/16 at 12:45 Amlodipine Besylate (Norvasc) 10 mg DAILY PO Last administered on 10/04/16 15: 51; Start 09/27/16 at 13:00 Atorvastatin Calcium (Lipitor) 10 mg QHS PO Last administered on 10/04/16 22: 12; Start 09/27/16 at 21:00 Fentanyl (Duragesic 75mcg/ Hr Patch) 1 patch Q72H PRN TD PAIN Last administered on 09/28/16 12:10; Start 09/27/16 at 12:45 Vitamin B Complex/ Vitamin C (Nephro-Eleazar) 1 tab DAILY PO Last administered on 10/04/16 15:51; Start 09/28/16 at 09:00 Furosemide (Lasix) 40 mg [id number] PO Last administered on 10/04/16 15:50; Start 09/27/16 at 14:00 Hydralazine HCl (Apresoline) 50 mg QID PO Last administered on 10/04/16 22:15 ; Start 09/27/16 at 13:00 Insulin Aspart (Novolog) 8 units TIDAC SQ Last administered on 10/04/16 18:34 ; Start 09/27/16 at 16:30 Metoprolol Tartrate (Lopressor) 50 mg BID PO Last administered on 10/04/16 22: 14; Start 09/27/16 at 21:00 Oxycodone/ Acetaminophen (Percocet 10/325) 1 tab TID PO Last administered on 22:15; Start 09/27/16 at 14:00 Sodium Bicarbonate (Sodium Bicarbonate) 1,300 mg TID PO Last administered on 15:52; Start 09/27/16 at 14:00 Calcium Carbonate/ Glycine (Tums) 500 mg QID PO Last administered on 10/04/16 22:13; Start 09/27/16 at 13:00 Non-Formulary Medication 210 mg TID PO ; Start 09/27/16 at 14:00; Stop 09/27/16 at 14:02; Status DC Insulin Detemir (Levemir) 15 units QHS SQ Last administered on 09/28/16 21:04 ; Start 09/27/16 at 21:00; Stop 09/29/16 at 16:26; Status DC Losartan Potassium (Cozaar) 100 mg DAILY PO Last administered on 10/04/16 15: 49; Start 09/27/16 at 13:00 Heparin Sodium (Porcine) 5,000 unit Q8HRS SQ Last administered on 09/28/16 05: 37; Start 09/27/16 at 14:00; Stop 09/28/16 at 14:33; Status DC Amoxicillin/ Clavulanate Potassium (Augmentin 500/ 125mg) 1 tab BID PO Last administered on 09/27/16 21:00; Start 09/27/16 at 13:00; Stop 09/27/16 at 21:54 ; Status DC Calcium Acetate (Phoslo) 1,334 mg TIDWMEALS PO Last administered on 10/04/16 15:54; Start 09/27/16 at 17:00 Amoxicillin/ Clavulanate Potassium (Augmentin 500/ 125mg) 1 tab Q24H PO ; Start 09/28/16 at 14:00; Status Cancel Ondansetron HCl (Zofran) 4 mg PRN Q6HRS PRN IV NAUSEA/VOMITING; Start 09/28/16 at 10:00; Status Cancel Ondansetron HCl (Zofran) 4 mg PRN Q6HRS PRN IV NAUSEA/VOMITING; Start 09/28/16 at 10:00; Status Cancel Piperacillin Sod/ Tazobactam Sod (Zosyn Per Pharmacy) 1 each PRN DAILY PRN MC SEE COMMENTS; Start 09/28/16 at 13:45; Stop 10/04/16 at 09:33; Status DC Vancomycin HCl (Vanco Per Pharmacy) 1 each PRN DAILY PRN MC SEE COMMENTS Last administered on 10/02/16 13:36; Start 09/28/16 at 13:45; Stop 10/04/16 at 09:33 ; Status DC Enoxaparin Sodium 60 mg 60 mg Q12HR SQ ; Start 09/28/16 at 21:00; Status UNV Piperacillin Sod/ Tazobactam Sod 2.25 gm/Sodium Chloride 50 ml @ 100 mls/hr Q8HRS IV Last administered on 10/04/16 05:48; Start 09/28/16 at 14:00; Stop at 09:33; Status DC Vancomycin HCl 2 gm/Sodium Chloride 500 ml @ 250 mls/hr 1X ONCE IV Last administered on 09/28/16 15:14; Start 09/28/16 at 14:30; Stop 09/28/16 at 16:29 ; Status DC Heparin Sodium/ Dextrose 500 ml @ 0 mls/hr CONT PRN IV SEE I/O RECORD Last administered on 10/01/16 07:49; Start 09/28/16 at 14:45; Stop 09/30/16 at 09:27 ; Status DC Vancomycin HCl 1 each 1 each 1X ONCE MC Last administered on 09/30/16 05:00; Start 09/30/16 at 05:00; Stop 09/30/16 at 05:01; Status DC Sodium Chloride (Iv Sodium Chloride 0.9% 1000ml Bag) 1,000 ml @ 1,000 mls/hr Q1H PRN IV hypotension; Start 09/28/16 at 15:50; Stop 09/28/16 at 21:49; Status DC Info (PHARMACY MONITORING -- do not chart) 1 each PRN DAILY PRN MC SEE COMMENTS ; Start 09/28/16 at 16:00 Diphenhydramine HCl (Benadryl) 50 mg STK-MED ONCE .ROUTE Last administered on 17:57; Start 09/28/16 at 17:52; Stop 09/28/16 at 17:53; Status DC Diphenhydramine HCl (Benadryl) 50 mg 1X ONCE IVP ; Start 09/28/16 at 18:00; Stop 09/28/16 at 18:01; Status DC Sodium Polystyrene Sulfonate (Kayexalate) 15 gm 1X ONCE PO Last administered on 09/29/16 08:24; Start 09/29/16 at 07:45; Stop 09/29/16 at 07:46; Status DC Dextrose 25 gm 1X ONCE IV Last administered on 09/29/16 09:22; Start at 09:30; Stop 09/29/16 at 09:31; Status DC Insulin Human Regular (Novolin R Vial) 10 unit 1X ONCE IV Last administered on 09/29/16 09:34; Start 09/29/16 at 09:30; Stop 09/29/16 at 09:31; Status DC Sodium Bicarbonate 50 meq 1X ONCE IV Last administered on 09/29/16 09:50; Start 09/29/16 at 10:00; Stop 09/29/16 at 10:01; Status DC Heparin Sodium (Porcine) 3,600 unit PRN Q6HRS PRN IV FOR UFH LEVEL LESS THAN 0.2 Last administered on 09/29/16 11:47; Start 09/29/16 at 11:45; Stop at 11:28; Status DC Info (Anti-Coagulation Monitoring By Pharmacy) 1 each PRN DAILY PRN MC SEE COMMENTS Last administered on 10/02/16 13:32; Start 09/29/16 at 15:00 Insulin Detemir (Levemir) 15 units QHS SQ ; Start 09/29/16 at 16:26 Diphenhydramine HCl (Benadryl) prn for itching PRN Q6HRS PRN IVP ITCHING; Start 09/29/16 at 21:30; Stop 09/29/16 at 21:35; Status DC Diphenhydramine HCl (Benadryl) prn itching PRN Q6HRS PRN PO ITCHING; Start 07/06 at 21:30; Stop 09/29/16 at 21:35; Status DC Diphenhydramine HCl (Benadryl) 25 mg PRN Q6HRS PRN IVP ITCHING Last administered on 09/29/16 21:51; Start 09/29/16 at 21:45 Diphenhydramine HCl (Benadryl) 25 mg PRN Q6HRS PRN PO ITCHING Last administered on 09/30/16 21:28; Start 09/29/16 at 21:45 Diphenhydramine HCl 12.5 mg 12.5 mg PRN Q6HRS PRN IVP ITCHING; Start 09/29/16 at 21:45 Heparin Sodium/ Dextrose 500 ml @ 0 mls/hr CONT PRN IV SEE I/O RECORD Last administered on 09/30/16 16:44; Start 09/30/16 at 09:30; Stop 09/30/16 at 23:59 ; Status DC Cefazolin Sodium/ Dextrose 50 ml @ 100 mls/hr 1X ONCE IV Last administered on 10/01/16 07:55; Start 10/01/16 at 07:00; Stop 10/01/16 at 07:29; Status DC Heparin Sodium (Porcine)/Sodium Chloride (Iv Sodium Chloride 0.9% 500ml Bag) 505 ml @ 505 mls/hr 1X PERIOP ONCE IRR ; Start 10/01/16 at 06:00; Stop at 06:59; Status DC Ondansetron HCl (Zofran) 4 mg PRN Q6HRS PRN IV Nausea; Start 10/01/16 at 07:00 ; Stop 10/02/16 at 06:59; Status DC Fentanyl Citrate (Fentanyl 2ml Vial) 25 mcg PRN Q5MIN PRN IV MILD PAIN; Start 10/01/16 at 07:00; Stop 10/02/16 at 06:59; Status DC Fentanyl Citrate (Fentanyl 2ml Vial) 50 mcg PRN Q5MIN PRN IV MODERATE PAIN; Start 10/01/16 at 07:00; Stop 10/02/16 at 06:59; Status DC Morphine Sulfate 1 mg 1 mg PRN Q10MIN PRN IV SEVERE PAIN; Start 10/01/16 at 07: 00; Stop 10/02/16 at 06:59; Status DC Lactated Ringer's (Iv Lactated Ringers) 1,000 ml @ 0 mls/hr Q0M IV ; Start at 07:00; Stop 10/01/16 at 18:59; Status DC Lidocaine HCl 2 ml 1X PRN PRN ID IV START; Start 10/01/16 at 07:00; Stop at 06:59; Status DC Hydromorphone HCl (Dilaudid) 0.5 mg PRN Q10MIN PRN IV SEVERE PAIN, Second choice; Start 10/01/16 at 07:00; Stop 10/02/16 at 06:59; Status DC Prochlorperazine Edisylate 5 mg 5 mg PACU PRN PRN IV NAUSEA; Start 10/01/16 at 07:00; Stop 10/02/16 at 06:59; Status DC Cefazolin Sodium/ Sodium Chloride (Ancef/Iv Sodium Chloride 0.9% 500ml Bag) 500 ml @ 500 mls/hr 1X PERIOP ONCE IRR ; Start 10/01/16 at 06:00; Stop 10/01/16 at 06:59; Status DC Cellulose 1 each STK-MED ONCE .ROUTE ; Start 10/01/16 at 06:51; Stop 10/01/16 at 06:52; Status DC Papaverine HCl 60 mg STK-MED ONCE .ROUTE ; Start 10/01/16 at 06:52; Stop at 06:53; Status DC Lidocaine HCl 20 ml STK-MED ONCE .ROUTE ; Start 10/01/16 at 06:52; Stop at 06:53; Status DC Lidocaine HCl 100 mg 100 mg STK-MED ONCE .ROUTE ; Start 10/01/16 at 07:00; Stop 10/01/16 at 07:01; Status DC Propofol (Diprivan) 0 ml @ As Directed STK-MED ONCE IV ; Start 10/01/16 at 07:00 ; Stop 10/01/16 at 07:01; Status DC Famotidine (Pepcid) 20 mg STK-MED ONCE .ROUTE ; Start 10/01/16 at 07:00; Stop at 07:01; Status DC Ondansetron HCl (Zofran) 4 mg STK-MED ONCE .ROUTE ; Start 10/01/16 at 07:01; Stop 10/01/16 at 07:02; Status DC Fentanyl Citrate (Fentanyl 2ml Vial) 100 mcg STK-MED ONCE .ROUTE ; Start at 07:01; Stop 10/01/16 at 07:02; Status DC Rocuronium [place] 50 mg 50 mg STK-MED ONCE .ROUTE ; Start 10/01/16 at 07:08; Stop 10/01/16 at 07:09; Status DC Sodium Chloride (Iv Sodium Chloride 0.9% 1000ml Bag) 1,000 ml @ 0 mls/hr Q0M IV Last administered on 10/02/16 14:11; Start 10/01/16 at 07:30 Aspirin 81 mg 81 mg [id number] PO Last administered on 10/04/16 08:45; Start 10/01/16 at 08:00 Heparin Sodium/ Dextrose 500 ml @ 0 mls/hr CONT PRN IV SEE I/O RECORD Last administered on 10/01/16 23:42; Start 10/01/16 at 08:00; Stop 10/02/16 at 08:00 ; Status DC Sodium Chloride 1,000 ml @ 1,000 mls/hr Q1H PRN IV hypotension; Start 10/01/16 at 09:03; Stop 10/01/16 at 15:02; Status DC Albumin Human (Albuminar) 200 ml @ 200 mls/hr 1X PRN PRN IV Hypotension; Start 10/01/16 at 09:15; Stop 10/01/16 at 15:14; Status DC Info (PHARMACY MONITORING -- do not chart) 1 each PRN DAILY PRN MC SEE COMMENTS ; Start 10/01/16 at 09:15; Status UNV Info (PHARMACY MONITORING -- do not chart) 1 each PRN DAILY PRN MC SEE COMMENTS ; Start 10/01/16 at 09:15; Status UNV Gentamicin Sulfate 1 each 1 each PRN DAILY PRN MC SEE COMMENTS Last administered on 10/01/16 13:39; Start 10/01/16 at 10:30; Stop 10/01/16 at 23:59 ; Status DC Gentamicin Sulfate 180 mg/ Sodium Chloride 104.5 ml @ 209 mls/hr ONCE ONCE IV Last administered on 10/01/16 20:48; Start 10/01/16 at 16:00; Stop 10/01/16 at 16:29; Status DC Vancomycin HCl/ Sodium Chloride (Iv Sodium Chloride 0.9% 100ml) 100 ml @ 100 mls/hr QTUTHSA IV Last administered on 10/03/16 21:17; Start 10/03/16 at 16:00 ; Stop 10/04/16 at 09:33; Status DC Ondansetron HCl (Zofran) 4 mg PRN Q6HRS PRN IV Nausea Last administered on 10/02 21:53; Start 10/02/16 at 07:00; Stop 10/03/16 at 06:59; Status DC Fentanyl Citrate (Fentanyl 2ml Vial) 25 mcg PRN Q5MIN PRN IV MILD PAIN; Start 10/02/16 at 07:00; Stop 10/03/16 at 06:59; Status DC Fentanyl Citrate (Fentanyl 2ml Vial) 50 mcg PRN Q5MIN PRN IV MODERATE PAIN; Start 10/02/16 at 07:00; Stop 10/03/16 at 06:59; Status DC Morphine Sulfate 1 mg PRN Q10MIN PRN IV SEVERE PAIN; Start 10/02/16 at 07:00; Stop 10/03/16 at 06:59; Status DC Hydromorphone HCl (Dilaudid) 0.5 mg PRN Q10MIN PRN IV SEVERE PAIN, Second choice; Start 10/02/16 at 07:00; Stop 10/03/16 at 06:59; Status DC Prochlorperazine Edisylate 5 mg 5 mg PACU PRN PRN IV NAUSEA; Start 10/02/16 at 07:00; Stop 10/03/16 at 06:59; Status DC Heparin Sodium (Porcine) 5000 unit/Sodium Chloride 505 ml @ 505 mls/hr 1X PERIOP ONCE IRR ; Start 10/02/16 at 11:30; Stop 10/03/16 at 11:28; Status DC Cefazolin Sodium/ Sodium Chloride (Ancef/Iv Sodium Chloride 0.9% 500ml Bag) 500 ml @ 500 mls/hr 1X PERIOP ONCE IRR ; Start 10/02/16 at 11:30; Stop 10/02/16 at 12:29; Status DC Cellulose 1 each STK-MED ONCE .ROUTE ; Start 10/02/16 at 11:03; Stop 10/02/16 at 11:04; Status DC Papaverine HCl 60 mg STK-MED ONCE .ROUTE ; Start 10/02/16 at 11:04; Stop at 11:05; Status DC Lidocaine HCl 20 ml STK-MED ONCE .ROUTE ; Start 10/02/16 at 11:04; Stop at 11:05; Status DC Lidocaine HCl 20 ml 20 ml STK-MED ONCE .ROUTE ; Start 10/02/16 at 11:04; Stop at 11:05; Status DC Cefazolin Sodium/ Dextrose 0 ml @ As Directed STK-MED ONCE IV ; Start 10/02/16 at 14:00; Stop 10/02/16 at 14:02; Status DC Propofol (Diprivan) 20 ml @ As Directed STK-MED ONCE IV ; Start 10/02/16 at 14: 32; Stop 10/02/16 at 14:33; Status DC Sodium Polystyrene Sulfonate (Kayexalate) 30 gm 1X ONCE PO Last administered on 10/02/16t 21:38; Start 10/02/16 at 20:30; Stop 10/02/16 at 20:31; Status DC Cellulose 1 each STK-MED ONCE .ROUTE Last administered on 10/03/16t 10:10; Start 10/03/16 at 06:58; Stop 10/03/16 at 06:59; Status DC Papaverine HCl 60 mg STK-MED ONCE .ROUTE ; Start 10/03/16 at 06:58; Stop at 06:59; Status DC Lidocaine HCl 20 ml 20 ml STK-MED ONCE .ROUTE ; Start 10/03/16 at 06:58; Stop at 06:59; Status DC Heparin Sodium (Porcine)/Sodium Chloride (Iv Sodium Chloride 0.9% 500ml Bag) 505 ml @ 505 mls/hr 1X PERIOP ONCE IRR Last administered on 10/03/16 08:28; Start 10/03/16 at 08:00; Stop 10/03/16 at 11:28; Status DC Fentanyl Citrate (Fentanyl 2ml Vial) 100 mcg STK-MED ONCE .ROUTE ; Start at 07:09; Stop 10/03/16 at 07:10; Status DC Succinylcholine Chloride ([place]ine) 200 mg STK-MED ONCE .ROUTE ; Start 10/03/16 at 07:09; Stop 10/03/16 at 07:10; Status DC Rocuronium [place] 50 mg 50 mg STK-MED ONCE .ROUTE ; Start 10/03/16 at 07:09; Stop 10/03/16 at 07:10; Status DC Propofol (Diprivan) 20 ml @ As Directed STK-MED ONCE IV ; Start 10/03/16 at 07: 09; Stop 10/03/16 at 07:10; Status DC Famotidine (Pepcid) 20 mg STK-MED ONCE .ROUTE ; Start 10/03/16 at 07:09; Stop at 07:10; Status DC Ondansetron HCl (Zofran) 4 mg STK-MED ONCE .ROUTE ; Start 10/03/16 at 07:09; Stop 10/03/16 at 07:10; Status DC Lidocaine HCl 100 mg 100 mg STK-MED ONCE .ROUTE ; Start 10/03/16 at 07:09; Stop 10/03/16 at 07:10; Status DC Cefazolin Sodium 1 gm/Sodium Chloride 500 ml @ 500 mls/hr 1X PERIOP ONCE IRR Last administered on 10/03/16 08:28; Start 10/03/16 at 08:00; Stop 10/03/16 at 08:59; Status DC Cefazolin Sodium/ Dextrose (Ancef 2gm Premix) 50 ml @ As Directed STK-MED ONCE IV ; Start 10/03/16 at 07:17; Stop 10/03/16 at 07:18; Status DC Ondansetron HCl (Zofran) 4 mg STK-MED ONCE .ROUTE ; Start 10/03/16 at 08:08; Stop 10/03/16 at 08:09; Status DC Famotidine (Pepcid) 20 mg STK-MED ONCE .ROUTE ; Start 10/03/16 at 08:08; Stop at 08:09; Status DC Phenylephrine HCl 1 mg STK-MED ONCE IV ; Start 10/03/16 at 08:12; Stop 10/03/16 at 08:13; Status DC Fentanyl Citrate (Fentanyl 2ml Vial) 100 mcg STK-MED ONCE .ROUTE ; Start at 08:15; Stop 10/03/16 at 08:16; Status DC Ephedrine Sulfate 50 mg STK-MED ONCE IV ; Start 10/03/16 at 08:39; Stop at 08:40; Status DC Heparin Sodium (Porcine) 10,000 unit STK-MED ONCE .ROUTE ; Start 10/03/16 at 09: 06; Stop 10/03/16 at 11:28; Status DC Desflurane (Suprane) 90 ml STK-MED ONCE IH ; Start 10/03/16 at 09:36; Stop 10/03 at 09:37; Status DC Glycopyrrolate (Robinul) 1 mg STK-MED ONCE .ROUTE ; Start 10/03/16 at 09:55; Stop 10/03/16 at 09:56; Status DC Neostigmine Methylsulfate 5 mg 5 mg STK-MED ONCE .ROUTE ; Start 10/03/16 at 09: 56; Stop 10/03/16 at 09:57; Status DC Propofol (Diprivan) 20 ml @ As Directed STK-MED ONCE IV ; Start 10/03/16 at 10: 07; Stop 10/03/16 at 10:08; Status DC Lidocaine HCl 100 mg 100 mg STK-MED ONCE .ROUTE ; Start 10/03/16 at 10:08; Stop 10/03/16 at 10:09; Status DC Propofol (Diprivan) 20 ml @ As Directed STK-MED ONCE IV ; Start 10/03/16 at 10: 08; Stop 10/03/16 at 10:09; Status DC Glycopyrrolate (Robinul) 1 mg STK-MED ONCE .ROUTE ; Start 10/03/16 at 10:41; Stop 10/03/16 at 10:42; Status DC Morphine Sulfate 2 mg PRN Q2HR PRN IV PAIN Last administered on 10/04/16t 04:56 ; Start 10/03/16 at 11:30 Fentanyl Citrate (Fentanyl 2ml Vial) 100 mcg STK-MED ONCE .ROUTE ; Start at 11:51; Stop 10/03/16 at 11:52; Status DC Ondansetron HCl (Zofran) 4 mg PRN Q6HRS PRN IV Nausea; Start 10/03/16 at 12:15 ; Stop 10/04/16 at 12:14; Status DC Fentanyl Citrate (Fentanyl 2ml Vial) 25 mcg PRN Q5MIN PRN IV MILD PAIN; Start 10/03/16 at 12:15; Stop 10/03/16 at 18:00; Status DC Fentanyl Citrate (Fentanyl 2ml Vial) 50 mcg PRN Q5MIN PRN IV MODERATE PAIN Last administered on 10/03/16 12:37; Start 10/03/16 at 12:15; Stop 10/03/16 at 18:00; Status DC Morphine Sulfate 1 mg PRN Q10MIN PRN IV SEVERE PAIN; Start 10/03/16 at 12:15; Stop 10/03/16 at 18:00; Status DC Hydromorphone HCl (Dilaudid) 0.5 mg PRN Q10MIN PRN IV SEV PAIN,Second choice; Start 10/03/16 at 12:15; Stop 10/03/16 at 18:00; Status DC Prochlorperazine Edisylate 5 mg 5 mg PACU PRN PRN IV NAUSEA Last administered on 10/03/16 12:35; Start 10/03/16 at 12:15; Stop 10/03/16 at 18:00; Status DC Sodium Chloride (Iv Sodium Chloride 0.9% 1000ml Bag) 1,000 ml @ 30 mls/hr Q24H IV Last administered on 10/03/16 19:10; Start 10/03/16 at 12:15 Warfarin Sodium 1 each 1 each PRN DAILY PRN MC SEE COMMENTS Last administered on 10/04/16 06:46; Start 10/04/16 at 06:30 Heparin Sodium/ Dextrose 500 ml @ 0 mls/hr CONT PRN IV SEE I/O RECORD Last administered on 10/04/16 16:59; Start 10/04/16 at 06:45 Warfarin Sodium 7.5 mg 7.5 mg 1X WARF ONCE PO Last administered on 10/04/16 16:26; Start 10/04/16 at 16:00; Stop 10/04/16 at 16:01; Status DC Sodium Chloride (Iv Sodium Chloride 0.9% 1000ml Bag) 1,000 ml @ 1,000 mls/hr Q1H PRN IV hypotension; Start 10/04/16 at 08:30; Stop 10/04/16 at 15:00; Status DC Acetaminophen (Tylenol) 500 mg 1X PRN PRN PO MILD PAIN / TEMP; Start 10/04/16 at 08:15; Stop 10/04/16 at 15:00; Status DC Diphenhydramine HCl (Benadryl) 25 mg 1X PRN PRN IV ITCHING; Start 10/04/16 at 08:15; Stop 10/04/16 at 15:00; Status DC Diphenhydramine HCl (Benadryl) 25 mg 1X PRN PRN IV ITCHING; Start 10/04/16 at 08:15; Stop 10/04/16 at 15:00; Status DC Labetalol HCl 10 mg 10 mg PRN Q1HR PRN IVP SBP > 180; Start 10/04/16 at 08:15; Stop 10/04/16 at 15:00; Status DC Sodium Chloride (Iv Sodium Chloride 0.9% 1000ml Bag) 1,000 ml @ 400 mls/hr Q2H30M PRN IV PATENCY; Start 10/04/16 at 08:30; Stop 10/04/16 at 15:00; Status DC Info (PHARMACY MONITORING -- do not chart) 1 each PRN DAILY PRN MC SEE COMMENTS ; Start 10/04/16 at 08:15; Stop 10/04/16 at 13:12; Status DC Amoxicillin/ Clavulanate Potassium (Augmentin 500/ 125mg) 1 tab DAILY PO Last administered on 10/04/16 16:27; Start 10/04/16 at 14:00 Doxycycline Hyclate 100 mg 100 mg BID PO Last administered on 10/04/16 22:14; Start 10/04/16 at 14:00 Sodium Chloride (Iv Sodium Chloride 0.9% 1000ml Bag) 1,000 ml @ 1,000 mls/hr Q1H PRN IV hypotension; Start 10/05/16 at 08:38; Stop 10/05/16 at 14:37 Info (PHARMACY MONITORING -- do not chart) 1 each PRN DAILY PRN MC SEE COMMENTS ; Start 10/05/16 at 08:45 Info (PHARMACY MONITORING -- do not chart) 1 each PRN DAILY PRN MC SEE COMMENTS ; Start 10/05/16 at 08:45 Active Scripts Active Novolog Flexpen (Insulin Aspart) 100 Unit/1 Ml Insuln.pen 8 Units SQ TIDAC Reported Percocet 10-325 Mg Tablet (Oxycodone/Acetaminophen) 1 Each Tablet 1 Tab PO TID Warfarin Sodium 7.5 Mg Tablet 7.5 Mg PO DAILY [place] Tablet (Folic Acid/Vitamin B Comp W-C) 0.8 Mg Tablet 0.8 Mg PO DAILY Ferric Citrate 210 Mg Tablet 210 Mg PO TID Hydralazine Hcl 50 Mg Tablet 50 Mg PO QID FENTANYL 75mcg/hr (Fentanyl) 1 Each Patch.td72 1 Patch TD Q72H PRN Lantus Solostar (Insulin Glargine,Hum.rec.anlog) 100 Unit/1 Ml Insuln.pen 15 Unit SQ QHS Furosemide 40 Mg Tablet 1 Tab PO BID Tums (Calcium Carbonate) 300 Mg Tab.chew 500 Mg PO QID Losartan Potassium 100 Mg Tablet 100 Mg PO DAILY Atorvastatin Calcium 10 Mg Tablet 10 Mg PO DAILY Sodium Bicarbonate 650 Mg Tablet 1,300 Mg PO TID Amlodipine Besylate 10 Mg Tablet 10 Mg PO DAILY Metoprolol Tartrate 50 Mg Tablet 50 Mg PO BID Vitals/I & O Vital Sign - Last 24 Hours 10/04/16 10/04/16 10/04/16 10/04/16 13:00 14:34 15:49 15:51 Temp 97.9 97.9 Pulse 100 110 100 100 Resp 18 B/P 158/76 158/76 158/76 158/76 Pulse Ox 91 O2 Delivery Room Air 10/04/16 10/04/16 10/04/16 10/04/16 15:53 16:27 17:27 19:00 Temp 97.3 97.3 Pulse 100 94 Resp 18 20 18 B/P 158/76 158/71 Pulse Ox 91 96 O2 Delivery Nasal Cannula Room Air O2 Flow Rate 2.0 10/04/16 10/04/16 10/04/16 10/04/16 20:00 22:14 22:15 22:15 Pulse 94 94 Resp 18 B/P 158/71 158/71 Pulse Ox 96 O2 Delivery Room Air Room Air 10/04/16 10/04/16 10/05/16 23:00 23:15 03:00 Temp 97.5 97.3 97.5 97.3 Pulse 83 85 Resp 18 17 B/P 160/86 179/96 Pulse Ox 94 96 93 O2 Delivery Room Air Room Air Room Air O2 Flow Rate 2.0 Intake and Output 10/04/16 10/04/16 10/05/16 15:00 23:00 07:00 Intake Total 1000 ml 650 ml Output Total 150 ml Balance 850 ml 650 ml CAROLYN AVERY III DO Oct 05, 2016 09:08
[2016-10-05] MEDS: MORPHINE SULFATE 2 MG/ML DISP.SYRIN. IV PRN (09:47)
--- NOTE | 2016-10-05 10:09 | PDOC ---
Provider Note Provider Note POD # 2 Post op rt. arm DRIL and finger amp Lt thigh incision clean, clean rt arm incisions, 2+ graft pulse , warm rt hand Getting dialysis now Imp : Patent bypass rt arm Plan: OK to Dr. Andrea CONN to F/U ~ 2-3 weeks HARLAN REYNOLDS MD Oct 05, 2016 10:09
--- NOTE | 2016-10-05 11:30 | PDOC ---
Renal-Progress Notes Subjective Notes Notes FEELS WELL History of Present Illness Hx of present illness BETTER Vitals Vitals Vital Signs Date Time Temp Pulse Resp B/P Pulse Ox O2 Delivery O2 Flow Rate FiO2 10/05/16 09:47 Room Air 10/05/16 07:00 97.4 82 146/82 99 97.4 10/05/16 03:00 17 10/04/16 23:15 2.0 Weight Weight [ ] I.O. Intake and Output Intake and Output 10/05/16 07:00 Intake Total 1650 ml Output Total 150 ml Balance 1500 ml Intake Oral 1650 ml Output Urine Total 150 ml # Voids 2 # Bowel Movements 2 Labs Labs Laboratory Tests Test 10/04/16 14:08 10/04/16 16:38 10/04/16 22:15 10/05/16 05:00 Glucose (Fingerstick) 102mg/dL (70-99) 133mg/dL (70-99) 73mg/dL (70-99) Prothrombin Time 15.7SEC (11.7-14.0) Prothromb Time International Ratio 1.3 (0.8-1.1) Heparin Anti-Xa Act, Unfractionated < 0.10IU/mL (0.30-0.70) Sodium Level 141mmol/L (136-145) Potassium Level 4.5mmol/L (3.5-5.1) Chloride Level 100mmol/L (98-107) Carbon Dioxide Level 26mmol/L (21-32) Anion Gap 15 (6-14) Blood Urea Nitrogen 25mg/dL (8-26) Creatinine 8.6mg/dL (0.7-1.3) Estimated GFR (Cockcroft-Gault) 6.7 Glucose Level 120mg/dL (70-99) Calcium Level 8.3mg/dL (8.5-10.1) Test 10/05/16 07:34 10/05/16 07:40 Glucose (Fingerstick) 129mg/dL (70-99) White Blood Count 10.5x10^3/uL (4.0-11.0) Red Blood Count 4.77x10^6/uL (4.30-5.70) Hemoglobin 12.6g/dL (13.0-17.5) Hematocrit 40.6% (39.0-53.0) Mean Corpuscular Volume 85fL (79-100) Mean Corpuscular Hemoglobin 27pg (25-35) Mean Corpuscular Hemoglobin Concent 31g/dL (31-37) Red Cell Distribution Width 18.3% (11.5-14.5) Platelet Count 101x10^3/uL (140-400) Neutrophils (%) (Auto) 78% (31-73) Lymphocytes (%) (Auto) 8% (24-48) Monocytes (%) (Auto) 10% (0-9) Eosinophils (%) (Auto) 4% (0-3) Basophils (%) (Auto) 1% (0-3) Neutrophils # (Auto) 8.3x10^3uL (1.8-7.7) Lymphocytes # (Auto) 0.8x10^3/uL (1.0-4.8) Monocytes # (Auto) 1.0x10^3/uL (0.0-1.1) Eosinophils # (Auto) 0.4x10^3/uL (0.0-0.7) Basophils # (Auto) 0.1x10^3/uL (0.0-0.2) Review of Systems Constitutional: yes: alert, weakness Ears/Nose/Throat: Yes: no symptom reported Eyes: Yes: no symptom reported Pulmonary: Yes no symptom reported Cardiovascular: Yes no symptom reported Musculoskeletal: Yes: no symptom reported Physical Exam General Appearance: no apparent distress Skin: warm Respiratory: bilateral CTA Heart: S1S2, RRR Abdomen: soft, bowel sounds present Genitourinary: bladder flat Extremities: pulses present Neurology: alert Assessment Assessment IMP ESRD ANEMIA RIGHT HAND 5TH FINGER GANGRENE S/P DRIL AND FINGER AMP PLAN ANTIBIOTICS HD TODAY UF TO DW NEXT HD FRIDAY D/C OK FROM RENAL STANDPOINT WILL FOLLOW JOCELYN ABURTO MD Oct 05, 2016 11:30
[2016-10-05] MEDS: IV NORMAL SALINE 1000ML BAG 1,000 ML IV SCH (12:15)
[2016-10-05 15:00] VITALS: BP 148/76
[2016-10-05] MEDS ORDERED: WARFARIN 7.5 MG TABLET. PO ONE (16:00)
[2016-10-05] MEDS ORDERED: LOPERAMIDE 2 MG CAPSULE PO PRN (17:00)
[2016-10-05 19:29] VITALS: BP 140/80
[2016-10-05] MEDS: INSULIN DETEMIR 300 UNITS/3 ML INSULN.PEN. SQ SCH (21:00)
[2016-10-05] MEDS: ATORVASTATIN CALCIUM 10 MG TABLET. PO SCH (21:38)
[2016-10-05 22:57] VITALS: BP 136/72
[2016-10-06 02:16] VITALS: BP 120/59
[2016-10-06 04:31] LABS: BASO % 0 % (0-3); EOS % 6 % (0-3); HEMATOCRIT 42.6 % (39.0-53.0); HEMOGLOBIN 13.3 g/dL (13.0-17.5); LYMPH # 1.5 x10^3/uL (1.0-4.8); LYMPH % 13 % (24-48); MEAN CORPUSCULAR HEMOGLOBIN 26 pg (25-35); MEAN CORPUSCULAR HGB CONC 31 g/dL (31-37); MEAN CORPUSCULAR VOLUME 84 fL (79-100); MONO % 10 % (0-9); NEUT % 72 % (31-73); PLATELET COUNT 125 x10^3/uL (140-400); RED BLOOD COUNT 5.06 x10^6/uL (4.30-5.70); RED CELL DISTRIBUTION WIDTH 18.3 % (11.5-14.5); WHITE BLOOD COUNT 12.2 x10^3/uL (4.0-11.0)
[2016-10-06 04:43] LABS: CALCIUM 8.5 mg/dL (8.5-10.1); GFR 8.5; POTASSIUM 4.4 mmol/L (3.5-5.1)
[2016-10-06 06:03] LABS: INR 1.5 (0.8-1.1); PROTHROMBIN TIME PATIENT 16.9 SEC (11.7-14.0)
--- NOTE | 2016-10-06 07:15 | PDOC ---
Provider Note Provider Note POD # 2 2+ graft pulse rt arm, incisions clean Ready for DC HARLAN REYNOLDS MD Oct 06, 2016 07:15
[2016-10-06 07:30] VITALS: BP 147/75
[2016-10-06] MEDS: INSULIN ASPART 300 UNITS/3 ML INSULN.PEN SQ SCH ×4 (07:30→12:00)
[2016-10-06] MEDS: SODIUM BICARBONATE 650 MG TABLET. PO SCH ×2 (08:26→14:00)
[2016-10-06] MEDS: CALCIUM CARBONATE 500 MG TAB.CHEW PO SCH ×2 (08:27→14:31)
[2016-10-06] MEDS: FOLIC/VIT B COMP W-C (RENAL) TABLET. PO SCH (08:27)
[2016-10-06] MEDS: DOXYCYCLINE HYCLATE 100 MG TABLET PO SCH (08:27)
[2016-10-06] MEDS: OXYCODONE/APAP 10/325 TABLET. PO SCH ×2 (08:27→14:27)
[2016-10-06] MEDS: CALCIUM ACETATE 667 MG CAPSULE PO SCH ×2 (08:28→12:00)
[2016-10-06] MEDS: FENTANYL 75MCG/HR PATCH. TD PRN (08:32)
[2016-10-06] MEDS: AMOXICILLIN/K CLAV 500/125MG TABLET. PO SCH (08:32)
[2016-10-06] MEDS: ASPIRIN ENTERIC COATED 81 MG TABLET.DR. PO SCH (08:33)
[2016-10-06] MEDS: METOPROLOL TART IMMED RELEASE 50 MG TABLET PO SCH (08:33)
[2016-10-06] MEDS: FUROSEMIDE 40 MG TABLET PO SCH ×2 (08:33→14:31)
[2016-10-06] MEDS: HYDRALAZINE 50 MG TABLET PO SCH ×2 (08:33→14:30)
[2016-10-06] MEDS: LOSARTAN POTASSIUM 50 MG TABLET. PO SCH (08:33)
[2016-10-06] MEDS: AMLODIPINE BESYLATE 10 MG TABLET PO SCH (08:34)
[2016-10-06 11:00] VITALS: BP 151/46
--- NOTE | 2016-10-06 11:05 | PDOC ---
Renal-Progress Notes Subjective Notes Notes FEELS WELL History of Present Illness Hx of present illness BETTER Vitals Vitals Vital Signs Date Time Temp Pulse Resp B/P Pulse Ox O2 Delivery O2 Flow Rate FiO2 10/06/16 08:34 84 147/75 10/06/16 08:30 Room Air 10/06/16 07:30 98.6 16 94 98.6 10/05/16 22:39 2.0 Weight Weight [ ] I.O. Intake and Output Intake and Output 10/06/16 07:00 Intake Total 1380 ml Output Total 0 ml Balance 1380 ml Intake Oral 1380 ml Output Urine Total 0 ml # Bowel Movements 3 Labs Labs Laboratory Tests Test 10/05/16 16:30 10/05/16 21:20 10/06/16 03:50 10/06/16 07:55 Glucose (Fingerstick) 121mg/dL (70-99) 87mg/dL (70-99) 94mg/dL (70-99) White Blood Count 12.2x10^3/uL (4.0-11.0) Red Blood Count 5.06x10^6/uL (4.30-5.70) Hemoglobin 13.3g/dL (13.0-17.5) Hematocrit 42.6% (39.0-53.0) Mean Corpuscular Volume 84fL (79-100) Mean Corpuscular Hemoglobin 26pg (25-35) Mean Corpuscular Hemoglobin Concent 31g/dL (31-37) Red Cell Distribution Width 18.3% (11.5-14.5) Platelet Count 125x10^3/uL (140-400) Neutrophils (%) (Auto) 72% (31-73) Lymphocytes (%) (Auto) 13% (24-48) Monocytes (%) (Auto) 10% (0-9) Eosinophils (%) (Auto) 6% (0-3) Basophils (%) (Auto) 0% (0-3) Neutrophils # (Auto) 8.7x10^3uL (1.8-7.7) Lymphocytes # (Auto) 1.5x10^3/uL (1.0-4.8) Monocytes # (Auto) 1.2x10^3/uL (0.0-1.1) Eosinophils # (Auto) 0.7x10^3/uL (0.0-0.7) Basophils # (Auto) 0.0x10^3/uL (0.0-0.2) Prothrombin Time 16.9SEC (11.7-14.0) Prothromb Time International Ratio 1.5 (0.8-1.1) Sodium Level 143mmol/L (136-145) Potassium Level 4.4mmol/L (3.5-5.1) Chloride Level 101mmol/L (98-107) Carbon Dioxide Level 29mmol/L (21-32) Anion Gap 13 (6-14) Blood Urea Nitrogen 21mg/dL (8-26) Creatinine 7.0mg/dL (0.7-1.3) Estimated GFR (Cockcroft-Gault) 8.5 Glucose Level 91mg/dL (70-99) Calcium Level 8.5mg/dL (8.5-10.1) Review of Systems Constitutional: yes: alert, weakness Ears/Nose/Throat: Yes: no symptom reported Eyes: Yes: no symptom reported Pulmonary: Yes no symptom reported Cardiovascular: Yes no symptom reported Musculoskeletal: Yes: no symptom reported Physical Exam General Appearance: no apparent distress Skin: warm Respiratory: bilateral CTA Heart: S1S2, RRR Abdomen: soft, bowel sounds present Genitourinary: bladder flat Extremities: pulses present Neurology: alert Assessment Assessment IMP ESRD ANEMIA RIGHT HAND 5TH FINGER GANGRENE S/P DRIL AND FINGER AMP PLAN ANTIBIOTICS NEXT HD FRIDAY D/C OK FROM RENAL STANDPOINT WILL FOLLOW JOCELYN ABURTO MD Oct 06, 2016 11:05
[2016-10-06] MEDS: IV NORMAL SALINE 1000ML BAG 1,000 ML IV SCH (12:15)
[2016-10-06 14:32] VITALS: BP 163/58
[2016-10-06] MEDS ORDERED: WARFARIN 7.5 MG TABLET. PO ONE (16:00)
--- NOTE | 2016-10-07 13:18 | PATHOLOGY ---
PATHOLOGY REPORT * * * * * * * * FINAL DIAGNOSIS: Fifth finger right hand, amputation: - Gangrenous necrosis of distal finger with acute cellulitis and focal acute osteomyelitis. - Skin and subcutaneous tissue of proximal amputation margin viable. (JPM:csd; d/t: 10/07/2016) REPORT ELECTRONICALLY SIGNED BY: Emmanuel Horn M.D. DATE/TIME: 10/07/2016 13:17 * * * * * * * * GROSS PATHOLOGY: The specimen is received in formalin labeled "Ellis Mccormick, right fifth finger". Received is an amputated digit measuring 7.1 x 2.5 x 2.2 cm in greatest dimensions. The bone margin is jagged in appearance. Surgical margin is inked black. The distal half of the specimen is black and necrotic in appearance, which is 1.6 cm from the closest skin margin. The remainder of the skin is pink-riojas to pale riojas and slightly flaky in appearance. A correspondence representative full-thickness cross-section is submitted in cassettes A1 through A3, submitted from proximal to distal aspect, following decalcification. (CAA; 10/04/2016) INITIAL CPT CODE(S): A; 78632, 23668 Professional services performed by [facility] [place] [address] Technical services performed by [facility] at [address] [place] [address], [facility] [address] [address]. SPECIMEN(S) RECEIVED: A.5th finger right hand CLINICAL HISTORY: 5th finger with dry gangrene and stable erythema PATIENT: ELLIS MCCORMICK /AGE: 4 1970 (Age: 45) PATIENT #: [id number] ALT CASE #: SPECIMEN COLLECTION DATE: 10/03/2016 SPECIMEN RECEIVED DATE: 10/03/2016 [facility] - [address] [place] [address] - PHONE: [phone] * * * END OF REPORT * * *
== END 2016-10-06 18:10 | disposition home health service (06) | DRG 252 ==
LOC: INTRAD 06:22 → 5 NORTH 11:25
PROVIDERS: ADMIT Internal Medicine; ATTEND Surgery Vascular Surgery
PROC: B31N1ZZ Fluoroscopy of Other Upper Arteries using Low Osmolar Contrast (ICD-10-PCS; 2016-09-27)
PROC: 0Y6X0Z1 Detachment at Right 5th Toe, High, Open Approach (ICD-10-PCS; 2016-10-03)
PROC: 0317090 Bypass Right Brachial Artery to Right Upper Arm Artery with Autologous Venous Tissue, Open Approach (ICD-10-PCS; principal; 2016-10-03 07:30)
PROC: 06BQ0ZZ Excision of Left Saphenous Vein, Open Approach (ICD-10-PCS; 2016-10-03 07:30)
DX: T82.898A Other specified complication of vascular prosthetic devices, implants and grafts, initial encounter (principal); N18.6 End stage renal disease; E11.52 Type 2 diabetes mellitus with diabetic peripheral angiopathy with gangrene; E44.1 Mild protein-calorie malnutrition; I13.0 Hypertensive heart and chronic kidney disease with heart failure and stage 1 through stage 4 chronic kidney disease, or unspecified chronic kidney disease; L03.011 Cellulitis of right finger; D63.8 Anemia in other chronic diseases classified elsewhere; Z96.659 Presence of unspecified artificial knee joint; E11.22 Type 2 diabetes mellitus with diabetic chronic kidney disease; E66.01 Morbid (severe) obesity due to excess calories; E78.5 Hyperlipidemia, unspecified; E87.5 Hyperkalemia; G47.33 Obstructive sleep apnea (adult) (pediatric); I50.9 Heart failure, unspecified; M10.9 Gout, unspecified; Z79.01 Long term (current) use of anticoagulants; Z79.4 Long term (current) use of insulin; Z68.37 Body mass index [BMI] 37.0-37.9, adult; Z82.49 Family history of ischemic heart disease and other diseases of the circulatory system; Z86.718 Personal history of other venous thrombosis and embolism; Z89.519 Acquired absence of unspecified leg below knee; Z89.612 Acquired absence of left leg above knee; Z99.2 Dependence on renal dialysis; Y83.9 Surgical procedure, unspecified as the cause of abnormal reaction of the patient, or of later complication, without mention of misadventure at the time of the procedure
CPT/HCPCS: 36216; 36415; 75605; 75710; 75774; 76937; 80048; 80069; 80202; 82803; 82947; 85027; 85520; 85610; 85730; 87324; 87641; 88305; 88311; C1713; C1757; C1760; C1769; C1892; C1894; G0269; J0330; J0690; J0780; J1200; J1580; J1815; J2250; J2270; J2370; J2405; J2440; J2543; J2704; J2710; J3010; J3370; J3490; J7030; J7040; J7042; Q0163; S0028; 97530

== ENCOUNTER → 2016-12-02 | Outpatient (CLI) | payer MEDICARE, MEDICAID ==
[2016-11-12 14:40] VITALS: BP 135/70
[~2016-12-02] MED LIST changes: +Calcium Acetate PO; +FENT1PAT19 TD; +FERR210T PO; +FOLI0.8T21 PO; +OXYC-250 PO; +WARF7.5T6 PO
== END | disposition home or self-care (01) ==
LOC: PMGWOUND 13:03
PROVIDERS: ATTEND Emergency Medicine Undersea and Hyperbaric Medicine
DX: T81.31XA Disruption of external operation (surgical) wound, not elsewhere classified, initial encounter (principal); E11.622 Type 2 diabetes mellitus with other skin ulcer; I70.268 Atherosclerosis of native arteries of extremities with gangrene, other extremity; L98.491 Non-pressure chronic ulcer of skin of other sites limited to breakdown of skin; E78.5 Hyperlipidemia, unspecified; I10 Essential (primary) hypertension; Z87.891 Personal history of nicotine dependence; Z89.421 Acquired absence of other right toe(s); Z89.519 Acquired absence of unspecified leg below knee; Y83.8 Other surgical procedures as the cause of abnormal reaction of the patient, or of later complication, without mention of misadventure at the time of the procedure
CPT/HCPCS: 11042; 97605

== ENCOUNTER → 2016-12-09 | Outpatient (CLI) | payer MEDICARE, MEDICAID ==
[2016-11-12 14:40] VITALS: BP 135/70
== END | disposition home or self-care (01) ==
LOC: PMGWOUND 13:53
PROVIDERS: ATTEND Emergency Medicine Undersea and Hyperbaric Medicine
DX: T81.31XA Disruption of external operation (surgical) wound, not elsewhere classified, initial encounter (principal); E11.622 Type 2 diabetes mellitus with other skin ulcer; I70.268 Atherosclerosis of native arteries of extremities with gangrene, other extremity; L98.491 Non-pressure chronic ulcer of skin of other sites limited to breakdown of skin; E78.5 Hyperlipidemia, unspecified; I10 Essential (primary) hypertension; Z87.891 Personal history of nicotine dependence; Y83.8 Other surgical procedures as the cause of abnormal reaction of the patient, or of later complication, without mention of misadventure at the time of the procedure
CPT/HCPCS: 97605

== ENCOUNTER → 2016-12-23 | Outpatient (CLI) | payer MEDICARE, MEDICAID ==
[2016-11-12 14:40] VITALS: BP 135/70
== END | disposition home or self-care (01) ==
LOC: PMGWOUND 12:56
PROVIDERS: ATTEND Emergency Medicine Undersea and Hyperbaric Medicine
DX: T81.31XD Disruption of external operation (surgical) wound, not elsewhere classified, subsequent encounter (principal); E11.622 Type 2 diabetes mellitus with other skin ulcer; L98.491 Non-pressure chronic ulcer of skin of other sites limited to breakdown of skin; I70.268 Atherosclerosis of native arteries of extremities with gangrene, other extremity; E78.5 Hyperlipidemia, unspecified; E11.22 Type 2 diabetes mellitus with diabetic chronic kidney disease; I13.2 Hypertensive heart and chronic kidney disease with heart failure and with stage 5 chronic kidney disease, or end stage renal disease; I50.32 Chronic diastolic (congestive) heart failure; N18.6 End stage renal disease; E21.3 Hyperparathyroidism, unspecified; E11.52 Type 2 diabetes mellitus with diabetic peripheral angiopathy with gangrene; E11.65 Type 2 diabetes mellitus with hyperglycemia; Z99.2 Dependence on renal dialysis; Z89.512 Acquired absence of left leg below knee; Z89.421 Acquired absence of other right toe(s); Z89.021 Acquired absence of right finger(s); Z87.891 Personal history of nicotine dependence; Z86.718 Personal history of other venous thrombosis and embolism; Y83.8 Other surgical procedures as the cause of abnormal reaction of the patient, or of later complication, without mention of misadventure at the time of the procedure
CPT/HCPCS: 97597

== ENCOUNTER → 2016-12-30 | Outpatient (CLI) | payer MEDICARE, MEDICAID ==
[2016-11-12 14:40] VITALS: BP 135/70
[~2016-12-30] MED LIST changes: +CLIN300C8 PO; -CLIN300C86 PO; -OXYC-250 PO; +OXYC-328 PO
== END | disposition home or self-care (01) ==
LOC: PMGWOUND 11:54
PROVIDERS: ATTEND Emergency Medicine Undersea and Hyperbaric Medicine
DX: T81.31XA Disruption of external operation (surgical) wound, not elsewhere classified, initial encounter (principal); I70.268 Atherosclerosis of native arteries of extremities with gangrene, other extremity; E11.622 Type 2 diabetes mellitus with other skin ulcer; L98.492 Non-pressure chronic ulcer of skin of other sites with fat layer exposed; E78.5 Hyperlipidemia, unspecified; I10 Essential (primary) hypertension; Z87.891 Personal history of nicotine dependence; Z89.519 Acquired absence of unspecified leg below knee; Z89.431 Acquired absence of right foot; Z89.022 Acquired absence of left finger(s); Y83.8 Other surgical procedures as the cause of abnormal reaction of the patient, or of later complication, without mention of misadventure at the time of the procedure
CPT/HCPCS: 97597

== ENCOUNTER → 2017-01-06 | Outpatient (CLI) | payer MEDICARE, MEDICAID ==
[2016-11-12 14:40] VITALS: BP 135/70
== END | disposition home or self-care (01) ==
LOC: PMGWOUND 12:30
PROVIDERS: ATTEND Emergency Medicine Undersea and Hyperbaric Medicine
DX: T81.31XD Disruption of external operation (surgical) wound, not elsewhere classified, subsequent encounter (principal); I70.238 Atherosclerosis of native arteries of right leg with ulceration of other part of lower leg; L98.492 Non-pressure chronic ulcer of skin of other sites with fat layer exposed; E78.5 Hyperlipidemia, unspecified; E21.3 Hyperparathyroidism, unspecified; E11.52 Type 2 diabetes mellitus with diabetic peripheral angiopathy with gangrene; E11.22 Type 2 diabetes mellitus with diabetic chronic kidney disease; I13.2 Hypertensive heart and chronic kidney disease with heart failure and with stage 5 chronic kidney disease, or end stage renal disease; N18.6 End stage renal disease; I50.32 Chronic diastolic (congestive) heart failure; Z99.2 Dependence on renal dialysis; Z89.021 Acquired absence of right finger(s); Z89.022 Acquired absence of left finger(s); Z89.512 Acquired absence of left leg below knee; Z89.431 Acquired absence of right foot; Z87.891 Personal history of nicotine dependence; Z86.718 Personal history of other venous thrombosis and embolism; Z79.01 Long term (current) use of anticoagulants; Y83.8 Other surgical procedures as the cause of abnormal reaction of the patient, or of later complication, without mention of misadventure at the time of the procedure
CPT/HCPCS: 99214

== ENCOUNTER → 2017-01-20 | Outpatient (CLI) | payer MEDICARE, MEDICAID ==
[2016-11-12 14:40] VITALS: BP 135/70
== END | disposition home or self-care (01) ==
LOC: PMGWOUND 11:20
PROVIDERS: ATTEND Emergency Medicine Undersea and Hyperbaric Medicine
DX: T87.89 Other complications of amputation stump (principal); E11.52 Type 2 diabetes mellitus with diabetic peripheral angiopathy with gangrene; E11.22 Type 2 diabetes mellitus with diabetic chronic kidney disease; I13.2 Hypertensive heart and chronic kidney disease with heart failure and with stage 5 chronic kidney disease, or end stage renal disease; N18.6 End stage renal disease; I50.32 Chronic diastolic (congestive) heart failure; E78.5 Hyperlipidemia, unspecified; E21.3 Hyperparathyroidism, unspecified; I70.268 Atherosclerosis of native arteries of extremities with gangrene, other extremity; Z87.891 Personal history of nicotine dependence; Z86.718 Personal history of other venous thrombosis and embolism; Z79.01 Long term (current) use of anticoagulants; Z89.022 Acquired absence of left finger(s); Z89.431 Acquired absence of right foot; Z89.512 Acquired absence of left leg below knee; Y83.5 Amputation of limb(s) as the cause of abnormal reaction of the patient, or of later complication, without mention of misadventure at the time of the procedure
CPT/HCPCS: 97597

== ENCOUNTER → 2017-02-03 | Outpatient (CLI) | payer MEDICARE, MEDICAID ==
[2016-11-12 14:40] VITALS: BP 135/70
== END | disposition home or self-care (01) ==
LOC: PMGWOUND 10:41
PROVIDERS: ATTEND Emergency Medicine Undersea and Hyperbaric Medicine
DX: I70.268 Atherosclerosis of native arteries of extremities with gangrene, other extremity (principal); E78.5 Hyperlipidemia, unspecified; E21.3 Hyperparathyroidism, unspecified; E11.52 Type 2 diabetes mellitus with diabetic peripheral angiopathy with gangrene; E11.22 Type 2 diabetes mellitus with diabetic chronic kidney disease; I13.2 Hypertensive heart and chronic kidney disease with heart failure and with stage 5 chronic kidney disease, or end stage renal disease; N18.6 End stage renal disease; I50.32 Chronic diastolic (congestive) heart failure; Z86.718 Personal history of other venous thrombosis and embolism; Z79.01 Long term (current) use of anticoagulants; Z87.891 Personal history of nicotine dependence; Z89.021 Acquired absence of right finger(s); Z89.022 Acquired absence of left finger(s); Z89.431 Acquired absence of right foot; Z89.512 Acquired absence of left leg below knee; Z99.2 Dependence on renal dialysis
CPT/HCPCS: 99213

== ENCOUNTER 2017-04-15 16:10 | Emergency (ER) | payer MEDICAID, MEDICARE ==
[~2017-04-15] VITALS: Ht 191.8 cm; Wt 120.7 kg
--- NOTE | 2017-04-15 16:53 | EKG ---
[facility] [address] [place] [address] Test Date: 2017-04-15 Test Time: 16:47:10 Pat Name: JADA MCCORMICK Department: Room: Gender: M [employer] Architect: SAMIRA : 1970 Requested By: LEV WATKINS Order Number: [id number] Reading MD: Measurements Intervals [place] Rate: 82 P: 27 VT: 150 QRS: -43 QRSD: 80 T: 38 QT: 394 QTc: 464 Interpretive Statements SINUS RHYTHM ABNORMAL LEFT AXIS DEVIATION QRS(T) CONTOUR ABNORMALITY CONSISTENT WITH INFERIOR INFARCT PROBABLY OLD RI6.01 Unconfirmed report Compared to ECG 02/29/2016 20:44:12 Left-axis deviation now present Sinus tachycardia no longer present Myocardial infarct finding still present
[2017-04-15 17:14] LABS: BASO % 0 % (0-3); EOS % 3 % (0-3); HEMATOCRIT 43.2 % (39.0-53.0); HEMOGLOBIN 14.2 g/dL (13.0-17.5); LYMPH # 1.7 x10^3/uL (1.0-4.8); LYMPH % 20 % (24-48); MEAN CORPUSCULAR HEMOGLOBIN 28 pg (25-35); MEAN CORPUSCULAR HGB CONC 33 g/dL (31-37); MEAN CORPUSCULAR VOLUME 85 fL (79-100); MONO % 10 % (0-9); NEUT % 66 % (31-73); PLATELET COUNT 150 x10^3/uL (140-400); RED BLOOD COUNT 5.08 x10^6/uL (4.30-5.70); RED CELL DISTRIBUTION WIDTH 17.3 % (11.5-14.5); WHITE BLOOD COUNT 8.5 x10^3/uL (4.0-11.0)
[2017-04-15 17:17] LABS: CALCIUM 7.1 mg/dL (8.5-10.1); CREATININE 14.2 mg/dL (0.7-1.3); GFR 3.7; POTASSIUM 4.5 mmol/L (3.5-5.1)
[2017-04-15 17:23] LABS: ALBUMIN/GLOBULIN RATIO 0.8 (1.0-1.7); TOTAL BILIRUBIN 0.3 mg/dL (0.2-1.0); TOTAL PROTEIN 6.7 g/dL (6.4-8.2)
[2017-04-15 18:01] VITALS: BP 204/93
--- NOTE | 2017-04-15 18:03 | ED.ADGEN ---
Past Medical History Past Medical History: Diabetes-Type II, High Cholesterol, Hypertension, Renal Failure Additional Past Medical Histor: peritoneal dialysis Past Surgical History: Hip Replacement, Knee Replacement, Other Additional Past Surgical Histo: LBKA, kidney biopsy, renal stent; right dialysis fistula Alcohol Use: None Drug Use: None Adult General Chief Complaint Chief Complaint: DIALYSIS PROBLEM HPI HPI Patient is a 46 year old woman, history of end-stage all disease on hemodialysis via a right upper extremity AV fistula, due to hypertension, type 2 diabetes mellitus, also status post a left BKA, who presents to the emergency department with a complaint of malfunction of the fistula. Patient states that he had a full dialysis session performed on Friday, as regularly scheduled. He states that today he presented for dialysis but they were unable to access his fistula. He was initially sent home with plan to follow-up with the axis on her today, was then called and told to come to the ED as they were unable to get into the access center today. He denies any chest pain, shortness breath, nausea, vomiting, weakness, numbness, tingling or other complaints. Denies any injuries or pain to the fistula site. Patient noted to be hypertensive upon arrival to the ED, states he has not yet taken his evening medications but has all medications at home. 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 Carmichael. Review of Systems Review of Systems Constitutional: Denies fever or chills. [] Eyes: Denies change in visual acuity. [] HENT: Denies nasal congestion or sore throat. [] Respiratory: Denies cough or shortness of breath. [] Cardiovascular: Denies chest pain or edema. [] GI: Denies abdominal pain, nausea, vomiting, bloody stools or diarrhea. [] : Denies dysuria. [] Musculoskeletal: Denies back pain or joint pain. [] Integument: Denies rash. [] Neurologic: Denies headache, focal weakness or sensory changes. [] Endocrine: Denies polyuria or polydipsia. [] Lymphatic: Denies swollen glands. [] Psychiatric: Denies depression or anxiety. [] Ability to use AV fistula site, no other complaints. Allergies Allergies Allergies Coded Allergies Type Severity Reaction Last Updated Verified clarithromycin Allergy Intermediate 04/15/17 Yes levofloxacin Allergy Intermediate 04/15/17 Yes Physical Exam Physical Exam Constitutional: Well developed, well nourished, no acute distress, non-toxic appearance. [] HENT: Normocephalic, atraumatic, bilateral external ears normal, oropharynx moist, no oral exudates, nose normal. [] Eyes: PERRLA, EOMI, conjunctiva normal, no discharge. [] Neck: Normal range of motion, no tenderness, supple, no stridor. [] Cardiovascular:Heart rate regular rhythm, no murmur, S1, S2, rubs or gallops. [] Lungs & Thorax: Bilateral breath sounds clear to auscultation, no wheezing, rhonchi, rales. No chest or crepitus or tenderness. [] Abdomen: Bowel sounds normal, soft, obese, no rebound, rigidity, no guarding, no tenderness, no masses, no pulsatile masses. [] Skin: Warm, dry, no erythema, no rash. [] Back: No tenderness, no CVA tenderness. [] Extremities: No tenderness, patient with right upper extremity AV fistula, thrill is noted, site is clean dry and intact, no significant swelling or other concerning findings noted, pulses are intact bilaterally. No cyanosis, no clubbing, ROM intact, no edema. [] Neurologic: Alert and oriented X 3, normal motor function, normal sensory function, no focal deficits noted. [] Psychologic: Affect normal, judgement normal, mood normal. [] Current Patient Data Vital Signs Vital Signs Date Time Temp Pulse Resp B/P (MAP) Pulse Ox O2 Delivery O2 Flow Rate FiO2 04/15/17 16:15 98.2 91 20 192/92 (125) 98 Room Air 98.2 Lab Values Laboratory Tests Test 04/15/17 17:00 White Blood Count 8.5 x10^3/uL (4.0-11.0) Red Blood Count 5.08 x10^6/uL (4.30-5.70) Hemoglobin 14.2 g/dL (13.0-17.5) Hematocrit 43.2 % (39.0-53.0) Mean Corpuscular Volume 85 fL (79-100) Mean Corpuscular Hemoglobin 28 pg (25-35) Mean Corpuscular Hemoglobin Concent 33 g/dL (31-37) Red Cell Distribution Width 17.3 % (11.5-14.5) H Platelet Count 150 x10^3/uL (140-400) Neutrophils (%) (Auto) 66 % (31-73) Lymphocytes (%) (Auto) 20 % (24-48) L Monocytes (%) (Auto) 10 % (0-9) H Eosinophils (%) (Auto) 3 % (0-3) Basophils (%) (Auto) 0 % (0-3) Neutrophils # (Auto) 5.7 x10^3uL (1.8-7.7) Lymphocytes # (Auto) 1.7 x10^3/uL (1.0-4.8) Monocytes # (Auto) 0.9 x10^3/uL (0.0-1.1) Eosinophils # (Auto) 0.3 x10^3/uL (0.0-0.7) Basophils # (Auto) 0.0 x10^3/uL (0.0-0.2) Sodium Level 144 mmol/L (136-145) Potassium Level 4.5 mmol/L (3.5-5.1) Chloride Level 102 mmol/L (98-107) Carbon Dioxide Level 29 mmol/L (21-32) Anion Gap 13 (6-14) Blood Urea Nitrogen 57 mg/dL (8-26) H Creatinine 14.2 mg/dL (0.7-1.3) H Estimated GFR (Cockcroft-Gault) 3.7 BUN/Creatinine Ratio 4 (6-20) L Glucose Level 104 mg/dL (70-99) H Calcium Level 7.1 mg/dL (8.5-10.1) L Total Bilirubin 0.3 mg/dL (0.2-1.0) Aspartate Amino Transferase (AST) 14 U/L (15-37) L Alanine Aminotransferase (ALT) 13 U/L (16-63) L Alkaline Phosphatase 139 U/L (46-116) H Total Protein 6.7 g/dL (6.4-8.2) Albumin 3.0 g/dL (3.4-5.0) L Albumin/Globulin Ratio 0.8 (1.0-1.7) L Laboratory Tests 04/15/17 17:00 Laboratory Tests 04/15/17 17:00 EKG EKG EC: Sinus rhythm, heart rate 80 beats/minute, left axis deviation, contour normality is noted in the inferior leads, consistent with likely previous infarct, QTC of 464, PA 150, QRS of 80, no ST elevations or depressions noted, abnormal ECG, does not meet STEMI criteria. As interpreted by me. Radiology/Procedures Radiology/Procedures Not indicated.[] Course & Med Decision Making Course & Med Decision Making Pertinent Labs and Imaging studies reviewed. (See chart for details) Patient well-appearing, with no complaints, right upper extremity AV fistula noted, patient with thrill noted, no evidence of external abdomen normality is identified. Patient states that he had a similar episode occur in July, was seen at the access Center, and had the blockage in his graft cleared as an using the graft issue since that time. No evidence of fluid overload and examination, although patient is hypertensive the stated, he states he is not taking any medications which she does have at home. No other complaints. ECG was unremarkable, laboratory studies revealed potassium of 4.5, without any other concerning findings. I did discuss patient's examination, history, and findings as above with Dr. Stephenson of nephrology, as there is no indication for emergent dialysis he requests the eye speak with the interventional radiologist on-call to arrange for the patient be seen in the dialysis Access Center tomorrow, to arrange for prompt evaluation of his AV fistula. I spoke with Dr. Byrne, who was on-call for interventional radiology, he took the patient's information and states that he will message the access Center with a plan for them to contact the patient in the morning to arrange for prompt follow-up. Patient also instructed to contact the access Center at [phone] if he has not been contacted by 10 AM. Patient was also given clear and detailed return instructions which would prompt his return to the ED for additional evaluation. Patient voiced understanding and agreement with plan as stated, he is resting comfortably at this time, as stated has medications at home, instructed take his home medications for his blood pressure and return to the ED for any concerning symptoms as discussed. Patient discharged home with plan and precautions as above. Dragon Disclaimer Dragon Disclaimer This electronic medical record was generated, in whole or in part, using a voice recognition dictation system. Departure Impression: Primary Impression: AV fistula occlusion Disposition: 01 HOME, SELF-CARE Condition: STABLE LEV WATKINS DO Apr 15, 2017 18:03
== END 2017-04-15 18:30 | disposition home or self-care (01) ==
LOC: ER 16:10
DX: T82.590A Other mechanical complication of surgically created arteriovenous fistula, initial encounter (principal); E78.00 Pure hypercholesterolemia, unspecified; I12.0 Hypertensive chronic kidney disease with stage 5 chronic kidney disease or end stage renal disease; E11.22 Type 2 diabetes mellitus with diabetic chronic kidney disease; N18.6 End stage renal disease; Z99.2 Dependence on renal dialysis; Z96.649 Presence of unspecified artificial hip joint; Z96.652 Presence of left artificial knee joint; Z88.1 Allergy status to other antibiotic agents; Y84.1 Kidney dialysis as the cause of abnormal reaction of the patient, or of later complication, without mention of misadventure at the time of the procedure; Y92.89 Other specified places as the place of occurrence of the external cause
CPT/HCPCS: 36415; 80053; 85025; 93005; 99285-25

== ENCOUNTER 2017-04-18 06:47 | Outpatient (CLI) | payer MEDICARE ==
[2017-04-18] VITALS (8 sets, daily range): BP systolic 93–133; BP diastolic 55–76
[~2017-04-18] VITALS: Ht 190.5 cm; Wt 120.7 kg
[~2017-04-18 06:47] MED LIST changes: -METO50TA2 PO; +METO50TA6 PO
[2017-04-18 07:38] LABS: BASO % 0 % (0-3); EOS % 4 % (0-3); HEMATOCRIT 50.2 % (39.0-53.0); LYMPH # 1.1 x10^3/uL (1.0-4.8); LYMPH % 17 % (24-48); MEAN CORPUSCULAR HEMOGLOBIN 28 pg (25-35); MEAN CORPUSCULAR HGB CONC 32 g/dL (31-37); MEAN CORPUSCULAR VOLUME 87 fL (79-100); MONO % 12 % (0-9); NEUT % 67 % (31-73); PLATELET COUNT 157 x10^3/uL (140-400); RED BLOOD COUNT 5.79 x10^6/uL (4.30-5.70); RED CELL DISTRIBUTION WIDTH 17.3 % (11.5-14.5); WHITE BLOOD COUNT 6.7 x10^3/uL (4.0-11.0)
[2017-04-18 07:42] LABS: INR 1.7 (0.8-1.1)
[2017-04-18 07:51] LABS: CREATININE 9.5 mg/dL (0.7-1.3); GFR 5.9
[2017-04-18] MEDS ORDERED: IODIXANOL 320 MG/ML 100 ML VIAL. ONE (07:54)
[2017-04-18] MEDS ORDERED: LIDOCAINE 1% / SOD BICARB 8.4% 20 ML VIAL. IJ ONE ×2 (07:54→08:30)
[2017-04-18] MEDS ORDERED: MIDAZOLAM HCL/PF 2 MG/2 ML VIAL. ONE (08:12)
[2017-04-18] MEDS ORDERED: fentaNYL PF VIAL 100 MCG/2 ML VIAL ONE (08:12)
[2017-04-18] MEDS ORDERED: fentaNYL PF VIAL 100 MCG/2 ML VIAL IV ONE (08:30)
[2017-04-18] MEDS ORDERED: MIDAZOLAM HCL/PF 2 MG/2 ML VIAL. IV ONE (08:30)
[2017-04-18] MEDS ORDERED: IODIXANOL 320 MG/ML 100 ML VIAL. IART ONE (08:30)
[2017-04-18] MEDS ORDERED: HEPARIN for IV BOLUS 10,000 UNIT/10 ML VIAL. ONE (08:40)
[2017-04-18] MEDS ORDERED: CONTRAST GIVEN MC PRN (08:45)
[2017-04-18] MEDS ORDERED: HEPARIN for IV BOLUS 10,000 UNIT/10 ML VIAL. IV ONE (09:00)
--- NOTE | 2017-04-18 12:44 | RAD ---
04/18/2017 1. Right upper extremity fistulogram 2. 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 Angioplasty outflow venous stenosis Discussion: The patient is a 46-year-old male with poor flows at dialysis from his right upper extremity AV fistula. Patient has a brachial to basilic fistula, and has gone undergone subsequent DRIL procedure, and prior stenting of outflow vein stenosis. The risks and benefits of the procedure were discussed the patient. Informed consent was obtained. Timeout procedure was performed. The right upper extremity and right groin were prepped and draped using maximum sterile barrier technique. All elements of maximal sterile barrier technique including the use of a cap, mask, sterile gown, sterile gloves, large sterile sheet, appropriate hand hygiene, and 2% chlorhexidine for cutaneous antisepsis (or acceptable alternative antiseptic per current guidelines) were followed for this procedure. Using ultrasound guidance the right upper extremity fistula was accessed using micropuncture technique. Reference ultrasound images were saved the medical record. A 5 Amharic vascular sheath was placed. Fistulogram was were performed demonstrating mild outflow vein stenosis just central to the previously stented portion of the outflow vein. Proximal fistula and arterial anastomosis are widely patent. Expected changes following DRIL procedure noted. 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 Multiple large collaterals were seen. The patient primarily decompresses through the patent left brachiocephalic vein. Attempts were made to traverse the chronic occlusion from the right arm approach which were ultimately unsuccessful. Therefore venous access was also achieved at the right common femoral vein again with the use of ultrasound guidance. Reference ultrasound images were saved medical record. A sheath was advanced centrally into the superior vena cava. Venograms were obtained simultaneously from the arm and groin, delineating the degree in length of stenosis. This lesion was traversed with an angled Glidewire and Meraz catheter. Dilatation was performed with an 8 mm balloon. The stenosis was stented with a 12 mm x 30 mm self-expanding stent. The stent was postdilated to 12 mm. Brisk flow was noted through the stent, as well as absence of the previously visualized collaterals. Angioplasty was then performed of the outflow vein stenosis with an 8 mm balloon which improved morphology and flow through this lesion as well. All wires catheters and sheaths were removed and manual pressure held to achieve hemostasis. Appreciate suture was applied at the right upper extremity access site. Sterile dressings were applied. No immediate complications were identified. Fluoroscopy time 22.4 minutes Dose area product 216 james centimeters squared The procedures performed conscious sedation including continuous cardiopulmonary monitoring via dedicated sedation nurse. 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 Moderate venous outflow stenosis successfully treated with balloon angioplasty
== END 2017-04-18 12:30 | disposition home or self-care (01) ==
LOC: INTRAD 06:47
PROVIDERS: ATTEND Internal Medicine Infectious Disease
DX: I12.0 Hypertensive chronic kidney disease with stage 5 chronic kidney disease or end stage renal disease (principal); E11.22 Type 2 diabetes mellitus with diabetic chronic kidney disease; N18.6 End stage renal disease; Z99.2 Dependence on renal dialysis; E66.9 Obesity, unspecified; Z68.33 Body mass index [BMI] 33.0-33.9, adult; E78.00 Pure hypercholesterolemia, unspecified; I73.9 Peripheral vascular disease, unspecified; E11.9 Type 2 diabetes mellitus without complications; Z87.39 Personal history of other diseases of the musculoskeletal system and connective tissue; Z86.39 Personal history of other endocrine, nutritional and metabolic disease; Z96.651 Presence of right artificial knee joint; Z86.14 Personal history of Methicillin resistant Staphylococcus aureus infection; Z88.1 Allergy status to other antibiotic agents
CPT/HCPCS: 36415; 36903; 76937; 80048; 85025; 85610; 99152; 99153; C1725; C1769; C1892; C1894; J1644; J2250; J3010; Q9967; 36902